=== PATIENT | female | born 1985 | race Caucasian/White ===

== ENCOUNTER 2017-05-22 21:03 | Emergency (ER) | payer OTHER ==
[~2017-05-22] VITALS: Ht 165.1 cm; Wt 80.0 kg
[~2017-05-22 21:03] MED LIST: BACT800T5 PO; BENZ0.5T PO; BUSP5TAB3 PO; HALO5 PO; HYDR50CA PO; IBUP800 PO; PRIS50TA PO; ZITH250T PO; ZITHTAB PO
[2017-05-22 22:00] VITALS: BP 131/70; PULSE 78; RESP 18; TEMP 98; O2SAT 98
--- NOTE | 2017-05-22 22:54 | PD ---
HPI Chief Complaint: Psychiatric Symptoms Time Seen by Provider: 22:36 Travel History International Travel<30 days: No Contact w/Intl Traveler<30days: No Traveled to known affect area: No History of Present Illness HPI This is a 32 year old female who presents to the emergency department with a history of schizoaffective disorder who was placed under a Sampson Act because her mother reports that she said she was going to light herself on fire. The patient adamantly denies that. She denies any thoughts of hurting herself or others. She doesn't want to be here. She does acknowledge that she has been out of her medications for 2 days. PFSH Past Medical History Asthma: Yes Bipolar Disorder: Yes Anxiety: Yes Depression: Yes Cancer: No Cardiovascular Problems: No Chest Pain: Yes ("WITH ANXIETY") Cerebrovascular Accident: Yes ("MINI", PER MOTHER.) Diabetes: No Diminished Hearing: No Endocrine: Yes Gastrointestinal Disorders: No Genitourinary: No Headaches: No Immune Disorder: No Implanted Vascular Access Dvce: No Musculoskeletal: No Neurologic: Yes (TBI when 16) Psychiatric: Yes Reproductive: No Respiratory: Yes Immunizations Current: Yes Schizophrenia: Yes Seizures: No Sickle Cell Disease: No Sleep Apnea: No Thyroid Disease: Yes (HYPOTHYROID) Tetanus Vaccination: > 5 Years Influenza Vaccination: No ?: Not LMP: 05/12/17 Menopausal: No : 1 Para: 0 Miscarriage: 1 Past Surgical History AICD: No Body Medical Devices: NONE Insulin Pump: No Joint Replacement: No Neurologic Surgery: No Oral Surgery: Yes Pacemaker: No Tonsillectomy: Yes Other Surgery: Yes (brain surgery- traumatic brain injury when 16) Social History Alcohol Use: No Tobacco Use: Yes (1-2 PPW) Substance Use: No Allergies-Medications (Allergen,Severity, Reaction): Coded Allergies: codeine (Verified Allergy, Severe, RASH/SHOB, 05/22/17) escitalopram (Verified Allergy, Severe, UNKNOWN REACTION, 05/22/17) penicillin G (Verified Allergy, Severe, UNKNOWN REACTION, 05/22/17) temazepam (Verified Allergy, Severe, Shortness of Breath and Hives, 05/22/17 ) sulfamethoxazole (Verified Allergy, Intermediate, 05/22/17) trimethoprim (Verified Allergy, Intermediate, 05/22/17) clindamycin (Verified Adverse Reaction, Intermediate, 05/22/17) PER MOM aripiprazole (Verified Adverse Reaction, Unknown, 05/22/17) Per patient's mother - Fatou [facility] [phone]. quetiapine (Verified Adverse Reaction, Unknown, 05/22/17) Per patient's mother - Fatou [facility] [phone]. Reported Meds & Prescriptions Reported Meds & Active Scripts Active Active Prescriptions or Reported Medications Unobtainable Review of Systems Except as stated in HPI: all other systems reviewed are Neg Physical Exam Narrative GENERAL:Well appearing, no acute distress SKIN: Focused skin assessment warm and dry. HEAD: Atraumatic. Normocephalic. EYES: Pupils equal and round. No injection or drainage. ENT: Moist mucous membranes NECK: Trachea midline. CARDIOVASCULAR: Regular rate and rhythm. No murmur appreciated. RESPIRATORY: Clear to auscultation. Breath sounds equal bilaterally. GASTROINTESTINAL: Abdomen soft, non-tender, nondistended. MUSCULOSKELETAL: No obvious deformities. NEUROLOGICAL: Awake and alert. No obvious cranial nerve deficits. Moving all extremities. PSYCHIATRIC: Appropriate mood and affect; insight and judgment normal. Data Data Last Documented VS Vital Signs Date Time Temp Pulse Resp B/P (MAP) Pulse Ox O2 Delivery O2 Flow Rate FiO2 05/23/17 00:33 70 18 128/70 (89) 99 Room Air 05/22/17 22:00 98.0 Orders Orders Complete Blood Count With Diff (05/22/17 22:57) Comprehensive Metabolic Panel (05/22/17 22:57) Drug Screen, Random Urine (05/22/17 22:57) Alcohol (Ethanol) (05/22/17 22:57) Psych Screen (05/23/17 00:28) Labs Laboratory Tests Test 05/22/17 23:26 White Blood Count 8.6 TH/MM3 Red Blood Count 4.71 MIL/MM3 Hemoglobin 12.9 GM/DL Hematocrit 39.2 % Mean Corpuscular Volume 83.3 FL Mean Corpuscular Hemoglobin 27.5 PG Mean Corpuscular Hemoglobin Concent 33.0 % Red Cell Distribution Width 13.9 % Platelet Count 299 TH/MM3 Mean Platelet Volume 7.1 FL Neutrophils (%) (Auto) 52.4 % Lymphocytes (%) (Auto) 36.5 % Monocytes (%) (Auto) 8.4 % Eosinophils (%) (Auto) 1.7 % Basophils (%) (Auto) 1.0 % Neutrophils # (Auto) 4.5 TH/MM3 Lymphocytes # (Auto) 3.1 TH/MM3 Monocytes # (Auto) 0.7 TH/MM3 Eosinophils # (Auto) 0.1 TH/MM3 Basophils # (Auto) 0.1 TH/MM3 CBC Comment DIFF FINAL Differential Comment Blood Urea Nitrogen 11 MG/DL Creatinine 0.84 MG/DL Random Glucose 94 MG/DL Total Protein 7.1 GM/DL Albumin 3.7 GM/DL Calcium Level 9.0 MG/DL Alkaline Phosphatase 117 U/L Aspartate Amino Transf (AST/SGOT) 16 U/L Alanine Aminotransferase (ALT/SGPT) 30 U/L Total Bilirubin 0.3 MG/DL Sodium Level 141 MEQ/L Potassium Level 3.7 MEQ/L Chloride Level 106 MEQ/L Carbon Dioxide Level 28.2 MEQ/L Anion Gap 7 MEQ/L Estimat Glomerular Filtration Rate 79 ML/MIN Urine Opiates Screen NEG Urine Barbiturates Screen NEG Urine Amphetamines Screen NEG Urine Benzodiazepines Screen NEG Urine Cocaine Screen NEG Urine Cannabinoids Screen NEG Ethyl Alcohol Level LESS THAN 3 MG/DL MDM Medical Decision Making Medical Screen Exam Complete: Yes Emergency Medical Condition: Yes Interpretation(s) Afebrile, no tachycardia, normotensive No leukocytosis Electrolytes are reassuring Drug screen is negative Alcohols negative Differential Diagnosis Depression, adjustment reaction, traumatic brain injury Narrative Course This is a 32-year-old female who presents to the emergency department having reportedly told her mom that she was going to burn herself. She's been off of her psychiatric medicines for 2 weeks. I tried to call the patient's mother but she didn't answer. The patient denies any suicidal ideation and appears quite well. I think she can probably go home in the morning after psychiatric evaluation, but we should corroborate what exactly happened with her mother. Scripts Unable to Obtain Active Prescriptions or Reported Meds Brenda Azul MD May 22, 2017 22:54
[2017-05-22 23:43] LABS: AUTOMATED NEUTROPHIL # 4.5 TH/MM3 (1.8-7.7); BASOPHIL # 0.1 TH/MM3 (0-0.2); EOSINOPHIL # 0.1 TH/MM3 (0-0.4); EOSINOPHIL % 1.7 % (0.0-4.0); HEMATOCRIT 39.2 % (35.0-46.0); HEMO FLAGS DIFF FINAL; LYMPH % 36.5 % (9.0-44.0); LYMPHOCYTE # 3.1 TH/MM3 (1.0-4.8); MEAN CELL VOLUME 83.3 FL (80.0-100.0); MEAN CORPUSCULAR HEMOGLOBIN 27.5 PG (27.0-34.0); MONO % 8.4 % (0.0-8.0); NEUT % 52.4 % (16.0-70.0); PLATELET COUNT 299 TH/MM3 (150-450); RED BLOOD COUNT 4.71 MIL/MM3 (4.00-5.30); RED CELL DISTRIBUTION WIDTH 13.9 % (11.6-17.2); WHITE BLOOD COUNT 8.6 TH/MM3 (4.0-11.0)
[2017-05-23 00:24] LABS: ALKALINE PHOSPHATASE 117 U/L (45-117); ALT (GPT) 30 U/L (10-53); AST (GOT) 16 U/L (15-37); BLOOD UREA NITROGEN 11 MG/DL (7-18); GLOMERULAR FILTRATION RATE 79 ML/MIN (>89); SODIUM (NA) 141 MEQ/L (136-145); TOTAL BILIRUBIN ADULT 0.3 MG/DL (0.2-1.0)
[2017-05-23 00:25] LABS: ALCOHOL LESS THAN 3 MG/DL (0-5); ANION GAP 7 MEQ/L (5-15); BICARBONATE 28.2 MEQ/L (21.0-32.0); CHLORIDE 106 MEQ/L (98-107); POTASSIUM 3.7 MEQ/L (3.5-5.1)
[2017-05-23 00:33] VITALS: BP 128/70; PULSE 70; RESP 18; O2SAT 99
[2017-05-23 07:19] VITALS: BP 105/63; PULSE 80; RESP 19; TEMP 98; O2SAT 100
[2017-05-23 10:51] VITALS: BP 105/63
[2017-05-23 12:47] VITALS: BP 115/67; PULSE 79; RESP 18; O2SAT 96
--- NOTE | 2017-05-23 13:55 | PD ---
History of Present Illness Chief Complaint: Psychiatric Symptoms Time Seen by Provider: 13:45 Travel History International Travel<30 Days: No Contact w/Intl Traveler<30days: No Known affected area: No Legal Status Legal Status: Sampson Act Sampson Act Signed By: Sherita Aviles Sampson Act Comment: 2016 @ 2058 History of Present Illness: 32-year-old female brought in under a Sampson act that was initiated by her mother. Reportedly the patient threatened to set herself on fire. Patient denies this. Patient denies any suicidal or homicidal ideation, plan or intent. Patient is verbally marshall for safety and she is competent to do so. She demonstrates no psychotic symptoms and her cognition appears to be baseline. Patient reportedly has a history of traumatic brain injury. She also reportedly has a history of schizoaffective disorder. This physician does not see significant objective clinical evidence of the latter at this time. Patient is calm pleasant and cooperative. Patient's mother was contacted and she is willing to accept patient at home. PFSH Past Medical History Asthma: Yes Bipolar Disorder: Yes Anxiety: Yes Depression: Yes Cancer: No Cardiovascular Problems: No Chest Pain: Yes ("WITH ANXIETY") Cerebrovascular Accident: Yes ("MINI", PER MOTHER.) Diabetes: No Diminished Hearing: No Endocrine: Yes Gastrointestinal Disorders: No Genitourinary: No Headaches: No Immune Disorder: No Implanted Vascular Access Dvce: No Musculoskeletal: No Neurologic: Yes (TBI when 16) Psychiatric: Yes Reproductive: No Respiratory: Yes Immunizations Current: Yes Schizophrenia: Yes Seizures: No Sickle Cell Disease: No Sleep Apnea: No Thyroid Disease: Yes (HYPOTHYROID) Tetanus Vaccination: > 5 Years Influenza Vaccination: No ?: Not LMP: 05/12/17 Menopausal: No : 1 Para: 0 Miscarriage: 1 Past Surgical History AICD: No Body Medical Devices: NONE Insulin Pump: No Joint Replacement: No Neurologic Surgery: No Oral Surgery: Yes Pacemaker: No Tonsillectomy: Yes Other Surgery: Yes (brain surgery- traumatic brain injury when 16) Psychiatric History Psychiatric History Hx Psychiatric Treatment: per hx..Multiple in-patient hospitalizations at [facility] and [facility] in [place]. History of Inpatient Treatment: Yes Guns or firearms in home: No Social History Hx Alcohol Use: No Hx Tobacco Use: Yes (1-2 PPW) Hx Substance Use: No Substance Use Type: Nicotine/Cigarettes Other Substances Used: 5-8 cigarettes a day Hx of Substance Use Treatment: No Allergies-Medications (Allergen,Severity, Reaction): Coded Allergies: codeine (Verified Allergy, Severe, RASH/SHOB, 05/22/17) escitalopram (Verified Allergy, Severe, UNKNOWN REACTION, 05/22/17) penicillin G (Verified Allergy, Severe, UNKNOWN REACTION, 05/22/17) temazepam (Verified Allergy, Severe, Shortness of Breath and Hives, 05/22/17 ) sulfamethoxazole (Verified Allergy, Intermediate, 05/22/17) trimethoprim (Verified Allergy, Intermediate, 05/22/17) clindamycin (Verified Adverse Reaction, Intermediate, 05/22/17) PER MOM aripiprazole (Verified Adverse Reaction, Unknown, 05/22/17) Per patient's mother - Fatou [facility] [phone]. quetiapine (Verified Adverse Reaction, Unknown, 05/22/17) Per patient's mother - Fatou [facility] [phone]. Reported Meds & Prescriptions Reported Meds & Active Scripts Active Active Prescriptions or Reported Medications Unobtainable Review of Systems Except as stated in HPI: all other systems reviewed are Neg Exam Alert: Yes [place]: Person, Place, Date, Situation Mood: Calm Affect: Appropriate Speech: Clear Eye Contact: Normal Memory Intact: Immediate, Recent, Remote Insight/Judgement Adequate MDM Medical Decision Making Medical Record Reviewed: Yes Assessment/Plan Patient interviewed at bedside with Jose Angel spencer, and chart was reviewed. Patient is verbally marshall for safety and she is competent to do so. No history of alcohol or drug abuse. Mother willing to accept patient at home. Patient wants to go home and take her medicine. Least restrictive alternative applies. Orders Orders Complete Blood Count With Diff (05/22/17 22:57) Comprehensive Metabolic Panel (05/22/17 22:57) Drug Screen, Random Urine (05/22/17 22:57) Alcohol (Ethanol) (05/22/17 22:57) Psych Screen (05/23/17 00:28) Diet Regular Basic (05/23/17 Breakfast) Diet Regular Basic (05/23/17 Dinner) Results Vital Signs Date Time Temp Pulse Resp B/P (MAP) Pulse Ox O2 Delivery O2 Flow Rate FiO2 05/23/17 12:47 79 18 115/67 (83) 96 05/23/17 10:51 105/63 (77) 05/23/17 07:19 98.0 80 19 105/63 (77) 100 Room Air 05/23/17 07:19 80 19 05/23/17 00:33 70 18 128/70 (89) 99 Room Air 05/22/17 22:00 98.0 78 18 131/70 (90) 98 Room Air Laboratory Tests Test 05/22/17 23:26 White Blood Count 8.6 Red Blood Count 4.71 Hemoglobin 12.9 Hematocrit 39.2 Mean Corpuscular Volume 83.3 Mean Corpuscular Hemoglobin 27.5 Mean Corpuscular Hemoglobin Concent 33.0 Red Cell Distribution Width 13.9 Platelet Count 299 Mean Platelet Volume 7.1 Neutrophils (%) (Auto) 52.4 Lymphocytes (%) (Auto) 36.5 Monocytes (%) (Auto) 8.4 Eosinophils (%) (Auto) 1.7 Basophils (%) (Auto) 1.0 Neutrophils # (Auto) 4.5 Lymphocytes # (Auto) 3.1 Monocytes # (Auto) 0.7 Eosinophils # (Auto) 0.1 Basophils # (Auto) 0.1 CBC Comment DIFF FINAL Differential Comment Blood Urea Nitrogen 11 Creatinine 0.84 Random Glucose 94 Total Protein 7.1 Albumin 3.7 Calcium Level 9.0 Alkaline Phosphatase 117 Aspartate Amino Transf (AST/SGOT) 16 Alanine Aminotransferase (ALT/SGPT) 30 Total Bilirubin 0.3 Sodium Level 141 Potassium Level 3.7 Chloride Level 106 Carbon Dioxide Level 28.2 Anion Gap 7 Estimat Glomerular Filtration Rate 79 Urine Opiates Screen NEG Urine Barbiturates Screen NEG Urine Amphetamines Screen NEG Urine Benzodiazepines Screen NEG Urine Cocaine Screen NEG Urine Cannabinoids Screen NEG Ethyl Alcohol Level LESS THAN 3 Diagnosis Primary Impression: Adjustment disorder with mixed disturbance of emotions and conduct Prescriptions Unable to Obtain Active Prescriptions or Reported Meds Jose Farr MD May 23, 2017 13:55
--- NOTE | 2017-05-23 14:07 | PD ---
Physical Exam Time Seen by Provider: 14:[address] Farr has evaluated the patient and lifted the Sampson act and the patient will be discharged home. Data Data Last Documented VS Vital Signs Date Time Temp Pulse Resp B/P (MAP) Pulse Ox O2 Delivery O2 Flow Rate FiO2 05/23/17 12:47 79 18 115/67 (83) 96 05/23/17 07:19 98.0 Room Air Orders Orders Complete Blood Count With Diff (05/22/17 22:57) Comprehensive Metabolic Panel (05/22/17 22:57) Drug Screen, Random Urine (05/22/17 22:57) Alcohol (Ethanol) (05/22/17 22:57) Psych Screen (05/23/17 00:28) Diet Regular Basic (05/23/17 Breakfast) Diet Regular Basic (05/23/17 Dinner) Labs Laboratory Tests Test 05/22/17 23:26 White Blood Count 8.6 TH/MM3 Red Blood Count 4.71 MIL/MM3 Hemoglobin 12.9 GM/DL Hematocrit 39.2 % Mean Corpuscular Volume 83.3 FL Mean Corpuscular Hemoglobin 27.5 PG Mean Corpuscular Hemoglobin Concent 33.0 % Red Cell Distribution Width 13.9 % Platelet Count 299 TH/MM3 Mean Platelet Volume 7.1 FL Neutrophils (%) (Auto) 52.4 % Lymphocytes (%) (Auto) 36.5 % Monocytes (%) (Auto) 8.4 % Eosinophils (%) (Auto) 1.7 % Basophils (%) (Auto) 1.0 % Neutrophils # (Auto) 4.5 TH/MM3 Lymphocytes # (Auto) 3.1 TH/MM3 Monocytes # (Auto) 0.7 TH/MM3 Eosinophils # (Auto) 0.1 TH/MM3 Basophils # (Auto) 0.1 TH/MM3 CBC Comment DIFF FINAL Differential Comment Blood Urea Nitrogen 11 MG/DL Creatinine 0.84 MG/DL Random Glucose 94 MG/DL Total Protein 7.1 GM/DL Albumin 3.7 GM/DL Calcium Level 9.0 MG/DL Alkaline Phosphatase 117 U/L Aspartate Amino Transf (AST/SGOT) 16 U/L Alanine Aminotransferase (ALT/SGPT) 30 U/L Total Bilirubin 0.3 MG/DL Sodium Level 141 MEQ/L Potassium Level 3.7 MEQ/L Chloride Level 106 MEQ/L Carbon Dioxide Level 28.2 MEQ/L Anion Gap 7 MEQ/L Estimat Glomerular Filtration Rate 79 ML/MIN Urine Opiates Screen NEG Urine Barbiturates Screen NEG Urine Amphetamines Screen NEG Urine Benzodiazepines Screen NEG Urine Cocaine Screen NEG Urine Cannabinoids Screen NEG Ethyl Alcohol Level LESS THAN 3 MG/DL MDM Supervised Visit with JACQUI: No Narrative Course Dr. Farr has evaluated the patient and lifted the Sampson act and the patient will be discharged home. She denies history of traumatic brain injury and Dr. cSales feels this is more related to poor impulse control. She has no psychiatric history. She is going home with her mom and her mom is comfortable taking her home and wants to take her home. She is provided with a list of psychiatrists to follow-up with outpatient. She contracts for safety and denies suicidal or homicidal ideations at this time. Patient is medically stable for discharge. Diagnosis Primary Impression: Adjustment disorder with mixed disturbance of emotions and conduct Referrals: Primary Care Physician Psychiatrist [facility] Patient Instructions: General Instructions, Mood Disorders (ED) Additional Instruction: Contract safety to your self and others Follow-up with psychiatry Follow-up with primary care provider Follow-up with Abhay Leblanc Return to the emergency department immediately with worsening of symptoms Med/Other Pt SpecificInfo: No Change to Meds, No Meds Exist/No RX given Scripts Unable to Obtain Active Prescriptions or Reported Meds Disposition: 01 DISCHARGE HOME Condition: Stable Tory Ramsey May 23, 2017 14:07
[2017-05-23 14:11] VITALS: BP 115/67; PULSE 79; RESP 18; O2SAT 96
[2017-06-20] MEDS ORDERED: ZYPR10TA PO (12:49)
== END 2017-05-23 18:31 | disposition home or self-care (01) ==
LOC: NEPD 21:03 → NEPJ 05-23 18:31
DX: F43.25 Adjustment disorder with mixed disturbance of emotions and conduct (principal); F17.210 Nicotine dependence, cigarettes, uncomplicated
CPT/HCPCS: 80053; 80307; 85025; 99284

== ENCOUNTER 2017-06-05 13:39 | Emergency (ER) | payer OTHER ==
[~2017-06-05] VITALS: Ht 167.6 cm; Wt 90.0 kg
[2017-06-05 13:50] VITALS: BP 112/72; PULSE 85; RESP 16; TEMP 97.3; O2SAT 98
[2017-06-05 14:17] LABS: BACTERIA, URINE MANY /hpf; BLOOD, URINE NEG (NEG); GLUCOSE,URINE NEG (NEG); GRANULAR CAST, URINE 1 /lpf; HYALINE CAST, URINE 4 /lpf (RARE); KETONE, URINE NEG (NEG); MUCUS URINE FEW /lpf (OCC); NITRITE,URINE NEG (NEG); SQUAMOUS EPITHELIAL CELL URINE 6 /hpf (0-5); URINE COLOR YELLOW (YELLW/STRAW)
[2017-06-05 14:23] LABS: COMMENT (UR) CULTURE INDICATED; CULTURE IF INDICATED CULTURE INDICATED
[2017-06-05 14:33] LABS: BASOPHIL % 0.3 % (0.0-2.0); EOSINOPHIL # 0.1 TH/MM3 (0-0.4); EOSINOPHIL % 0.6 % (0.0-4.0); HEMATOCRIT 39.7 % (35.0-46.0); HEMO FLAGS DIFF FINAL; LYMPH % 18.9 % (9.0-44.0); LYMPHOCYTE # 2.1 TH/MM3 (1.0-4.8); MEAN CORPUSCULAR HEMOGLOBIN 27.8 PG (27.0-34.0); MEAN CORPUSCULAR HGB CONC 33.5 % (32.0-36.0); MONO % 7.5 % (0.0-8.0); NEUT % 72.7 % (16.0-70.0); PLATELET COUNT 270 TH/MM3 (150-450); RED BLOOD COUNT 4.79 MIL/MM3 (4.00-5.30); RED CELL DISTRIBUTION WIDTH 14.2 % (11.6-17.2)
--- NOTE | 2017-06-05 14:34 | PD ---
HPI Chief Complaint: psychiatric symptoms Time Seen by Provider: 14:10 Travel History International Travel<30 days: No Contact w/Intl Traveler<30days: No Traveled to known affect area: No History of Present Illness HPI 32-year-old female brought to the emergency department as a Adrián aparicio. Patient has a well-documented psychiatric history. The information officer that adrián acted her was familiar with her and stated in the last 5 years she has never become physically aggressive with him but today she was. The patient's mother called the police this morning when the patient started making statements that she was going to jump in front of a moving vehicle and started hitting herself in the face. Patient has a history of schizophrenia and TBI. Patient was physically aggressive and crying loudly during the physical exam. Security was called to bedside to assist with exam. Patient was noncooperative but did state she vomited earlier today and denied chest pain, shortness breath or headaches. PFSH Past Medical History Asthma: Yes Bipolar Disorder: Yes Anxiety: Yes Depression: Yes Cancer: No Cardiovascular Problems: No Chest Pain: Yes ("WITH ANXIETY") Cerebrovascular Accident: Yes ("MINI", PER MOTHER.) Diabetes: No Diminished Hearing: No Endocrine: Yes Gastrointestinal Disorders: No Genitourinary: No Headaches: No Immune Disorder: No Implanted Vascular Access Dvce: No Musculoskeletal: No Neurologic: Yes (TBI when 16) Psychiatric: Yes Reproductive: No Respiratory: Yes Immunizations Current: Yes Schizophrenia: Yes Seizures: No Sickle Cell Disease: No Sleep Apnea: No Thyroid Disease: Yes (HYPOTHYROID) Menopausal: No : 1 Para: 0 Miscarriage: 1 Past Surgical History AICD: No Body Medical Devices: NONE Insulin Pump: No Joint Replacement: No Neurologic Surgery: No Oral Surgery: Yes Pacemaker: No Tonsillectomy: Yes Other Surgery: Yes (brain surgery- traumatic brain injury when 16) Social History Alcohol Use: No Tobacco Use: Yes (1-2 PPW) Substance Use: No Allergies-Medications (Allergen,Severity, Reaction): Coded Allergies: codeine (Verified Allergy, Severe, RASH/SHOB, 05/22/17) escitalopram (Verified Allergy, Severe, UNKNOWN REACTION, 05/22/17) penicillin G (Verified Allergy, Severe, UNKNOWN REACTION, 05/22/17) temazepam (Verified Allergy, Severe, Shortness of Breath and Hives, 05/22/17 ) sulfamethoxazole (Verified Allergy, Intermediate, 05/22/17) trimethoprim (Verified Allergy, Intermediate, 05/22/17) clindamycin (Verified Adverse Reaction, Intermediate, 05/22/17) PER MOM aripiprazole (Verified Adverse Reaction, Unknown, 05/22/17) Per patient's mother - Fatou [facility] [phone]. quetiapine (Verified Adverse Reaction, Unknown, 05/22/17) Per patient's mother - Fatou [facility] [phone]. Reported Meds & Prescriptions Reported Meds & Active Scripts Active Active Prescriptions or Reported Medications Unobtainable Review of Systems ROS Limitations: Uncooperative, Combative Except as stated in HPI: all other systems reviewed are Neg Physical Exam Exam Limitations: Uncooperative, Combative Narrative GENERAL: Well-nourished well-developed 32-year-old female crying loudly with impetuous behavior. SKIN: Focused skin assessment warm/dry. HEAD: Atraumatic. Normocephalic. EYES: Pupils equal and round. No scleral icterus. No injection or drainage. ENT: No nasal bleeding or discharge. Mucous membranes pink and moist. NECK: Trachea midline. No JVD. CARDIOVASCULAR: Regular rate and rhythm. No murmur appreciated. RESPIRATORY: No accessory muscle use. Clear to auscultation. Breath sounds equal bilaterally. GASTROINTESTINAL: Abdomen obese, soft, non-tender, nondistended. Hepatic and splenic margins not palpable. MUSCULOSKELETAL: No obvious deformities. No clubbing. No cyanosis. No edema. NEUROLOGICAL: Awake and alert. No obvious cranial nerve deficits. Motor grossly within normal limits. Speech reflects possible mental delay. PSYCHIATRIC: Patient crying loudly. Impetuous behavior. Behavior reflects possible mental delay. Data Data Last Documented VS Vital Signs Date Time Temp Pulse Resp B/P (MAP) Pulse Ox O2 Delivery O2 Flow Rate FiO2 06/05/17 13:50 97.3 85 16 112/72 (85) 98 Orders Orders Complete Blood Count With Diff (06/05/17 13:50) Comprehensive Metabolic Panel (06/05/17 13:50) Urinalysis - C+S If Indicated (06/05/17 13:50) Psych Screen (06/05/17 13:50) Drug Screen, Random Urine (06/05/17 13:50) Alcohol (Ethanol) (06/05/17 13:50) Ed Urine Pregnancytest Poc (06/05/17 14:05) Urine Culture (06/05/17 14:00) Olanzapine Odt (Zyprexa Zydis Odt) (06/05/17 14:45) Labs Laboratory Tests Test 06/05/17 14:00 06/05/17 14:10 Urine Color YELLOW Urine Turbidity HAZY Urine pH 6.0 Urine Specific [place] 1.013 Urine Protein TRACE mg/dL Urine Glucose (UA) NEG mg/dL Urine Ketones NEG mg/dL Urine Occult Blood NEG Urine Nitrite NEG Urine Bilirubin NEG Urine Urobilinogen LESS THAN 2.0 MG/DL Urine Leukocyte Esterase NEG Urine RBC 1 /hpf Urine WBC 4 /hpf Urine Squamous Epithelial Cells 6 /hpf Urine Bacteria MANY /hpf Urine Hyaline Casts 4 /lpf Urine Granular Casts 1 /lpf Urine Mucus FEW /lpf Microscopic Urinalysis Comment CULTURE INDICATED Urine Opiates Screen NEG Urine Barbiturates Screen NEG Urine Amphetamines Screen NEG Urine Benzodiazepines Screen NEG Urine Cocaine Screen NEG Urine Cannabinoids Screen NEG White Blood Count 11.0 TH/MM3 Red Blood Count 4.79 MIL/MM3 Hemoglobin 13.3 GM/DL Hematocrit 39.7 % Mean Corpuscular Volume 83.0 FL Mean Corpuscular Hemoglobin 27.8 PG Mean Corpuscular Hemoglobin Concent 33.5 % Red Cell Distribution Width 14.2 % Platelet Count 270 TH/MM3 Mean Platelet Volume 7.9 FL Neutrophils (%) (Auto) 72.7 % Lymphocytes (%) (Auto) 18.9 % Monocytes (%) (Auto) 7.5 % Eosinophils (%) (Auto) 0.6 % Basophils (%) (Auto) 0.3 % Neutrophils # (Auto) 8.0 TH/MM3 Lymphocytes # (Auto) 2.1 TH/MM3 Monocytes # (Auto) 0.8 TH/MM3 Eosinophils # (Auto) 0.1 TH/MM3 Basophils # (Auto) 0.0 TH/MM3 CBC Comment DIFF FINAL Differential Comment Blood Urea Nitrogen 7 MG/DL Creatinine 0.76 MG/DL Random Glucose 82 MG/DL Total Protein 7.6 GM/DL Albumin 4.1 GM/DL Calcium Level 9.1 MG/DL Alkaline Phosphatase 123 U/L Aspartate Amino Transf (AST/SGOT) 14 U/L Alanine Aminotransferase (ALT/SGPT) 24 U/L Total Bilirubin 1.2 MG/DL Sodium Level 138 MEQ/L Potassium Level 4.1 MEQ/L Chloride Level 105 MEQ/L Carbon Dioxide Level 26.8 MEQ/L Anion Gap 6 MEQ/L Estimat Glomerular Filtration Rate 88 ML/MIN Ethyl Alcohol Level LESS THAN 3 MG/DL MDM Medical Decision Making Medical Screen Exam Complete: Yes Emergency Medical Condition: Yes Medical Record Reviewed: Yes Differential Diagnosis Schizophrenia versus depression versus delirium versus personality disorder Narrative Course 32-year-old female presents to the emergency department as a Sampson act from a local Police Department. The police were called patient's home this morning by the patient's mother when the patient started making statements regarding her jumping in front of a moving vehicle and hitting herself in the head. The information officer who the patient and has been called to the home multiple times in the last 5 years. The information officer stated the patient has never been physically aggressive with them but today she was. Patient has an extensive psychiatric history including schizophrenia and TBI. The patient's mother states that he should has not been taking her medication as prescribed. CBC, CMP, UA, drug screen, alcohol level and POC test ordered and pending. Psych eval ordered and pending. CBC shows no acute abnormality, CMP shows no acute abnormality, UA shows many bacteria and mucus with culture indicated and pending, DRUG SCREEN negative, ALCOHOL LEVEL LESS than 3, POC PREG TEST negative Awaiting psych screening. Medically clear at this time. Diagnosis Primary Impression: Medical clearance for psychiatric admission Scripts Unable to Obtain Active Prescriptions or Reported Meds Condition: Stable DayronAshlieyemi BAILEY Jun 05, 2017 14:34
[2017-06-05] MEDS ORDERED: OLANZapine ODT 10 MG TAB PO ONE (14:45)
[2017-06-05 14:54] LABS: ANION GAP 6 MEQ/L (5-15); AST (GOT) 14 U/L (15-37); BICARBONATE 26.8 MEQ/L (21.0-32.0); BLOOD UREA NITROGEN 7 MG/DL (7-18); CHLORIDE 105 MEQ/L (98-107); GLOMERULAR FILTRATION RATE 88 ML/MIN (>89); POTASSIUM 4.1 MEQ/L (3.5-5.1); SODIUM (NA) 138 MEQ/L (136-145)
[2017-06-05 14:56] LABS: ALKALINE PHOSPHATASE 123 U/L (45-117); ALT (GPT) 24 U/L (10-53); TOTAL BILIRUBIN ADULT 1.2 MG/DL (0.2-1.0)
[2017-06-05 15:08] LABS: ALCOHOL LESS THAN 3 MG/DL (0-5)
[2017-06-05 18:50] VITALS: BP 105/56; PULSE 89; RESP 20; TEMP 97.5; O2SAT 99
[2017-06-05 22:11] VITALS: BP_SYST 131; BP_SYST 141; BP_DIAS 52; BP_DIAS 79; PULSE 50; PULSE 77; RESP 18; TEMP 98.8; TEMP 98.9; O2SAT 99
[2017-06-06 02:00] VITALS: BP 114/66; PULSE 82; RESP 18; TEMP 97.7; O2SAT 97
[2017-06-06 06:23] VITALS: BP 110/56; PULSE 82; RESP 18
--- NOTE | 2017-06-06 10:24 | PD ---
History of Present Illness Chief Complaint: Psychiatric Symptoms Time Seen by Provider: 10:10 Travel History International Travel<30 Days: No Contact w/Intl Traveler<30days: No Known affected area: No Legal Status Legal Status: Sampson Act Sampson Act Signed By: Sherita Sampson Act Comment: Ofc. Price #[id number] History of Present Illness: History of Present Illness 32-year-old female with record history of schizoaffective disorder, TBI as per her mother , who is brought to the emergency department as a Sampson act initiated by law enforcement. The patient's mother called the police this morning when the patient started making statements that she was going to jump in front of a moving vehicle and started hitting herself in the face. The patient reports that she was arguing with her mother over going to the beach. However she denies that she ever said anything about hurting herself Patient was physically aggressive and crying loudly during the physical exam in the ED and required ETO of Zyprexa with good results . Patient seen. Record. Reviewed. Her last psychiatric admission was in January of 2016 under the care of Dr. Sellers. She has been calm and appropriate while in J pod. Patient is alert, oriented , obese female , wearing hospital gown with poor hygiene. She denies any hallucinations and does not appear internally preoccupied. There is no yue. She denies any suicidal or homicidal ideation intent.She is requesting discharge and wants to go home. PFSH Past Medical History Asthma: Yes Bipolar Disorder: Yes Anxiety: Yes Depression: Yes Cancer: No Cardiovascular Problems: No Chest Pain: Yes ("WITH ANXIETY") Cerebrovascular Accident: Yes ("MINI", PER MOTHER.) Diabetes: No Diminished Hearing: No Endocrine: Yes Gastrointestinal Disorders: No Genitourinary: No Headaches: No Immune Disorder: No Implanted Vascular Access Dvce: No Musculoskeletal: No Neurologic: Yes (TBI when 16) Psychiatric: Yes Reproductive: No Respiratory: Yes Immunizations Current: Yes Schizophrenia: Yes Seizures: No Sickle Cell Disease: No Sleep Apnea: No Thyroid Disease: Yes (HYPOTHYROID) ?: Not Menopausal: No : 1 Para: 0 Miscarriage: 1 Past Surgical History AICD: No Body Medical Devices: NONE Insulin Pump: No Joint Replacement: No Neurologic Surgery: No Oral Surgery: Yes Pacemaker: No Tonsillectomy: Yes Other Surgery: Yes (brain surgery- traumatic brain injury when 16) Psychiatric History Psychiatric History Hx Psychiatric Treatment: Schizophrenia, TBI, intermittent explosive disorder, psychosis History of Inpatient Treatment: Yes Guns or firearms in home: No Social History Single female, lives with her mother. Completed 10th grade. Hx Alcohol Use: No Hx Tobacco Use: Yes (1-2 PPW) Hx Substance Use: Yes (1 ppd smoker) Substance Use Type: Nicotine/Cigarettes Other Substances Used: 5-8 cigarettes a day Hx of Substance Use Treatment: No Family Psychiatric History None reported Allergies-Medications (Allergen,Severity, Reaction): Coded Allergies: codeine (Verified Allergy, Severe, RASH/SHOB, 05/22/17) escitalopram (Verified Allergy, Severe, UNKNOWN REACTION, 05/22/17) penicillin G (Verified Allergy, Severe, UNKNOWN REACTION, 05/22/17) temazepam (Verified Allergy, Severe, Shortness of Breath and Hives, 05/22/17 ) sulfamethoxazole (Verified Allergy, Intermediate, 05/22/17) trimethoprim (Verified Allergy, Intermediate, 05/22/17) clindamycin (Verified Adverse Reaction, Intermediate, 05/22/17) PER MOM aripiprazole (Verified Adverse Reaction, Unknown, 05/22/17) Per patient's mother - Fatou [facility] [phone]. quetiapine (Verified Adverse Reaction, Unknown, 05/22/17) Per patient's mother - Fatou [facility] [phone]. Reported Meds & Prescriptions Reported Meds & Active Scripts Active Active Prescriptions or Reported Medications Unobtainable Review of Systems Except as stated in HPI: all other systems reviewed are Neg Exam Alert: Yes [place]: Person (ox4) Mood: Calm (Although she gets agitated if she doesn't get what she wants) Affect: Appropriate Speech: Clear, Logical Eye Contact: Normal Memory Intact: Comment (Not formally tetsted) Hallucinations: Other (Negative) Delusions: No Suicidal: Ideation (Negative) Homicidal: Ideation (Negative) Insight/Judgement Poor. Not impaired. MDM Medical Decision Making Medical Record Reviewed: Yes Assessment/Plan 32-year-old female with record history of schizoaffective disorder, TBI who is brought to the emergency department as a Sampson act initiated by law enforcement. The patient's mother called the police this morning when the patient started making statements that she was going to jump in front of a moving vehicle and started hitting herself in the face. Patient was physically aggressive and crying loudly during the physical exam in the ED and required ETO of Zyprexa with good results . She was monitored in J pod over twenty hours with no behavioral concerns. At this time she is requesting discharge and she does not meet Sampson act criteria. She wants to go home so that " I can have a cigarette." .Patient with TBI and demonstrates some behaviors associated with such. It was reported by staff that mother is requesting for patient to get a prescription of Adderall, Xanax as well as Valium but this may be better accomplished on an outpatient basis. Patient is psychiatrically clear for discharge. Sampson act is lifted. Will provide numbers of area psychiatrist for outpatient treatment. Orders Orders Complete Blood Count With Diff (06/05/17 13:50) Comprehensive Metabolic Panel (06/05/17 13:50) Urinalysis - C+S If Indicated (06/05/17 13:50) Psych Screen (06/05/17 13:50) Drug Screen, Random Urine (06/05/17 13:50) Alcohol (Ethanol) (06/05/17 13:50) Ed Urine Pregnancytest Poc (06/05/17 14:05) Urine Culture (06/05/17 14:00) Olanzapine Odt (Zyprexa Zydis Odt) (06/05/17 14:45) Diet Regular Basic (06/05/17 Dinner) Diet Regular Basic (06/06/17 Breakfast) Results Vital Signs Date Time Temp Pulse Resp B/P (MAP) Pulse Ox O2 Delivery O2 Flow Rate FiO2 06/06/17 06:23 82 18 110/56 (74) 06/06/17 02:00 97.7 82 18 114/66 (82) 97 Room Air 06/05/17 22:11 98.8 77 18 131/52 (78) 99 Room Air 06/05/17 18:50 97.5 89 20 105/56 (72) 99 Room Air 06/05/17 13:50 97.3 85 16 112/72 (85) 98 Laboratory Tests Test 06/05/17 14:00 06/05/17 14:10 Urine Color YELLOW Urine Turbidity HAZY Urine pH 6.0 Urine Specific [place] 1.013 Urine Protein TRACE Urine Glucose (UA) NEG Urine Ketones NEG Urine Occult Blood NEG Urine Nitrite NEG Urine Bilirubin NEG Urine Urobilinogen LESS THAN 2.0 Urine Leukocyte Esterase NEG Urine RBC 1 Urine WBC 4 Urine Squamous Epithelial Cells 6 Urine Bacteria MANY Urine Hyaline Casts 4 Urine Granular Casts 1 Urine Mucus FEW Microscopic Urinalysis Comment CULTURE INDICATED Urine Opiates Screen NEG Urine Barbiturates Screen NEG Urine Amphetamines Screen NEG Urine Benzodiazepines Screen NEG Urine Cocaine Screen NEG Urine Cannabinoids Screen NEG White Blood Count 11.0 Red Blood Count 4.79 Hemoglobin 13.3 Hematocrit 39.7 Mean Corpuscular Volume 83.0 Mean Corpuscular Hemoglobin 27.8 Mean Corpuscular Hemoglobin Concent 33.5 Red Cell Distribution Width 14.2 Platelet Count 270 Mean Platelet Volume 7.9 Neutrophils (%) (Auto) 72.7 Lymphocytes (%) (Auto) 18.9 Monocytes (%) (Auto) 7.5 Eosinophils (%) (Auto) 0.6 Basophils (%) (Auto) 0.3 Neutrophils # (Auto) 8.0 Lymphocytes # (Auto) 2.1 Monocytes # (Auto) 0.8 Eosinophils # (Auto) 0.1 Basophils # (Auto) 0.0 CBC Comment DIFF FINAL Differential Comment Blood Urea Nitrogen 7 Creatinine 0.76 Random Glucose 82 Total Protein 7.6 Albumin 4.1 Calcium Level 9.1 Alkaline Phosphatase 123 Aspartate Amino Transf (AST/SGOT) 14 Alanine Aminotransferase (ALT/SGPT) 24 Total Bilirubin 1.2 Sodium Level 138 Potassium Level 4.1 Chloride Level 105 Carbon Dioxide Level 26.8 Anion Gap 6 Estimat Glomerular Filtration Rate 88 Ethyl Alcohol Level LESS THAN 3 Date/Time Source Procedure Growth Status 06/05/17 14:00 Urine Clean Catch Urine Culture Pending Worksheet Diagnosis Primary Impression: Schizoaffective disorder Additional Impression: adjustment disorder Psychiatrically Cleared: Yes Prescriptions Unable to Obtain Active Prescriptions or Reported Meds Disposition: 01 DISCHARGE HOME Condition: Stable Problem Qualifiers Primary Impression: Schizoaffective disorder Qualified Codes: F25.0 - Schizoaffective disorder, bipolar type Mirian Bailey Jun 06, 2017 10:24
--- NOTE | 2017-06-06 10:39 | PD ---
Physical Exam Time Seen by Provider: 10:36 LYNN Bello, has evaluated patient, lifted the Sampson act and the patient will be discharged home. Data Data Last Documented VS Vital Signs Date Time Temp Pulse Resp B/P (MAP) Pulse Ox O2 Delivery O2 Flow Rate FiO2 06/06/17 06:23 82 18 110/56 (74) 06/06/17 02:00 97.7 97 Room Air Orders Orders Complete Blood Count With Diff (06/05/17 13:50) Comprehensive Metabolic Panel (06/05/17 13:50) Urinalysis - C+S If Indicated (06/05/17 13:50) Psych Screen (06/05/17 13:50) Drug Screen, Random Urine (06/05/17 13:50) Alcohol (Ethanol) (06/05/17 13:50) Ed Urine Pregnancytest Poc (06/05/17 14:05) Urine Culture (06/05/17 14:00) Olanzapine Odt (Zyprexa Zydis Odt) (06/05/17 14:45) Diet Regular Basic (06/05/17 Dinner) Diet Regular Basic (06/06/17 Breakfast) Labs Laboratory Tests Test 06/05/17 14:00 06/05/17 14:10 Urine Color YELLOW Urine Turbidity HAZY Urine pH 6.0 Urine Specific [place] 1.013 Urine Protein TRACE mg/dL Urine Glucose (UA) NEG mg/dL Urine Ketones NEG mg/dL Urine Occult Blood NEG Urine Nitrite NEG Urine Bilirubin NEG Urine Urobilinogen LESS THAN 2.0 MG/DL Urine Leukocyte Esterase NEG Urine RBC 1 /hpf Urine WBC 4 /hpf Urine Squamous Epithelial Cells 6 /hpf Urine Bacteria MANY /hpf Urine Hyaline Casts 4 /lpf Urine Granular Casts 1 /lpf Urine Mucus FEW /lpf Microscopic Urinalysis Comment CULTURE INDICATED Urine Opiates Screen NEG Urine Barbiturates Screen NEG Urine Amphetamines Screen NEG Urine Benzodiazepines Screen NEG Urine Cocaine Screen NEG Urine Cannabinoids Screen NEG White Blood Count 11.0 TH/MM3 Red Blood Count 4.79 MIL/MM3 Hemoglobin 13.3 GM/DL Hematocrit 39.7 % Mean Corpuscular Volume 83.0 FL Mean Corpuscular Hemoglobin 27.8 PG Mean Corpuscular Hemoglobin Concent 33.5 % Red Cell Distribution Width 14.2 % Platelet Count 270 TH/MM3 Mean Platelet Volume 7.9 FL Neutrophils (%) (Auto) 72.7 % Lymphocytes (%) (Auto) 18.9 % Monocytes (%) (Auto) 7.5 % Eosinophils (%) (Auto) 0.6 % Basophils (%) (Auto) 0.3 % Neutrophils # (Auto) 8.0 TH/MM3 Lymphocytes # (Auto) 2.1 TH/MM3 Monocytes # (Auto) 0.8 TH/MM3 Eosinophils # (Auto) 0.1 TH/MM3 Basophils # (Auto) 0.0 TH/MM3 CBC Comment DIFF FINAL Differential Comment Blood Urea Nitrogen 7 MG/DL Creatinine 0.76 MG/DL Random Glucose 82 MG/DL Total Protein 7.6 GM/DL Albumin 4.1 GM/DL Calcium Level 9.1 MG/DL Alkaline Phosphatase 123 U/L Aspartate Amino Transf (AST/SGOT) 14 U/L Alanine Aminotransferase (ALT/SGPT) 24 U/L Total Bilirubin 1.2 MG/DL Sodium Level 138 MEQ/L Potassium Level 4.1 MEQ/L Chloride Level 105 MEQ/L Carbon Dioxide Level 26.8 MEQ/L Anion Gap 6 MEQ/L Estimat Glomerular Filtration Rate 88 ML/MIN Ethyl Alcohol Level LESS THAN 3 MG/DL MDM Supervised Visit with JACQUI: No Narrative Course LYNN Vela has evaluated the patient, lifted the Sampson act and the patient will be discharged home. Patient contracts safety. Denies suicidal or homicidal ideations. Patient will be provided community resource packet to psychiatrists in the community for follow-up. Has friends and family for support. Patient is medically cleared for discharge. Diagnosis Primary Impression: Schizoaffective disorder Additional Impression: adjustment disorder Referrals: [facility] (Out patient) [facility] Primary Care Physician [facility] Patient Instructions: General Instructions, Mood Disorders (ED), Schizoaffective Disorder (ED) Additional Instruction: Contract safety to your self and others Follow-up with psychiatry Follow-up with primary care provider Follow-up with Abhay Leblanc Return to the emergency department immediately with worsening of symptoms Med/Other Pt SpecificInfo: No Meds Exist/No RX given Scripts Unable to Obtain Active Prescriptions or Reported Meds Disposition: 01 DISCHARGE HOME Condition: Stable Tory Ramsey Jun 06, 2017 10:38
[2017-06-20] MEDS ORDERED: ZYPR10TA PO (12:49)
== END 2017-06-06 11:32 | disposition home or self-care (01) ==
LOC: NEDAMB 13:39 → NEPJ 06-06 11:32
DX: F25.0 Schizoaffective disorder, bipolar type (principal); F17.210 Nicotine dependence, cigarettes, uncomplicated; R82.71 Bacteriuria
CPT/HCPCS: 80053; 80307; 81001; 84703; 85025; 87086; 99284

== ENCOUNTER 2017-06-12 22:20 | Emergency (ER) | payer OTHER ==
[~2017-06-12] VITALS: Ht 172.7 cm; Wt 92.0 kg
[2017-06-12 23:05] VITALS: BP 125/68; PULSE 74; RESP 20; TEMP 98.5; O2SAT 97
[2017-06-12] MEDS ORDERED: OLANZapine ODT 10 MG TAB PO ONE (23:30)
[2017-06-12] MEDS ORDERED: NYSTATIN 100,000 UNIT/GM CREAM 15 GM TOPICAL ONE (23:30)
--- NOTE | 2017-06-13 00:28 | PD ---
HPI Chief Complaint: Psychiatric Symptoms Time Seen by Provider: 23:11 Travel History International Travel<30 days: No Contact w/Intl Traveler<30days: No Traveled to known affect area: No History of Present Illness HPI This is a 32-year-old female who presents to the emergency department with history of traumatic brain injury having reportedly tried to wander into traffic multiple times today and said she wanted to kill her self. Patient is often sent him under Sampson and by her mother for similar reasons. She has a history of getting agitated and having behavioral problems. It's unclear if she is compliant with her psychiatric medication. Patient denies having tried to hurt herself today and says she doesn't know what the Sampson act is referring to. PFSH Past Medical History Asthma: Yes Bipolar Disorder: Yes Anxiety: Yes Depression: Yes Cancer: No Cardiovascular Problems: No Chest Pain: Yes ("WITH ANXIETY") Cerebrovascular Accident: Yes ("MINI", PER MOTHER.) Diabetes: No Diminished Hearing: No Endocrine: Yes Gastrointestinal Disorders: No Genitourinary: No Headaches: No Immune Disorder: No Implanted Vascular Access Dvce: No Musculoskeletal: No Neurologic: Yes (TBI when 16) Psychiatric: Yes Reproductive: No Respiratory: Yes Immunizations Current: Yes Schizophrenia: Yes Seizures: No Sickle Cell Disease: No Sleep Apnea: No Thyroid Disease: Yes (HYPOTHYROID) Tetanus Vaccination: Unknown Influenza Vaccination: No ?: Unknown LMP: unknown Menopausal: No : 1 Para: 0 Miscarriage: 1 Past Surgical History Surgical History: Unable to Obtain AICD: No Body Medical Devices: NONE Insulin Pump: No Joint Replacement: No Neurologic Surgery: No Oral Surgery: Yes Pacemaker: No Tonsillectomy: Yes Other Surgery: Yes (brain surgery- traumatic brain injury when 16) Social History Alcohol Use: No Tobacco Use: Yes (1-2 PPW) Substance Use: Yes (1 ppd smoker) Allergies-Medications (Allergen,Severity, Reaction): Coded Allergies: codeine (Verified Allergy, Severe, RASH/SHOB, 06/12/17) escitalopram (Verified Allergy, Severe, UNKNOWN REACTION, 06/12/17) penicillin G (Verified Allergy, Severe, UNKNOWN REACTION, 06/12/17) temazepam (Verified Allergy, Severe, Shortness of Breath and Hives, ) sulfamethoxazole (Verified Allergy, Intermediate, 06/12/17) trimethoprim (Verified Allergy, Intermediate, 06/12/17) clindamycin (Verified Adverse Reaction, Intermediate, 06/12/17) PER MOM aripiprazole (Verified Adverse Reaction, Unknown, 06/12/17) Per patient's mother - Fatou [facility] [phone]. quetiapine (Verified Adverse Reaction, Unknown, 06/12/17) Per patient's mother - Fatou [facility] [phone]. Reported Meds & Prescriptions Reported Meds & Active Scripts Active Active Prescriptions or Reported Medications Unobtainable Review of Systems Except as stated in HPI: all other systems reviewed are Neg Physical Exam Narrative GENERAL:Well appearing, no acute distress SKIN: Erythematous moist rash below the right breast HEAD: Atraumatic. Normocephalic. EYES: Pupils equal and round. No injection or drainage. ENT: Moist mucous membranes NECK: Trachea midline. CARDIOVASCULAR: Regular rate and rhythm. No murmur appreciated. RESPIRATORY: Clear to auscultation. Breath sounds equal bilaterally. GASTROINTESTINAL: Abdomen soft, non-tender, nondistended. MUSCULOSKELETAL: No obvious deformities. NEUROLOGICAL: Awake and alert. No obvious cranial nerve deficits. Moving all extremities. PSYCHIATRIC: Appropriate mood and affect; insight and judgment normal. Data Data Last Documented VS Vital Signs Date Time Temp Pulse Resp B/P (MAP) Pulse Ox O2 Delivery O2 Flow Rate FiO2 06/12/17 23:37 74 06/12/17 23:05 98.5 20 125/68 (87) 97 Orders Orders Nystatin Cream (Mycostatin Cream) (06/12/17 23:30) Olanzapine Odt (Zyprexa Zydis Odt) (06/12/17 23:30) MDM Medical Decision Making Medical Screen Exam Complete: Yes Emergency Medical Condition: Yes Interpretation(s) Afebrile, no tachycardia, normotensive Differential Diagnosis Behavioral disturbance, psychosis, schizophrenia, schizoaffective disorder Narrative Course This is a 32-year-old female who presents to the emergency department having evidently become difficult to control for her mother earlier today having been threatening to walk into traffic. Patient was seen in our emergency department one week ago with similar symptoms. She became agitated when we tried to examine her. She was given a dose of Zyprexa which helped her the last time that she was here. She does have a rash underneath her right breast which I suspect is fungal and I ordered nystatin cream. Patient is medically cleared for psychiatric evaluation. I don't think she requires additional blood work as she just had a normal evaluation 1 week ago. Scripts Unable to Obtain Active Prescriptions or Reported Meds Brenda Azul MD Jun 13, 2017 00:28
[2017-06-13 00:37] VITALS: BP 142/65; PULSE 89; RESP 18
[2017-06-13 02:04] VITALS: RESP 17
[2017-06-13] MEDS ORDERED: LORazepam 2 MG/ML VIAL ONE (13:09)
[2017-06-13] MEDS ORDERED: ZIPRASIDONE MESYLATE 20 MG VIAL IM ONE ×2 (13:10→13:15)
[2017-06-13] MEDS ORDERED: diphenhydrAMINE HCL 50 MG/ML VIAL ONE (13:11)
[2017-06-13] MEDS ORDERED: diphenhydrAMINE HCL 50 MG/ML VIAL IM ONE (13:15)
[2017-06-13] MEDS ORDERED: LORazepam 2 MG/ML VIAL IM ONE (13:15)
--- NOTE | 2017-06-13 13:32 | PD ---
History of Present Illness Chief Complaint: Psychiatric Symptoms Time Seen by Provider: 13:30 Travel History International Travel<30 Days: No Contact w/Intl Traveler<30days: No Known affected area: No Legal Status Legal Status: Sampson Act Sampson Act Signed By: Sherita Aviles History of Present Illness: 32-year-old female brought in under a Sampson act for agitated and threatening behavior at home. Patient was seen in this emergency department last week for similar issues. She has obvious developmental disabilities and is impulsive, easily agitated and at times threatening. At the time of this evaluation the patient was so agitated and threatening she required injectable Geodon, injectable Benadryl and injectable Ativan. She is not however suicidal or homicidal or psychotic. She does demonstrate limited intellectual function. PFSH Past Medical History Asthma: Yes Bipolar Disorder: Yes Anxiety: Yes Depression: Yes Cancer: No Cardiovascular Problems: No Chest Pain: Yes ("WITH ANXIETY") Cerebrovascular Accident: Yes ("MINI", PER MOTHER.) Diabetes: No Diminished Hearing: No Endocrine: Yes Gastrointestinal Disorders: No Genitourinary: No Headaches: No Immune Disorder: No Implanted Vascular Access Dvce: No Musculoskeletal: No Neurologic: Yes (TBI when 16) Psychiatric: Yes Reproductive: No Respiratory: Yes Immunizations Current: Yes Schizophrenia: Yes Seizures: No Sickle Cell Disease: No Sleep Apnea: No Thyroid Disease: Yes (HYPOTHYROID) Tetanus Vaccination: Unknown Influenza Vaccination: No ?: Unknown LMP: unknown Menopausal: No : 1 Para: 0 Miscarriage: 1 Past Surgical History Surgical History: Unable to Obtain AICD: No Body Medical Devices: NONE Insulin Pump: No Joint Replacement: No Neurologic Surgery: No Oral Surgery: Yes Pacemaker: No Tonsillectomy: Yes Other Surgery: Yes (brain surgery- traumatic brain injury when 16) Psychiatric History Psychiatric History Hx Psychiatric Treatment: Schizophrenia, SCHIZOAFFECTIVE D/O, TBI, intermittent explosive disorder, psychosis. This physician does not see significant objective clinical evidence of schizophrenia or psychosis. Patient may have a history of traumatic brain injury with intermittent explosive behavior. History of Inpatient Treatment: Yes Guns or firearms in home: No Social History Hx Alcohol Use: No Hx Tobacco Use: Yes (1-2 PPW) Hx Substance Use: No Substance Use Type: Nicotine/Cigarettes Other Substances Used: 5-8 cigarettes a day Hx of Substance Use Treatment: No Allergies-Medications (Allergen,Severity, Reaction): Coded Allergies: codeine (Verified Allergy, Severe, RASH/SHOB, 06/12/17) escitalopram (Verified Allergy, Severe, UNKNOWN REACTION, 06/12/17) penicillin G (Verified Allergy, Severe, UNKNOWN REACTION, 06/12/17) temazepam (Verified Allergy, Severe, Shortness of Breath and Hives, ) sulfamethoxazole (Verified Allergy, Intermediate, 06/12/17) trimethoprim (Verified Allergy, Intermediate, 06/12/17) clindamycin (Verified Adverse Reaction, Intermediate, 06/12/17) PER MOM aripiprazole (Verified Adverse Reaction, Unknown, 06/12/17) Per patient's mother - Fatou [facility] [phone]. quetiapine (Verified Adverse Reaction, Unknown, 06/12/17) Per patient's mother - Fatou [facility] [phone]. Reported Meds & Prescriptions Reported Meds & Active Scripts Active Active Prescriptions or Reported Medications Unobtainable Review of Systems Except as stated in HPI: all other systems reviewed are Neg Exam Alert: Yes [place]: Person, Place, Date Mood: Agitated, Angry Affect: Labile Speech: Clear Eye Contact: Indirect Memory Intact: Immediate, Recent, Remote Insight/Judgement Impaired MDM Medical Decision Making Medical Record Reviewed: Yes Assessment/Plan Patient seen, medical record reviewed and case discussed with nurse Walter. Patient given injectable medicines to calm down her agitated and aggressive behaviors. (Patient felt to be at risk to self and others due to her extreme agitation.) However, this physician does not feel her Sampson act as valid as she has obvious developmental disability. Furthermore, she will not obtain benefit from psychiatric hospitalization. Patient needs medication management and this can be accomplished on an outpatient basis. Plan is therefore to treat her symptoms at the present time and then discharge her for outpatient care. Orders Orders Nystatin Cream (Mycostatin Cream) (06/12/17 23:30) Olanzapine Odt (Zyprexa Zydis Odt) (06/12/17 23:30) Psych Screen (06/13/17 00:49) Diet Regular Basic (06/13/17 Breakfast) Diet Regular Basic (06/13/17 Lunch) Lorazepam Inj (Ativan Inj) (06/13/17 13:09) Ziprasidone Inj (Geodon Inj) (06/13/17 13:10) Diphenhydramine Inj (Benadryl Inj) (06/13/17 13:11) Ziprasidone Inj (Geodon Inj) (06/13/17 13:15) Diphenhydramine Inj (Benadryl Inj) (06/13/17 13:15) Lorazepam Inj (Ativan Inj) (06/13/17 13:15) Results Vital Signs Date Time Temp Pulse Resp B/P (MAP) Pulse Ox O2 Delivery O2 Flow Rate FiO2 06/13/17 13:04 06/13/17 02:04 17 06/13/17 00:37 89 18 142/65 (90) Room Air 06/12/17 23:37 74 06/12/17 23:05 98.5 74 20 125/68 (87) 97 Diagnosis Primary Impression: Intermittent explosive disorder in adult Prescriptions Unable to Obtain Active Prescriptions or Reported Meds Jose Farr MD Jun 13, 2017 13:32
[2017-06-13 14:37] VITALS: BP 109/62; PULSE 72; RESP 16; TEMP 97.7; O2SAT 98
--- NOTE | 2017-06-13 18:29 | PD ---
Physical Exam Date Seen by Provider: Jun 13, 2017 Time Seen by Provider: 18:28 Narrative 32-year-old female originally brought in under the [employer] act with suicidal ideation was recently seen by Dr. Farr, the psychiatrist and her Sampson act was lifted. She has no significant medical issues. Patient is medically cleared for discharge. Data Data Last Documented VS Vital Signs Date Time Temp Pulse Resp B/P (MAP) Pulse Ox O2 Delivery O2 Flow Rate FiO2 06/13/17 14:37 97.7 72 16 109/62 (78) 98 Room Air Orders Orders Nystatin Cream (Mycostatin Cream) (06/12/17 23:30) Olanzapine Odt (Zyprexa Zydis Odt) (06/12/17 23:30) Psych Screen (06/13/17 00:49) Diet Regular Basic (06/13/17 Breakfast) Diet Regular Basic (06/13/17 Lunch) Lorazepam Inj (Ativan Inj) (06/13/17 13:09) Ziprasidone Inj (Geodon Inj) (06/13/17 13:10) Diphenhydramine Inj (Benadryl Inj) (06/13/17 13:11) Ziprasidone Inj (Geodon Inj) (06/13/17 13:15) Diphenhydramine Inj (Benadryl Inj) (06/13/17 13:15) Lorazepam Inj (Ativan Inj) (06/13/17 13:15) Diet Regular Basic (06/13/17 Dinner) MDM Medical Record Reviewed: Yes Supervised Visit with JACQUI: Yes Narrative Course 32-year-old female originally brought in under the X[employer] act with suicidal ideation was recently seen by Dr. Farr, the psychiatrist and her Sampson act was lifted. She has no significant medical issues. Patient is medically cleared for discharge. Diagnosis Primary Impression: Intermittent explosive disorder in adult Patient Instructions: General Instructions Scripts Unable to Obtain Active Prescriptions or Reported Meds Disposition: 01 DISCHARGE HOME Condition: Stable Elgin Sanderson Jun 13, 2017 18:29
[2017-06-20] MEDS ORDERED: ZYPR10TA PO (12:49)
== END 2017-06-13 19:24 | disposition home or self-care (01) ==
LOC: NEPD 22:20 → NEPJ 06-13 19:24
DX: F63.81 Intermittent explosive disorder (principal); F17.210 Nicotine dependence, cigarettes, uncomplicated; Z87.820 Personal history of traumatic brain injury
CPT/HCPCS: 96372; 99284; J1200; J2060; J3486

== ENCOUNTER 2017-06-27 20:44 | Emergency (ER) | payer OTHER ==
[~2017-06-27 20:44] MED LIST changes: -BACT800T5 PO; -BENZ0.5T PO; -BUSP5TAB3 PO; -HALO5 PO; -HYDR50CA PO; -IBUP800 PO; -PRIS50TA PO; -ZITH250T PO; -ZITHTAB PO; +ZYPR10TA PO
[2017-06-27 20:57] VITALS: BP 148/79; PULSE 93; RESP 18; O2SAT 98
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
[2017-06-27] MEDS ORDERED: OLANZapine IM 10 MG VIAL IM ONE ×2 (21:28→21:30)
[2017-06-27 21:42] LABS: AUTOMATED NEUTROPHIL # 5.3 TH/MM3 (1.8-7.7); BASOPHIL # 0.1 TH/MM3 (0-0.2); BASOPHIL % 0.6 % (0.0-2.0); EOSINOPHIL # 0.1 TH/MM3 (0-0.4); EOSINOPHIL % 1.3 % (0.0-4.0); HEMATOCRIT 39.1 % (35.0-46.0); HEMO FLAGS DIFF FINAL; LYMPH % 25.8 % (9.0-44.0); LYMPHOCYTE # 2.1 TH/MM3 (1.0-4.8); MEAN CELL VOLUME 82.8 FL (80.0-100.0); MEAN CORPUSCULAR HGB CONC 32.6 % (32.0-36.0); NEUT % 64.3 % (16.0-70.0); PLATELET COUNT 339 TH/MM3 (150-450); RED BLOOD COUNT 4.72 MIL/MM3 (4.00-5.30); RED CELL DISTRIBUTION WIDTH 14.1 % (11.6-17.2); WHITE BLOOD COUNT 8.3 TH/MM3 (4.0-11.0)
[2017-06-27 22:01] LABS: ALT (GPT) 52 U/L (10-53)
[2017-06-27 22:03] LABS: ALKALINE PHOSPHATASE 100 U/L (45-117); TOTAL BILIRUBIN ADULT 0.5 MG/DL (0.2-1.0)
[2017-06-27 22:26] LABS: ANION GAP 10 MEQ/L (5-15); AST (GOT) 47 U/L (15-37); BICARBONATE 21.3 MEQ/L (21.0-32.0); BLOOD UREA NITROGEN 3 MG/DL (7-18); CHLORIDE 105 MEQ/L (98-107); GLOMERULAR FILTRATION RATE 120 ML/MIN (>89); POTASSIUM 3.7 MEQ/L (3.5-5.1); SODIUM (NA) 136 MEQ/L (136-145)
[2017-06-27 22:37] LABS: BACTERIA, URINE OCC /hpf; BLOOD, URINE TRACE (NEG); COMMENT (UR) CULT NOT INDICATED; CULTURE IF INDICATED CULT NOT INDICATED; GLUCOSE,URINE NEG (NEG); KETONE, URINE NEG (NEG); NITRITE,URINE NEG (NEG); SQUAMOUS EPITHELIAL CELL URINE 3 /hpf (0-5); URINE COLOR LIGHT-YELLOW (YELLW/STRAW)
[2017-06-28 06:20] VITALS: RESP 18
[2017-06-28] MEDS ORDERED: OLANZapine IM 10 MG VIAL IM ONE ×2 (11:00→11:15)
[2017-06-28] MEDS ORDERED: LORazepam 2 MG/ML VIAL IV PUSH ONE (11:30)
[2017-06-28] MEDS ORDERED: diphenhydrAMINE HCL 50 MG/ML VIAL IV PUSH ONE (11:30)
[2017-06-28] MEDS ORDERED: HALOPERIDOL LACTATE 5 MG/ML AMP IM ONE ×2 (11:30→13:15)
[2017-06-28] MEDS ORDERED: diphenhydrAMINE HCL 50 MG/ML VIAL IM ONE (12:45)
[2017-06-28] MEDS ORDERED: LORazepam 2 MG/ML VIAL IM ONE ×2 (12:45→13:15)
--- NOTE | 2017-06-28 13:07 | PD ---
History of Present Illness Chief Complaint: Psychiatric Symptoms Time Seen by Provider: 13:00 Travel History International Travel<30 Days: No Contact w/Intl Traveler<30days: No Known affected area: No Legal Status Legal Status: Sampson Act Sampson Act Signed By: Sherita Aviles History of Present Illness: Patient seen at 1300 with obviously agitated behavior, including yelling, cursing and threatening staff. This physician ordered Haldol 5 mg IM and Ativan 1 mg IM to be given on top of previous injectable medicines which appear to have minimal effect. Patient is well known to this physician due to history of traumatic brain injury and multiple behavioral outbursts. June 29, 2017 patient is felt to be baseline at this point. She has received several doses of mood stabilizing medication. Although she raises her voice and uses curse words at times, this is felt to be her baseline behavior. Patient's mother was contacted by nurse Shelton, and does not wish to take the patient home at this time. Mother's point is patient is under a Sampson act and therefore must stay for 3 days. Mother does not seem to understand this physician can lift Sampson act after evaluation complete, if patient is no longer a danger to self, others, etc. Patient has no suicidal or homicidal ideation, plan or intent. No psychotic symptoms. Cognition is baseline. This physician is attempting to discuss case with revenue cycle administrator, Guillermo Muñoz. Disposition recommended by this physician is outpatient follow up. PFSH Past Medical History Asthma: Yes Bipolar Disorder: Yes Anxiety: Yes Depression: Yes Cancer: No Cardiovascular Problems: No Chest Pain: Yes ("WITH ANXIETY") Cerebrovascular Accident: Yes ("MINI", PER MOTHER.) Diabetes: No Diminished Hearing: No Endocrine: Yes Gastrointestinal Disorders: No Genitourinary: No Headaches: No Immune Disorder: No Implanted Vascular Access Dvce: No Musculoskeletal: No Neurologic: Yes (TBI when 16) Psychiatric: Yes Reproductive: No Respiratory: Yes Immunizations Current: Yes Schizophrenia: Yes Seizures: No Sickle Cell Disease: No Sleep Apnea: No Thyroid Disease: Yes (HYPOTHYROID) ?: Unknown Menopausal: No : 1 Para: 0 Miscarriage: 1 Past Surgical History AICD: No Body Medical Devices: NONE Insulin Pump: No Joint Replacement: No Neurologic Surgery: Yes (BRAIN R/T TBI ) Oral Surgery: Yes Pacemaker: No Tonsillectomy: Yes Other Surgery: Yes (brain surgery- traumatic brain injury when 16) Psychiatric History Psychiatric History Hx Psychiatric Treatment: Schizophrenia, SCHIZOAFFECTIVE D/O, TBI, intermittent explosive disorder, psychosis. This physician does not see significant objective clinical evidence of schizophrenia or psychosis. Patient may have a history of traumatic brain injury with intermittent explosive behavior. June 29, 2017. This physician has evaluated patient on multiple occasions. There is no significant objective clinical evidence the patient suffers from schizophrenia or schizoaffective disorder. 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 She sometimes complains of hearing voices or seeing things but this is a childlike response and coping mechanism as opposed to true psychotic symptoms. Patient does not respond to internal stimuli and does not behave in a manner consistent with psychosis. History of Inpatient Treatment: Yes Guns or firearms in home: No Social History Hx Alcohol Use: No Hx Tobacco Use: Yes (1-2 PPW) Hx Substance Use: No Substance Use Type: Nicotine/Cigarettes Other Substances Used: 5-8 cigarettes a day Hx of Substance Use Treatment: No Allergies-Medications (Allergen,Severity, Reaction): Coded Allergies: codeine (Verified Allergy, Severe, RASH/SHOB, 06/27/17) escitalopram (Verified Allergy, Severe, UNKNOWN REACTION, 06/27/17) penicillin G (Verified Allergy, Severe, UNKNOWN REACTION, 06/27/17) temazepam (Verified Allergy, Severe, Shortness of Breath and Hives, ) sulfamethoxazole (Verified Allergy, Intermediate, 06/27/17) trimethoprim (Verified Allergy, Intermediate, 06/27/17) clindamycin (Verified Adverse Reaction, Intermediate, 06/27/17) PER MOM aripiprazole (Verified Adverse Reaction, Unknown, 06/27/17) Per patient's mother - [facility] [phone]. quetiapine (Verified Adverse Reaction, Unknown, 06/27/17) Per patient's mother - [facility] [phone]. Reported Meds & Prescriptions Reported Meds & Active Scripts Active Zyprexa (Olanzapine) 10 Mg Tab 10 Mg PO DAILY Review of Systems Except as stated in HPI: all other systems reviewed are Neg Mental Status Examination Appearance: Disheveled Consciousness: Alert Orientation: x4 Motor Activity: Normal gait Speech: Unremarkable Language: Adequate Fund of Knowledge: Adequate Attention and Concentration: Adequate Memory: Unremarkable Mood: Appropriate Affect: Appropriate Thought Process & Associations: Intact Thought Content: Appropriate Hallucination Type: None Delusion Type: None Suicidal Ideation: No Suicidal Plan: No Suicidal Intention: No Homicidal Ideation: No Homicidal Plan: No Homicidal Intention: No Insight: Fair Judgment: Impulsive MDM Medical Decision Making Medical Record Reviewed: Yes Assessment/Plan Patient interviewed several times [id number]. Medical record reviewed. Case discussed with multiple nurses. This physician is aware of patient's treatment as an outpatient and the lack of appropriate medications and consistency. This physician feels the patient needs a more appropriate medication regimen. Hospitalization is not helpful due to the patient's dementia-like presentation. Orders Orders Complete Blood Count With Diff (06/27/17 21:11) Comprehensive Metabolic Panel (06/27/17 21:11) Urinalysis - C+S If Indicated (06/27/17 21:11) Psych Screen (06/27/17 21:11) Drug Screen, Random Urine (06/27/17 21:11) Olanzapine Inj (Zyprexa Inj) (06/27/17 21:30) Olanzapine Inj (Zyprexa Inj) (06/27/17 21:28) Diet Regular Basic (06/28/17 Breakfast) Olanzapine Inj (Zyprexa Inj) (06/28/17 11:00) Olanzapine Inj (Zyprexa Inj) (06/28/17 11:15) Restraints Violent (06/28/17 11:17) Diphenhydramine Inj (Benadryl Inj) (06/28/17 11:30) Lorazepam Inj (Ativan Inj) (06/28/17 11:30) Haloperidol Inj (Haldol Inj) (06/28/17 11:30) Diphenhydramine Inj (Benadryl Inj) (06/28/17 12:45) Lorazepam Inj (Ativan Inj) (06/28/17 12:45) Haloperidol Inj (Haldol Inj) (06/28/17 13:15) Lorazepam Inj (Ativan Inj) (06/28/17 13:15) Results Vital Signs Date Time Temp Pulse Resp B/P (MAP) Pulse Ox O2 Delivery O2 Flow Rate FiO2 06/28/17 06:20 18 Room Air 06/27/17 20:57 93 18 148/79 (102) 98 Laboratory Tests Test 06/27/17 21:15 06/27/17 22:29 White Blood Count 8.3 Red Blood Count 4.72 Hemoglobin 12.8 Hematocrit 39.1 Mean Corpuscular Volume 82.8 Mean Corpuscular Hemoglobin 27.0 Mean Corpuscular Hemoglobin Concent 32.6 Red Cell Distribution Width 14.1 Platelet Count 339 Mean Platelet Volume 7.8 Neutrophils (%) (Auto) 64.3 Lymphocytes (%) (Auto) 25.8 Monocytes (%) (Auto) 8.0 Eosinophils (%) (Auto) 1.3 Basophils (%) (Auto) 0.6 Neutrophils # (Auto) 5.3 Lymphocytes # (Auto) 2.1 Monocytes # (Auto) 0.7 Eosinophils # (Auto) 0.1 Basophils # (Auto) 0.1 CBC Comment DIFF FINAL Differential Comment Blood Urea Nitrogen 3 Creatinine 0.58 Random Glucose 83 Total Protein 7.1 Albumin 3.7 Calcium Level 9.0 Alkaline Phosphatase 100 Aspartate Amino Transf (AST/SGOT) 47 Alanine Aminotransferase (ALT/SGPT) 52 Total Bilirubin 0.5 Sodium Level 136 Potassium Level 3.7 Chloride Level 105 Carbon Dioxide Level 21.3 Anion Gap 10 Estimat Glomerular Filtration Rate 120 Urine Color LIGHT-YELLOW Urine Turbidity HAZY Urine pH 6.0 Urine Specific [place] 1.002 Urine Protein NEG Urine Glucose (UA) NEG Urine Ketones NEG Urine Occult Blood TRACE Urine Nitrite NEG Urine Bilirubin NEG Urine Urobilinogen LESS THAN 2.0 Urine Leukocyte Esterase NEG Urine RBC 1 Urine WBC 3 Urine Squamous Epithelial Cells 3 Urine Amorphous Sediment RARE Urine Bacteria OCC Microscopic Urinalysis Comment CULT NOT INDICATED Urine Opiates Screen NEG Urine Barbiturates Screen NEG Urine Amphetamines Screen NEG Urine Benzodiazepines Screen NEG Urine Cocaine Screen NEG Urine Cannabinoids Screen NEG Diagnosis Primary Impression: Intermittent explosive disorder in adult Condition: Stable Jose Farr MD Jun 28, 2017 13:07
[2017-06-28 18:34] VITALS: BP 163/99; PULSE 99
[2017-06-28 22:02] VITALS: BP 93/52; PULSE 68; RESP 18; O2SAT 97
[2017-06-29 02:00] VITALS: BP 112/62; PULSE 81; RESP 18; O2SAT 96
[2017-06-29 06:18] VITALS: BP 109/68; PULSE 68; RESP 18; TEMP 98.1; O2SAT 97
[2017-06-29] MEDS ORDERED: HALOPERIDOL LACTATE 5 MG/ML AMP IM ONE ×2 (09:15→14:30)
[2017-06-29] MEDS ORDERED: LORazepam 2 MG/ML VIAL IM ONE ×3 (09:15→14:00)
--- NOTE | 2017-06-29 12:28 | PD ---
Physical Exam Time Seen by Provider: 12:25 Narrative Please refer to this provider's documentation for details surrounding the patient's current visit Data Data Last Documented VS Vital Signs Date Time Temp Pulse Resp B/P (MAP) Pulse Ox O2 Delivery O2 Flow Rate FiO2 06/29/17 06:18 98.1 68 18 109/68 (82) 97 Room Air Orders Orders Complete Blood Count With Diff (06/27/17 21:11) Comprehensive Metabolic Panel (06/27/17 21:11) Urinalysis - C+S If Indicated (06/27/17 21:11) Psych Screen (06/27/17 21:11) Drug Screen, Random Urine (06/27/17 21:11) Olanzapine Inj (Zyprexa Inj) (06/27/17 21:30) Olanzapine Inj (Zyprexa Inj) (06/27/17 21:28) Diet Regular Basic (06/28/17 Breakfast) Olanzapine Inj (Zyprexa Inj) (06/28/17 11:00) Olanzapine Inj (Zyprexa Inj) (06/28/17 11:15) Restraints Violent (06/28/17 11:17) Diphenhydramine Inj (Benadryl Inj) (06/28/17 11:30) Lorazepam Inj (Ativan Inj) (06/28/17 11:30) Haloperidol Inj (Haldol Inj) (06/28/17 11:30) Diphenhydramine Inj (Benadryl Inj) (06/28/17 12:45) Lorazepam Inj (Ativan Inj) (06/28/17 12:45) Haloperidol Inj (Haldol Inj) (06/28/17 13:15) Lorazepam Inj (Ativan Inj) (06/28/17 13:15) Diet Regular Basic (06/28/17 Dinner) Diet Regular Basic (06/29/17 Breakfast) Lorazepam Inj (Ativan Inj) (06/29/17 09:15) Haloperidol Inj (Haldol Inj) (06/29/17 09:15) Diet Regular Basic (06/29/17 Lunch) Labs Laboratory Tests Test 06/27/17 21:15 06/27/17 22:29 White Blood Count 8.3 TH/MM3 Red Blood Count 4.72 MIL/MM3 Hemoglobin 12.8 GM/DL Hematocrit 39.1 % Mean Corpuscular Volume 82.8 FL Mean Corpuscular Hemoglobin 27.0 PG Mean Corpuscular Hemoglobin Concent 32.6 % Red Cell Distribution Width 14.1 % Platelet Count 339 TH/MM3 Mean Platelet Volume 7.8 FL Neutrophils (%) (Auto) 64.3 % Lymphocytes (%) (Auto) 25.8 % Monocytes (%) (Auto) 8.0 % Eosinophils (%) (Auto) 1.3 % Basophils (%) (Auto) 0.6 % Neutrophils # (Auto) 5.3 TH/MM3 Lymphocytes # (Auto) 2.1 TH/MM3 Monocytes # (Auto) 0.7 TH/MM3 Eosinophils # (Auto) 0.1 TH/MM3 Basophils # (Auto) 0.1 TH/MM3 CBC Comment DIFF FINAL Differential Comment Blood Urea Nitrogen 3 MG/DL Creatinine 0.58 MG/DL Random Glucose 83 MG/DL Total Protein 7.1 GM/DL Albumin 3.7 GM/DL Calcium Level 9.0 MG/DL Alkaline Phosphatase 100 U/L Aspartate Amino Transf (AST/SGOT) 47 U/L Alanine Aminotransferase (ALT/SGPT) 52 U/L Total Bilirubin 0.5 MG/DL Sodium Level 136 MEQ/L Potassium Level 3.7 MEQ/L Chloride Level 105 MEQ/L Carbon Dioxide Level 21.3 MEQ/L Anion Gap 10 MEQ/L Estimat Glomerular Filtration Rate 120 ML/MIN Urine Color LIGHT-YELLOW Urine Turbidity HAZY Urine pH 6.0 Urine Specific [place] 1.002 Urine Protein NEG mg/dL Urine Glucose (UA) NEG mg/dL Urine Ketones NEG mg/dL Urine Occult Blood TRACE Urine Nitrite NEG Urine Bilirubin NEG Urine Urobilinogen LESS THAN 2.0 MG/DL Urine Leukocyte Esterase NEG Urine RBC 1 /hpf Urine WBC 3 /hpf Urine Squamous Epithelial Cells 3 /hpf Urine Amorphous Sediment RARE Urine Bacteria OCC /hpf Microscopic Urinalysis Comment CULT NOT INDICATED Urine Opiates Screen NEG Urine Barbiturates Screen NEG Urine Amphetamines Screen NEG Urine Benzodiazepines Screen NEG Urine Cocaine Screen NEG Urine Cannabinoids Screen NEG MDM Medical Record Reviewed: Yes Supervised Visit with JACQUI: No Narrative Course 32-year-old female presents to the emergency department for psychiatric evaluation. Patient was seen and evaluated by medical staff, medically cleared , and now evaluated by psychiatry. Sampson act has been lifted. Patient's mother will come and pick her up. With no further medical needs at this time, patient will be discharged. Diagnosis Primary Impression: Intermittent explosive disorder in adult Referrals: Primary Care Physician Med/Other Pt SpecificInfo: No Change to Meds Disposition: 01 DISCHARGE HOME Condition: Stable Vandana Chen Jun 29, 2017 12:28
[2017-06-29] MEDS ORDERED: diphenhydrAMINE HCL 50 MG/ML VIAL ONE (13:15)
[2017-06-29] MEDS ORDERED: LORazepam 2 MG/ML VIAL IV PUSH ONE (14:00)
[2017-06-29] MEDS ORDERED: diphenhydrAMINE HCL 50 MG/ML VIAL IM ONE (14:30)
[2017-06-29] MEDS ORDERED: KLON2TAB PO (15:21)
== END 2017-06-29 16:22 | disposition home or self-care (01) ==
LOC: NEPJ 20:44
DX: F63.81 Intermittent explosive disorder (principal); F17.210 Nicotine dependence, cigarettes, uncomplicated; Z87.820 Personal history of traumatic brain injury; Z79.899 Other long term (current) drug therapy
CPT/HCPCS: 80053; 80307; 81001; 85025; 96372; 99285; J1200; J1630; J2060

== ENCOUNTER 2017-07-08 04:18 | Emergency (ER) | payer OTHER ==
[~2017-07-08] VITALS: Ht 165.1 cm; Wt 110.0 kg
[~2017-07-08 04:18] MED LIST changes: +KLON2TAB PO
[2017-07-08 04:26] VITALS: PULSE 92; RESP 18; O2SAT 95
[2017-07-08 04:34] VITALS: BP 120/67; PULSE 87; RESP 18; TEMP 97.9; O2SAT 95
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
[2017-07-08 09:12] VITALS: BP 106/72; PULSE 69; RESP 18; TEMP 98.2; O2SAT 98
[2017-07-08] MEDS ORDERED: OLANZapine ODT 10 MG TAB PO ONE (16:00)
[2017-07-08 18:00] VITALS: BP 127/71; PULSE 75; RESP 18
[2017-07-08 22:13] VITALS: BP 112/78; PULSE 66; RESP 15; O2SAT 100
[2017-07-09 02:04] VITALS: BP 114/59; PULSE 57; RESP 15; O2SAT 98
[2017-07-09 06:16] VITALS: BP 123/65; PULSE 52; RESP 16; O2SAT 95
[2017-07-09] MEDS ORDERED: OLANZapine ODT 10 MG TAB PO ONE (10:45)
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
[2017-07-09 14:20] VITALS: BP 109/71; PULSE 80; RESP 18; O2SAT 99
[2017-07-09 14:52] VITALS: BP 109/71; PULSE 80; RESP 18; O2SAT 99
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
== END 2017-07-09 16:22 | disposition home or self-care (01) ==
LOC: NEPD 04:18 → NEPJ 07-09 16:22
DX: F63.81 Intermittent explosive disorder (principal); Z91.14 Patient's other noncompliance with medication regimen
CPT/HCPCS: 99284

== ENCOUNTER 2017-07-11 17:02 | Emergency (ER) | payer OTHER ==
[~2017-07-11] VITALS: Ht 172.7 cm; Wt 82.0 kg
[2017-07-11 17:31] VITALS: BP 136/92; PULSE 95; RESP 20; TEMP 98.4; O2SAT 95
--- NOTE | 2017-07-11 18:10 | PD ---
History of Present Illness Chief Complaint: Psychiatric Symptoms Time Seen by Provider: 17:30 Travel History International Travel<30 Days: No Contact w/Intl Traveler<30days: No Known affected area: No Legal Status Legal Status: Sampson Act History of Present Illness: Patient very well known to this physician. She has been in the emergency department multiple times. Currently she is calm, pleasant and cooperative. She denies any suicidal or homicidal ideation, plan or intent. She has no psychotic symptoms and her cognition is baseline. She has a history of traumatic brain injury. Her mother can be a very difficult person to live with based on mother's conversations with our staff. Patient is verbally marshall for safety. PFSH Past Medical History Asthma: Yes Bipolar Disorder: Yes Anxiety: Yes Depression: Yes Cancer: No Cardiovascular Problems: No Chest Pain: Yes ("WITH ANXIETY") Cerebrovascular Accident: Yes ("MINI", PER MOTHER.) Diabetes: No Diminished Hearing: No Endocrine: Yes Gastrointestinal Disorders: No Genitourinary: No Headaches: No Immune Disorder: No Implanted Vascular Access Dvce: No Musculoskeletal: No Neurologic: Yes (TBI when 16) Psychiatric: Yes Reproductive: No Respiratory: Yes Immunizations Current: Yes Schizophrenia: Yes Seizures: No Sickle Cell Disease: No Sleep Apnea: No Thyroid Disease: Yes (HYPOTHYROID) ?: Unknown Menopausal: No : 1 Para: 0 Miscarriage: 1 Past Surgical History AICD: No Body Medical Devices: NONE Insulin Pump: No Joint Replacement: No Neurologic Surgery: Yes (BRAIN R/T TBI ) Oral Surgery: Yes Pacemaker: No Thoracic Surgery: No Tonsillectomy: Yes Other Surgery: Yes (brain surgery- traumatic brain injury when 16) Psychiatric History Psychiatric History Hx Psychiatric Treatment: Patient may have a history of traumatic brain injury with intermittent explosive behavior. June 29, 2017. 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 She sometimes complains of hearing voices or seeing things but this is a childlike response and coping mechanism as opposed to true psychotic symptoms. Patient does not respond to internal stimuli and does not behave in a manner consistent with psychosis. Patient does not show any significant objective clinical signs of psychosis. History of Inpatient Treatment: Yes Guns or firearms in home: No Social History Hx Alcohol Use: No Hx Tobacco Use: Yes (1-2 PPW) Hx Substance Use: No Substance Use Type: Nicotine/Cigarettes Other Substances Used: 5-8 cigarettes a day Hx of Substance Use Treatment: No Allergies-Medications (Allergen,Severity, Reaction): Coded Allergies: codeine (Verified Allergy, Severe, RASH/SHOB, 06/27/17) escitalopram (Verified Allergy, Severe, UNKNOWN REACTION, 06/27/17) penicillin G (Verified Allergy, Severe, UNKNOWN REACTION, 06/27/17) temazepam (Verified Allergy, Severe, Shortness of Breath and Hives, ) sulfamethoxazole (Verified Allergy, Intermediate, 06/27/17) trimethoprim (Verified Allergy, Intermediate, 06/27/17) clindamycin (Verified Adverse Reaction, Intermediate, 06/27/17) PER MOM aripiprazole (Verified Adverse Reaction, Unknown, 06/27/17) Per patient's mother - Fatou [facility] [phone]. quetiapine (Verified Adverse Reaction, Unknown, 06/27/17) Per patient's mother - Fatou [facility] [phone]. Reported Meds & Prescriptions Reported Meds & Active Scripts Active Klonopin (Clonazepam) 2 Mg Tab 2 Mg PO BID Zyprexa (Olanzapine) 10 Mg Tab 10 Mg PO DAILY Review of Systems Except as stated in HPI: all other systems reviewed are Neg Mental Status Examination Appearance: Appropriate Consciousness: Alert Orientation: x4 Motor Activity: Normal gait Speech: Unremarkable Language: Adequate Fund of Knowledge: Adequate Attention and Concentration: Adequate Memory: Unremarkable Mood: Appropriate Affect: Appropriate Thought Process & Associations: Intact Thought Content: Appropriate Hallucination Type: None Delusion Type: None Suicidal Ideation: No Suicidal Plan: No Suicidal Intention: No Homicidal Ideation: No Homicidal Plan: No Homicidal Intention: No Insight: Adequate Judgment: Adequate [facility] Medical Decision Making Medical Record Reviewed: Yes Assessment/Plan Patient interviewed, case discussed with nurse and medical record reviewed. Patient does not meet Sampson act criteria at this time. She does not meet criteria for involuntary psychiatric hospitalization. This physician expresses once again the patient needs to be treated adequately on an outpatient basis. Mother has a tendency to make that more problematic based on her cursing and demanding nature with staff. Orders Orders Psych Screen (07/11/17 17:23) Drug Screen, Random Urine (07/11/17 17:23) Results Vital Signs Date Time Temp Pulse Resp B/P (MAP) Pulse Ox O2 Delivery O2 Flow Rate FiO2 07/11/17 17:31 98.4 95 20 136/92 (107) 95 Diagnosis Primary Impression: Intermittent explosive disorder Jose Farr MD Jul 11, 2017 18:10
[2017-07-11 18:51] VITALS: BP 93/55; PULSE 77; RESP 18; TEMP 98.2; O2SAT 98
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
[2017-07-11 22:18] VITALS: BP 117/63; PULSE 101; RESP 19; O2SAT 97
[2017-07-11] MEDS ORDERED: OLANZapine 10 MG TAB PO ONE (22:30)
[2017-07-12 06:24] VITALS: BP 96/72; PULSE 71; RESP 19; O2SAT 97
--- NOTE | 2017-07-12 11:09 | PD ---
Physical Exam Date Seen by Provider: Jul 12, 2017 Time Seen by Provider: 11:07 Narrative 32-year-old female patient previously medically cleared for psychiatric evaluation, has been seen and cleared by the psychiatric staff. Patient has been psychiatrically cleared for discharge. Patient continues to be medically cleared for discharge. Follow-up will be based on psychiatric plan. Data Data Last Documented VS Vital Signs Date Time Temp Pulse Resp B/P (MAP) Pulse Ox O2 Delivery O2 Flow Rate FiO2 07/12/17 10:49 07/12/17 06:24 71 19 97 Room Air 07/11/17 18:51 98.2 Orders Orders Drug Screen, Random Urine (07/11/17 17:23) Olanzapine (Zyprexa) (07/11/17 22:30) Diet Regular Basic (07/12/17 Breakfast) MDM Medical Record Reviewed: Yes Supervised Visit with JACQUI: Yes Narrative Course 32-year-old female patient previously medically cleared for psychiatric evaluation, has been seen and cleared by the psychiatric staff. Patient has been psychiatrically cleared for discharge. Patient continues to be medically cleared for discharge. Follow-up will be based on psychiatric plan. Diagnosis Primary Impression: Intermittent explosive disorder Patient Instructions: General Instructions Disposition: DISCHARGE HOME Condition: Stable Elgin Sanderson Jul 12, 2017 11:09
[2017-07-12 11:35] VITALS: BP 107/55; PULSE 63; RESP 18; O2SAT 98
[2017-07-12 13:58] VITALS: BP 107/55; PULSE 63; RESP 18; O2SAT 98
== END 2017-07-12 14:40 | disposition home or self-care (01) ==
LOC: NEPJ 17:02
DX: F63.81 Intermittent explosive disorder (principal); F31.9 Bipolar disorder, unspecified; J45.909 Unspecified asthma, uncomplicated; Z87.820 Personal history of traumatic brain injury; Z86.73 Personal history of transient ischemic attack (TIA), and cerebral infarction without residual deficits; F20.9 Schizophrenia, unspecified; E03.9 Hypothyroidism, unspecified; Z87.891 Personal history of nicotine dependence
CPT/HCPCS: 99284

== ENCOUNTER 2017-07-12 20:03 | Emergency (ER) | payer OTHER ==
--- NOTE | 2017-07-12 20:29 | PD ---
HPI Chief Complaint: Psychiatric Symptoms Time Seen by Provider: 20:15 Travel History International Travel<30 days: No Contact w/Intl Traveler<30days: No Traveled to known affect area: No History of Present Illness HPI 32-year-old female presents under Adrián act. She is male well-known to the emergency department. The patient was just seen here yesterday and discharged. She's been here multiple times this month. She has history of traumatic brain injury. According to law enforcement reports patient was Sampson act because the mother called and said the patient was continuously hitting herself and didn't think she was going to stop. Patient says her mom lied and she was not hitting herself. She denies suicidal or homicidal ideations. Denies auditory or visual hallucinations. Denies EtOH or illicit drug use. Says she doesn't want to go back to her mom if she is going to keep lying like this. No known aggravating or relieving factors. The patient has no current medical complaints. She denies chest pain, shortness of breath, abdominal pain, nausea , vomiting, change in urine or stool. Multiple allergies as listed on the chart. No other modifying factors or associated signs and symptoms. PFSH Past Medical History Arthritis: No Asthma: Yes Autoimmune Disease: No Blood Disorders: No Bipolar Disorder: Yes Anxiety: Yes Depression: Yes Heart Rhythm Problems: No Cancer: No Cardiovascular Problems: No High Cholesterol: No Chemotherapy: No Chest Pain: Yes ("WITH ANXIETY") Congestive Heart Failure: No COPD: No Cerebrovascular Accident: Yes ("MINI", PER MOTHER.) Diabetes: No Diminished Hearing: No Endocrine: Yes Gastrointestinal Disorders: No GERD: No Glaucoma: No Genitourinary: No Headaches: No Hepatitis: No Hiatal Hernia: No Immune Disorder: No Implanted Vascular Access Dvce: No Kidney Stones: No Musculoskeletal: No Neurologic: Yes (TBI when 16) Psychiatric: Yes Reproductive: No Respiratory: Yes Immunizations Current: Yes Myocardial Infarction: No Radiation Therapy: No Renal Failure: No Schizophrenia: Yes Seizures: No Sickle Cell Disease: No Sleep Apnea: No Thyroid Disease: Yes (HYPOTHYROID) Ulcer: No Menopausal: No : 1 Para: 0 Miscarriage: 1 Past Surgical History Abdominal Surgery: No AICD: No Body Medical Devices: NONE Cardiac Surgery: No Ear Surgery: No Endocrine Surgery: No Eye Surgery: No Genitourinary Surgery: No Gynecologic Surgery: No Insulin Pump: No Joint Replacement: No Neurologic Surgery: Yes (BRAIN R/T TBI ) Oral Surgery: Yes Pacemaker: No Thoracic Surgery: No Tonsillectomy: Yes Other Surgery: Yes (brain surgery- traumatic brain injury when 16) Social History Alcohol Use: No Tobacco Use: Yes (1-2 PPW) Substance Use: No Allergies-Medications (Allergen,Severity, Reaction): Coded Allergies: codeine (Verified Allergy, Severe, RASH/SHOB, 06/27/17) escitalopram (Verified Allergy, Severe, UNKNOWN REACTION, 06/27/17) penicillin G (Verified Allergy, Severe, UNKNOWN REACTION, 06/27/17) temazepam (Verified Allergy, Severe, Shortness of Breath and Hives, ) sulfamethoxazole (Verified Allergy, Intermediate, 06/27/17) trimethoprim (Verified Allergy, Intermediate, 06/27/17) clindamycin (Verified Adverse Reaction, Intermediate, 06/27/17) PER MOM aripiprazole (Verified Adverse Reaction, Unknown, 06/27/17) Per patient's mother - Fatou [facility] [phone]. quetiapine (Verified Adverse Reaction, Unknown, 06/27/17) Per patient's mother - Fatou [facility] [phone]. Reported Meds & Prescriptions Reported Meds & Active Scripts Active Klonopin (Clonazepam) 2 Mg Tab 2 Mg PO BID Zyprexa (Olanzapine) 10 Mg Tab 10 Mg PO DAILY Review of Systems Except as stated in HPI: all other systems reviewed are Neg Physical Exam Narrative GENERAL: Well-nourished, well-developed female patient, in no acute distress SKIN: Warm and dry. HEAD: Atraumatic. Normocephalic. EYES: Pupils equal and round. ENT: Mucosa pink and moist. NECK: Supple. Trachea midline. CARDIOVASCULAR: Regular rate and rhythm. No murmur appreciated. RESPIRATORY: No accessory muscle use. Clear to auscultation. Breath sounds equal bilaterally. GASTROINTESTINAL: Abdomen soft, non-tender, nondistended. Hepatic and splenic margins not palpable. Bowel sounds are active 4 quadrants. MUSCULOSKELETAL: No obvious deformities. No clubbing. No cyanosis. No edema. NEUROLOGICAL: Awake and alert. Oriented 3. No obvious cranial nerve deficits. Motor grossly within normal limits. Normal speech. Moves all extremities. 5/5 strength to all extremities. PSYCHIATRIC: No delusional thought processes. No hallucinations. Data Data Orders Orders Psych Screen (07/12/17 20:27) MDM Medical Decision Making Medical Screen Exam Complete: Yes Emergency Medical Condition: Yes Medical Record Reviewed: Yes Differential Diagnosis Medical clearance for psychiatric admission, intermittent explosive disorder, schizoaffective disorder, traumatic brain injury Narrative Course Patient has been seen here multiple times this month. She had labs last drawn on June 27 and they were unremarkable. I do not feel it is necessary for the patient to have labs drawn at this time. She has no current medical complaints. Patient presents under a Sampson act. Physical examination and vital signs are essentially unremarkable. Patient has no medical complaints to report. Psych screen has been ordered. The patient will be medically cleared for psychiatric evaluation and disposition at this time. Diagnosis Primary Impression: Medical clearance for psychiatric admission Condition: Stable Tory Ramsey KELP OR SEAGR[facility] GATHERER Jul 12, 2017 20:29
[2017-07-12 20:39] VITALS: BP 123/60; PULSE 82; RESP 16; O2SAT 98
[2017-07-12] MEDS ORDERED: diphenhydrAMINE HCL 50 MG CAP PO ONE (21:30)
[2017-07-13 02:12] VITALS: BP 94/50; PULSE 66; RESP 18; O2SAT 97
[2017-07-13 15:00] VITALS: BP 98/50; PULSE 60; RESP 18
--- NOTE | 2017-07-13 18:03 | PD ---
History of Present Illness Chief Complaint: Psychiatric Symptoms Time Seen by Provider: 16:45 Travel History International Travel<30 Days: No Contact w/Intl Traveler<30days: No Known affected area: No Legal Status Legal Status: Sampson Act Sampson Act Signed By: Sherita Aviles History of Present Illness: 32-year-old female known to [facility] psychiatry , with multiple ed visits, hx of TBI , IED, bipolar disorder who presents under Sampson act. According to law enforcement reports patient was Sampson act because the mother called and said the patient was continuously hitting herself and didn't think she was going to stop. Patient says her mom lied and she was not hitting herself. She denies suicidal or homicidal ideations. Denies auditory or visual hallucinations. Says she doesn't want to go back to her mom if she is going to keep lying like this. Patient seen. EMR reviewed. Patient does not meet Sampson act criteria. She has been in behavioral control. Not psychotic and not manic. Has slept well. PFSH Past Medical History Arthritis: No Asthma: Yes Autoimmune Disease: No Blood Disorders: No Bipolar Disorder: Yes Anxiety: Yes Depression: Yes Heart Rhythm Problems: No Cancer: No Cardiovascular Problems: No High Cholesterol: No Chemotherapy: No Chest Pain: Yes ("WITH ANXIETY") Congestive Heart Failure: No COPD: No Cerebrovascular Accident: Yes ("MINI", PER MOTHER.) Diabetes: No Diminished Hearing: No Endocrine: Yes Gastrointestinal Disorders: No GERD: No Glaucoma: No Genitourinary: No Headaches: No Hepatitis: No Hiatal Hernia: No Immune Disorder: No Implanted Vascular Access Dvce: No Kidney Stones: No Musculoskeletal: No Neurologic: Yes (TBI when 16) Psychiatric: Yes Reproductive: No Respiratory: Yes Immunizations Current: Yes Myocardial Infarction: No Radiation Therapy: No Renal Failure: No Schizophrenia: Yes Seizures: No Sickle Cell Disease: No Sleep Apnea: No Thyroid Disease: Yes (HYPOTHYROID) Ulcer: No ?: Unknown Menopausal: No : 1 Para: 0 Miscarriage: 1 Past Surgical History Abdominal Surgery: No AICD: No Body Medical Devices: NONE Cardiac Surgery: No Ear Surgery: No Endocrine Surgery: No Eye Surgery: No Genitourinary Surgery: No Gynecologic Surgery: No Insulin Pump: No Joint Replacement: No Neurologic Surgery: Yes (BRAIN R/T TBI ) Oral Surgery: Yes Pacemaker: No Thoracic Surgery: No Tonsillectomy: Yes Other Surgery: Yes (brain surgery- traumatic brain injury when 16) Psychiatric History Psychiatric History Hx Psychiatric Treatment: HX: INTERMITTENT EXPLOSIVE DISORDER PATIENT WAS LAST ADMITTED TO [facility] FROM 05/06/15 TO 05/12/15 FOR PSYCHOSIS, NOS. History of Inpatient Treatment: Yes Guns or firearms in home: No Social History Single, lives with mother Hx Alcohol Use: No Hx Tobacco Use: Yes (1-2 PPW) Hx Substance Use: No Substance Use Type: Nicotine/Cigarettes Other Substances Used: 5-8 cigarettes a day Hx of Substance Use Treatment: No Allergies-Medications (Allergen,Severity, Reaction): Coded Allergies: codeine (Verified Allergy, Severe, RASH/SHOB, 07/13/17) escitalopram (Verified Allergy, Severe, UNKNOWN REACTION, 07/13/17) penicillin G (Verified Allergy, Severe, UNKNOWN REACTION, 07/13/17) temazepam (Verified Allergy, Severe, Shortness of Breath and Hives, ) sulfamethoxazole (Verified Allergy, Intermediate, 07/13/17) trimethoprim (Verified Allergy, Intermediate, 07/13/17) clindamycin (Verified Adverse Reaction, Intermediate, 07/13/17) PER MOM aripiprazole (Verified Adverse Reaction, Unknown, 07/13/17) Per patient's mother - Fatou [facility] [phone]. quetiapine (Verified Adverse Reaction, Unknown, 07/13/17) Per patient's mother - Fatou [facility] [phone]. Reported Meds & Prescriptions Reported Meds & Active Scripts Active Klonopin (Clonazepam) 2 Mg Tab 2 Mg PO BID Zyprexa (Olanzapine) 10 Mg Tab 10 Mg PO DAILY Review of Systems Except as stated in HPI: all other systems reviewed are Neg Mental Status Examination Appearance: Disheveled Consciousness: Alert Orientation: Person, Place, Date/Time, Situation Motor Activity: Normal gait Speech: Other (repats self) Language: Adequate Fund of Knowledge: Poor Attention and Concentration: Easily Distracted Memory: Unremarkable (Not t etsed) Mood: Appropriate Affect: Appropriate Thought Process & Associations: Intact Thought Content: Appropriate Hallucination Type: None Delusion Type: None Suicidal Ideation: No Suicidal Plan: No Suicidal Intention: No Homicidal Ideation: No Homicidal Plan: No Homicidal Intention: No Insight: Poor Judgment: Impulsive MDM Medical Decision Making Medical Record Reviewed: Yes Assessment/Plan 32-year-old female known to [facility] psychiatry , with multiple ed visits, hx of TBI , IED, bipolar disorder who presents under Sampson act. According to law enforcement reports patient was Sampson act because the mother called and said the patient was continuously hitting herself and didn't think she was going to stop. Patient says her mom lied and she was not hitting herself. She denies suicidal or homicidal ideations. Denies auditory or visual hallucinations. Says she doesn't want to go back to her mom if she is going to keep lying like this. Patient seen. EMR reviewed. Patient does not meet Sampson act criteria. She has been in behavioral control. Not psychotic and not manic. Has slept well. Sampson act is lifted. Discharge to mother. As per staff mother has refused to pick her up and we have contacted [facility]. Orders Orders Psych Screen (07/12/17 20:27) Diphenhydramine (Benadryl) (07/12/17 21:30) Diet Regular Basic (07/13/17 Breakfast) Diet Regular Basic (07/13/17 Lunch) Diet Regular Basic (07/13/17 Dinner) Results Vital Signs Date Time Temp Pulse Resp B/P (MAP) Pulse Ox O2 Delivery O2 Flow Rate FiO2 07/13/17 15:00 60 18 98/50 (66) Room Air 07/13/17 02:12 66 18 94/50 (65) 97 Room Air 07/12/17 20:39 82 16 123/60 (81) 98 Diagnosis Primary Impression: Medical clearance for psychiatric admission Psychiatrically Cleared: Yes Med/ Other Pt Specific Info: No Meds Exist/No RX given Disposition: DISCHARGE HOME Condition: Stable Connor Baileyradha BAILEY Jul 13, 2017 18:03
--- NOTE | 2017-07-13 18:03 | PD ---
History of Present Illness Chief Complaint: Psychiatric Symptoms Time Seen by Provider: 16:45 Travel History International Travel<30 Days: No Contact w/Intl Traveler<30days: No Known affected area: No Legal Status Legal Status: Sampson Act Sampson Act Signed By: Sherita Aviles History of Present Illness: 32-year-old female known to [facility] , with multiple ed visits, hx of TBI , IED, bipolar disorder who presents under Sampson act. According to law enforcement reports patient was Sampson act because the mother called and said the patient was continuously hitting herself and didn't think she was going to stop. Patient says her mom lied and she was not hitting herself. She denies suicidal or homicidal ideations. Denies auditory or visual hallucinations. Says she doesn't want to go back to her mom if she is going to keep lying like this. Patient seen. EMR reviewed. Patient does not meet Sampson act criteria. She has been in behavioral control. Not psychotic and not manic. Has slept well. PFSH Past Medical History Arthritis: No Asthma: Yes Autoimmune Disease: No Blood Disorders: No Bipolar Disorder: Yes Anxiety: Yes Depression: Yes Heart Rhythm Problems: No Cancer: No Cardiovascular Problems: No High Cholesterol: No Chemotherapy: No Chest Pain: Yes ("WITH ANXIETY") Congestive Heart Failure: No COPD: No Cerebrovascular Accident: Yes ("MINI", PER MOTHER.) Diabetes: No Diminished Hearing: No Endocrine: Yes Gastrointestinal Disorders: No GERD: No Glaucoma: No Genitourinary: No Headaches: No Hepatitis: No Hiatal Hernia: No Immune Disorder: No Implanted Vascular Access Dvce: No Kidney Stones: No Musculoskeletal: No Neurologic: Yes (TBI when 16) Psychiatric: Yes Reproductive: No Respiratory: Yes Immunizations Current: Yes Myocardial Infarction: No Radiation Therapy: No Renal Failure: No Schizophrenia: Yes Seizures: No Sickle Cell Disease: No Sleep Apnea: No Thyroid Disease: Yes (HYPOTHYROID) Ulcer: No ?: Unknown Menopausal: No : 1 Para: 0 Miscarriage: 1 Past Surgical History Abdominal Surgery: No AICD: No Body Medical Devices: NONE Cardiac Surgery: No Ear Surgery: No Endocrine Surgery: No Eye Surgery: No Genitourinary Surgery: No Gynecologic Surgery: No Insulin Pump: No Joint Replacement: No Neurologic Surgery: Yes (BRAIN R/T TBI ) Oral Surgery: Yes Pacemaker: No Thoracic Surgery: No Tonsillectomy: Yes Other Surgery: Yes (brain surgery- traumatic brain injury when 16) Psychiatric History Psychiatric History Hx Psychiatric Treatment: HX: INTERMITTENT EXPLOSIVE DISORDER PATIENT WAS LAST ADMITTED TO [facility] FROM 05/06/15 TO 05/12/15 FOR PSYCHOSIS, NOS. History of Inpatient Treatment: Yes Guns or firearms in home: No Social History Single, lives with mother Hx Alcohol Use: No Hx Tobacco Use: Yes (1-2 PPW) Hx Substance Use: No Substance Use Type: Nicotine/Cigarettes Other Substances Used: 5-8 cigarettes a day Hx of Substance Use Treatment: No Allergies-Medications (Allergen,Severity, Reaction): Coded Allergies: codeine (Verified Allergy, Severe, RASH/SHOB, 07/13/17) escitalopram (Verified Allergy, Severe, UNKNOWN REACTION, 07/13/17) penicillin G (Verified Allergy, Severe, UNKNOWN REACTION, 07/13/17) temazepam (Verified Allergy, Severe, Shortness of Breath and Hives, ) sulfamethoxazole (Verified Allergy, Intermediate, 07/13/17) trimethoprim (Verified Allergy, Intermediate, 07/13/17) clindamycin (Verified Adverse Reaction, Intermediate, 07/13/17) PER MOM aripiprazole (Verified Adverse Reaction, Unknown, 07/13/17) Per patient's mother - Fatou [facility] [phone]. quetiapine (Verified Adverse Reaction, Unknown, 07/13/17) Per patient's mother - Fatou [facility] [phone]. Reported Meds & Prescriptions Reported Meds & Active Scripts Active Klonopin (Clonazepam) 2 Mg Tab 2 Mg PO BID Zyprexa (Olanzapine) 10 Mg Tab 10 Mg PO DAILY Review of Systems Except as stated in HPI: all other systems reviewed are Neg Mental Status Examination Appearance: Disheveled Consciousness: Alert Orientation: Person, Place, Date/Time, Situation Motor Activity: Normal gait Speech: Other (repats self) Language: Adequate Fund of Knowledge: Poor Attention and Concentration: Easily Distracted Memory: Unremarkable (Not t etsed) Mood: Appropriate Affect: Appropriate Thought Process & Associations: Intact Thought Content: Appropriate Hallucination Type: None Delusion Type: None Suicidal Ideation: No Suicidal Plan: No Suicidal Intention: No Homicidal Ideation: No Homicidal Plan: No Homicidal Intention: No Insight: Poor Judgment: Impulsive MDM Medical Decision Making Medical Record Reviewed: Yes Assessment/Plan 32-year-old female known to [facility] , with multiple ed visits, hx of TBI , IED, bipolar disorder who presents under Sampson act. According to law enforcement reports patient was Sampson act because the mother called and said the patient was continuously hitting herself and didn't think she was going to stop. Patient says her mom lied and she was not hitting herself. She denies suicidal or homicidal ideations. Denies auditory or visual hallucinations. Says she doesn't want to go back to her mom if she is going to keep lying like this. Patient seen. EMR reviewed. Patient does not meet Sampson act criteria. She has been in behavioral control. Not psychotic and not manic. Has slept well. Sampson act is lifted. Discharge to mother. As per staff mother has refused to pick her up and we have contacted [facility]. Orders Orders Psych Screen (07/12/17 20:27) Diphenhydramine (Benadryl) (07/12/17 21:30) Diet Regular Basic (07/13/17 Breakfast) Diet Regular Basic (07/13/17 Lunch) Diet Regular Basic (07/13/17 Dinner) Results Vital Signs Date Time Temp Pulse Resp B/P (MAP) Pulse Ox O2 Delivery O2 Flow Rate FiO2 07/13/17 15:00 60 18 98/50 (66) Room Air 07/13/17 02:12 66 18 94/50 (65) 97 Room Air 07/12/17 20:39 82 16 123/60 (81) 98 Diagnosis Primary Impression: Medical clearance for psychiatric admission Psychiatrically Cleared: Yes Med/ Other Pt Specific Info: No Meds Exist/No RX given Disposition: DISCHARGE HOME Condition: Stable Connor Baileyradha BAILEY Jul 13, 2017 18:03
--- NOTE | 2017-07-13 18:03 | PD ---
History of Present Illness Chief Complaint: Psychiatric Symptoms Time Seen by Provider: 16:45 Travel History International Travel<30 Days: No Contact w/Intl Traveler<30days: No Known affected area: No Legal Status Legal Status: Sampson Act Sampson Act Signed By: Sherita Aviles History of Present Illness: 32-year-old female known to [facility] psychiatry , with multiple ed visits, hx of TBI , IED, bipolar disorder who presents under Sampson act. According to law enforcement reports patient was Sampson act because the mother called and said the patient was continuously hitting herself and didn't think she was going to stop. Patient says her mom lied and she was not hitting herself. She denies suicidal or homicidal ideations. Denies auditory or visual hallucinations. Says she doesn't want to go back to her mom if she is going to keep lying like this. Patient seen. EMR reviewed. Patient does not meet Sampson act criteria. She has been in behavioral control. Not psychotic and not manic. Has slept well. PFSH Past Medical History Arthritis: No Asthma: Yes Autoimmune Disease: No Blood Disorders: No Bipolar Disorder: Yes Anxiety: Yes Depression: Yes Heart Rhythm Problems: No Cancer: No Cardiovascular Problems: No High Cholesterol: No Chemotherapy: No Chest Pain: Yes ("WITH ANXIETY") Congestive Heart Failure: No COPD: No Cerebrovascular Accident: Yes ("MINI", PER MOTHER.) Diabetes: No Diminished Hearing: No Endocrine: Yes Gastrointestinal Disorders: No GERD: No Glaucoma: No Genitourinary: No Headaches: No Hepatitis: No Hiatal Hernia: No Immune Disorder: No Implanted Vascular Access Dvce: No Kidney Stones: No Musculoskeletal: No Neurologic: Yes (TBI when 16) Psychiatric: Yes Reproductive: No Respiratory: Yes Immunizations Current: Yes Myocardial Infarction: No Radiation Therapy: No Renal Failure: No Schizophrenia: Yes Seizures: No Sickle Cell Disease: No Sleep Apnea: No Thyroid Disease: Yes (HYPOTHYROID) Ulcer: No ?: Unknown Menopausal: No : 1 Para: 0 Miscarriage: 1 Past Surgical History Abdominal Surgery: No AICD: No Body Medical Devices: NONE Cardiac Surgery: No Ear Surgery: No Endocrine Surgery: No Eye Surgery: No Genitourinary Surgery: No Gynecologic Surgery: No Insulin Pump: No Joint Replacement: No Neurologic Surgery: Yes (BRAIN R/T TBI ) Oral Surgery: Yes Pacemaker: No Thoracic Surgery: No Tonsillectomy: Yes Other Surgery: Yes (brain surgery- traumatic brain injury when 16) Psychiatric History Psychiatric History Hx Psychiatric Treatment: HX: INTERMITTENT EXPLOSIVE DISORDER PATIENT WAS LAST ADMITTED TO [facility] FROM 05/06/15 TO 05/12/15 FOR PSYCHOSIS, NOS. History of Inpatient Treatment: Yes Guns or firearms in home: No Social History Single, lives with mother Hx Alcohol Use: No Hx Tobacco Use: Yes (1-2 PPW) Hx Substance Use: No Substance Use Type: Nicotine/Cigarettes Other Substances Used: 5-8 cigarettes a day Hx of Substance Use Treatment: No Allergies-Medications (Allergen,Severity, Reaction): Coded Allergies: codeine (Verified Allergy, Severe, RASH/SHOB, 07/13/17) escitalopram (Verified Allergy, Severe, UNKNOWN REACTION, 07/13/17) penicillin G (Verified Allergy, Severe, UNKNOWN REACTION, 07/13/17) temazepam (Verified Allergy, Severe, Shortness of Breath and Hives, ) sulfamethoxazole (Verified Allergy, Intermediate, 07/13/17) trimethoprim (Verified Allergy, Intermediate, 07/13/17) clindamycin (Verified Adverse Reaction, Intermediate, 07/13/17) PER MOM aripiprazole (Verified Adverse Reaction, Unknown, 07/13/17) Per patient's mother - Fatou [facility] [phone]. quetiapine (Verified Adverse Reaction, Unknown, 07/13/17) Per patient's mother - Fatou [facility] [phone]. Reported Meds & Prescriptions Reported Meds & Active Scripts Active Klonopin (Clonazepam) 2 Mg Tab 2 Mg PO BID Zyprexa (Olanzapine) 10 Mg Tab 10 Mg PO DAILY Review of Systems Except as stated in HPI: all other systems reviewed are Neg Mental Status Examination Appearance: Disheveled Consciousness: Alert Orientation: Person, Place, Date/Time, Situation Motor Activity: Normal gait Speech: Other (repats self) Language: Adequate Fund of Knowledge: Poor Attention and Concentration: Easily Distracted Memory: Unremarkable (Not t etsed) Mood: Appropriate Affect: Appropriate Thought Process & Associations: Intact Thought Content: Appropriate Hallucination Type: None Delusion Type: None Suicidal Ideation: No Suicidal Plan: No Suicidal Intention: No Homicidal Ideation: No Homicidal Plan: No Homicidal Intention: No Insight: Poor Judgment: Impulsive MDM Medical Decision Making Medical Record Reviewed: Yes Assessment/Plan 32-year-old female known to [facility] psychiatry , with multiple ed visits, hx of TBI , IED, bipolar disorder who presents under Sampson act. According to law enforcement reports patient was Sampson act because the mother called and said the patient was continuously hitting herself and didn't think she was going to stop. Patient says her mom lied and she was not hitting herself. She denies suicidal or homicidal ideations. Denies auditory or visual hallucinations. Says she doesn't want to go back to her mom if she is going to keep lying like this. Patient seen. EMR reviewed. Patient does not meet Sampson act criteria. She has been in behavioral control. Not psychotic and not manic. Has slept well. Sampson act is lifted. Discharge to mother. As per staff mother has refused to pick her up and we have contacted [facility]. Orders Orders Psych Screen (07/12/17 20:27) Diphenhydramine (Benadryl) (07/12/17 21:30) Diet Regular Basic (07/13/17 Breakfast) Diet Regular Basic (07/13/17 Lunch) Diet Regular Basic (07/13/17 Dinner) Results Vital Signs Date Time Temp Pulse Resp B/P (MAP) Pulse Ox O2 Delivery O2 Flow Rate FiO2 07/13/17 15:00 60 18 98/50 (66) Room Air 07/13/17 02:12 66 18 94/50 (65) 97 Room Air 07/12/17 20:39 82 16 123/60 (81) 98 Diagnosis Primary Impression: Medical clearance for psychiatric admission Psychiatrically Cleared: Yes Med/ Other Pt Specific Info: No Meds Exist/No RX given Disposition: DISCHARGE HOME Condition: Stable Connor Baileyradha BAILEY Jul 13, 2017 18:03
[2017-07-13 23:20] VITALS: BP 113/67; PULSE 66; RESP 15; O2SAT 100
[2017-07-14 05:57] VITALS: BP 99/74; PULSE 75; RESP 18
[2017-07-14] MEDS ORDERED: diphenhydrAMINE HCL 50 MG CAP PO ONE (06:00)
[2017-07-14] MEDS ORDERED: ACETAMINOPHEN 500 MG CPLT PO ONE (06:00)
[2017-07-14 10:00] VITALS: BP 95/50; PULSE 66; RESP 18
[2017-07-14] MEDS ORDERED: ZYPR10TA PO (13:01)
[2017-07-14] MEDS ORDERED: KLON2TAB PO (13:01)
--- NOTE | 2017-07-14 14:56 | PD ---
Physical Exam Time Seen by Provider: 14:[address] Farr has evaluated the patient, lifted the Sampson act and cleared the patient for discharge. Data Data Last Documented VS Vital Signs Date Time Temp Pulse Resp B/P (MAP) Pulse Ox O2 Delivery O2 Flow Rate FiO2 07/14/17 10:00 66 18 95/50 (65) Room Air 07/13/17 23:20 100 Orders Orders Psych Screen (07/12/17 20:27) Diphenhydramine (Benadryl) (07/12/17 21:30) Diet Regular Basic (07/13/17 Breakfast) Diet Regular Basic (07/13/17 Lunch) Diet Regular Basic (07/13/17 Dinner) Diet Regular Basic (07/14/17 Breakfast) Acetaminophen (Tylenol) (07/14/17 06:00) Diphenhydramine (Benadryl) (07/14/17 06:00) Diet Regular Basic (07/14/17 Lunch) MDM Supervised Visit with JACQUI: No Narrative Course Dr. Farr has evaluated the patient, lifted the Sampson act and cleared the patient for discharge. Patient contracts safety. Denies suicidal or homicidal ideations. Patient will be provided community resource packet to /[facility] for follow-up. Has friends and family for support. Patient is medically cleared for discharge. Diagnosis Primary Impression: Intermittent explosive disorder Additional Impression: Schizoaffective disorder Referrals: [facility] (Out patient) [facility] Primary Care Physician Psychiatrist [facility] Patient Instructions: General Instructions, Mood Disorders (ED), Schizoaffective Disorder (ED) Additional Instruction: Contract safety to your self and others Follow-up with psychiatry Follow-up with primary care provider Follow-up with Abhay Soto Return to the emergency department immediately with worsening of symptoms Med/Other Pt SpecificInfo: Prescription(s) given Scripts Clonazepam (Klonopin) 2 Mg Tab 2 MG PO BID, #60 TAB 0 Refills Prov: Jose Farr MD 07/14/17 Olanzapine (Zyprexa) 10 Mg Tab 10 MG PO DAILY for Agitation, #30 TAB 0 Refills Prov: Jose Farr MD 07/14/17 Disposition: 01 DISCHARGE HOME Condition: Stable Tory Ramsey Jul 14, 2017 14:56
== END 2017-07-14 15:14 | disposition home or self-care (01) ==
LOC: NEPJ 20:03
DX: F63.81 Intermittent explosive disorder (principal); F25.9 Schizoaffective disorder, unspecified; F31.9 Bipolar disorder, unspecified; J45.909 Unspecified asthma, uncomplicated; F41.9 Anxiety disorder, unspecified; E03.9 Hypothyroidism, unspecified; Z87.820 Personal history of traumatic brain injury; Z86.73 Personal history of transient ischemic attack (TIA), and cerebral infarction without residual deficits; Z79.899 Other long term (current) drug therapy
CPT/HCPCS: 99284; Q0163

== ENCOUNTER 2017-07-23 02:08 | Emergency (ER) | payer OTHER ==
[2017-07-23] MEDS ORDERED: MELA1TAB18 PO (02:22)
--- NOTE | 2017-07-23 02:34 | PD ---
HPI Chief Complaint: Psychiatric Symptoms Time Seen by Provider: 02:21 Travel History International Travel<30 days: No Contact w/Intl Traveler<30days: No Traveled to known affect area: No History of Present Illness HPI 32-year-old white female presents to emergency department under Sampson act by PD. This is a patient well-known to the ER staff for multiple ER visits and psychiatric evaluations. According to the Sampson act the patient had made suicidal statements. The patient here denies any statements. She is more interested in getting something to eat. PFSH Past Medical History Arthritis: No Asthma: Yes Autoimmune Disease: No Blood Disorders: No Bipolar Disorder: Yes Anxiety: Yes Depression: Yes Heart Rhythm Problems: No Cancer: No Cardiovascular Problems: No High Cholesterol: No Chemotherapy: No Chest Pain: Yes ("WITH ANXIETY") Congestive Heart Failure: No COPD: No Cerebrovascular Accident: Yes ("MINI", PER MOTHER.) Diabetes: No Diminished Hearing: No Endocrine: Yes Gastrointestinal Disorders: No GERD: No Glaucoma: No Genitourinary: No Headaches: No Hepatitis: No Hiatal Hernia: No Immune Disorder: No Implanted Vascular Access Dvce: No Kidney Stones: No Musculoskeletal: No Neurologic: Yes (TBI when 16) Psychiatric: Yes Reproductive: No Respiratory: Yes Immunizations Current: Yes Myocardial Infarction: No Radiation Therapy: No Renal Failure: No Schizophrenia: Yes Seizures: No Sickle Cell Disease: No Sleep Apnea: No Thyroid Disease: Yes (HYPOTHYROID) Ulcer: No ?: Not LMP: CURRENTLY Menopausal: No : 1 Para: 0 Miscarriage: 1 Past Surgical History Abdominal Surgery: No AICD: No Body Medical Devices: NONE Cardiac Surgery: No Ear Surgery: No Endocrine Surgery: No Eye Surgery: No Genitourinary Surgery: No Gynecologic Surgery: No Insulin Pump: No Joint Replacement: No Neurologic Surgery: Yes (BRAIN R/T TBI ) Oral Surgery: Yes Pacemaker: No Thoracic Surgery: No Tonsillectomy: Yes Other Surgery: Yes (brain surgery- traumatic brain injury when 16) Social History Alcohol Use: No Tobacco Use: Yes (1-2 PPW) Substance Use: No Allergies-Medications (Allergen,Severity, Reaction): Coded Allergies: codeine (Verified Allergy, Severe, RASH/SHOB, 07/13/17) escitalopram (Verified Allergy, Severe, UNKNOWN REACTION, 07/13/17) penicillin G (Verified Allergy, Severe, UNKNOWN REACTION, 07/13/17) temazepam (Verified Allergy, Severe, Shortness of Breath and Hives, ) sulfamethoxazole (Verified Allergy, Intermediate, 07/13/17) trimethoprim (Verified Allergy, Intermediate, 07/13/17) clindamycin (Verified Adverse Reaction, Intermediate, 07/13/17) PER MOM aripiprazole (Verified Adverse Reaction, Unknown, 07/13/17) Per patient's mother - Fatou [facility] [phone]. quetiapine (Verified Adverse Reaction, Unknown, 07/13/17) Per patient's mother - Fatou [facility] [phone]. Reported Meds & Prescriptions Reported Meds & Active Scripts Active Klonopin (Clonazepam) 2 Mg Tab 2 Mg PO BID Zyprexa (Olanzapine) 10 Mg Tab 10 Mg PO DAILY Reported Melatonin 10 Mg-1 Mg Tab 10 Mg PO HS PRN Review of Systems General / Constitutional: No: Fever Eyes: No: Visual changes HENT: No: Headaches Cardiovascular: No: Chest Pain or Discomfort Respiratory: No: Shortness of Breath Gastrointestinal: No: Nausea, Vomiting, Diarrhea, Abdominal Pain, Indigestion, Loss of Appetite Genitourinary: No: Dysuria Musculoskeletal: No: Pain Skin: No Rash Neurologic: No: Weakness Psychiatric: Positive: Disorder of Thought, No: Depression, Suicidal Ideations (is seen here), Mood Disorder, Substance Abuse, Homicidal Ideation Endocrine: No: Polydipsia Hematologic/Lymphatic: No: Easy Bruising Physical Exam Narrative GENERAL: Well-nourished, well-developed patient. SKIN: Warm and dry. HEAD: Normocephalic and atraumatic. EYES: No scleral icterus. No injection or drainage. ENT: No nasal drainage noted. Mucous membranes pink. Airway patent. NECK: Supple, trachea midline. Moves head freely without obvious discomfort. CARDIOVASCULAR: Regular rate and rhythm without murmurs, gallops, or rubs. RESPIRATORY: Breath sounds equal bilaterally. No accessory muscle use. GASTROINTESTINAL: Abdomen soft, non-tender, nondistended. EXTREMITIES: No cyanosis or edema. BACK: Nontender without obvious deformity. No CVA tenderness. NEURO: Patient is alert and oriented. no sensorimotor deficits. Nonfocal. Normal speech. Data Data Orders Orders Psych Screen (07/23/17 02:22) MDM Medical Decision Making Medical Screen Exam Complete: Yes Emergency Medical Condition: Yes Medical Record Reviewed: Yes Differential Diagnosis MDM: High Differential diagnoses: Schizophrenia, schizoaffective disorder, bipolar, anxiety, depression, adjustment reaction, mood disorder NOS, ODD, depressive disorder NOS, dementia, dementia with agitation, psychosis NOS, substance induced mood disorder, DMDD, Asperger syndrome, infection,electrolyte abnormality, malingering. Narrative Course Mental health screening discussed with the patient. Psychiatric screen ordered. The patient medically clear. This is medical clearance for psychiatric admission Diagnosis Primary Impression: Medical clearance for psychiatric admission Condition: Antoine Haider Jul 23, 2017 02:34
[2017-07-23 04:06] VITALS: BP 106/81; PULSE 75; RESP 16; O2SAT 97
--- NOTE | 2017-07-23 15:38 | PD ---
History of Present Illness Chief Complaint: Psychiatric Symptoms Time Seen by Provider: 15:30 Travel History International Travel<30 Days: No Contact w/Intl Traveler<30days: No Known affected area: No Legal Status Legal Status: Sampson Act History of Present Illness: 32-year-old female well known to this physician and the staff in the emergency department. According to the Sampson act, she made suicidal statements. Patient denies any suicidal or homicidal ideation, plan or intent. She denies any psychotic symptoms and her cognition is baseline. She is looking for something to eat which is not unusual for her. PFSH Past Medical History Arthritis: No Asthma: Yes Autoimmune Disease: No Blood Disorders: No Bipolar Disorder: Yes Anxiety: Yes Depression: Yes Heart Rhythm Problems: No Cancer: No Cardiovascular Problems: No High Cholesterol: No Chemotherapy: No Chest Pain: Yes ("WITH ANXIETY") Congestive Heart Failure: No COPD: No Cerebrovascular Accident: Yes ("MINI", PER MOTHER.) Diabetes: No Diminished Hearing: No Endocrine: Yes Gastrointestinal Disorders: No GERD: No Glaucoma: No Genitourinary: No Headaches: No Hepatitis: No Hiatal Hernia: No Immune Disorder: No Implanted Vascular Access Dvce: No Kidney Stones: No Musculoskeletal: No Neurologic: Yes (TBI when 16) Psychiatric: Yes Reproductive: No Respiratory: Yes Immunizations Current: Yes Myocardial Infarction: No Radiation Therapy: No Renal Failure: No Schizophrenia: Yes Seizures: No Sickle Cell Disease: No Sleep Apnea: No Thyroid Disease: Yes (HYPOTHYROID) Ulcer: No ?: Not LMP: CURRENTLY Menopausal: No : 1 Para: 0 Miscarriage: 1 Past Surgical History Abdominal Surgery: No AICD: No Body Medical Devices: NONE Cardiac Surgery: No Ear Surgery: No Endocrine Surgery: No Eye Surgery: No Genitourinary Surgery: No Gynecologic Surgery: No Insulin Pump: No Joint Replacement: No Neurologic Surgery: Yes (BRAIN R/T TBI ) Oral Surgery: Yes Pacemaker: No Thoracic Surgery: No Tonsillectomy: Yes Other Surgery: Yes (brain surgery- traumatic brain injury when 16) Psychiatric History Psychiatric History Hx Psychiatric Treatment: HX: INTERMITTENT EXPLOSIVE DISORDER PATIENT WAS LAST ADMITTED TO [facility] FROM 05/06/15 TO 05/12/15 FOR PSYCHOSIS, NOS. Patient does not truly have a psychotic disorder. However she can be manipulative. Her mother can be very demanding, unreasonable and inappropriate. History of Inpatient Treatment: Yes Guns or firearms in home: No Social History Hx Alcohol Use: No Hx Tobacco Use: Yes (1-2 PPW) Hx Substance Use: No Substance Use Type: Nicotine/Cigarettes Other Substances Used: 5-8 cigarettes a day Hx of Substance Use Treatment: No Allergies-Medications (Allergen,Severity, Reaction): Coded Allergies: codeine (Verified Allergy, Severe, RASH/SHOB, 07/13/17) escitalopram (Verified Allergy, Severe, UNKNOWN REACTION, 07/13/17) penicillin G (Verified Allergy, Severe, UNKNOWN REACTION, 07/13/17) temazepam (Verified Allergy, Severe, Shortness of Breath and Hives, ) sulfamethoxazole (Verified Allergy, Intermediate, 07/13/17) trimethoprim (Verified Allergy, Intermediate, 07/13/17) clindamycin (Verified Adverse Reaction, Intermediate, 07/13/17) PER MOM aripiprazole (Verified Adverse Reaction, Unknown, 07/13/17) Per patient's mother - Fatou [facility] [phone]. quetiapine (Verified Adverse Reaction, Unknown, 07/13/17) Per patient's mother - Fatou [facility] [phone]. Reported Meds & Prescriptions Reported Meds & Active Scripts Active Klonopin (Clonazepam) 2 Mg Tab 2 Mg PO BID Zyprexa (Olanzapine) 10 Mg Tab 10 Mg PO DAILY Reported Melatonin 10 Mg-1 Mg Tab 10 Mg PO HS PRN Review of Systems Except as stated in HPI: all other systems reviewed are Neg Mental Status Examination Appearance: Appropriate Consciousness: Alert Orientation: x4 Motor Activity: Normal gait Speech: Unremarkable Language: Adequate Fund of Knowledge: Adequate Attention and Concentration: Adequate Memory: Unremarkable Mood: Appropriate Affect: Appropriate Thought Process & Associations: Intact Thought Content: Appropriate Hallucination Type: None Delusion Type: None Suicidal Ideation: No Suicidal Plan: No Suicidal Intention: No Homicidal Ideation: No Homicidal Plan: No Homicidal Intention: No Insight: Adequate Judgment: Adequate MDM Medical Decision Making Medical Record Reviewed: Yes Assessment/Plan Patient interviewed at bedside. Medical record reviewed. Case discussed with nurses. Patient remains at baseline. She and her mother do not get along well on the patient ask out. Patient's mother acts out as well. Patient is not suicidal or homicidal or psychotic. She can be treated on an outpatient basis. She does not meet criteria for Sampson act or involuntary psychiatric hospitalization. Orders Orders Psych Screen (07/23/17 02:22) Diet Regular Basic (07/23/17 Breakfast) Diet Regular Basic (07/23/17 Lunch) Results Vital Signs Date Time Temp Pulse Resp B/P (MAP) Pulse Ox O2 Delivery O2 Flow Rate FiO2 07/23/17 04:06 75 16 106/81 (89) 97 Room Air Diagnosis Primary Impression: Adjustment disorder with mixed disturbance of emotions and conduct Condition: Stable Jose Farr MD Jul 23, 2017 15:38
== END 2017-07-23 15:59 | disposition home or self-care (01) ==
LOC: NEPD 02:08
DX: F43.25 Adjustment disorder with mixed disturbance of emotions and conduct (principal); F31.9 Bipolar disorder, unspecified; F20.9 Schizophrenia, unspecified; E03.9 Hypothyroidism, unspecified
CPT/HCPCS: 99283

== ENCOUNTER 2017-08-13 15:43 | Emergency (ER) | payer OTHER ==
[~2017-08-13] VITALS: Ht 172.7 cm; Wt 82.0 kg
[~2017-08-13 15:43] MED LIST changes: +MELA1TAB18 PO
[2017-08-13] MEDS ORDERED: diphenhydrAMINE HCL 50 MG/ML VIAL ONE (15:53)
[2017-08-13] MEDS ORDERED: HALOPERIDOL LACTATE 5 MG/ML AMP ONE (15:53)
[2017-08-13] MEDS ORDERED: LORazepam 2 MG/ML VIAL ONE (15:53)
[2017-08-13] MEDS ORDERED: LORazepam 2 MG/ML VIAL IV PUSH ONE (16:00)
[2017-08-13] MEDS ORDERED: diphenhydrAMINE HCL 50 MG/ML VIAL IM ONE (16:00)
[2017-08-13] MEDS ORDERED: HALOPERIDOL LACTATE 5 MG/ML AMP IM ONE (16:00)
--- NOTE | 2017-08-13 16:05 | PD ---
HPI Chief Complaint: Psychiatric Symptoms Time Seen by Provider: 15:57 Travel History International Travel<30 days: No Contact w/Intl Traveler<30days: No History of Present Illness HPI Patient is a 32-year-old female who presents to emergency room for psychiatric evaluation. As per police officers, patient's mother called the telephonic case manager today as patient has been refusing to take her medications. Patient reports that the devil is talking to her. Reports that she is growing horns and the devil is overcoming her. She is hearing voices at this time. Denies active si/hi. Patient was placed in a Sampson act prior to arrival to ER by PD [place] Past Medical History Arthritis: No Asthma: Yes Autoimmune Disease: No Blood Disorders: No Bipolar Disorder: Yes Anxiety: Yes Depression: Yes Heart Rhythm Problems: No Cancer: No Cardiovascular Problems: No High Cholesterol: No Chemotherapy: No Chest Pain: Yes ("WITH ANXIETY") Congestive Heart Failure: No COPD: No Cerebrovascular Accident: Yes ("MINI", PER MOTHER.) Diabetes: No Diminished Hearing: No Endocrine: Yes Gastrointestinal Disorders: No GERD: No Glaucoma: No Genitourinary: No Headaches: No Hepatitis: No Hiatal Hernia: No Immune Disorder: No Implanted Vascular Access Dvce: No Kidney Stones: No Musculoskeletal: No Neurologic: Yes (TBI when 16) Psychiatric: Yes Reproductive: No Respiratory: Yes Immunizations Current: Yes Myocardial Infarction: No Radiation Therapy: No Renal Failure: No Schizophrenia: Yes Seizures: No Sickle Cell Disease: No Sleep Apnea: No Thyroid Disease: Yes (HYPOTHYROID) Ulcer: No Menopausal: No : 1 Para: 0 Miscarriage: 1 Past Surgical History Abdominal Surgery: No AICD: No Body Medical Devices: NONE Cardiac Surgery: No Ear Surgery: No Endocrine Surgery: No Eye Surgery: No Genitourinary Surgery: No Gynecologic Surgery: No Insulin Pump: No Joint Replacement: No Neurologic Surgery: Yes (BRAIN R/T TBI ) Oral Surgery: Yes Pacemaker: No Thoracic Surgery: No Tonsillectomy: Yes Other Surgery: Yes (brain surgery- traumatic brain injury when 16) Social History Alcohol Use: No Tobacco Use: Yes (1-2 PPW) Substance Use: No Allergies-Medications (Allergen,Severity, Reaction): Coded Allergies: codeine (Verified Allergy, Severe, RASH/SHOB, 07/13/17) escitalopram (Verified Allergy, Severe, UNKNOWN REACTION, 07/13/17) penicillin G (Verified Allergy, Severe, UNKNOWN REACTION, 07/13/17) temazepam (Verified Allergy, Severe, Shortness of Breath and Hives, ) sulfamethoxazole (Verified Allergy, Intermediate, 07/13/17) trimethoprim (Verified Allergy, Intermediate, 07/13/17) clindamycin (Verified Adverse Reaction, Intermediate, 07/13/17) PER MOM aripiprazole (Verified Adverse Reaction, Unknown, 07/13/17) Per patient's mother - Fatou [facility] [phone]. quetiapine (Verified Adverse Reaction, Unknown, 07/13/17) Per patient's mother - Fatou [facility] [phone]. Reported Meds & Prescriptions Reported Meds & Active Scripts Active Klonopin (Clonazepam) 2 Mg Tab 2 Mg PO BID Zyprexa (Olanzapine) 10 Mg Tab 10 Mg PO DAILY Reported Melatonin 10 Mg-1 Mg Tab 10 Mg PO HS PRN Review of Systems General / Constitutional: No: Fever Eyes: No: Visual changes HENT: No: Headaches Cardiovascular: No: Chest Pain or Discomfort Respiratory: No: Shortness of Breath Gastrointestinal: No: Abdominal Pain Genitourinary: No: Dysuria Musculoskeletal: No: Pain Skin: No Rash Neurologic: No: Weakness Psychiatric: Positive: Mood Disorder, No: Depression Endocrine: No: Polydipsia Hematologic/Lymphatic: No: Easy Bruising Physical Exam Narrative GENERAL: Moderate distress SKIN: Focused skin assessment warm/dry. HEAD: Atraumatic. Normocephalic. EYES: Pupils equal and round. No scleral icterus. No injection or drainage. ENT: No nasal bleeding or discharge. Mucous membranes pink and moist. NECK: Trachea midline. No JVD. CARDIOVASCULAR: Regular rate and rhythm. No murmur appreciated. RESPIRATORY: No accessory muscle use. Clear to auscultation. Breath sounds equal bilaterally. GASTROINTESTINAL: Abdomen soft, non-tender, nondistended. MUSCULOSKELETAL: No obvious deformities. No clubbing. No cyanosis. No edema. NEUROLOGICAL: Awake and alert. Motor grossly within normal limits. Normal speech. PSYCHIATRIC: extremely agitated mood and affect; insight and judgment is not normal. Data Data Orders Orders Haloperidol Inj (Haldol Inj) (08/13/17 15:53) Lorazepam Inj (Ativan Inj) (08/13/17 15:53) Diphenhydramine Inj (Benadryl Inj) (08/13/17 15:53) Haloperidol Inj (Haldol Inj) (08/13/17 16:00) Lorazepam Inj (Ativan Inj) (08/13/17 16:00) Diphenhydramine Inj (Benadryl Inj) (08/13/17 16:00) Complete Blood Count With Diff (08/13/17 15:58) Comprehensive Metabolic Panel (08/13/17 15:58) Ed Urine Pregnancytest Poc (08/13/17 15:58) Oximetry (08/13/17 15:58) Ecg Monitoring (08/13/17 15:58) Psych Screen (08/13/17 15:58) Drug Screen, Random Urine (08/13/17 15:58) MDM Medical Decision Making Medical Screen Exam Complete: Yes Emergency Medical Condition: Yes Medical Record Reviewed: Yes Differential Diagnosis Schizoaffective disorder, intermittent explosive disorder Narrative Course During the course of the patients emergency department visit, the patients history, examination, and differential diagnosis were reviewed with the patient. The patient was placed on a cardiac catheterization technologist with oximetry and frequent blood pressure monitoring. The patient was initially provided IM Haldol, IM Ativan as well as IM Benadryl as she is combative to staff. Patient required medical sedation for protection of herself as well as for protection of the staff. Psychiatric screening labs were ordered. Once resulted, will clear patient for psychiatric screening. Critical Care Narrative Aggregate critical care time was 30 minutes. Time to perform other separately billable procedures was not included in the critical care time. My time did not include minutes spent treating any other patients simultaneously or on activities that did not directly contribute to the patient's treatment. The services I provided to this patient were to treat and/or prevent clinically significant deterioration that could result in: , decompensation, deterioration I provided critical care services requiring my management, as noted below: Chart data review, documentation time, medication orders and management, vital sign assessments/reviewing monitor data, ordering and reviewing lab tests, ordering and interpreting/reviewing x-rays and diagnostic studies, care of the patient and discussion of the patient with the admitting physicians. Diagnosis Primary Impression: Intermittent explosive disorder Additional Impressions: Schizoaffective disorder Noncompliance with medication regimen Pushpa Spear DO Aug 13, 2017 16:05
[2017-08-13 16:13] VITALS: BP 128/58; PULSE 97; RESP 20; TEMP 99.4; O2SAT 98
[2017-08-13] MEDS ORDERED: LORazepam 2 MG/ML VIAL IM ONE (16:30)
[2017-08-13] MEDS ORDERED: OLANZapine 5 MG TAB PO ONE (18:15)
[2017-08-13] MEDS ORDERED: OLANZapine IM 10 MG VIAL IM ONE (18:15)
[2017-08-13 19:40] LABS: AUTOMATED NEUTROPHIL # 7.5 TH/MM3 (1.8-7.7); BASOPHIL % 0.4 % (0.0-2.0); EOSINOPHIL % 0.3 % (0.0-4.0); HEMATOCRIT 42.4 % (35.0-46.0); HEMO FLAGS DIFF FINAL; LYMPH % 16.8 % (9.0-44.0); LYMPHOCYTE # 1.7 TH/MM3 (1.0-4.8); MEAN CELL VOLUME 83.2 FL (80.0-100.0); MEAN CORPUSCULAR HGB CONC 32.5 % (32.0-36.0); MONO % 6.8 % (0.0-8.0); NEUT % 75.7 % (16.0-70.0); PLATELET COUNT 312 TH/MM3 (150-450); RED BLOOD COUNT 5.09 MIL/MM3 (4.00-5.30); RED CELL DISTRIBUTION WIDTH 14.9 % (11.6-17.2); WHITE BLOOD COUNT 9.9 TH/MM3 (4.0-11.0)
[2017-08-13 19:55] LABS: ANION GAP 8 MEQ/L (5-15); AST (GOT) 66 U/L (15-37); BICARBONATE 27.1 MEQ/L (21.0-32.0); BLOOD UREA NITROGEN 5 MG/DL (7-18); CHLORIDE 102 MEQ/L (98-107); GLOMERULAR FILTRATION RATE 67 ML/MIN (>89); POTASSIUM 3.7 MEQ/L (3.5-5.1); SODIUM (NA) 137 MEQ/L (136-145)
[2017-08-13 19:56] LABS: ALT (GPT) 49 U/L (10-53)
[2017-08-13 19:58] LABS: ALKALINE PHOSPHATASE 106 U/L (45-117); TOTAL BILIRUBIN ADULT 0.8 MG/DL (0.2-1.0)
[2017-08-13 22:14] VITALS: BP 110/52; PULSE 80; RESP 18; O2SAT 96
[2017-08-14 06:19] VITALS: BP 110/68; PULSE 65; RESP 18
[2017-08-14] MEDS ORDERED: ONDANSETRON ODT 4 MG TAB PO ONE (12:15)
--- NOTE | 2017-08-14 12:17 | PD ---
History of Present Illness Chief Complaint: Psychiatric Symptoms Time Seen by Provider: 12:00 Travel History International Travel<30 Days: No Contact w/Intl Traveler<30days: No Known affected area: No Legal Status Legal Status: Sampson Act Sampson Act Signed By: Sherita Aviles History of Present Illness: 32-year-old female brought in under a Sampson act. Patient is very well known to this physician. Patient's mother is also known to this physician and the psychiatric hospital staff. Patient does not actually experiences auditory hallucinations. 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 At this time the patient is upset and tearful and wants to go home. She is however eating lunch and she demonstrates no evidence of psychotic thinking. She has no suicidal or homicidal ideation, plan or intent. We will attempt to place her back on Zyprexa and Klonopin, as this has worked for her in the past. Patient is not likely to be admitted as hospital admissions do not tend to be of benefit to the patient and she needs to be managed by medication, on an outpatient basis. Finally, due to our experience with patient's mother, this physician's concern is always that mother in some fashion contributes to the patient's acting out behavior. PFSH Past Medical History Arthritis: No Asthma: Yes Autoimmune Disease: No Blood Disorders: No Bipolar Disorder: Yes Anxiety: Yes Depression: Yes Heart Rhythm Problems: No Cancer: No Cardiovascular Problems: No High Cholesterol: No Chemotherapy: No Chest Pain: Yes ("WITH ANXIETY") Congestive Heart Failure: No COPD: No Cerebrovascular Accident: Yes ("MINI", PER MOTHER.) Diabetes: No Diminished Hearing: No Endocrine: Yes Gastrointestinal Disorders: No GERD: No Glaucoma: No Genitourinary: No Headaches: No Hepatitis: No Hiatal Hernia: No Immune Disorder: No Implanted Vascular Access Dvce: No Kidney Stones: No Musculoskeletal: No Neurologic: Yes (TBI when 16) Psychiatric: Yes Reproductive: No Respiratory: Yes Immunizations Current: Yes Myocardial Infarction: No Radiation Therapy: No Renal Failure: No Schizophrenia: Yes Seizures: No Sickle Cell Disease: No Sleep Apnea: No Thyroid Disease: Yes (HYPOTHYROID) Ulcer: No ?: Not Menopausal: No : 1 Para: 0 Miscarriage: 1 Past Surgical History Abdominal Surgery: No AICD: No Body Medical Devices: NONE Cardiac Surgery: No Ear Surgery: No Endocrine Surgery: No Eye Surgery: No Genitourinary Surgery: No Gynecologic Surgery: No Insulin Pump: No Joint Replacement: No Neurologic Surgery: Yes (BRAIN R/T TBI ) Oral Surgery: Yes Pacemaker: No Thoracic Surgery: No Tonsillectomy: Yes Other Surgery: Yes (brain surgery- traumatic brain injury when 16) Psychiatric History Psychiatric History Hx Psychiatric Treatment: PATIENT WAS LAST ADMITTED TO [facility] FROM 05/06/15 TO 05/12/15 FOR PSYCHOSIS, NOS. PATIENT IS WELL KNOWN TO THIS FACILITY WITH A HISTORY OF INTERMITTENT EXPLOSIVE DISORDER AND ADJUSTMENT DISORDER. This physician has diagnosed intermittent explosive disorder, although patient's mother disagrees. Once again, there is no current significant objective clinical evidence of psychotic thinking at this time. History of Inpatient Treatment: Yes Guns or firearms in home: No Social History Hx Alcohol Use: No (UNABLE TO OBTAIN) Hx Tobacco Use: Yes (UNABLE TO OBTAIN) Hx Substance Use: No Substance Use Type: Nicotine/Cigarettes Other Substances Used: 5-8 cigarettes a day Hx of Substance Use Treatment: No Allergies-Medications (Allergen,Severity, Reaction): Coded Allergies: codeine (Verified Allergy, Severe, RASH/SHOB, 07/13/17) escitalopram (Verified Allergy, Severe, UNKNOWN REACTION, 07/13/17) penicillin G (Verified Allergy, Severe, UNKNOWN REACTION, 07/13/17) temazepam (Verified Allergy, Severe, Shortness of Breath and Hives, ) sulfamethoxazole (Verified Allergy, Intermediate, 07/13/17) trimethoprim (Verified Allergy, Intermediate, 07/13/17) clindamycin (Verified Adverse Reaction, Intermediate, 07/13/17) PER MOM aripiprazole (Verified Adverse Reaction, Unknown, 07/13/17) Per patient's mother - Fatou [facility] [phone]. quetiapine (Verified Adverse Reaction, Unknown, 07/13/17) Per patient's mother - Fatou [facility] [phone]. Reported Meds & Prescriptions Reported Meds & Active Scripts Active Klonopin (Clonazepam) 2 Mg Tab 2 Mg PO BID Zyprexa (Olanzapine) 10 Mg Tab 10 Mg PO DAILY Reported Melatonin 10 Mg-1 Mg Tab 10 Mg PO HS PRN Review of Systems Psychiatric: COMPLAINS OF: Anxiety, Agitation Except as stated in HPI: all other systems reviewed are Neg Mental Status Examination Appearance: Disheveled Consciousness: Alert Orientation: x4 Motor Activity: Normal gait Speech: Incoherent Language: Adequate Fund of Knowledge: Adequate Attention and Concentration: Adequate Memory: Unremarkable Mood: Irritable Affect: Labile Thought Process & Associations: Intact Thought Content: Bizarre thinking Hallucination Type: None Delusion Type: None Suicidal Ideation: No Suicidal Plan: No Suicidal Intention: No Homicidal Ideation: No Homicidal Plan: No Homicidal Intention: No Insight: Fair Judgment: Impulsive MDM Medical Decision Making Medical Record Reviewed: Yes Assessment/Plan Patient interviewed at bedside. Medical record reviewed. Case discussed with nurse, Nader. We will treat patient with Zyprexa and Klonopin. Sampson act to be discontinued. Patient can and should be managed on an outpatient basis. Orders Orders Haloperidol Inj (Haldol Inj) (08/13/17 15:53) Lorazepam Inj (Ativan Inj) (08/13/17 15:53) Diphenhydramine Inj (Benadryl Inj) (08/13/17 15:53) Haloperidol Inj (Haldol Inj) (08/13/17 16:00) Lorazepam Inj (Ativan Inj) (08/13/17 16:00) Diphenhydramine Inj (Benadryl Inj) (08/13/17 16:00) Complete Blood Count With Diff (08/13/17 15:58) Comprehensive Metabolic Panel (08/13/17 15:58) Ed Urine Pregnancytest Poc (08/13/17 15:58) Oximetry (08/13/17 15:58) Ecg Monitoring (08/13/17 15:58) Psych Screen (08/13/17 15:58) Drug Screen, Random Urine (08/13/17 15:58) Lorazepam Inj (Ativan Inj) (08/13/17 16:30) ^ Sitter (08/13/17 16:24) Olanzapine Inj (Zyprexa Inj) (08/13/17 18:15) Olanzapine (Zyprexa) (08/13/17 18:15) Diet Regular Basic (08/14/17 Breakfast) Diet Regular Basic (08/14/17 Lunch) Ondansetron Odt (Zofran Odt) (08/14/17 12:15) Results Vital Signs Date Time Temp Pulse Resp B/P (MAP) Pulse Ox O2 Delivery O2 Flow Rate FiO2 08/14/17 06:19 65 18 110/68 (82) 08/13/17 22:14 80 18 110/52 (71) 96 Room Air 08/13/17 16:13 99.4 97 20 128/58 (81) 98 Laboratory Tests Test 08/13/17 16:15 08/13/17 19:15 Urine Opiates Screen NEG Urine Barbiturates Screen NEG Urine Amphetamines Screen NEG Urine Benzodiazepines Screen NEG Urine Cocaine Screen NEG Urine Cannabinoids Screen NEG White Blood Count 9.9 Red Blood Count 5.09 Hemoglobin 13.8 Hematocrit 42.4 Mean Corpuscular Volume 83.2 Mean Corpuscular Hemoglobin 27.0 Mean Corpuscular Hemoglobin Concent 32.5 Red Cell Distribution Width 14.9 Platelet Count 312 Mean Platelet Volume 8.3 Neutrophils (%) (Auto) 75.7 Lymphocytes (%) (Auto) 16.8 Monocytes (%) (Auto) 6.8 Eosinophils (%) (Auto) 0.3 Basophils (%) (Auto) 0.4 Neutrophils # (Auto) 7.5 Lymphocytes # (Auto) 1.7 Monocytes # (Auto) 0.7 Eosinophils # (Auto) 0.0 Basophils # (Auto) 0.0 CBC Comment DIFF FINAL Differential Comment Blood Urea Nitrogen 5 Creatinine 0.96 Random Glucose 83 Total Protein 7.8 Albumin 4.4 Calcium Level 9.1 Alkaline Phosphatase 106 Aspartate Amino Transf (AST/SGOT) 66 Alanine Aminotransferase (ALT/SGPT) 49 Total Bilirubin 0.8 Sodium Level 137 Potassium Level 3.7 Chloride Level 102 Carbon Dioxide Level 27.1 Anion Gap 8 Estimat Glomerular Filtration Rate 67 Diagnosis Primary Impression: Intermittent explosive disorder Jose Farr MD Aug 14, 2017 12:17
[2017-08-14] MEDS ORDERED: clonazePAM 1 MG TAB PO ONE (12:30)
[2017-08-14] MEDS ORDERED: OLANZapine ODT 10 MG TAB PO ONE (12:30)
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
[2017-08-14] MEDS ORDERED: KLON2TAB PO (14:25)
[2017-08-14] MEDS ORDERED: ZYPR10TA PO (14:25)
[2017-08-26] MEDS ORDERED: diphenhydrAMINE HCL 50 MG/ML VIAL IM ONE (19:15)
[2017-08-26] MEDS ORDERED: ZIPRASIDONE MESYLATE 20 MG VIAL IM ONE (19:15)
== END 2017-08-14 14:45 | disposition home or self-care (01) ==
LOC: NEPD 15:43 → NEPJ 08-14 14:45
DX: F63.81 Intermittent explosive disorder (principal); F25.9 Schizoaffective disorder, unspecified; Z91.14 Patient's other noncompliance with medication regimen; Z87.820 Personal history of traumatic brain injury
CPT/HCPCS: 80053; 80307; 84703; 85025; 96372; 99291; J1200; J1630; J2060

== ENCOUNTER 2017-08-26 19:00 | Inpatient (IN) | payer OTHER ==
[~2017-08-26] VITALS: Ht 167.6 cm; Wt 83.1 kg
[2017-08-26] MEDS ORDERED: diphenhydrAMINE HCL 50 MG/ML VIAL ONE (19:14)
[2017-08-26] MEDS ORDERED: LORazepam 2 MG/ML VIAL ONE (19:14)
[2017-08-26] MEDS ORDERED: ZIPRASIDONE MESYLATE 20 MG VIAL IM ONE (19:14)
[2017-08-26] MEDS ORDERED: diphenhydrAMINE HCL 50 MG/ML VIAL IM SCH (19:20)
[2017-08-26] MEDS ORDERED: ZIPRASIDONE MESYLATE 20 MG VIAL IM SCH (19:20)
[2017-08-26 19:27] VITALS: RESP 19
[2017-08-26] MEDS ORDERED: LORazepam 2 MG/ML VIAL IM ONE (19:30)
[2017-08-26 19:42] LABS: AUTOMATED NEUTROPHIL # 4.9 TH/MM3 (1.8-7.7); BASOPHIL % 0.4 % (0.0-2.0); EOSINOPHIL # 0.1 TH/MM3 (0-0.4); EOSINOPHIL % 0.8 % (0.0-4.0); HEMO FLAGS DIFF FINAL; LYMPH % 26.6 % (9.0-44.0); LYMPHOCYTE # 2.1 TH/MM3 (1.0-4.8); MEAN CELL VOLUME 84.1 FL (80.0-100.0); MEAN CORPUSCULAR HGB CONC 33.3 % (32.0-36.0); MONO % 9.8 % (0.0-8.0); NEUT % 62.4 % (16.0-70.0); PLATELET COUNT 262 TH/MM3 (150-450); RED BLOOD COUNT 4.88 MIL/MM3 (4.00-5.30); RED CELL DISTRIBUTION WIDTH 15.4 % (11.6-17.2); WHITE BLOOD COUNT 7.9 TH/MM3 (4.0-11.0)
[2017-08-26 19:51] LABS: BACTERIA, URINE RARE /hpf; BLOOD, URINE NEG (NEG); COMMENT (UR) CULT NOT INDICATED; CULTURE IF INDICATED CULT NOT INDICATED; GLUCOSE,URINE NEG (NEG); KETONE, URINE NEG (NEG); NITRITE,URINE NEG (NEG); SQUAMOUS EPITHELIAL CELL URINE 1 /hpf (0-5); URINE COLOR LIGHT-YELLOW (YELLW/STRAW)
[2017-08-26 19:56] VITALS: BP 111/59; PULSE 92; RESP 20; TEMP 98.9; O2SAT 98
[2017-08-26 20:00] LABS: ALKALINE PHOSPHATASE 98 U/L (45-117); ALT (GPT) 45 U/L (10-53); ANION GAP 9 MEQ/L (5-15); AST (GOT) 38 U/L (15-37); BICARBONATE 28.2 MEQ/L (21.0-32.0); BLOOD UREA NITROGEN 3 MG/DL (7-18); CHLORIDE 98 MEQ/L (98-107); GLOMERULAR FILTRATION RATE 90 ML/MIN (>89); SODIUM (NA) 135 MEQ/L (136-145); TOTAL BILIRUBIN ADULT 0.8 MG/DL (0.2-1.0)
[2017-08-26 20:06] LABS: ACETAMINOPHEN LESS THAN 2.0 MCG/ML (10.0-30.0); ALCOHOL LESS THAN 3 MG/DL (0-5)
[2017-08-26 20:16] LABS: POTASSIUM 2.9 MEQ/L (3.5-5.1)
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
[2017-08-26] MEDS ORDERED: SODIUM CHLOR 0.9% 1000 ML INJ 1,000 ML IV ONE (21:00)
[2017-08-26] MEDS ORDERED: LORazepam 2 MG/ML VIAL IV PUSH ONE (21:00)
[2017-08-26] MEDS: POTASSIUM CHLOR 20 MEQ PREMIX 100 ML IV SCH (21:10)
[2017-08-26] MEDS ORDERED: OLANZapine IM 10 MG VIAL IM ONE (22:00)
[2017-08-26 22:53] VITALS: BP_SYST 112; BP_DIAS 1; BP_DIAS 61; PULSE 90; RESP 18; O2SAT 99
[2017-08-27] MEDS: POTASSIUM CHLOR 20 MEQ PREMIX 100 ML IV SCH (00:33)
[2017-08-27 00:52] VITALS: BP 112/68; PULSE 87; RESP 18; O2SAT 99
[2017-08-27 02:45] VITALS: BP 103/65; PULSE 77; RESP 20; O2SAT 98
[2017-08-27 03:18] LABS: BICARBONATE 30.6 MEQ/L (21.0-32.0); POTASSIUM 3.2 MEQ/L (3.5-5.1)
[2017-08-27 05:09] VITALS: BP 126/69; PULSE 78; RESP 17; TEMP 97.9; O2SAT 98
[2017-08-27] MEDS ORDERED: diphenhydrAMINE HCL 50 MG/ML VIAL - HS PRN IM (05:15)
[2017-08-27] MEDS ORDERED: MAGNESIUM HYDROXIDE SUSP 30 ML CUP PO PRN (05:15)
[2017-08-27] MEDS ORDERED: BENZTROPINE MESYLATE 2 MG/2 ML VIAL IM PRN (05:15)
[2017-08-27] MEDS ORDERED: BENZTROPINE MESYLATE 1 MG TAB PO PRN (05:15)
[2017-08-27] MEDS ORDERED: ALUMINUM/MAGNESIUM/SIMETH 30 ML CUP PO PRN (05:15)
[2017-08-27] MEDS: NICOTINE 21 MG/24 HR PATCH T-DERMAL SCH (09:00)
[2017-08-27] MEDS: hydrOXYzine HCL 50 MG TAB PO PRN ×2 (09:20→17:03)
[2017-08-27] MEDS: OLANZapine 5 MG TAB PO SCH ×2 (09:20→19:57)
--- NOTE | 2017-08-27 10:18 | PD.CONS ---
HPI [facility] Consult Requested By Reason for Consult hypokalemia Primary Care Physician Unknown Diagnoses: History of Present Illness patient is a 32 y/o female with history of schizoaffective disorder who was admitted to the psych unit because of psychosis. as part of the initial work-up she was found to have hypokalemia. the patient is a poor historian and not cooperative with the exam. she was seen with the RN at the bedside. she was resting comfortably at the time of my evaluation with no reported pain or any other acute medical issues over night. Review of Systems ROS Limitations: Psychotic, Poor Historian Past Family Social History Allergies: Coded Allergies: codeine (Verified Allergy, Severe, RASH/SHOB, 07/13/17) escitalopram (Verified Allergy, Severe, UNKNOWN REACTION, 07/13/17) penicillin G (Verified Allergy, Severe, UNKNOWN REACTION, 07/13/17) temazepam (Verified Allergy, Severe, Shortness of Breath and Hives, ) sulfamethoxazole (Verified Allergy, Intermediate, 07/13/17) trimethoprim (Verified Allergy, Intermediate, 07/13/17) clindamycin (Verified Adverse Reaction, Intermediate, 07/13/17) PER MOM aripiprazole (Verified Adverse Reaction, Unknown, 07/13/17) Per patient's mother - [facility] [phone]. quetiapine (Verified Adverse Reaction, Unknown, 07/13/17) Per patient's mother - [facility] [phone]. Past Medical History schizoaffective disorder. Past Surgical History could not be obtained. Reported Medications Klonopin (Clonazepam) 2 Mg Tab 2 Mg PO BID Zyprexa (Olanzapine) 10 Mg Tab 10 Mg PO DAILY Reported Melatonin 10 Mg-1 Mg Tab 10 Mg PO HS PRN Active Ordered Medications Current Medications Lorazepam (Ativan Inj) 2 mg STK-MED ONCE .ROUTE Last administered on 08/26/17 19:22; Start 08/26/17 at 19:14; Stop 08/26/17 at 19:15; Status DC Diphenhydramine HCl (Benadryl Inj) 50 mg STK-MED ONCE .ROUTE Last administered on 08/26/17 19:22; Start 08/26/17 at 19:14; Stop 08/26/17 at 19:15; Status DC Ziprasidone (Geodon Inj) 20 mg STK-MED ONCE IM Last administered on 08/26/17 19:22; Start 08/26/17 at 19:14; Stop 08/26/17 at 19:15; Status DC Lorazepam (Ativan Inj) 2 mg NOW ONCE IM ; Start 08/26/17 at 19:30; Stop at 19:31; Status DC Potassium Chloride 100 ml @ 50 mls/hr Q2H IV Last administered on 08/27/17 00:33; Start 08/26/17 at 20:30; Stop 08/27/17 at 00:29; Status DC Sodium Chloride 1,000 ml @ 999 mls/hr BOLUS ONCE IV Last administered on 08/26 21:25; Start 08/26/17 at 21:00; Stop 08/26/17 at 22:00; Status DC Lorazepam (Ativan Inj) 2 mg ONCE ONCE IV PUSH Last administered on 08/26/17 21:06; Start 08/26/17 at 21:00; Stop 08/26/17 at 21:01; Status DC Olanzapine (ZyPREXA INJ) 10 mg ONCE ONCE IM Last administered on 08/26/17 22: 20; Start 08/26/17 at 22:00; Stop 08/26/17 at 22:01; Status DC Ziprasidone (Geodon Inj) 20 mg NOW IM ; Start 08/26/17 at 19:20; Stop 08/26/17 at 22:26; Status DC Diphenhydramine HCl (Benadryl Inj) 50 mg NOW IM ; Start 08/26/17 at 19:20; Stop 08/26/17 at 22:26; Status DC Hydroxyzine HCl (Atarax) 50 mg Q6H PRN PO ANXIETY Last administered on 09:20; Start 08/27/17 at 05:15 Diphenhydramine HCl (Benadryl) 50 mg Q6H PRN PO MILD ANXIETY, EPS; Start 08/27 at 05:00 Diphenhydramine HCl (Benadryl Inj) 50 mg Q6H PRN IM MILD ANXIETY, EPS; Start 08/27/17 at 05:15 Benztropine Mesylate (Cogentin) 1 mg Q12H PRN PO EXTRA PYRAMIDAL SYMPTOMS; Start 08/27/17 at 05:15 Benztropine Mesylate (Cogentin Inj) 1 mg Q12H PRN IM EXTRA PYRAMIDAL SYMPTOMS; Start 08/27/17 at 05:15 Diphenhydramine HCl (Benadryl) 50 mg HS PRN PO INSOMNIA; Start 08/27/17 at 05: 15 Diphenhydramine HCl (Benadryl Inj) 50 mg HS PRN IM INSOMNIA; Start 08/27/17 at 05:15 Trazodone HCl (Desyrel) 50 mg HS PRN PO INSOMNIA; Start 08/27/17 at 05:15 Acetaminophen (Tylenol) 650 mg Q4H PRN PO Pain 1-5 or Temp >101F; Start at 05:15 Magnesium Hydroxide (Milk Of Magnesia Liq) 30 ml DAILY PRN PO CONSTIPATION; Start 08/27/17 at 05:15 Al Hydrox/Mg Hydrox/Simethicone (Mag-Al Plus Susp Liq) 30 ml Q6H PRN PO DYSPEPSIA; Start 08/27/17 at 05:15 Nicotine (Habitrol 21 Mg Patch.24 Hr) 1 patch DAILY T-DERMAL ; Start 08/27/17 at 09:00 Miscellaneous Information 1 HS T-DERMAL ; Start 08/27/17 at 21:00 Olanzapine (ZyPREXA) 5 mg BID PO Last administered on 08/27/17t 09:20; Start 08/27/17 at 09:00 Family History could not be obtained. Social History could not be obtained. Physical Exam Vital Signs Vital Signs Date Time Temp Pulse Resp B/P (MAP) Pulse Ox O2 Delivery O2 Flow Rate FiO2 08/27/17 05:09 97.9 78 17 126/69 (88) 98 08/27/17 05:03 08/27/17 02:45 77 20 103/65 (78) 98 08/27/17 00:52 87 18 112/68 (83) 99 08/26/17 22:53 90 18 112/61 (78) 99 08/26/17 19:56 98.9 92 20 111/59 (76) 98 08/26/17 19:27 19 Physical Exam GENERAL: This is a well-nourished, well-developed patient, in no apparent distress. SKIN: No rashes, ecchymoses or lesions. Cool and dry. HEAD: Atraumatic. Normocephalic. No temporal or scalp tenderness. EYES: Pupils equal round and reactive. Extraocular motions intact. No scleral icterus. No injection or drainage. ENT: Nose without bleeding, purulent drainage or septal hematoma. Throat without erythema, tonsillar hypertrophy or exudate. Uvula midline. Airway patent. NECK: Trachea midline. No JVD or lymphadenopathy. Supple, nontender, no meningeal signs. CARDIOVASCULAR: Regular rate and rhythm without murmurs, gallops, or rubs. RESPIRATORY: Clear to auscultation. Breath sounds equal bilaterally. No wheezes , rales, or rhonchi. GASTROINTESTINAL: Abdomen soft, non-tender, nondistended. No hepato-splenomegaly , or palpable masses. No guarding. MUSCULOSKELETAL: Extremities without clubbing, cyanosis, or edema. No joint tenderness, effusion, or edema noted. No calf tenderness. Negative Homans sign bilaterally. NEUROLOGICAL: awake- Laboratory Laboratory Tests Test 08/26/17 19:19 08/26/17 19:20 08/27/17 02:11 Urine Color LIGHT-YELLOW Urine Turbidity CLEAR Urine pH 6.0 Urine Specific [place] 1.001 Urine Protein NEG Urine Glucose (UA) NEG Urine Ketones NEG Urine Occult Blood NEG Urine Nitrite NEG Urine Bilirubin NEG Urine Urobilinogen LESS THAN 2.0 Urine Leukocyte Esterase NEG Urine WBC LESS THAN 1 Urine Squamous Epithelial Cells 1 Urine Bacteria RARE Microscopic Urinalysis Comment CULT NOT INDICATED Urine Opiates Screen NEG Urine Barbiturates Screen NEG Urine Amphetamines Screen NEG Urine Benzodiazepines Screen NEG Urine Cocaine Screen NEG Urine Cannabinoids Screen NEG White Blood Count 7.9 Red Blood Count 4.88 Hemoglobin 13.7 Hematocrit 41.0 Mean Corpuscular Volume 84.1 Mean Corpuscular Hemoglobin 28.0 Mean Corpuscular Hemoglobin Concent 33.3 Red Cell Distribution Width 15.4 Platelet Count 262 Mean Platelet Volume 8.6 Neutrophils (%) (Auto) 62.4 Lymphocytes (%) (Auto) 26.6 Monocytes (%) (Auto) 9.8 Eosinophils (%) (Auto) 0.8 Basophils (%) (Auto) 0.4 Neutrophils # (Auto) 4.9 Lymphocytes # (Auto) 2.1 Monocytes # (Auto) 0.8 Eosinophils # (Auto) 0.1 Basophils # (Auto) 0.0 CBC Comment DIFF FINAL Differential Comment Blood Urea Nitrogen 3 4 Creatinine 0.75 0.54 Random Glucose 79 88 Total Protein 7.5 Albumin 4.3 Calcium Level 9.0 8.4 Alkaline Phosphatase 98 Aspartate Amino Transf (AST/SGOT) 38 Alanine Aminotransferase (ALT/SGPT) 45 Total Bilirubin 0.8 Sodium Level 135 142 Potassium Level 2.9 3.2 Chloride Level 98 107 Carbon Dioxide Level 28.2 30.6 Anion Gap 9 4 Estimat Glomerular Filtration Rate 90 131 Magnesium Level 1.9 Salicylates Level 4.0 Acetaminophen Level LESS THAN 2.0 Ethyl Alcohol Level LESS THAN 3 Result Diagram: 08/26/17 1920 08/27/17 0211 Assessment and Plan Assessment and Plan A/P - psychosis- management per psych. -hypokalemia; improved- will repeat the level today. thank you for the consult. Discussed Condition With the patient and RN. Vu Johnson MD Aug 27, 2017 10:18
--- NOTE | 2017-08-27 13:19 | EKG ---
Date Performed: 08/27/2017 Time Performed: 00:59:14 PTAGE: 32 years EKG: Sinus rhythm NORMAL ECG Compared to PREVIOUS TRACING , axis less leftward, otherwise no significant change. PREVIOUS TRACIN05/06/2015 01.45 DOCTOR: Jose Jacques Interpretating Date/Time 08/27/2017 13:17:18
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
[2017-08-27] MEDS ORDERED: OLANZapine IM 10 MG VIAL IM ONE ×2 (17:52→18:00)
[2017-08-27] MEDS: REMOVE OLD NICOTINE PATCH T-DERMAL SCH (18:07)
[2017-08-27] MEDS: ACETAMINOPHEN 325 MG TAB PO PRN (18:34)
[2017-08-27] MEDS: traZODone HCL 50 MG TAB PO PRN (19:57)
[2017-08-27] MEDS: diphenhydrAMINE HCL 50 MG CAP PO PRN (19:57)
[2017-08-27 20:49] VITALS: BP 120/64; PULSE 88; RESP 16; TEMP 98; O2SAT 98
[2017-08-28] MEDS: hydrOXYzine HCL 50 MG TAB PO PRN ×4 (01:56→20:24)
[2017-08-28 05:36] VITALS: BP 118/71; PULSE 81; RESP 18; TEMP 97.5; O2SAT 97
[2017-08-28] MEDS: OLANZapine 5 MG TAB PO SCH (08:39)
[2017-08-28] MEDS: NICOTINE 21 MG/24 HR PATCH T-DERMAL SCH (08:42)
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
--- NOTE | 2017-08-28 13:04 | PD.TTN ---
Patient Problems 1. Discharge planning 2. Medication compliance 3. Knowledge deficit 4. Lack of coping skills Progress Toward Goals Provider Present: Dr. Neville Cordero Provider Input: Patient is new to the unit and will be started on medication regiment. Patient is psychotic and has been noncompliant with medications in the past. Patient will remain on the unit under observation and will be monitored for further care. Nurse(s) Input: Patient is disheveled, rambling, hyperverbal, endorsing strong hallucinations and dellusions. Patient is noncompliant with medications. Psychiatric Counselors Present: EARLE Thomas Psych Therapist Input: Patient is involved with DCF and mother is not considered patient's GA in hosptial. Patient remains psychotic and delusional, believing she is the devil. Patient hyperverbal and observed to be disheveled and unkempt. Group Spec/RT/OT/MCNEILL Present: Elgin Pace, OT Group Spec/RT/OT/MCNEILL Input: Patient cannot tolerate groups. Charo KaurMaira Aug 28, 2017 13:04
[2017-08-28 18:42] VITALS: BP 114/70; PULSE 85; RESP 18; TEMP 98.1; O2SAT 99
[2017-08-28] MEDS ORDERED: LORazepam 2 MG/ML VIAL ONE (18:42)
[2017-08-28] MEDS ORDERED: OLANZapine IM 10 MG VIAL IM ONE ×2 (18:42→19:30)
[2017-08-28] MEDS: diphenhydrAMINE HCL 50 MG/ML VIAL IM PRN (18:49)
--- NOTE | 2017-08-28 19:08 | EKG ---
Date Performed: 08/28/2017 Time Performed: 07:18:23 PTAGE: 32 years EKG: Sinus rhythm WITH SINUS ARRHYTHMIA NORMAL ECG PREVIOUS TRACING : 08/27/2017 00.59 Compared to prior tracing no significant change DOCTOR: Blaine Arteaga Interpretating Date/Time 08/28/2017 19:07:39
--- NOTE | 2017-08-28 19:24 | HHI.PYPN ---
Subjective Remarks Patient seen for follow up; chart reviewed. Discussion with nursing staff reported that patient has been noted to be intrusive, inappropriate and yelling at times. Patient seen knocking at nurses station, poor frustration tolerance. Patient states that she has the devil in her belly and baby and asks if she is . Patient noted to be childlike, requiring frequent redirection. Patient keeps asking if she will be discharged prior to [place] and was advised to continue recommendations for stabilization and maintain hygiene which she agreed to. Review of Systems Except as stated in HPI: all other systems reviewed are Neg Mental Status Examination Appearance: Disheveled Consciousness: Highly Distractible Orientation: Person Speech: Pressured Language: Perseveration Fund of Knowledge: Inadequate Attention and Concentration: Inadequate Memory: Impaired Mood: Anxious, Irritable Affect: Irritable, Labile Thought Process & Associations: Disorganized Thought Content: Bizarre thinking, Hallucinations, Delusional Hallucination Type: Auditory Delusion Type: Bizarre, Paranoid Suicidal Ideation: No Suicidal Plan: No Suicidal Intention: No Homicidal Ideation: No Homicidal Plan: No Homicidal Intention: No Insight: Poor Judgment: Poor Results Labs labs reviewed Test 08/27/17 20:49 Potassium Level 4.3 MEQ/L Vitals/IOs Vital Signs Date Time Temp Pulse Resp B/P (MAP) Pulse Ox O2 Delivery O2 Flow Rate FiO2 08/28/17 18:42 98.1 85 18 114/70 (85) 99 Assessment & Plan Problem List: (1) Schizoaffective disorder ICD Codes: F25.9 - Schizoaffective disorder Status: Acute Assessment & Plan Patient at this time noted to be delusional, disorganized, intrusive requiring constant redirection with poor frustration tolerance and impulse control. Will increase olanzapine to 5mg AM/10mgHS for mood stabilization. Continue to encourage maintenance of hygiene. Discharge planning in progress. Justification for Cont. Inpt. At risk for further decompensation if at lower level of care. Problem Qualifiers (1) Schizoaffective disorder: Qualified Codes: F25.9 - Schizoaffective disorder, unspecified Ector Cordero MD Aug 28, 2017 19:24
[2017-08-28] MEDS ORDERED: diphenhydrAMINE HCL 50 MG/ML VIAL IM ONE (19:30)
[2017-08-28] MEDS ORDERED: LORazepam 2 MG/ML VIAL IM ONE (19:30)
[2017-08-28] MEDS: traZODone HCL 50 MG TAB PO PRN (19:49)
[2017-08-28] MEDS ORDERED: OLANZapine 10 MG TAB PO SCH (21:00)
[2017-08-28] MEDS: REMOVE OLD NICOTINE PATCH T-DERMAL SCH (21:00)
[2017-08-29] MEDS ORDERED: OLANZapine 5 MG TAB PO SCH (09:00)
[2017-08-29] MEDS: NICOTINE 21 MG/24 HR PATCH T-DERMAL SCH (09:00)
[2017-08-29] MEDS: hydrOXYzine HCL 50 MG TAB PO PRN ×2 (10:31→19:58)
[2017-08-29 12:40] LABS: ANION GAP 5 MEQ/L (5-15); BICARBONATE 27.4 MEQ/L (21.0-32.0); BLOOD UREA NITROGEN 10 MG/DL (7-18); CHLORIDE 107 MEQ/L (98-107); GLOMERULAR FILTRATION RATE 99 ML/MIN (>89); POTASSIUM 4.7 MEQ/L (3.5-5.1); SODIUM (NA) 139 MEQ/L (136-145)
[2017-08-29 12:42] LABS: HDL CHOLESTEROL 26.6 MG/DL (40.0-60.0); LDL CHOLESTEROL 60 MG/DL (0-99)
[2017-08-29 13:29] LABS: HEMOGLOBIN A1b 0.9 %; HEMOGLOBIN Ao 85.6 %; HEMOGLOBIN F 1.1 %; HEMOGLOBIN LA1C 2.1 %; HEMOGLOBIN P3 3.3 %
[2017-08-29] MEDS ORDERED: OLANZapine 5 MG TAB PO ONE (14:00)
--- NOTE | 2017-08-29 14:56 | HHI.PYPN ---
Subjective Remarks Patient seen for follow-up, chart reviewed. Discussion with nursing staff reported that patient continues to be intrusive and needing constant redirection. Patient was found banging on window and door on nurses station demanding to be seen by comic book writer. Patient states that she would like to go home as well as noted to have some disorganization during interview, unable to regulate mood effectively. Patient noted to be very childlike with very concrete thought process. Patient advised and encouraged to maintain personal hygiene which she agreed to as well as to continue treatment and attempt to follow redirection from staff. Review of Systems Except as stated in HPI: all other systems reviewed are Neg Mental Status Examination Appearance: Disheveled Consciousness: Highly Distractible Orientation: Person Speech: Pressured Language: Perseveration Fund of Knowledge: Inadequate Attention and Concentration: Inadequate Memory: Impaired Mood: Anxious, Irritable Affect: Irritable, Labile Thought Process & Associations: Disorganized Thought Content: Bizarre thinking, Hallucinations, Delusional Hallucination Type: Auditory Delusion Type: Bizarre, Paranoid Suicidal Ideation: No Suicidal Plan: No Suicidal Intention: No Homicidal Ideation: No Homicidal Plan: No Homicidal Intention: No Insight: Poor Judgment: Poor Results Labs Labs reviewed Test 08/29/17 10:40 Blood Urea Nitrogen 10 MG/DL Creatinine 0.69 MG/DL Random Glucose 124 MG/DL Calcium Level 9.2 MG/DL Sodium Level 139 MEQ/L Potassium Level 4.7 MEQ/L Chloride Level 107 MEQ/L Carbon Dioxide Level 27.4 MEQ/L Anion Gap 5 MEQ/L Estimat Glomerular Filtration Rate 99 ML/MIN Hemoglobin A1c 5.4 % Triglycerides Level 112 MG/DL Cholesterol Level 109 MG/DL LDL Cholesterol 60 MG/DL HDL Cholesterol 26.6 MG/DL Cholesterol/HDL Ratio 4.09 RATIO Vitals/IOs Vital Signs Date Time Temp Pulse Resp B/P (MAP) Pulse Ox O2 Delivery O2 Flow Rate FiO2 08/28/17 18:42 98.1 85 18 114/70 (85) 99 Intake and Output 08/29/17 08/29/17 08/30/17 08:00 16:00 00:00 Intake Total 600 ml Balance 600 ml Assessment & Plan Problem List: (1) Schizoaffective disorder ICD Codes: F25.9 - Schizoaffective disorder Status: Acute Assessment & Plan Patient at this time continues to be noted to be very labile, last evening patient had incident where she was very upset over the phone with mother which patient had to be restricted from continued to speak with mother over the phone. Patient for now is temporarily on phone restrictions as conversations with patient and her mother trigger behavioral episodes here in the unit. Patient noted with poor control and requires constant redirection from staff from patient intruding on others on the unit. We'll provide Zyprexa 5 mg by mouth 1, start olanzapine 10 mg by mouth twice a day for mood stabilization. Discharge planning in progress Justification for Cont. Inpt. At risk for further decompensation if at lower level of care Discharge Planning Patient to return back home once psychiatrically stable. Problem Qualifiers (1) Schizoaffective disorder: Qualified Codes: F25.9 - Schizoaffective disorder, unspecified Ector Cordero MD Aug 29, 2017 14:56
[2017-08-29] MEDS: ACETAMINOPHEN 325 MG TAB PO PRN (17:44)
[2017-08-29] MEDS: diphenhydrAMINE HCL 50 MG CAP PO PRN (17:44)
[2017-08-29] MEDS: OLANZapine 10 MG TAB PO SCH (19:58)
[2017-08-29] MEDS: traZODone HCL 50 MG TAB PO PRN (19:58)
[2017-08-29] MEDS: REMOVE OLD NICOTINE PATCH T-DERMAL SCH (20:10)
[2017-08-29] MEDS ORDERED: LORazepam 2 MG/ML VIAL IM ONE (23:30)
[2017-08-29] MEDS ORDERED: diphenhydrAMINE HCL 50 MG/ML VIAL IM ONE (23:30)
[2017-08-29] MEDS ORDERED: OLANZapine IM 10 MG VIAL IM ONE (23:30)
[2017-08-30 06:00] VITALS: BP 100/59; PULSE 66; RESP 16; TEMP 97.5; O2SAT 96
[2017-08-30] MEDS: NICOTINE 21 MG/24 HR PATCH T-DERMAL SCH ×2 (09:00→10:19)
[2017-08-30] MEDS: OLANZapine 10 MG TAB PO SCH (10:20)
[2017-08-30] MEDS: ACETAMINOPHEN 325 MG TAB PO PRN ×2 (11:45→16:31)
[2017-08-30] MEDS: hydrOXYzine HCL 50 MG TAB PO PRN ×2 (13:18→20:07)
--- NOTE | 2017-08-30 14:32 | PD.TTN ---
Patient Problems 1. Discharge planning 2. Medication compliance 3. Knowledge deficit 4. Lack of coping skills Progress Toward Goals Provider Present: Dr. Neville Cordero Provider Input: Patient is new to the unit and will be started on medication regiment. Patient is psychotic and has been noncompliant with medications in the past. Patient will remain on the unit under observation and will be monitored for further care. 08/30- Pt appears childlike, impulsive, intrusive and with low frustration tolerance. Medication regiment will be adjusted to assist with stabilization. Nurse(s) Input: Patient is disheveled, rambling, hyperverbal, endorsing strong hallucinations and dellusions. Patient is noncompliant with medications. Brenda Thompson, SRINATH Pt appears psychotic, bizarre, intrusive, delusional, paranoid and disruptive on unit. Psychiatric Counselors Present: EVELYN Jama, Charo Kaur [facility] Psych Therapist Input: Patient is involved with DCF and mother is not considered patient's GA in hosptial. Patient remains psychotic and delusional, believing she is the devil. Patient hyperverbal and observed to be disheveled and unkempt. 08/30- Pt appears childlike, demanding, psychotic, uncooperative, paranoid, delusional and with incoherent speech at times. Pt is intrusive and with poor boundaries on unit. She has limited coping and emotional regulation skills at this time. She has been compliant with medication regiment. Insight remains poor into condition and need for care. Group Spec/RT/OT/MCNEILL Present: OSITO Perez, Elgin Pace, OT Group Spec/RT/OT/MCNEILL Input: Patient cannot tolerate groups. 08/30- OSITO Perez Pt attended only social skills groups but is inappropriate, childlike and discharge focused with poor participation. Discharge Plan SMA Pt discharge planning will be formulated as treatment continues as it is currently unknown if she can return to live with the mother. Documentation Scribe: EVELYN Jama Jonathan LMHC Aug 30, 2017 14:32
--- NOTE | 2017-08-30 16:43 | HHI.PYPN ---
Subjective Remarks Patient seen for follow-up, chart reviewed. Discussion she staff reported the patient has stated that she was with baby Dany continues on a very intrusive or frustration tolerance and needing constant redirection. Patient was noted to be inpatient knocking on windows or station wanting to be seen by science writer. Patient noted to continue with nonsensical statements such as "eyeballs are taking me away" and "I'm bleeding from hereditary, and ancient dinosaur". Patient continues to be disorganized at times and requires very concrete questions. Patient perseverative on wanting to go home with her mother and noted to be crying with childlike behavior. Patient has not required another ETO since yesterday but continues to have a fresh his tolerance requiring constant redirection Review of Systems Except as stated in HPI: all other systems reviewed are Neg Mental Status Examination Appearance: Disheveled Consciousness: Highly Distractible Orientation: Person Speech: Pressured Language: Perseveration Fund of Knowledge: Inadequate Attention and Concentration: Inadequate Memory: Impaired Mood: Anxious, Irritable Affect: Irritable, Labile Thought Process & Associations: Disorganized (at times), Other (concrete) Thought Content: Bizarre thinking, Delusional Hallucination Type: None Delusion Type: Bizarre, Paranoid Suicidal Ideation: No Suicidal Plan: No Suicidal Intention: No Homicidal Ideation: No Homicidal Plan: No Homicidal Intention: No Insight: Poor Judgment: Poor Results Vitals/IOs Vital Signs Date Time Temp Pulse Resp B/P (MAP) Pulse Ox O2 Delivery O2 Flow Rate FiO2 08/30/17 06:00 97.5 66 16 100/59 (73) 96 Assessment & Plan Problem List: (1) Schizoaffective disorder ICD Codes: F25.9 - Schizoaffective disorder Status: Acute Assessment & Plan Patient continues to be noted to be very intrusive with poor versus tolerance supportive control, disorganized at times making nonsensical statements requiring a lot of redirection. We'll increase olanzapine to 10 mg by mouth a.m. and 15 mg by mouth at bedtime for psychosis. Continue rest of medications. Will order neuropsychological testing to assess cognitive ability due to suspicion of intellectual deficit as well as history of TBI. Patient will present to be a court tomorrow for retention for involuntary hospitalization. Discharge planning in progress Justification for Cont. Inpt. At risk for further decompensation if at lower level of care Discharge Planning Patient to be discharged back to mother's residence once psychiatrically stable. Problem Qualifiers (1) Schizoaffective disorder: Qualified Codes: F25.9 - Schizoaffective disorder, unspecified Ector Cordero MD Aug 30, 2017 16:43
[2017-08-30 17:02] VITALS: BP 119/76; PULSE 78; RESP 18; TEMP 98; O2SAT 98
[2017-08-30] MEDS ORDERED: LORazepam 2 MG/ML VIAL ONE (17:46)
[2017-08-30] MEDS ORDERED: ZIPRASIDONE MESYLATE 20 MG VIAL IM ONE ×2 (17:46→18:00)
[2017-08-30] MEDS ORDERED: NON-FORMULARY DRUG IM ONE (18:00)
[2017-08-30] MEDS ORDERED: diphenhydrAMINE HCL 50 MG/ML VIAL IM ONE (18:00)
[2017-08-30] MEDS: REMOVE OLD NICOTINE PATCH T-DERMAL SCH (20:06)
[2017-08-30] MEDS: traZODone HCL 50 MG TAB PO PRN (20:07)
[2017-08-31 05:57] VITALS: TEMP 97.7
[2017-08-31] MEDS ORDERED: OLANZapine 10 MG TAB PO SCH (09:00)
[2017-08-31] MEDS: OLANZapine 10 MG TAB PO SCH (09:00)
[2017-08-31] MEDS: NICOTINE 21 MG/24 HR PATCH T-DERMAL SCH (09:00)
[2017-08-31] MEDS ORDERED: clonazePAM 1 MG TAB PO SCH (11:30)
[2017-08-31] MEDS: hydrOXYzine HCL 50 MG TAB PO PRN ×2 (12:00→20:19)
[2017-08-31] MEDS ORDERED: CHLORPROMAZINE 25 MG/ML IM ONE ×2 (12:30→14:15)
[2017-08-31] MEDS: diphenhydrAMINE HCL 50 MG CAP PO PRN ×2 (13:48→20:19)
[2017-08-31] MEDS: DIVALPROEX DR 500 MG TABEC PO SCH ×2 (13:48→20:19)
--- NOTE | 2017-08-31 14:38 | HHI.PYPN ---
Subjective Remarks Patient seen for follow-up, chart reviewed. Discussion she staff reported the patient less eating was attempting to hit attack during being redirected by staff. Patient received ETO of Geodon, Ativan and Benadryl and this morning have been noted to be banging on the one station. Patient was presented to mental health Court which patient was retained for further hospitalization and stabilization. It was stated in court when mother testified that she would want patient to be transferred to a different facility. Patient later was found to units continuing to be intrusive with others as well as with staff, banging on the station, yelling profanities and yelling bizarre delusions which she required ETO Thorazine 25 mg IM. Review of Systems Except as stated in HPI: all other systems reviewed are Neg Mental Status Examination Appearance: Disheveled Consciousness: Highly Distractible Orientation: Person Speech: Pressured Language: Perseveration Fund of Knowledge: Inadequate Attention and Concentration: Inadequate Memory: Impaired Mood: Anxious, Irritable Affect: Irritable, Labile, Other (agitated at times) Thought Process & Associations: Disorganized (at times), Other (concrete) Thought Content: Bizarre thinking, Delusional Hallucination Type: None Delusion Type: Bizarre, Paranoid Suicidal Ideation: No Suicidal Plan: No Suicidal Intention: No Homicidal Ideation: No Homicidal Plan: No Homicidal Intention: No Insight: Poor Judgment: Poor Results Vitals/IOs Vital Signs Date Time Temp Pulse Resp B/P (MAP) Pulse Ox O2 Delivery O2 Flow Rate FiO2 08/31/17 05:57 97.7 08/30/17 17:02 78 18 119/76 (90) 98 Assessment & Plan Problem List: (1) Schizoaffective disorder ICD Codes: F25.9 - Schizoaffective disorder Status: Acute Assessment & Plan Patient continues to have labile mood, poor impulse control, continue to be intrusive episodes of agitation due to low frustration tolerance on the unit. Neuropsychological testing pending. We'll start Depakote 500 mg by mouth twice a day for mood stabilization and continue olanzapine 10 mg a.m., 15 mg at bedtime for psychosis. Continue moderately behavior. Discharge planning in progress Justification for Cont. Inpt. At risk for further decompensation if at lower level of care Discharge Planning Patient to be discharged back to her residence once psychiatrically stable. Problem Qualifiers (1) Schizoaffective disorder: Qualified Codes: F25.9 - Schizoaffective disorder, unspecified Ector Coredro MD Aug 31, 2017 14:38
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
[2017-08-31 18:19] VITALS: BP 131/82; PULSE 116; RESP 18; O2SAT 97
[2017-08-31] MEDS: REMOVE OLD NICOTINE PATCH T-DERMAL SCH (20:19)
[2017-08-31] MEDS: traZODone HCL 50 MG TAB PO PRN (20:19)
[2017-09-01 05:52] VITALS: BP 93/57; PULSE 64; RESP 16; TEMP 97.5; O2SAT 97
[2017-09-01] MEDS: NICOTINE 21 MG/24 HR PATCH T-DERMAL SCH (09:00)
[2017-09-01] MEDS: diphenhydrAMINE HCL 50 MG CAP PO PRN ×2 (09:07→20:40)
[2017-09-01] MEDS: OLANZapine 10 MG TAB PO SCH (09:08)
[2017-09-01] MEDS: DIVALPROEX DR 500 MG TABEC PO SCH ×2 (09:08→20:40)
--- NOTE | 2017-09-01 10:32 | HHI.PYPN ---
Subjective Remarks The patient was seen today for psychiatric reevaluation. Case was widely discussed with nursing charge. Dr. Cordero notes were reviewed. On evaluation the patient is found deeply asleep, very poorly cooperative due to the level of sedation. She was medicated with Thorazine minutes ago due to agitation and aggressive behavior. Apparently, the patient has been very disruptive, just today she was knocking nurses door persistently, running around the unit, getting into other's patient's rooms and not verbally redirectable. Patient had to be given ETOs. I have noted that Dr. Cordero started her in Depakote 500 mg twice a day. The patient has been compliant with her medications. Mental Status Examination Appearance: Disheveled Consciousness: Highly Distractible Orientation: Person Speech: Pressured Language: Perseveration Fund of Knowledge: Inadequate Attention and Concentration: Inadequate Memory: Impaired Mood: Anxious, Irritable Affect: Irritable, Labile, Other (agitated at times) Thought Process & Associations: Disorganized (at times), Other (concrete) Thought Content: Bizarre thinking, Delusional Hallucination Type: None Delusion Type: Bizarre, Paranoid Suicidal Ideation: No Suicidal Plan: No Suicidal Intention: No Homicidal Ideation: No Homicidal Plan: No Homicidal Intention: No Insight: Poor Judgment: Poor Results Vitals/IOs Vital Signs Date Time Temp Pulse Resp B/P (MAP) Pulse Ox O2 Delivery O2 Flow Rate FiO2 09/01/17 05:52 97.5 64 16 93/57 (69) 97 Assessment & Plan Problem List: (1) Schizoaffective disorder ICD Codes: F25.9 - Schizoaffective disorder Status: Acute Assessment & Plan: Psychotropic regimen was recently changed yesterday. Continue current psychotropic regimen today. Continue monitoring behavior and thought processes and encouraged the patient to participate in individual and group therapies. Assessment & Plan Estimated LOS: days Justification for Cont. Inpt. Patient is acutely psychotic, she needs to continue psychiatric hospitalization for stabilization. Problem Qualifiers (1) Schizoaffective disorder: Qualified Codes: F25.9 - Schizoaffective disorder, unspecified Alec Martinez MD Sep 01, 2017 10:32
[2017-09-01 14:40] VITALS: BP 131/95; PULSE 137
[2017-09-01 18:01] VITALS: BP 131/95; PULSE 137
[2017-09-01] MEDS: hydrOXYzine HCL 50 MG TAB PO PRN ×2 (18:22→23:54)
[2017-09-01] MEDS: REMOVE OLD NICOTINE PATCH T-DERMAL SCH (20:40)
[2017-09-01] MEDS: traZODone HCL 50 MG TAB PO PRN (21:28)
[2017-09-02 06:58] VITALS: BP 130/81; PULSE 113; RESP 17; TEMP 98.1; O2SAT 98
[2017-09-02] MEDS: NICOTINE 21 MG/24 HR PATCH T-DERMAL SCH (08:21)
[2017-09-02] MEDS: OLANZapine 10 MG TAB PO SCH (08:21)
[2017-09-02] MEDS: DIVALPROEX DR 500 MG TABEC PO SCH ×2 (08:21→19:50)
[2017-09-02] MEDS: diphenhydrAMINE HCL 50 MG/ML VIAL IM PRN ×2 (11:18→17:10)
[2017-09-02 17:12] VITALS: BP 125/78; PULSE 77; RESP 18; TEMP 98.5; O2SAT 97
--- NOTE | 2017-09-02 17:22 | HHI.PYPN ---
Subjective Remarks Patient was seen and case discussed with nursing. Patient remains internally preoccupied during mostly psychotic. Appears perseverative on the devil. She continues to drink water excessively. Behaving well on the unit, no ETO's were needed. Tolerating medications well Mental Status Examination Appearance: Disheveled Consciousness: Highly Distractible Orientation: Person Speech: Pressured Language: Perseveration Fund of Knowledge: Inadequate Attention and Concentration: Inadequate Memory: Impaired Mood: Anxious, Irritable Affect: Irritable, Labile, Other (agitated at times) Thought Process & Associations: Loose associations, Other (concrete) Thought Content: Bizarre thinking, Delusional Hallucination Type: None Delusion Type: Bizarre, Paranoid Suicidal Ideation: No Suicidal Plan: No Suicidal Intention: No Homicidal Ideation: No Homicidal Plan: No Homicidal Intention: No Insight: Poor Judgment: Poor Results Vitals/IOs Vital Signs Date Time Temp Pulse Resp B/P (MAP) Pulse Ox O2 Delivery O2 Flow Rate FiO2 09/02/17 17:12 98.5 77 18 125/78 (94) 97 Assessment & Plan Problem List: (1) Schizoaffective disorder ICD Codes: F25.9 - Schizoaffective disorder Status: Acute Assessment & Plan Continue current treatment plan Justification for Cont. Inpt. Patient would decompensate in a less restrictive setting Problem Qualifiers (1) Schizoaffective disorder: Qualified Codes: F25.9 - Schizoaffective disorder, unspecified Bubba Clarke DO Sep 02, 2017 17:22
[2017-09-02] MEDS: hydrOXYzine HCL 50 MG TAB PO PRN (19:14)
[2017-09-02] MEDS: traZODone HCL 50 MG TAB PO PRN (19:50)
[2017-09-02] MEDS: REMOVE OLD NICOTINE PATCH T-DERMAL SCH (19:51)
[2017-09-02] MEDS: diphenhydrAMINE HCL 50 MG CAP - HS PRN PO (21:40)
[2017-09-03 05:40] VITALS: BP 104/62; PULSE 60; RESP 17; TEMP 97.9; O2SAT 99
[2017-09-03] MEDS: DIVALPROEX DR 500 MG TABEC PO SCH ×2 (08:58→21:41)
[2017-09-03] MEDS: OLANZapine 10 MG TAB PO SCH (08:58)
[2017-09-03] MEDS: NICOTINE 21 MG/24 HR PATCH T-DERMAL SCH (09:00)
[2017-09-03] MEDS: hydrOXYzine HCL 50 MG TAB PO PRN (10:31)
--- NOTE | 2017-09-03 12:26 | HHI.PYPN ---
Subjective Remarks Patient was seen and case discussed with nursing. Patient continues to be disruptive and perseverative. Cognitive deficits her self-evident. She continues to being in the window has attention seeking and intrusive behavior. Has not needed any ETO's today. Mental Status Examination Appearance: Disheveled Consciousness: Highly Distractible Orientation: Person Speech: Pressured Language: Perseveration Fund of Knowledge: Inadequate Attention and Concentration: Inadequate Memory: Impaired Mood: Anxious, Irritable Affect: Irritable, Labile Thought Process & Associations: Loose associations, Other (concrete) Thought Content: Bizarre thinking, Delusional Hallucination Type: None Delusion Type: Bizarre, Paranoid Suicidal Ideation: No Suicidal Plan: No Suicidal Intention: No Homicidal Ideation: No Homicidal Plan: No Homicidal Intention: No Insight: Poor Judgment: Poor Results Vitals/IOs Vital Signs Date Time Temp Pulse Resp B/P (MAP) Pulse Ox O2 Delivery O2 Flow Rate FiO2 09/03/17 05:40 97.9 60 17 104/62 (76) 99 Assessment & Plan Problem List: (1) Schizoaffective disorder ICD Codes: F25.9 - Schizoaffective disorder Status: Acute Assessment & Plan Continue current treatment plan Justification for Cont. Inpt. Patient will decompensate in a less restrictive setting Problem Qualifiers (1) Schizoaffective disorder: Qualified Codes: F25.9 - Schizoaffective disorder, unspecified Bubba Clarke DO Sep 03, 2017 12:26
[2017-09-03] MEDS: diphenhydrAMINE HCL 50 MG CAP PO PRN (15:07)
[2017-09-03] MEDS ORDERED: OLANZapine IM 10 MG VIAL IM ONE ×2 (17:49→18:00)
[2017-09-03] MEDS: REMOVE OLD NICOTINE PATCH T-DERMAL SCH (21:00)
[2017-09-03] MEDS: traZODone HCL 50 MG TAB PO PRN (21:42)
[2017-09-04] MEDS: diphenhydrAMINE HCL 50 MG CAP - HS PRN PO (01:04)
[2017-09-04] MEDS: OLANZapine 10 MG TAB PO SCH (08:59)
[2017-09-04] MEDS: hydrOXYzine HCL 50 MG TAB PO PRN ×2 (08:59→10:00)
[2017-09-04] MEDS: DIVALPROEX DR 500 MG TABEC PO SCH ×2 (08:59→20:11)
[2017-09-04] MEDS: NICOTINE 21 MG/24 HR PATCH T-DERMAL SCH (09:00)
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
--- NOTE | 2017-09-04 15:17 | PD.TTN ---
Patient Problems 1. Discharge planning 2. Medication compliance 3. Knowledge deficit 4. Lack of coping skills Progress Toward Goals Provider Present: Dr. Neville Cordero Provider Input: Patient is new to the unit and will be started on medication regiment. Patient is psychotic and has been noncompliant with medications in the past. Patient will remain on the unit under observation and will be monitored for further care. 08/30- Pt appears childlike, impulsive, intrusive and with low frustration tolerance. Medication regiment will be adjusted to assist with stabilization. 09/04- Pt medication regiment will be adjusted to include a mood stabilizer. Pt presents with ongoing behavioral problems. Nurse(s) Input: Patient is disheveled, rambling, hyperverbal, endorsing strong hallucinations and dellusions. Patient is noncompliant with medications. Brenda Thompson RN Pt appears psychotic, bizarre, intrusive, delusional, paranoid and disruptive on unit. 09/04- Praneeth Sy RN Pt has been seriously disruptive behaviorally including frequent ETOs to manage behavior, outbursts, threatening, demanding and childlike. She is resistant to medication at times. Psychiatric Counselors Present: Jaime Stokes [facility], Charo Kaur [facility] Psych Therapist Input: Patient is involved with DCF and mother is not considered patient's GA in hosptial. Patient remains psychotic and delusional, believing she is the devil. Patient hyperverbal and observed to be disheveled and unkempt. 08/30- Pt appears childlike, demanding, psychotic, uncooperative, paranoid, delusional and with incoherent speech at times. Pt is intrusive and with poor boundaries on unit. She has limited coping and emotional regulation skills at this time. She has been compliant with medication regiment. Insight remains poor into condition and need for care. 09/04- Pt appears disruptive, demanding, disorganized, childlike, inappropriate and threatening. She appears to have poor insight into condition and need for care. She has limited coping and emotional regulation skills. Pt is mixed in her compliance with her treatment. Group Spec/RT/OT/MCNEILL Present: Judy Duncan, EUNICE, OSITO Perez, Elgin Pace, OT Group Spec/RT/OT/MCNEILL Input: Patient cannot tolerate groups. 08/30- OSITO Perez Pt attended only social skills groups but is inappropriate, childlike and discharge focused with poor participation. 09/04- EUNICE King Pt behavior has not been appropriate during the group activities and requires constant redirection. Discharge Plan SMA Pt discharge planning will be formulated as treatment continues as it is currently unknown if she can return to live with the mother. Documentation Scribe: Jaime Stokes [facility] Jaime Stokes LM Sep 04, 2017 15:17
[2017-09-04 15:55] LABS: BICARBONATE 27.8 MEQ/L (21.0-32.0); POTASSIUM 4.1 MEQ/L (3.5-5.1)
[2017-09-04 18:00] VITALS: BP 145/91; PULSE 98; RESP 18; TEMP 98.1; O2SAT 97
[2017-09-04] MEDS: traZODone HCL 50 MG TAB PO PRN (20:11)
[2017-09-04] MEDS: REMOVE OLD NICOTINE PATCH T-DERMAL SCH (21:00)
[2017-09-05] MEDS: hydrOXYzine HCL 50 MG TAB PO PRN (00:47)
[2017-09-05 05:53] VITALS: RESP 18; O2SAT 95
[2017-09-05] MEDS: NICOTINE 21 MG/24 HR PATCH T-DERMAL SCH (09:00)
[2017-09-05] MEDS: DIVALPROEX DR 500 MG TABEC PO SCH ×2 (09:35→20:26)
[2017-09-05] MEDS: OLANZapine 10 MG TAB PO SCH (09:35)
--- NOTE | 2017-09-05 11:29 | HHI.PYPN ---
Subjective Remarks Patient is seen for follow-up, chart reviewed. Discussion with nursing staff reported the patient has been mostly in bed today did not have breakfast report he slept well after given trazodone last evening but did not receive any ETO's since yesterday. Patient was found lying in hospital bed asleep but was able to wake up superficially to interact with interview. Patient noted to be irritable and only partially cooperative with interview. Patient states that she had a feeling "not good" when asked to elaborate patient states that she would just like to be left alone and did not want to continue interview. Patient presented about discharge stating that she wants to go home. Patient was advised that her recent History is and Depakote level were were within normal range and therapeutic range respectively. Patient asked when this lunchtime and was advised that she'll be advised once it is serious and she can. Review of chart, stated that patient did endorse that the devil was inside her, somewhat intrusive but redirectable yesterday and received trazodone for sleep last evening. Review of Systems Except as stated in HPI: all other systems reviewed are Neg Mental Status Examination Appearance: Disheveled Consciousness: Somnolent Orientation: Person Speech: Unremarkable Language: Perseveration (discharge) Fund of Knowledge: Inadequate Attention and Concentration: Inadequate Memory: Impaired Mood: Irritable Affect: Irritable Thought Process & Associations: Linear, Other (concrete) Thought Content: Preoccupations (perseverative on discharge), Delusional Hallucination Type: None Delusion Type: Paranoid Suicidal Ideation: No Suicidal Plan: No Suicidal Intention: No Homicidal Ideation: No Homicidal Plan: No Homicidal Intention: No Insight: Poor Judgment: Poor Results Labs Labs reviewed. Test 09/04/17 15:10 Blood Urea Nitrogen 8 MG/DL Creatinine 0.65 MG/DL Random Glucose 78 MG/DL Calcium Level 8.9 MG/DL Sodium Level 140 MEQ/L Potassium Level 4.1 MEQ/L Chloride Level 107 MEQ/L Carbon Dioxide Level 27.8 MEQ/L Anion Gap 5 MEQ/L Estimat Glomerular Filtration Rate 106 ML/MIN Valproic Acid (Depakene) Level 88 MCG/ML Vitals/IOs Vital Signs Date Time Temp Pulse Resp B/P (MAP) Pulse Ox O2 Delivery O2 Flow Rate FiO2 09/05/17 05:53 18 95 09/04/17 18:00 98.1 98 145/91 (109) Assessment & Plan Problem List: (1) Schizoaffective disorder ICD Codes: F25.9 - Schizoaffective disorder Status: Acute Assessment & Plan Patient at this time continues to have poor impulse control, poor frustration tolerance, and intrusive behavior likely secondary to her intellectual deficits and traumatic brain injury previously. Patient's recent intrusive and agitated behavior and required further stabilization has now decreased which patient now has less inappropriate and intrusive continues to be noticed to these irritable at times but redirectable now. Patient has not required ETO since yesterday and appeared more manageable today. Recent labs have reported basic metabolic panel within normal range as well as VPA level within therapeutic range. We'll continue current medications for now as patient appears to be responding to current treatment regimen. EKG pending. Discharge planning in progress Justification for Cont. Inpt. At risk for further decompensation event lower level of care Discharge Planning Patient return back to her mother's residence once psychiatrically stable. Problem Qualifiers (1) Schizoaffective disorder: Qualified Codes: F25.9 - Schizoaffective disorder, unspecified Ector Cordero MD Sep 05, 2017 11:29
[2017-09-05 18:36] VITALS: BP 130/67; PULSE 74; RESP 18; O2SAT 97
[2017-09-05] MEDS: REMOVE OLD NICOTINE PATCH T-DERMAL SCH (20:23)
[2017-09-05] MEDS: diphenhydrAMINE HCL 50 MG CAP PO PRN (20:27)
[2017-09-06] MEDS: DIVALPROEX DR 500 MG TABEC PO SCH (09:00)
[2017-09-06] MEDS: NICOTINE 21 MG/24 HR PATCH T-DERMAL SCH (09:00)
[2017-09-06] MEDS: OLANZapine 10 MG TAB PO SCH (09:00)
[2017-09-06] MEDS ORDERED: ZYPR10TA PO (13:13)
[2017-09-06] MEDS ORDERED: DIVA500T PO (13:13)
[2017-09-06] MEDS ORDERED: OLAN15TA PO (13:13)
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
[2017-09-06] MEDS: hydrOXYzine HCL 50 MG TAB PO PRN (14:52)
== END 2017-09-06 16:10 | disposition home or self-care (01) | DRG 885 ==
LOC: NEPJ 19:00 → NEDA 08-27 04:06 → H270 08-27 04:45
PROVIDERS: ADMIT Student in an Organized Health Care Education/Training Program; ATTEND Student in an Organized Health Care Education/Training Program
DX: F25.9 Schizoaffective disorder, unspecified (principal); E03.9 Hypothyroidism, unspecified; F31.9 Bipolar disorder, unspecified; J45.909 Unspecified asthma, uncomplicated; F41.9 Anxiety disorder, unspecified; E87.6 Hypokalemia; F17.210 Nicotine dependence, cigarettes, uncomplicated; R41.89 Other symptoms and signs involving cognitive functions and awareness; Z87.820 Personal history of traumatic brain injury; Z86.73 Personal history of transient ischemic attack (TIA), and cerebral infarction without residual deficits; Z91.5 Personal history of self-harm; Z91.14 Patient's other noncompliance with medication regimen; Z78.1 Physical restraint status
CPT/HCPCS: 80048; 80053; 80061; 80164; 80307; 81001; 83036; 83735; 84132; 84703; 85025; 93005; 96372; 96374; 96375; J1200; J2060; J3230; J3480; J3486; J7030; Q0163

== ENCOUNTER 2017-11-30 15:50 | Inpatient (IN) | payer OTHER ==
[~2017-11-30 15:50] MED LIST changes: +DIVA500T PO; -KLON2TAB PO; -MELA1TAB18 PO; +OLAN15TA PO
[2017-11-30] MEDS ORDERED: OLANZapine IM 10 MG VIAL IM ONE ×2 (16:05→16:15)
[2017-11-30] MEDS ORDERED: LORazepam 2 MG/ML VIAL ONE (16:05)
[2017-11-30] MEDS ORDERED: LORazepam 2 MG/ML VIAL IM ONE (16:15)
[2017-11-30 18:33] VITALS: BP 91/60; PULSE 65; RESP 16; O2SAT 97
[2017-11-30 19:03] LABS: AUTOMATED NEUTROPHIL # 7.5 TH/MM3 (1.8-7.7); BASOPHIL % 0.5 % (0.0-2.0); EOSINOPHIL # 0.1 TH/MM3 (0-0.4); EOSINOPHIL % 0.6 % (0.0-4.0); HEMATOCRIT 37.5 % (35.0-46.0); HEMOGLOBIN 12.7 GM/DL (11.6-15.3); LYMPHOCYTE # 1.5 TH/MM3 (1.0-4.8); MEAN CELL VOLUME 86.2 FL (80.0-100.0); MEAN CORPUSCULAR HEMOGLOBIN 29.3 PG (27.0-34.0); MEAN PLATELET VOLUME 8.3 FL (7.0-11.0); MONO % 9.3 % (0.0-8.0); MONOCYTE # 0.9 TH/MM3 (0-0.9); NEUT % 74.6 % (16.0-70.0); PLATELET COUNT 256 TH/MM3 (150-450); RED BLOOD COUNT 4.35 MIL/MM3 (4.00-5.30); RED CELL DISTRIBUTION WIDTH 15.7 % (11.6-17.2)
[2017-11-30 19:29] LABS: ALBUMIN 3.9 GM/DL (3.4-5.0); AST (GOT) 21 U/L (15-37); BICARBONATE 32.1 MEQ/L (21.0-32.0); BLOOD UREA NITROGEN 6 MG/DL (7-18); CALCIUM 9.6 MG/DL (8.5-10.1); CHLORIDE 102 MEQ/L (98-107); GLOMERULAR FILTRATION RATE 97 ML/MIN (>89); GLUCOSE,RANDOM 66 MG/DL (74-106); SODIUM (NA) 140 MEQ/L (136-145)
[2017-11-30 19:30] LABS: ALT (GPT) 24 U/L (10-53)
[2017-11-30 19:32] LABS: ALKALINE PHOSPHATASE 74 U/L (45-117); TOTAL BILIRUBIN ADULT 0.8 MG/DL (0.2-1.0); TOTAL PROTEIN 6.5 GM/DL (6.4-8.2)
--- NOTE | 2017-11-30 19:47 | PD ---
HPI Chief Complaint: Psychiatric Symptoms Time Seen by Provider: 19:38 Travel History International Travel<30 days: No Contact w/Intl Traveler<30days: No Traveled to known affect area: No History of Present Illness HPI This is a 32-year-old female with history of schizophrenia who presents under a Sampson act initiated by the Police Department. According to her paperwork, "Jaylyn has not been eating and has attempted to run into traffic. Jaylyn became combative while on scene and attempted to run into traffic again. Jaylyn asked if she could be put to sleep Jaylyn also asked me if I would shoot her." History is somewhat limited secondary to the patient's clinical condition. She is primarily requesting something to eat. A meal tray is currently being delivered to her room during examination. PFSH Past Medical History Arthritis: No Asthma: Yes Autoimmune Disease: No Blood Disorders: No Bipolar Disorder: Yes Anxiety: Yes Depression: Yes Heart Rhythm Problems: No High Cholesterol: No Chemotherapy: No Chest Pain: Yes ("WITH ANXIETY") Congestive Heart Failure: No COPD: No Cerebrovascular Accident: Yes ("MINI", PER MOTHER.) Diminished Hearing: No Endocrine: Yes Gastrointestinal Disorders: No GERD: No Glaucoma: No Genitourinary: No Headaches: No Hepatitis: No Hiatal Hernia: No Immune Disorder: No Implanted Vascular Access Dvce: No Kidney Stones: No Musculoskeletal: No Neurologic: Yes (TBI when 16) Reproductive: No Respiratory: Yes Immunizations Current: Yes Migraines: No Myocardial Infarction: No Radiation Therapy: No Renal Failure: No Schizophrenia: Yes Sickle Cell Disease: No Sleep Apnea: No Thyroid Disease: Yes (HYPOTHYROID) Ulcer: No Menopausal: No : 1 Para: 0 Miscarriage: 1 Past Surgical History Abdominal Surgery: No AICD: No Body Medical Devices: NONE Cardiac Surgery: No Ear Surgery: No Endocrine Surgery: No Eye Surgery: No Genitourinary Surgery: No Gynecologic Surgery: No Insulin Pump: No Joint Replacement: No Neurologic Surgery: Yes (BRAIN R/T TBI ) Oral Surgery: Yes Pacemaker: No Thoracic Surgery: No Tonsillectomy: Yes Other Surgery: Yes (brain surgery- traumatic brain injury when 16) Social History Alcohol Use: No (UNABLE TO OBTAIN) Tobacco Use: Yes (UNABLE TO OBTAIN) Substance Use: No Allergies-Medications (Allergen,Severity, Reaction): Coded Allergies: codeine (Verified Allergy, Severe, RASH/SHOB, 07/13/17) escitalopram (Verified Allergy, Severe, UNKNOWN REACTION, 07/13/17) penicillin G (Verified Allergy, Severe, UNKNOWN REACTION, 07/13/17) temazepam (Verified Allergy, Severe, Shortness of Breath and Hives, ) sulfamethoxazole (Verified Allergy, Intermediate, 07/13/17) trimethoprim (Verified Allergy, Intermediate, 07/13/17) clindamycin (Verified Adverse Reaction, Intermediate, 07/13/17) PER MOM aripiprazole (Verified Adverse Reaction, Unknown, 07/13/17) Per patient's mother - [facility] [phone]. quetiapine (Verified Adverse Reaction, Unknown, 07/13/17) Per patient's mother - [facility] [phone]. Reported Meds & Prescriptions Reported Meds & Active Scripts Active Olanzapine 15 Mg Tab 15 Mg PO HS [address] (Divalproex Sodium) 500 Mg Tabdr 500 Mg PO BID 30 Days Zyprexa (Olanzapine) 10 Mg Tab 10 Mg PO DAILY 30 Days Review of Systems Except as stated in HPI: all other systems reviewed are Neg Physical Exam Narrative GENERAL: Well-developed well-nourished female no acute distress SKIN: Warm and dry. HEAD: Atraumatic. Normocephalic. EYES: Pupils equal and round. No scleral icterus. No injection or drainage. ENT: No nasal bleeding or discharge. Mucous membranes pink and moist. NECK: Trachea midline. No JVD. CARDIOVASCULAR: Regular rate and rhythm. No murmur appreciated. RESPIRATORY: No accessory muscle use. Clear to auscultation. Breath sounds equal bilaterally. GASTROINTESTINAL: Abdomen soft, non-tender, nondistended. Hepatic and splenic margins not palpable. MUSCULOSKELETAL: No obvious deformities. No clubbing. No cyanosis. No edema. NEUROLOGICAL: Awake and alert. No obvious cranial nerve deficits. Motor grossly within normal limits. Normal speech. PSYCHIATRIC: Flat affect, responding to internal stimuli, insight and judgment appear limited. Data Data Last Documented VS Vital Signs Date Time Temp Pulse Resp B/P (MAP) Pulse Ox O2 Delivery O2 Flow Rate FiO2 11/30/17 19:49 98.2 11/30/17 18:33 65 16 97 Room Air Orders Orders Lorazepam Inj (Ativan Inj) (11/30/17 16:05) Olanzapine Inj (Zyprexa Inj) (11/30/17 16:05) Lorazepam Inj (Ativan Inj) (11/30/17 16:15) Olanzapine Inj (Zyprexa Inj) (11/30/17 16:15) Diet Regular Basic (11/30/17 Dinner) Complete Blood Count With Diff (11/30/17 18:42) Comprehensive Metabolic Panel (11/30/17 18:42) Valproic Acid (Depakene) (11/30/17 18:42) Psych Screen (11/30/17 18:42) Drug Screen, Random Urine (11/30/17 19:43) Labs Laboratory Tests Test 11/30/17 18:56 White Blood Count 10.0 TH/MM3 Red Blood Count 4.35 MIL/MM3 Hemoglobin 12.7 GM/DL Hematocrit 37.5 % Mean Corpuscular Volume 86.2 FL Mean Corpuscular Hemoglobin 29.3 PG Mean Corpuscular Hemoglobin Concent 34.0 % Red Cell Distribution Width 15.7 % Platelet Count 256 TH/MM3 Mean Platelet Volume 8.3 FL Neutrophils (%) (Auto) 74.6 % Lymphocytes (%) (Auto) 15.0 % Monocytes (%) (Auto) 9.3 % Eosinophils (%) (Auto) 0.6 % Basophils (%) (Auto) 0.5 % Neutrophils # (Auto) 7.5 TH/MM3 Lymphocytes # (Auto) 1.5 TH/MM3 Monocytes # (Auto) 0.9 TH/MM3 Eosinophils # (Auto) 0.1 TH/MM3 Basophils # (Auto) 0.0 TH/MM3 CBC Comment DIFF FINAL Differential Comment Blood Urea Nitrogen 6 MG/DL Creatinine 0.70 MG/DL Random Glucose 66 MG/DL Total Protein 6.5 GM/DL Albumin 3.9 GM/DL Calcium Level 9.6 MG/DL Alkaline Phosphatase 74 U/L Aspartate Amino Transf (AST/SGOT) 21 U/L Alanine Aminotransferase (ALT/SGPT) 24 U/L Total Bilirubin 0.8 MG/DL Sodium Level 140 MEQ/L Potassium Level 4.1 MEQ/L Chloride Level 102 MEQ/L Carbon Dioxide Level 32.1 MEQ/L Anion Gap 6 MEQ/L Estimat Glomerular Filtration Rate 97 ML/MIN Valproic Acid (Depakene) Level 6 MCG/ML [facility] Medical Decision Making Medical Screen Exam Complete: Yes Emergency Medical Condition: Yes Medical Record Reviewed: Yes Differential Diagnosis Schizophrenia, acute psychosis, substance-induced mood disorder, major depressive disorder Narrative Course 32-year-old female presents under a Sampson act for psychiatric evaluation. Mental health screening discussed with the patient. Psychiatric screen ordered. The patient is medically cleared for psychiatric disposition. Diagnosis Primary Impression: Medical clearance for psychiatric admission Christian Badillo Nov 30, 2017 19:47
[2017-11-30 19:49] VITALS: TEMP 98.2
[2017-11-30 20:19] VITALS: TEMP 98.9
[2017-11-30] MEDS ORDERED: ACETAMINOPHEN 325 MG TAB PO PRN (21:45)
[2017-11-30] MEDS ORDERED: MAGNESIUM HYDROXIDE SUSP 30 ML CUP PO PRN (21:45)
[2017-11-30] MEDS ORDERED: ALUMINUM/MAGNESIUM/SIMETH 30 ML CUP PO PRN (21:45)
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
[2017-12-01] MEDS ORDERED: diphenhydrAMINE HCL 50 MG/ML VIAL IM STA (10:01)
[2017-12-01] MEDS ORDERED: LORazepam 2 MG/ML VIAL IM STA (10:01)
[2017-12-01] MEDS ORDERED: HALOPERIDOL LACTATE 5 MG/ML AMP IM STA (10:01)
[2017-12-01] MEDS ORDERED: diphenhydrAMINE HCL 50 MG/ML VIAL ONE (10:05)
[2017-12-01] MEDS ORDERED: LORazepam 1 MG TAB PO PRN (10:30)
[2017-12-01] MEDS ORDERED: BENZTROPINE MESYLATE 2 MG/2 ML VIAL IM PRN (10:45)
[2017-12-01] MEDS ORDERED: BENZTROPINE MESYLATE 1 MG TAB PO PRN (10:45)
[2017-12-01 18:28] VITALS: BP 117/70; PULSE 114; RESP 19; TEMP 98.9; O2SAT 98
[2017-12-01] MEDS: diphenhydrAMINE HCL 50 MG CAP PO PRN (20:54)
[2017-12-01] MEDS: clonazePAM 1 MG TAB PO SCH (20:54)
[2017-12-01] MEDS ORDERED: OLANZapine ODT 10 MG TAB PO SCH (21:00)
[2017-12-02] MEDS: clonazePAM 1 MG TAB PO SCH ×2 (09:08→20:04)
--- NOTE | 2017-12-02 16:40 | HHI.PYPN ---
Subjective Chief Complaint: Self-care deficit Remarks Patient was seen and case discussed with nursing. This is a request for second opinion. Patient is childlike, labile, loud, agitated. Thought processes disorganized with evident cognitive deficits. Has not required any ETO's. Mental Status Examination Appearance: Dirty, Disheveled, Malodorous Consciousness: Alert, Vigilant Orientation: Person, Place (at least) Motor Activity: Normal gait Speech: Pressured Language: Other (rambling) Fund of Knowledge: Inadequate Attention and Concentration: Inadequate Memory: Impaired Mood: Angry, Oppositional Affect: Other (Restricted) Thought Process & Associations: Tangential Thought Content: Bizarre thinking, Hallucinations, Delusional Hallucination Type: Auditory Delusion Type: Bizarre, Paranoid Suicidal Ideation: No (unreliable to contract for safety) Homicidal Ideation: No (unreliable to contract for safety.) Insight: Poor Judgment: Poor Results Vitals/IOs Vital Signs Date Time Temp Pulse Resp B/P (MAP) Pulse Ox O2 Delivery O2 Flow Rate FiO2 12/01/17 18:28 98.9 114 19 117/70 (86) 98 11/30/17 18:33 Room Air Assessment & Plan Problem List: (1) Intermittent explosive disorder ICD Codes: F63.81 - Intermittent explosive disorder Status: Acute (2) Unspecified psychosis ICD Codes: F29 - Unspecified psychosis not due to a substance or known physiological condition (3) Acquired intellectual disability ICD Codes: F79 - Unspecified intellectual disabilities Assessment & Plan I agree with the first opinion to continue petition. Criteria include lack of care for self and acute psychosis Justification for Cont. Inpt. Patient will decompensate in a less restrictive setting Request HC Surrog/Guard Advoc?: Yes Bubba Clarke DO Dec 02, 2017 16:40
[2017-12-02 17:37] VITALS: BP 125/81; PULSE 107; RESP 18; TEMP 98.3; O2SAT 97
[2017-12-02] MEDS: OLANZapine ODT 10 MG TAB PO SCH (20:04)
[2017-12-02] MEDS: diphenhydrAMINE HCL 50 MG CAP PO PRN (20:04)
[2017-12-02] MEDS: LORazepam 2 MG/ML VIAL IM PRN (20:35)
[2017-12-03 06:06] VITALS: TEMP 97.5
[2017-12-03] MEDS: clonazePAM 1 MG TAB PO SCH ×2 (09:49→21:00)
[2017-12-03] MEDS: OLANZapine ODT 10 MG TAB PO SCH ×2 (09:49→21:00)
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
[2017-12-03] MEDS: LORazepam 2 MG/ML VIAL IM PRN ×2 (20:00→21:12)
[2017-12-03] MEDS: OLANZapine IM 10 MG VIAL IM PRN (20:00)
[2017-12-04 06:15] VITALS: BP 95/58; PULSE 86; RESP 18
[2017-12-04] MEDS: OLANZapine ODT 10 MG TAB PO SCH ×2 (09:01→19:59)
[2017-12-04] MEDS: clonazePAM 1 MG TAB PO SCH ×3 (09:01→19:59)
--- NOTE | 2017-12-04 13:17 | HHI.PYPN ---
Subjective Chief Complaint: Self-care deficit Remarks Patient seen and examined. Chart reviewed. Case discussed with nursing staff. Patient agitated this morning and required Ativan p.r.n. per nurse. On my exam, patient is malodorous and disheveled. She is less frantic and anxious versus before the weekend, but she remains quite intrusive. She does not verbalize any delusional material at this time. She denies any SI or HI. She denies side effects from medications. No acute physical complaints. Spoke with patient's mother over the phone. We review patient's progress on the unit. She feels the patient is improving but requests that we observe patient overnight to ensure that patient will be manageable in the home environment. I spent ~12 minutes in telephone consultation with patient's mother. Review of Systems ROS Limitations: Poor Historian Except as stated in HPI: all other systems reviewed are Neg Mental Status Examination Appearance: Disheveled, Malodorous Consciousness: Alert Orientation: Person Motor Activity: Normal gait, Other (No abnormal motor movements noted.) Speech: Unremarkable Language: Other (rambling) Fund of Knowledge: Inadequate Attention and Concentration: Inadequate Memory: Impaired Mood: Anxious Affect: Labile, Anxious Thought Process & Associations: Tangential Thought Content: Bizarre thinking Hallucination Type: None Delusion Type: Bizarre Suicidal Ideation: No Homicidal Ideation: No Insight: Poor Judgment: Poor Results Labs Labs reviewed. Vitals/IOs Vital Signs Date Time Temp Pulse Resp B/P (MAP) Pulse Ox O2 Delivery O2 Flow Rate FiO2 12/04/17 06:15 86 18 95/58 (70) 12/03/17 06:06 97.5 12/02/17 17:37 97 11/30/17 18:33 Room Air Assessment & Plan Problem List: (1) Intermittent explosive disorder ICD Codes: F63.81 - Intermittent explosive disorder Status: Acute (2) Unspecified psychosis ICD Codes: F29 - Unspecified psychosis not due to a substance or known physiological condition (3) Acquired intellectual disability ICD Codes: F79 - Unspecified intellectual disabilities Assessment & Plan Titrate Klonopin to 1mg TID to target anxiety. Continue Zyprexa 10mg BID as ordered. Continue to monitor on the high acuity unit. Continue other medications and care as ordered. Justification for Cont. Inpt. medication changes. Risk for decompensation in less restrictive environment. Discharge Planning Possible discharge tomorrow Request HC Surrog/Guard Advoc?: Yes Paulino Sellers MD Dec 04, 2017 13:17
[2017-12-04] MEDS: OLANZapine IM 10 MG VIAL IM PRN ×2 (13:33→21:33)
[2017-12-04 15:10] VITALS: BP 108/80; PULSE 78; RESP 18; TEMP 97.6; O2SAT 94
[2017-12-05 06:00] VITALS: BP 90/59; PULSE 58; RESP 16; TEMP 97.1; O2SAT 95
[2017-12-05] MEDS: clonazePAM 1 MG TAB PO SCH ×2 (08:39→15:00)
[2017-12-05] MEDS: OLANZapine ODT 10 MG TAB PO SCH (08:39)
[2017-12-05] MEDS ORDERED: CLON1 PO (10:06)
[2017-12-05] MEDS ORDERED: ZYPR10TA PO (10:06)
--- NOTE | 2017-12-05 10:06 | HHI.DS ---
Psychiatry Discharge Summary Inpatient Psychiatric care?: Yes Advance Directive: No Mental Health AdvanceDirective: No Health Care Proxy: No Admission Admission Date Nov 30, 2017 at 21:47 Admission Diagnosis: (1) Intermittent explosive disorder ICD Code: F63.81 - Intermittent explosive disorder (2) Unspecified psychosis ICD Code: F29 - Unspecified psychosis not due to a substance or known physiological condition (3) Acquired intellectual disability ICD Code: F79 - Unspecified intellectual disabilities Brief History Ms. Charles is a 32-year-old female with a chart history of schizoaffective disorder versus intermittent explosive disorder who presents under a Sampson act by law enforcement alleging that the patient has been running into traffic and has refused to eat. Reviewing the electronic medical record, I note that the patient was admitted psychiatrically most recently under Dr. Cordero in August 2017. The patient has also been seen several times in the emergency room by Dr. Farr. Patient seen and examined with nurse. Chart reviewed. Case discussed with nursing staff. Prior to my evaluation, I note that the patient is growing increasingly agitated. She is yelling about devils. She appears extremely unkempt and disheveled. She is malodorous and does not appear to be maintaining basic hygiene at present. She passes flatulence openly and loudly in the hallway. When I try to engage with her, she screams out, "I know what you're doing!" She is paranoid and internally stimulated. Her speech is coprolalic. Affect is broadly dysphoric. Following my interaction with the patient, she continues to yell and bellow about devils to no one in particular. She is fairly intrusive and attention seeking. Following my departure from the unit, I was called from the unit to notify me that the patient was becoming increasingly threatening to nursing, and I have ordered her medicated with Haldol, Ativan and Benadryl ETO. Psychiatric interview is limited because of the degree of psychiatric impairment at present, and I am unable to obtain any meaningful past psychiatric, family, chemical dependency or social history from the patient as a consequence of her degree of psychiatric impairment. She verbalizes no acute physical complaints to me. I did obtain collateral information from the patient's mother, Fatou Olmstead at number listed in EMR. She is willing to act as HCS. She notes that the patient has a history of TBI, and mother questions the psychotic disorder diagnosis. Patient previously followed with [facility], but mother was dissatisfied by the services there and plans to have the patient evaluated by a new outpatient provider at [facility] next Monday. She believes that the patient has done well on a combination of Zyprexa and Klonopin. She requests that we medicate the patient over the weekend, and she is hopeful to be able to have patient discharged into her care after the weekend as long as patient's condition will allow this. She requests that I order Ensure to supplement patient's meals, which I have done. She is in agreement with the plan as outlined below. I spent ~14min in telephone consultation with patient's mother. Tobacco Use In Past 30 Days: No Tobacco Past 30 Days Alcohol Use: Never Hospital Course Patient was admitted to a locked, inpatient psychiatric unit. Appropriate precautions were in place throughout patient's hospital stay. Patient was seen and examined on the unit by psychiatry and also visited by counselor. Psychotropic medications were adjusted. Patient tolerated medication changes well without side effects. Patient had improvement in presenting psychiatric symptomatology. Behavior improved with the benefit of psychopharmacologic treatment. There was no evidence of any suicidality or homicidality on the inpatient unit. Collateral information was obtained from the patient's mother. On the day of discharge: Patient seen and examined with nurse. Chart reviewed. Case discussed with nursing staff. Behaviors improved. Patient is medication compliant. Case discussed in treatment team. On my examination today, the patient is calmer and more redirectable. She is significantly less intrusive. She denies any suicidal or homicidal ideation, intent or plan. No mood symptoms. She denies any audiovisual hallucinations. I can elicit no delusional material. She denies any side effects from medications. No acute physical complaints. I have obtained collateral information from patient's mother who is comfortable having the patient return home today. Suicide and violence risk assessment on day of discharge both suggest lower imminent risk, and the patient's level of function is adequate for outpatient care. Patient has maximized benefit from this inpatient psychiatric hospital stay and will be discharged today into mother's care with psychiatric follow-up as arranged by counselor. Patient is also to follow-up with primary care. Patient to return to psychiatric emergency room for any concerning psychiatric symptoms. Results Blood Pressure 90 / 59 Vital Signs Date Time Temp Pulse Resp B/P (MAP) Pulse Ox O2 Delivery O2 Flow Rate FiO2 12/05/17 06:00 97.1 58 16 90/59 (69 95 Laboratory Results Test 11/30/17 18:56 Valproic Acid (Depakene) Level 6 MCG/ML (50-100) Summary of Procedures None done Imaging None done Pending results at discharge: No Medications # of Antipsychotic meds at D/C: 1 Approp Antipsych med options 1 - Minimum of three failed multiple trials of monotherapy. 2 - Documented plan to taper to monotherapy due to previous use of multiple meds OR cross-taper in progress at D/C. 3 - Documentation of augmentation of Clozapine. 4 - Justification other than those listed in allowable values 1-3, document here : Discharge Discharge Date: Dec 05, 2017 Discharge Diagnosis: (1) Intermittent explosive disorder Diagnosis: Principal (stable) ICD Code: F63.81 - Intermittent explosive disorder Status: Acute (2) Unspecified psychosis Diagnosis: Secondary (stable) ICD Code: F29 - Unspecified psychosis not due to a substance or known physiological condition (3) Acquired intellectual disability Diagnosis: Secondary (chronic) ICD Code: F79 - Unspecified intellectual disabilities Pt Condition on Discharge: Stable Discharge Disposition: Discharge Home Discharge Instructions Diet Instructions: As Tolerated, No Restrictions Activities you can perform: Weight Bearing as Maribell Scheduled Appointment: as per counselor's notes New Medications: Clonazepam (Klonopin) 1 Mg Tab 1 MG PO TID for Mental Health for 30 Days, TAB 0 Refills Olanzapine (Zyprexa) 10 Mg Tab 10 MG PO BID for Mental Health for 30 Days, TAB 0 Refills Discontinued Medications: Divalproex DR (Divalproex DR) 500 Mg Tabdr 500 MG PO BID for health for 30 Days, #60 TAB Olanzapine (Zyprexa) 10 Mg Tab 10 MG PO DAILY for health for 30 Days, #30 TAB 0 Refills Olanzapine (Olanzapine) 15 Mg Tab 15 MG PO HS for health for 30 Days, #30 TAB Discharge Time <= 30 minutes Mental Status Examination Appearance: Other (grooming and hygiene are improved versus admission) Consciousness: Alert Orientation: Person Motor Activity: Normal gait, Other (no motor abnormalities noted) Speech: Unremarkable Language: Other (rambling) Fund of Knowledge: Inadequate Attention and Concentration: Inadequate Memory: Impaired Mood: Other (calmer versus admission) Affect: Blunt Thought Process & Associations: Circumstantial Thought Content: Other (some poverty of thought) Hallucination Type: None Delusion Type: None Suicidal Ideation: No Suicidal Plan: No Suicidal Intention: No Homicidal Ideation: No Homicidal Plan: No Homicidal Intention: No Insight: Poor (chronic condition) Judgment: Poor (chronic condition) Discharge/Advance Care Plan Health Problems: (1) Intermittent explosive disorder (2) Unspecified psychosis (3) Acquired intellectual disability Goals to promote your health * To prevent worsening of your condition and complications * To maintain your health at the optimal level Directions to meet your goals Take your medications as prescribed Follow your dietary instruction Follow activity as directed Keep your appointments as scheduled Take your immunizations and boosters as scheduled If your symptoms worsen call your PCP, if no PCP go to Urgent Care Center or Emergency Room For / questions related to your inpatient stay or results of tests pending at discharge, please contact Dr. Paulino Sellers at Smoking is Dangerous to Your Health. Avoid second hand smoking Paulino Sellers MD Dec 05, 2017 10:06
== END 2017-12-05 15:20 | disposition home or self-care (01) | DRG 883 ==
LOC: NEPJ 15:50 → NEDA 21:47 → H270 22:50
PROVIDERS: ADMIT Psychiatry & Neurology Psychiatry; ATTEND Psychiatry & Neurology Psychiatry
DX: F63.81 Intermittent explosive disorder (principal); F29 Unspecified psychosis not due to a substance or known physiological condition; E03.9 Hypothyroidism, unspecified; F79 Unspecified intellectual disabilities; F31.9 Bipolar disorder, unspecified; F63.9 Impulse disorder, unspecified; J45.909 Unspecified asthma, uncomplicated; F41.9 Anxiety disorder, unspecified; F17.210 Nicotine dependence, cigarettes, uncomplicated; Z87.820 Personal history of traumatic brain injury
CPT/HCPCS: 80053; 80164; 80307; 84703; 85025; 99285; J1200; J1630; J2060; Q0163

== ENCOUNTER 2017-12-16 10:37 | Inpatient (IN) | payer OTHER ==
[~2017-12-16] VITALS: Ht 162.6 cm; Wt 66.0 kg
[~2017-12-16 10:37] MED LIST changes: +CLON1 PO; -DIVA500T PO; -OLAN15TA PO
[2017-12-16] MEDS ORDERED: HALOPERIDOL LACTATE 5 MG/ML AMP IM ONE ×3 (10:45→20:30)
[2017-12-16 10:53] VITALS: BP 144/92; PULSE 144; RESP 20; TEMP 98.7; O2SAT 98
--- NOTE | 2017-12-16 10:57 | PD ---
HPI Chief Complaint: Psychiatric Symptoms Time Seen by Provider: 10:44 Travel History International Travel<30 days: No Contact w/Intl Traveler<30days: No Traveled to known affect area: No History of Present Illness HPI 32-year-old female presents to the emergency department under Sampson act. According to law enforcement report "Jaylyn's mother advised Jaylyn is refusing to bathe, eat, or take her medications. Jaylyn last took her medication 4 days ago. Jaylyn is very combative when asked to take her medication." The patient is very combative upon arrival and restraints were used secondary to the patient being a threat to herself and others. When trying to question the patient she is having spontaneous outbursts of thrashing in the bed, yelling out , and cussing. At times she stops and stares at me for a few seconds as I continue to try to ask questions, but she does not answer them. Therefore, HPI is limited. PFSH Past Medical History Arthritis: No Asthma: Yes Autoimmune Disease: No Blood Disorders: No Bipolar Disorder: Yes Anxiety: Yes Depression: Yes Heart Rhythm Problems: No High Cholesterol: No Chemotherapy: No Chest Pain: Yes ("WITH ANXIETY") Congestive Heart Failure: No COPD: No Cerebrovascular Accident: Yes ("MINI", PER MOTHER.) Developmental Delay: Yes Diminished Hearing: No Endocrine: Yes Gastrointestinal Disorders: No GERD: No Glaucoma: No Genitourinary: No Headaches: No Hepatitis: No Hiatal Hernia: No Immune Disorder: No Implanted Vascular Access Dvce: No Kidney Stones: No Musculoskeletal: No Neurologic: Yes (TBI when 16) Psychiatric: Yes Reproductive: No Respiratory: Yes Immunizations Current: Yes Migraines: No Myocardial Infarction: No Radiation Therapy: No Renal Failure: No Schizophrenia: Yes Sickle Cell Disease: No Sleep Apnea: No Thyroid Disease: Yes (HYPOTHYROID) Ulcer: No Menopausal: No : 1 Para: 0 Miscarriage: 1 Past Surgical History Abdominal Surgery: No AICD: No Body Medical Devices: NONE Cardiac Surgery: No Ear Surgery: No Endocrine Surgery: No Eye Surgery: No Genitourinary Surgery: No Gynecologic Surgery: No Insulin Pump: No Joint Replacement: No Neurologic Surgery: Yes (BRAIN R/T TBI ) Oral Surgery: Yes Pacemaker: No Thoracic Surgery: No Tonsillectomy: Yes Other Surgery: Yes (brain surgery- traumatic brain injury when 16) Social History Alcohol Use: No (UNABLE TO OBTAIN) Tobacco Use: Yes (UNABLE TO OBTAIN) Substance Use: No Allergies-Medications (Allergen,Severity, Reaction): Coded Allergies: codeine (Verified Allergy, Severe, RASH/SHOB, 07/13/17) escitalopram (Verified Allergy, Severe, UNKNOWN REACTION, 07/13/17) penicillin G (Verified Allergy, Severe, UNKNOWN REACTION, 07/13/17) temazepam (Verified Allergy, Severe, Shortness of Breath and Hives, ) sulfamethoxazole (Verified Allergy, Intermediate, 07/13/17) trimethoprim (Verified Allergy, Intermediate, 07/13/17) clindamycin (Verified Adverse Reaction, Intermediate, 07/13/17) PER MOM aripiprazole (Verified Adverse Reaction, Unknown, 07/13/17) Per patient's mother - Fatou [facility] [phone]. quetiapine (Verified Adverse Reaction, Unknown, 07/13/17) Per patient's mother - Fatou [facility] [phone]. Reported Meds & Prescriptions Reported Meds & Active Scripts Active Klonopin (Clonazepam) 1 Mg Tab 1 Mg PO TID 30 Days Zyprexa (Olanzapine) 10 Mg Tab 10 Mg PO BID 30 Days Review of Systems Except as stated in HPI: all other systems reviewed are Neg Physical Exam Narrative GENERAL: Well-nourished, well-developed female patient, in no acute distress; disheveled and foul-smelling SKIN: Warm and dry. HEAD: Atraumatic. Normocephalic. EYES: Pupils equal and round. ENT: Mucosa pink and moist. NECK: Supple. Trachea midline. CARDIOVASCULAR: Regular rate and rhythm. No murmur appreciated. RESPIRATORY: No accessory muscle use. Clear to auscultation. Breath sounds equal bilaterally. GASTROINTESTINAL: Abdomen soft, non-tender, nondistended. Hepatic and splenic margins not palpable. Bowel sounds are active 4 quadrants. MUSCULOSKELETAL: No obvious deformities. No clubbing. No cyanosis. No edema. NEUROLOGICAL: Awake and alert. Oriented 3. No obvious cranial nerve deficits. Motor grossly within normal limits. Normal speech. Moves all extremities. 5/5 strength to all extremities. PSYCHIATRIC: Spontaneous outbursts and thrashing in the bed. Delusional thought processes. No hallucinations. Data Data Last Documented VS Vital Signs Date Time Temp Pulse Resp B/P (MAP) Pulse Ox O2 Delivery O2 Flow Rate FiO2 12/16/17 10:53 98.7 144 20 144/92 (109) 98 Orders Orders Restraints Violent (12/16/17 10:44) Haloperidol Inj (Haldol Inj) (12/16/17 10:45) Complete Blood Count With Diff (12/16/17 10:55) Comprehensive Metabolic Panel (12/16/17 10:55) Thyroid Stimulating Hormone (12/16/17 10:55) Psych Screen (12/16/17 10:55) Drug Screen, Random Urine (12/16/17 10:55) Alcohol (Ethanol) (12/16/17 10:55) Salicylates (Aspirin) (12/16/17 10:55) Tylenol (Acetaminophen) (12/16/17 10:55) Haloperidol Inj (Haldol Inj) (12/16/17 12:00) Diphenhydramine Inj (Benadryl Inj) (12/16/17 13:00) MDM Medical Decision Making Medical Screen Exam Complete: Yes Emergency Medical Condition: Yes Medical Record Reviewed: Yes Differential Diagnosis Psychosis, substance abuse, explosive disorder, schizoaffective disorder, medical clearance for psychiatric admission Narrative Course Restraints and Haldol were ordered on patient arrival as she is extremely agitated and combative and is a risk to herself and others. Patient presents under a Sampson act. Physical examination and vital signs are essentially unremarkable. Patient has no medical complaints to report. Psych screen has been ordered. If the laboratory results are unremarkable, the patient will be medically cleared for psychiatric evaluation and disposition. Diagnosis Primary Impression: Medical clearance for psychiatric admission Condition: Stable Tory Ramsey Dec 16, 2017 10:57
[2017-12-16] MEDS ORDERED: diphenhydrAMINE HCL 50 MG/ML VIAL IM ONE ×2 (13:00→20:30)
[2017-12-16 13:51] VITALS: BP 133/72; PULSE 135; RESP 20; O2SAT 96
[2017-12-16 14:06] LABS: AUTOMATED NEUTROPHIL # 15.6 TH/MM3 (1.8-7.7); BASOPHIL % 0.2 % (0.0-2.0); EOSINOPHIL % 0.1 % (0.0-4.0); HEMATOCRIT 38.3 % (35.0-46.0); HEMOGLOBIN 12.6 GM/DL (11.6-15.3); LYMPH % 7.8 % (9.0-44.0); LYMPHOCYTE # 1.5 TH/MM3 (1.0-4.8); MEAN CELL VOLUME 86.7 FL (80.0-100.0); MEAN CORPUSCULAR HEMOGLOBIN 28.6 PG (27.0-34.0); MEAN PLATELET VOLUME 7.9 FL (7.0-11.0); MONO % 8.1 % (0.0-8.0); MONOCYTE # 1.5 TH/MM3 (0-0.9); NEUT % 83.8 % (16.0-70.0); PLATELET COUNT 309 TH/MM3 (150-450); RED BLOOD COUNT 4.42 MIL/MM3 (4.00-5.30); RED CELL DISTRIBUTION WIDTH 15.3 % (11.6-17.2); WHITE BLOOD COUNT 18.7 TH/MM3 (4.0-11.0)
[2017-12-16 14:34] LABS: ACETAMINOPHEN LESS THAN 2.0 MCG/ML (10.0-30.0); ALKALINE PHOSPHATASE 83 U/L (45-117); TOTAL BILIRUBIN ADULT 0.9 MG/DL (0.2-1.0); TOTAL PROTEIN 6.8 GM/DL (6.4-8.2)
[2017-12-16 14:37] LABS: ALBUMIN 3.9 GM/DL (3.4-5.0); ALT (GPT) 17 U/L (10-53); AST (GOT) 25 U/L (15-37); BICARBONATE 23.3 MEQ/L (21.0-32.0); BLOOD UREA NITROGEN 4 MG/DL (7-18); CHLORIDE 105 MEQ/L (98-107); CREATININE 0.73 MG/DL (0.50-1.00); GLOMERULAR FILTRATION RATE 92 ML/MIN (>89); GLUCOSE,RANDOM 92 MG/DL (74-106); SODIUM (NA) 139 MEQ/L (136-145)
[2017-12-16 16:09] LABS: BACTERIA, URINE MANY /hpf; BILIRUBIN, URINE NEG (NEG); BLOOD, URINE TRACE (NEG); GLUCOSE,URINE NEG (NEG); KETONE, URINE NEG (NEG); NITRITE,URINE NEG (NEG); PH, URINE 7.5 (5.0-8.5); SQUAMOUS EPITHELIAL CELL URINE 2 /hpf (0-5); URINE COLOR YELLOW (YELLW/STRAW); URINE LEUKOCYTE ESTERASE MOD (NEG)
[2017-12-16] MEDS: NITROFURANTOIN MONOHYD MACROCR 100 MG CAP PO SCH (19:21)
[2017-12-17] MEDS ORDERED: diphenhydrAMINE HCL 50 MG CAP PO PRN (03:30)
[2017-12-17] MEDS ORDERED: diphenhydrAMINE HCL 50 MG/ML VIAL - HS PRN IM (03:45)
[2017-12-17] MEDS ORDERED: hydrOXYzine HCL 50 MG TAB PO PRN (03:45)
[2017-12-17] MEDS ORDERED: ACETAMINOPHEN 325 MG TAB PO PRN (03:45)
[2017-12-17] MEDS ORDERED: MAGNESIUM HYDROXIDE SUSP 30 ML CUP PO PRN (03:45)
[2017-12-17] MEDS ORDERED: diphenhydrAMINE HCL 50 MG/ML VIAL IM PRN (03:45)
[2017-12-17] MEDS ORDERED: ALUMINUM/MAGNESIUM/SIMETH 30 ML CUP PO PRN (03:45)
[2017-12-17] MEDS ORDERED: OLANZapine 10 MG TAB PO SCH (09:00)
[2017-12-17] MEDS ORDERED: clonazePAM 1 MG TAB PO SCH (09:00)
--- NOTE | 2017-12-17 09:58 | HHI.HP ---
Provisional Diagnosis Admission Date Dec 17, 2017 at 02:59 [place] I. Schizoaffective disorder bipolar type, intermittent explosive disorder Certification of Person's Competence To Provide Express and Informed Consent I have personally examined Jaylyn Charles , a person being served at [facility] on, Dec 17, 2017 09:40. Express and informed consent means consent voluntarily given in writing, by a competent person, after sufficient explanation and disclosure of the subject matter involved to enable the person to make a knowing and willful decision without any element of force, fraud, deceit, duress, or other form of constraint or coercion. This person is 18 years of age or older, is not now known to be incompetent to consent to treatment with a guardian advocate, and does not have a health care surrogate or proxy currently making medical treatment decisions. I have found this person to be one of the following: [] Competent to provide express and informed consent, as defined above, for voluntary admission to this facility and is competent to provide express and informed consent for treatment. He/she has the consistent capacity to make well reasoned, willful, and knowing decisions concerning his or her medical or mental health treatment. The person fully and consistently understands the purpose of the admission for examination/placement and is fully capable of personally exercising all rights assured [place]xxx] Incompetent to provide express and informed consent to voluntary admission , and this is incompetent to provide express and informed consent to treatment. The person must be transferred to involuntary status and a petition for a guardian advocate filed with the Circuit Court. [] Refusing to provide express and informed consent to voluntary admission but is competent to provide express and informed consent for treatment. The person must be discharged or transferred to involuntary status. Form shall be completed within 24 hours of a person's arrival at the receiving facility and filed in the clinical record of each person: 1. Admitted on a voluntary basis 2. Permitted to provide express and informed consent to his/her own treatment 3. Allowed to transfer from involuntary to voluntary status 4. Prior to permitting a person to consent to his or her own treatment after having been previously found incompetent to consent to treatment. History of Present Illness Capacity: Lacks Capacity HPI Patient is a 32-year-old white female well-known to us from multiple prior hospitalizations most recently 11/30/17 through 12/05/17 visit [id number] she was discharged home to family. It appears she has been noncompliant with medication poor hygiene not bathing or eating too more angry paranoid and upset since that time. Patient was Adrián acted by the [place] [employer] dated 12/16/17 at 10:16 AM that Tomas reviewed essentially states the cold mother advised Jaylyn refusing to bathe E or take her medication Jaylyn last took her medications 4 days ago Jaylyn is very combated with when asked to take her medication. Patient seen screened in ED and toxicology negative bladder: Negative. At the present time patient seen on unit with nurse Serina. Patient is markedly malodorous her hair is very guarded and matted her feet are quite dirty she is sucking on her lower lip mumbling angry irritable asking for cigarettes and asking to leave. She also appears to be responding to internal stimuli. Patient angry labile when asked questions she storms away from me without responding. This is quite similar to her presentations on various prior hospitalizations. At the present time patient does meet criteria for inpatient psychiatric hospitalization the Sampson act after she does not have capacity thus I'll ask for healthcare surrogate and guardian advocate. I just did talk with patient's mother she is willing to become health care surrogate she is given us permission for olanzapine and Klonopin. Along with Atarax and Benadryl. In reviewing the patient's significant recidivism to question whether long-term placement might be appropriate for this woman Review of Systems Except as stated in HPI: all other systems reviewed are Neg Past Psych History Psychological trauma history At this time due to patient psychosis Violence risk - others (6 mos) Low Violence risk - self (6 mos) Patient significant self-neglect Substance Abuse History Drugs/Alcohol past 12 months Patient denies Past Family Social History Coded Allergies: codeine (Verified Allergy, Severe, RASH/SHOB, 07/13/17) escitalopram (Verified Allergy, Severe, UNKNOWN REACTION, 07/13/17) penicillin G (Verified Allergy, Severe, UNKNOWN REACTION, 07/13/17) temazepam (Verified Allergy, Severe, Shortness of Breath and Hives, ) sulfamethoxazole (Verified Allergy, Intermediate, 07/13/17) trimethoprim (Verified Allergy, Intermediate, 07/13/17) clindamycin (Verified Adverse Reaction, Intermediate, 07/13/17) PER MOM aripiprazole (Verified Adverse Reaction, Unknown, 07/13/17) Per patient's mother - [facility] [phone]. quetiapine (Verified Adverse Reaction, Unknown, 07/13/17) Per patient's mother - [facility] [phone]. Active Scripts Clonazepam (Klonopin) 1 Mg Tab, 1 MG PO TID for Mental Health for 30 Days, TAB 0 Refills Prov:Paulino Sellers MD 12/05/17 Olanzapine (Zyprexa) 10 Mg Tab, 10 MG PO BID for Mental Health for 30 Days, TAB 0 Refills Prov:Paulino Selelrs MD 12/05/17 Current Medications Medications (Trade) Dose Ordered Sig/Mary Route Start Time Stop Time Status Last Admin (Macrobid) 100 mg BIDPC PO 12/16/17 18:00 12/21/17 17:59 (Atarax) 50 mg Q6H PRN PO 12/17/17 03:45 Future Hold (Benadryl) 50 mg HS PRN PO 12/17/17 03:45 Future Hold (Tylenol) 650 mg Q4H PRN PO 12/17/17 03:45 (Milk Of Magnesia Liq) 30 ml DAILY PRN PO 12/17/17 03:45 (Mag-Al Plus Susp Liq) 30 ml Q6H PRN PO 12/17/17 03:45 (ZyPREXA) 10 mg BID PO 12/17/17 09:00 Future Hold (KlonoPIN) 1 mg DAILY@0900,1400,2100 PO 12/17/17 09:00 Future Hold (Atarax) 50 mg Q6H PRN PO 12/17/17 09:30 UNV (KlonoPIN) 1 mg TID PO 12/17/17 13:00 UNV (ZyPREXA) 10 mg BID PO 12/17/17 21:00 UNV Family Psych History Unknown at this time the patient psychosis Social History Patient lives with mother Patient's Strengths (min. 2) Patient verbal able axis health care Physical Exam Patient medically cleared ED at the present time patient pacing the neumann and 2700 and no acute distress, she is in no respiratory distress, abdominal pain. Patient moves all 4 extremities without difficulty Vital Signs Vital Signs Date Time Temp Pulse Resp B/P (MAP) Pulse Ox O2 Delivery O2 Flow Rate FiO2 12/17/17 02:29 12/16/17 13:51 135 20 96 Room Air 12/16/17 10:53 98.7 Lab Results Test 12/16/17 13:43 12/16/17 14:57 White Blood Count 18.7 TH/MM3 Red Blood Count 4.42 MIL/MM3 Hemoglobin 12.6 GM/DL Hematocrit 38.3 % Mean Corpuscular Volume 86.7 FL Mean Corpuscular Hemoglobin 28.6 PG Mean Corpuscular Hemoglobin Concent 33.0 % Red Cell Distribution Width 15.3 % Platelet Count 309 TH/MM3 Mean Platelet Volume 7.9 FL Neutrophils (%) (Auto) 83.8 % Lymphocytes (%) (Auto) 7.8 % Monocytes (%) (Auto) 8.1 % Eosinophils (%) (Auto) 0.1 % Basophils (%) (Auto) 0.2 % Neutrophils # (Auto) 15.6 TH/MM3 Lymphocytes # (Auto) 1.5 TH/MM3 Monocytes # (Auto) 1.5 TH/MM3 Eosinophils # (Auto) 0.0 TH/MM3 Basophils # (Auto) 0.0 TH/MM3 CBC Comment DIFF FINAL Differential Comment Blood Urea Nitrogen 4 MG/DL Creatinine 0.73 MG/DL Random Glucose 92 MG/DL Total Protein 6.8 GM/DL Albumin 3.9 GM/DL Calcium Level 9.0 MG/DL Alkaline Phosphatase 83 U/L Aspartate Amino Transf (AST/SGOT) 25 U/L Alanine Aminotransferase (ALT/SGPT) 17 U/L Total Bilirubin 0.9 MG/DL Sodium Level 139 MEQ/L Potassium Level 3.4 MEQ/L Chloride Level 105 MEQ/L Carbon Dioxide Level 23.3 MEQ/L Anion Gap 11 MEQ/L Estimat Glomerular Filtration Rate 92 ML/MIN Thyroid Stimulating Hormone 3rd Gen 0.820 uIU/ML Salicylates Level 2.4 MG/DL Urine Opiates Screen NEG Acetaminophen Level LESS THAN 2.0 MCG/ML Urine Barbiturates Screen NEG Urine Amphetamines Screen NEG Urine Benzodiazepines Screen NEG Urine Cocaine Screen NEG Urine Cannabinoids Screen NEG Ethyl Alcohol Level LESS THAN 3 MG/DL Urine Color YELLOW Urine Turbidity HAZY Urine pH 7.5 Urine Specific [place] 1.007 Urine Protein TRACE mg/dL Urine Glucose (UA) NEG mg/dL Urine Ketones NEG mg/dL Urine Occult Blood TRACE Urine Nitrite NEG Urine Bilirubin NEG Urine Urobilinogen LESS THAN 2.0 MG/DL Urine Leukocyte Esterase MOD Urine RBC 2 /hpf Urine WBC 5 /hpf Urine Squamous Epithelial Cells 2 /hpf Urine Bacteria MANY /hpf Microscopic Urinalysis Comment CULTURE INDICATED Date/Time Source Procedure Growth Status 12/16/17 14:57 Urine Random Urine Urine Culture Pending Received Mental Status Examination Appearance: Disheveled, Malodorous Consciousness: Alert, Highly Distractible Orientation: Person, Place Motor Activity: Normal gait Speech: Pressured, Rapid, Stuttering Language: Adequate Fund of Knowledge: Adequate Attention and Concentration: Other (poor) Memory: Impaired Mood: Angry, Oppositional, Anxious, Irritable Affect: Other (increase range of motion intensity) Thought Process & Associations: Loose associations, Circumstantial, Tangential Thought Content: Bizarre thinking, Ideas of reference, Hallucinations, Delusional Hallucination Type: Auditory (patient appears to be responding to internal stimuli) Delusion Type: Bizarre Suicidal Ideation: No Suicidal Plan: No Suicidal Intention: No Homicidal Ideation: No Homicidal Plan: No Homicidal Intention: No Insight: Poor Judgment: Poor Assessment & Plan Problem List: (1) Intermittent explosive disorder ICD Codes: F63.81 - Intermittent explosive disorder Status: Acute (2) Schizoaffective disorder ICD Codes: F25.9 - Schizoaffective disorder Status: Acute Assessment & Plan Estimated LOS: 7 days patient meets criteria for involuntary psychiatric hospitalization [place]pson act I'll do first opinion request second opinion. She does not have capacity I'll ask for healthcare surrogate and guardian advocate will continue medications per prior discharge of olanzapine Klonopin. Discharge Planning This needs to be determined, will need to consider the patient's recidivism multiple prior hospitalizations will return home or perhaps more long-term placement might be appropriate Request HC Surrog/Guard Advoc?: Yes Problem Qualifiers (1) Schizoaffective disorder: Qualified Codes: F25.0 - Schizoaffective disorder, bipolar type Grant Ibanez MD Dec 17, 2017 09:58
[2017-12-17] MEDS: NICOTINE 21 MG/24 HR PATCH T-DERMAL SCH ×2 (11:00→11:55)
[2017-12-17] MEDS: NITROFURANTOIN MONOHYD MACROCR 100 MG CAP PO SCH ×2 (11:55→18:00)
[2017-12-17] MEDS: hydrOXYzine HCL 50 MG TAB PO PRN ×2 (11:55→20:15)
[2017-12-17] MEDS: clonazePAM 1 MG TAB PO SCH ×2 (13:16→18:00)
--- NOTE | 2017-12-17 14:30 | PD.CONS ---
HPI Service [facility] Consult Requested By Psychiatry Team Reason for Consult [employer] medical management Primary Care Physician Unknown Diagnoses: History of Present Illness Patient is 32-year-old female with known history of schizoaffective disorder, TBI, depression who came into the hospital brought in by her mother for refusing to bathe, eat, take her medications and very combative. She is now admitted to inpatient psychiatry unit for further evaluation. Consulted for assistance in medical management. Patient seen and examined today. Reports she has been talking to the devil and seeing the devil and that she needs to stay far away from her family to save them. Patient is unable to contribute with her medical and surgical history. Most of the history is taken from previous admissions. Patient occasionally answers questions but for most of the time is focused on talking about the devil. States she smokes 3-5 cigarettes a day and she wants to smoke right now. Patient is asking if she could smoke and should be allowed to smoke. Otherwise, denies pain and discomfort. Denies SOB/ dyspnea. Denies chest pain. Denies fevers, chills, n/v/d. Denies dysuria Review of Systems ROS Limitations: Poor Historian Except as stated in HPI: all other systems reviewed are Neg Past Family Social History Allergies: Coded Allergies: codeine (Verified Allergy, Severe, RASH/SHOB, 07/13/17) escitalopram (Verified Allergy, Severe, UNKNOWN REACTION, 07/13/17) penicillin G (Verified Allergy, Severe, UNKNOWN REACTION, 07/13/17) temazepam (Verified Allergy, Severe, Shortness of Breath and Hives, ) sulfamethoxazole (Verified Allergy, Intermediate, 07/13/17) trimethoprim (Verified Allergy, Intermediate, 07/13/17) clindamycin (Verified Adverse Reaction, Intermediate, 07/13/17) PER MOM aripiprazole (Verified Adverse Reaction, Unknown, 07/13/17) Per patient's mother - [facility] [phone]. quetiapine (Verified Adverse Reaction, Unknown, 07/13/17) Per patient's mother - [facility] [phone]. Past Medical History Schizo affective disorder Depression TBI ?Hypothyroidism Past Surgical History Brain surgery Reported Medications Reported Meds & Active Scripts Active Klonopin (Clonazepam) 1 Mg Tab 1 Mg PO TID 30 Days Zyprexa (Olanzapine) 10 Mg Tab 10 Mg PO BID 30 Days Active Ordered Medications Current Medications Medications (Trade) Dose Ordered Sig/Mary Route Start Time Stop Time Status Last Admin (Macrobid) 100 mg BIDPC PO 12/16/17 18:00 12/21/17 17:59 12/17/17 11:55 (Benadryl) 50 mg HS PRN PO 12/17/17 03:45 Future hold (Tylenol) 650 mg Q4H PRN PO 12/17/17 03:45 (Milk Of Magnesia Liq) 30 ml DAILY PRN PO 12/17/17 03:45 (Mag-Al Plus Susp Liq) 30 ml Q6H PRN PO 12/17/17 03:45 (Atarax) 50 mg Q6H PRN PO 12/17/17 09:30 12/17/17 11:55 (KlonoPIN) 1 mg TID PO 12/17/17 13:00 12/17/17 13:16 (ZyPREXA) 10 mg BID PO 12/17/17 21:00 (Habitrol 21 Mg Patch.24 Hr) 1 patch DAILY T-DERMAL 12/17/17 11:00 Family History Unable to provide information Social History Denies alcohol use Smokes 3-5 cigarettes per day Denies illicit drug use Physical Exam Vital Signs Vital Signs Date Time Temp Pulse Resp B/P (MAP) Pulse Ox O2 Delivery O2 Flow Rate FiO2 12/17/17 02:29 12/16/17 16:12 Physical Exam GENERAL: This is a disheveled, unkempt, in no apparent distress. SKIN: Warm and dry. Bilateral foot very callused, appears that patient does not wear shoes HEAD: Normocephalic. . EYES: Pupils equal round and reactive. Extraocular motions intact. No scleral icterus. No injection or drainage. ENT: Nose without bleeding. Throat without erythema. Uvula midline. Airway patent. NECK: Trachea midline. CARDIOVASCULAR: Regular rate and rhythm without murmurs, gallops, or rubs. RESPIRATORY: Clear to auscultation. Breath sounds equal bilaterally. No wheezes , rales, or rhonchi. GASTROINTESTINAL: Abdomen soft, non-tender, nondistended. MUSCULOSKELETAL: Extremities without clubbing, cyanosis, or edema. NEUROLOGICAL: Awake and alert. Motor and sensory grossly within normal limits. Normal speech. Laboratory Laboratory Tests Test 12/16/17 14:57 Urine Color YELLOW Urine Turbidity HAZY Urine pH 7.5 Urine Specific [place] 1.007 Urine Protein TRACE Urine Glucose (UA) NEG Urine Ketones NEG Urine Occult Blood TRACE Urine Nitrite NEG Urine Bilirubin NEG Urine Urobilinogen LESS THAN 2.0 Urine Leukocyte Esterase MOD Urine RBC 2 Urine WBC 5 Urine Squamous Epithelial Cells 2 Urine Bacteria MANY Microscopic Urinalysis Comment CULTURE INDICATED Date/Time Source Procedure Growth Status 12/16/17 14:57 Urine Random Urine Urine Culture - Preliminary NO GROWTH IN 24 HOURS. Resulted Result Diagram: 12/16/17 1343 12/16/17 1343 Assessment and Plan Problem List: (1) Schizoaffective disorder ICD Code: F25.9 - Schizoaffective disorder Status: Acute (2) Intermittent explosive disorder ICD Code: F63.81 - Intermittent explosive disorder Status: Acute Assessment and Plan Patient is 32-year-old female with known history of schizoaffective disorder TBI , depression who came into the hospital brought in by her mother for refusing to bathe, eat, take her medications and very combative. She is now admitted to inpatient psychiatry unit for further evaluation. Consulted for assistance in medical management. Schizoaffective disorder Hallucinations -Managed by psychiatry Urinary tract infection -UA positive, started on Macrobid, will DC -Culture no growth in 24 hours -Encourage p.o. fluid hydrate ?History of hypothyroidism -Check TSH, T4 not on any medications -Last check of TSH in 2007 within normal Hypokalemia -Replace potassium -Monitor BMP DVT prop ambulatory Code Status Full code Discussed Condition With Patient, nursing Problem Qualifiers (1) Schizoaffective disorder: Qualified Codes: F25.0 - Schizoaffective disorder, bipolar type Selena Santizo Dec 17, 2017 14:30
[2017-12-17] MEDS ORDERED: POTASSIUM CHLORIDE 10 MEQ CONTROLLED RELEASE TAB PO ONE (15:45)
[2017-12-17] MEDS: OLANZapine 10 MG TAB PO SCH (20:14)
[2017-12-17] MEDS: diphenhydrAMINE HCL 50 MG CAP - HS PRN PO (20:15)
[2017-12-18] MEDS: clonazePAM 1 MG TAB PO SCH ×3 (08:31→17:42)
[2017-12-18] MEDS: hydrOXYzine HCL 50 MG TAB PO PRN ×2 (08:32→17:43)
[2017-12-18] MEDS: NITROFURANTOIN MONOHYD MACROCR 100 MG CAP PO SCH ×2 (08:32→17:42)
[2017-12-18] MEDS: OLANZapine 10 MG TAB PO SCH ×2 (08:32→21:02)
[2017-12-18] MEDS: NICOTINE 21 MG/24 HR PATCH T-DERMAL SCH (08:32)
--- NOTE | 2017-12-18 11:04 | PD.PSY.CON ---
Provisional Diagnosis Admission Date Dec 17, 2017 at 02:59 [place] I. 1. Intermittent explosive disorder 2. Unspecified psychosis [place] II. 1. Acquired intellectual disability History of Present Illness Service Psychiatry Consult Requested By Dr. Ibanez Reason for Consult Second opinion for involuntary psychiatric hospitalization Primary Care Physician Unknown HPI From Dr. Ibanez's H&P: Patient is a 32-year-old white female well-known to us from multiple prior hospitalizations most recently 11/30/17 through 12/05/17 visit [id number] she was discharged home to family. It appears she has been noncompliant with medication poor hygiene not bathing or eating too more angry paranoid and upset since that time. Patient was [place] acted by the [employer] dated 12/16/17 at 10:16 AM that Tomas reviewed essentially states the cold mother advised Jaylyn refusing to bathe E or take her medication Jaylyn last took her medications 4 days ago Jaylyn is very combated with when asked to take her medication. Patient seen screened in ED and toxicology negative bladder: Negative. At the present time patient seen on unit with nurse Smalls. Patient is markedly malodorous her hair is very guarded and matted her feet are quite dirty she is sucking on her lower lip mumbling angry irritable asking for cigarettes and asking to leave. She also appears to be responding to internal stimuli. Patient angry labile when asked questions she storms away from me without responding. This is quite similar to her presentations on various prior hospitalizations. At the present time patient does meet criteria for inpatient psychiatric hospitalization the [place]pson act after she does not have capacity thus I'll ask for healthcare surrogate and guardian advocate. I just did talk with patient's mother she is willing to become health care surrogate she is given us permission for olanzapine and Klonopin. Along with Atarax and Benadryl. In reviewing the patient's significant recidivism to question whether long-term placement might be appropriate for this woman On my examination today, 12/18: Patient seen and examined with nurse. Chart reviewed. Case discussed with nursing staff. Patient noted to be intrusive and childlike but medication compliant by nursing staff. On my examination today, the patient presents as disheveled and disorganized. She is discharged focused. Psychiatric interview is somewhat limited by thought disorganization. For example when I asked if she is experiencing audiovisual hallucinations she says "a tooth is taking me." When I ask about SI/HI, she does seem to articulate some violent thoughts against the maintenance parts technician who tried to draw her blood. Mood is "good" and affect is quite childlike. Makes seemingly nonsensical statements like "Toni got out of shelter and put me in the paint ball." No acute physical complaints. I am unable to obtain any past psychiatric, family, chemical dependency or social history presently because of the patient's degree of thought disorganization. I did not endeavor to reach out to patient's mother at the number listed in the electronic medical record and left a voicemail requesting a call back. Review of Systems ROS Limitations: Poor Historian Except as stated in HPI: all other systems reviewed are Neg Past Family Social History Coded Allergies: codeine (Verified Allergy, Severe, RASH/SHOB, 07/13/17) escitalopram (Verified Allergy, Severe, UNKNOWN REACTION, 07/13/17) penicillin G (Verified Allergy, Severe, UNKNOWN REACTION, 07/13/17) temazepam (Verified Allergy, Severe, Shortness of Breath and Hives, ) sulfamethoxazole (Verified Allergy, Intermediate, 07/13/17) trimethoprim (Verified Allergy, Intermediate, 07/13/17) clindamycin (Verified Adverse Reaction, Intermediate, 07/13/17) PER MOM aripiprazole (Verified Adverse Reaction, Unknown, 07/13/17) Per patient's mother - [facility] [phone]. quetiapine (Verified Adverse Reaction, Unknown, 07/13/17) Per patient's mother - [facility] [phone]. Past Medical History See electronic medical record Active Scripts Clonazepam (Klonopin) 1 Mg Tab, 1 MG PO TID for Mental Health for 30 Days, TAB 0 Refills Prov:Paulino Sellers MD 12/05/17 Olanzapine (Zyprexa) 10 Mg Tab, 10 MG PO BID for Mental Health for 30 Days, TAB 0 Refills Prov:Paulino Sellers MD 12/05/17 Current Medications Medications (Trade) Dose Ordered Sig/Mary Route Start Time Stop Time Status Last Admin (Macrobid) 100 mg BIDPC PO 12/16/17 18:00 12/21/17 17:59 12/18/17 08:32 (Benadryl) 50 mg HS PRN PO 12/17/17 03:45 Future hold 12/17/17 20:15 (Tylenol) 650 mg Q4H PRN PO 12/17/17 03:45 (Milk Of Magnesia Liq) 30 ml DAILY PRN PO 12/17/17 03:45 (Mag-Al Plus Susp Liq) 30 ml Q6H PRN PO 12/17/17 03:45 (Atarax) 50 mg Q6H PRN PO 12/17/17 09:30 12/18/17 08:32 (KlonoPIN) 1 mg TID PO 12/17/17 13:00 12/18/17 08:31 (ZyPREXA) 10 mg BID PO 12/17/17 21:00 12/18/17 08:32 (Habitrol 21 Mg Patch.24 Hr) 1 patch DAILY T-DERMAL 12/17/17 11:00 Patient's Strengths (min. 2) In a monitored setting. Verbally fluent. Physical Exam Physical exam completed by hospitalist guidance consultant. On my examination today, the patient appears to be in no acute physical distress. No motor abnormalities noted. Labs and vitals reviewed: Vital Signs Vital Signs Date Time Temp Pulse Resp B/P (MAP) Pulse Ox O2 Delivery O2 Flow Rate FiO2 12/17/17 02:29 12/16/17 13:51 135 20 96 Room Air 12/16/17 10:53 98.7 Lab Results Date/Time Source Procedure Growth Status 12/16/17 14:57 Urine Random Urine Urine Culture - Final 50-100,000 CFU/ML MIXED GRAM POSITIVE... Complete Item Value Date Time White Blood Count 18.7 TH/MM3 H 12/16/17 1343 Hemoglobin 12.6 GM/DL 12/16/17 1343 Platelet Count 309 TH/MM3 12/16/17 1343 Sodium Level 139 MEQ/L 12/16/17 1343 Potassium Level 3.4 MEQ/L L 12/16/17 1343 Chloride Level 105 MEQ/L 12/16/17 1343 Carbon Dioxide Level 23.3 MEQ/L 12/16/17 1343 Blood Urea Nitrogen 4 MG/DL L 12/16/17 1343 Creatinine 0.73 MG/DL 12/16/17 1343 Estimat Glomerular Filtration Rate 92 ML/MIN 12/16/17 1343 Aspartate Amino Transf (AST/SGOT) 25 U/L 12/16/17 1343 Alanine Aminotransferase (ALT/SGPT) 17 U/L 12/16/17 1343 Thyroid Stimulating Hormone 3rd Gen 0.820 uIU/ML 12/16/17 1343 Urine Opiates Screen NEG 12/16/17 1343 Urine Barbiturates Screen NEG 12/16/17 1343 Urine Amphetamines Screen NEG 12/16/17 1343 Urine Benzodiazepines Screen NEG 12/16/17 1343 Urine Cocaine Screen NEG 12/16/17 1343 Urine Cannabinoids Screen NEG 12/16/17 1343 Ethyl Alcohol Level LESS THAN 3 MG/DL 12/16/17 1343 Urinalysis results reviewed. Patient refused potassium supplement. Mental Status Examination Appearance: Disheveled Consciousness: Alert Orientation: Person, Place (At least) Motor Activity: Other (No motor abnormalities noted) Speech: Unremarkable Language: Other (Rambling) Fund of Knowledge: Inadequate Attention and Concentration: Inadequate Memory: Impaired Mood: Good Affect: Other (Childlike) Thought Process & Associations: Disorganized Thought Content: Bizarre thinking Hallucination Type: None Delusion Type: None Suicidal Ideation: No Suicidal Plan: No Suicidal Intention: No Homicidal Ideation: No (No homicidal ideation but violent ideation against maintenance parts technician as noted above) Homicidal Plan: No Homicidal Intention: No Insight: Poor Judgment: Poor Assessment & Plan Problem List: (1) Intermittent explosive disorder ICD Codes: F63.81 - Intermittent explosive disorder Status: Acute (2) Unspecified psychosis ICD Codes: F29 - Unspecified psychosis not due to a substance or known physiological condition (3) Acquired intellectual disability ICD Codes: F79 - Unspecified intellectual disabilities Assessment & Plan Given the circumstances of the patient's presentation here and her presentation on my examination today, I concur with Dr. Ibanez that the patient meets criteria for involuntary psychiatric hospitalization under the Sampson act. I have completed the second opinion paperwork. I will be assuming care of the patient's case. I will continue patient's Zyprexa and Klonopin as ordered. I did endeavor to reach out to patient's mother today and am awaiting a call back. I concur with Dr. Ibanez that some sort of long-term placement might be appropriate given the patient's recurrent hospitalizations due to medication nonadherence at home, and I have discussed the matter with the counselor. Long- acting injectable antipsychotic might be another option. Hospitalist input noted and appreciated. I discontinued Macrobid as urine culture revealed only mixed reina. Continue to monitor on high acuity unit. Continue other medications and care as ordered. Discharge Planning Patient requires ongoing hospitalization due to impairment in self-care and high risk for decompensation in less restrictive environment. Request HC Surrog/Guard Advoc?: Yes Paulino Sellers MD Dec 18, 2017 11:04
[2017-12-18] MEDS ORDERED: POTASSIUM CHLORIDE 10 MEQ CONTROLLED RELEASE TAB PO ONE (13:30)
--- NOTE | 2017-12-18 14:23 | HHI.PR ---
Subjective Remarks Follow-up visit TBI, schizoaffective disorder, questionable hypothyroidism. Patient seen and examined today. Patient is just rambling unable to understand. Disorganized thought process. Keeps on repeating herself saying she wants to go home so that her mother can give her the big gulp/ slurpee. Denies chest pain, palpitations, headache, dizziness. Denies dysuria. Reports she takes care of herself and took a shower. Objective Result Diagram: 12/16/17 1343 12/16/17 1343 Objective Remarks GENERAL: This is a disheveled, unkempt, in no apparent distress. SKIN: Warm and dry. Bilateral foot very callused, appears that patient does not wear shoes HEAD: Normocephalic. . EYES: Pupils equal round and reactive. Extraocular motions intact. No scleral icterus. No injection or drainage. ENT: Nose without bleeding. Throat without erythema. Uvula midline. Airway patent. NECK: Trachea midline. CARDIOVASCULAR: Regular rate and rhythm without murmurs, gallops, or rubs. RESPIRATORY: Clear to auscultation. Breath sounds equal bilaterally. No wheezes , rales, or rhonchi. GASTROINTESTINAL: Abdomen soft, non-tender, nondistended. Bowel sounds active 4 MUSCULOSKELETAL: Extremities without clubbing, cyanosis, or edema. NEUROLOGICAL: Awake and alert. Motor and sensory grossly within normal limits. Normal speech. A/P Problem List: (1) Schizoaffective disorder ICD Code: F25.9 - Schizoaffective disorder Status: Acute (2) Intermittent explosive disorder ICD Code: F63.81 - Intermittent explosive disorder Status: Acute Assessment and Plan Patient is 32-year-old female with known history of schizoaffective disorder TBI , depression who came into the hospital brought in by her mother for refusing to bathe, eat, take her medications and very combative. She is now admitted to inpatient psychiatry unit for further evaluation. Consulted for assistance in medical management. Schizoaffective disorder Hallucinations -Managed by psychiatry Urinary tract infection -UA positive, started on Macrobid, now dc as per report yesterday culture with no growth in 24 hours per -Culture need to today to have 50-100,000 mixed gram positives reina. Patient previously has leukocytosis. Will restart Macrobid 5 days -Encourage p.o. fluid hydrate ?History of hypothyroidism -Last check of TSH in 2007 within normal -TSH wnl -Patient is without hypothyroidism Hypokalemia -Replace potassium -Monitor BMP DVT prop ambulatory Problem Qualifiers (1) Schizoaffective disorder: Qualified Codes: F25.0 - Schizoaffective disorder, bipolar type Selena Santizo Dec 18, 2017 14:23
[2017-12-18 17:15] VITALS: BP 112/56; PULSE 76; RESP 18; TEMP 98.8; O2SAT 99
[2017-12-19] MEDS ORDERED: NICOTINE 21 MG/24 HR PATCH T-DERMAL PRN (07:45)
[2017-12-19 08:37] LABS: HEMATOCRIT 39.1 % (35.0-46.0); HEMOGLOBIN 12.8 GM/DL (11.6-15.3); MEAN CELL VOLUME 88.2 FL (80.0-100.0); MEAN CORPUSCULAR HEMOGLOBIN 28.9 PG (27.0-34.0); MEAN CORPUSCULAR HGB CONC 32.8 % (32.0-36.0); PLATELET COUNT 286 TH/MM3 (150-450); RED BLOOD COUNT 4.43 MIL/MM3 (4.00-5.30); RED CELL DISTRIBUTION WIDTH 15.1 % (11.6-17.2); WHITE BLOOD COUNT 4.5 TH/MM3 (4.0-11.0)
[2017-12-19] MEDS: OLANZapine 10 MG TAB PO SCH ×2 (08:59→20:19)
[2017-12-19] MEDS: NITROFURANTOIN MONOHYD MACROCR 100 MG CAP PO SCH ×2 (08:59→17:33)
[2017-12-19] MEDS: clonazePAM 1 MG TAB PO SCH ×3 (08:59→17:33)
--- NOTE | 2017-12-19 09:27 | HHI.PYPN ---
Subjective Remarks Patient seen and examined with nurse. Chart reviewed. Case discussed with nursing staff who reports patient is quite intrusive. She did shower today. Case discussed in treatment team. Several times prior to my evaluation and following, patient stops me to ask if she can leave the hospital today. I repeatedly explain the conditions of discharge including need to reach patient' s mother, but patient seems to forget that I have told her this and asks the same question again when she approaches me. Grooming does seem somewhat improved today. Patient does not verbalize any SI/HI, nor does she describe any delusional material. No side effects from medications besides some mild dizziness; I will check orthostatics and institute fall precautions. No current physical complaints. I was able to reach patient's mother today. She reports medication non- adherence prior to admission but believes that the main reason patient required re-hospitalization was because patient's sister was acting out (reportedly "freak[ing] out and break[ing] shit.") and patient copied this behavior. Sister has reportedly since been removed from the home environment. I suggest long-acting injectable as an option to prevent medication nonadherence. Zyprexa Relprevv not being utilized in our area, we discuss other YUEN options, but mother either declines these (as in the case e.g. of Haldol) or reports patient has history of allergy/intolerance (as in the case of Risperdal). I also suggest placement e.g. in [facility] as an option but mother refuses this. She would be willing to accept something mayra to a day-care, but I am not sure that these services are provided in our area, and I have asked the counselor to explore options in this regard. We discuss possible discharge in the next 1-2 days. Mother requests that I provide a letter saying that patient may be left alone while mother is running errands, noting that DCF is pursuing some oversight of the family. I decline to provide such a letter as I do not feel that patient should, even when stable, be left unsupervised. I suggest to mother that this is one reason why placement might be a good option, but she continues to decline to allow patient to be placed. I spent ~12 minutes in telephone consultation with patient's mother. Review of Systems ROS Limitations: Poor Historian Except as stated in HPI: all other systems reviewed are Neg Mental Status Examination Appearance: Disheveled (Grooming somewhat improved today) Consciousness: Alert Orientation: Person, Place (At least) Motor Activity: Other (No abnormal motor movements noted) Speech: Unremarkable Language: Other (Remain somewhat rambling) Fund of Knowledge: Inadequate Attention and Concentration: Inadequate Memory: Impaired Mood: Good Affect: Other (Remains childlike) Thought Process & Associations: Other (Perseverative on discharge) Thought Content: Preoccupations Hallucination Type: None Delusion Type: None Suicidal Ideation: No Suicidal Plan: No Suicidal Intention: No Homicidal Ideation: No Homicidal Plan: No Homicidal Intention: No Insight: Poor Judgment: Poor Results Labs Test 12/19/17 07:13 White Blood Count 4.5 TH/MM3 Red Blood Count 4.43 MIL/MM3 Hemoglobin 12.8 GM/DL Hematocrit 39.1 % Mean Corpuscular Volume 88.2 FL Mean Corpuscular Hemoglobin 28.9 PG Mean Corpuscular Hemoglobin Concent 32.8 % Red Cell Distribution Width 15.1 % Platelet Count 286 TH/MM3 Mean Platelet Volume 8.0 FL Beta HCG, Qualitative LESS THAN 1 MIU/ML Date/Time Source Procedure Growth Status 12/16/17 14:57 Urine Random Urine Urine Culture - Final 50-100,000 CFU/ML MIXED GRAM POSITIVE... Complete Labs reviewed Vitals/IOs Vital Signs Date Time Temp Pulse Resp B/P (MAP) Pulse Ox O2 Delivery O2 Flow Rate FiO2 12/18/17 17:15 98.8 76 18 112/56 (74) 99 12/16/17 13:51 Room Air Assessment & Plan Problem List: (1) Intermittent explosive disorder ICD Codes: F63.81 - Intermittent explosive disorder Status: Acute (2) Unspecified psychosis ICD Codes: F29 - Unspecified psychosis not due to a substance or known physiological condition (3) Acquired intellectual disability ICD Codes: F79 - Unspecified intellectual disabilities Assessment & Plan Titrate Zyprexa to 15mg BID to target residual symptoms. Follow up orthostatics. Continue Klonopin as ordered. Continue to monitor on the high acuity unit. Hospitalist input noted and appreciated. Continue other medications and care as ordered. Justification for Cont. Inpt. Medication changes. Risk for decompensation in less restrictive environment. Discharge Planning Pending psychiatric stabilization. Request HC Surrog/Guard Advoc?: Yes Paulino Sellers MD Dec 19, 2017 09:27
[2017-12-19 09:38] LABS: ALBUMIN 3.5 GM/DL (3.4-5.0); ALKALINE PHOSPHATASE 69 U/L (45-117); ALT (GPT) 22 U/L (10-53); AST (GOT) 26 U/L (15-37); BICARBONATE 29.6 MEQ/L (21.0-32.0); BLOOD UREA NITROGEN 12 MG/DL (7-18); CALCIUM 8.9 MG/DL (8.5-10.1); CHLORIDE 107 MEQ/L (98-107); CHOLESTEROL 111 MG/DL (120-200); CHOLESTEROL/ HDL RATIO 3.51 RATIO; CREATININE 0.65 MG/DL (0.50-1.00); DIRECT BILIRUBIN ADULT 0.1 MG/DL (0.0-0.2); FREE T4 1.17 NG/DL (0.76-1.46); GLOMERULAR FILTRATION RATE 106 ML/MIN (>89); GLUCOSE,RANDOM 79 MG/DL (74-106); HDL CHOLESTEROL 31.6 MG/DL (40.0-60.0); INDIRECT BILIRUBIN 0.4 MG/DL (0.0-0.8); LDL CHOLESTEROL 60 MG/DL (0-99); SODIUM (NA) 142 MEQ/L (136-145); TOTAL BILIRUBIN ADULT 0.5 MG/DL (0.2-1.0); TOTAL PROTEIN 6.5 GM/DL (6.4-8.2); TRIGLYCERIDES 95 MG/DL (42-150)
[2017-12-19] MEDS: hydrOXYzine HCL 50 MG TAB PO PRN ×2 (12:34→20:20)
--- NOTE | 2017-12-19 13:34 | HHI.PR ---
Subjective Remarks Follow-up visit TBI, schizoaffective disorder, questionable hypothyroidism. Patient seen and examined in her room, she is asking when she will be able to go home. She goes on to tell me that she needs to go home as she has already spoke to her mother about this and that she does not fully understand why the police was called and she was brought here. Patients thought process is scattered and she goes from topic to topic with no organized thoughts. She denies any fevers, chills, nausea, vomiting, diarrhea, dysuria, shortness of breath, cough, headache or dizziness. She repots some lower abdominal cramping, but states this is because she just started her menses. Eating and drinking without issues. Objective Vitals Vital Signs Date Time Temp Pulse Resp B/P (MAP) Pulse Ox O2 Delivery O2 Flow Rate FiO2 12/18/17 17:15 98.8 76 18 112/56 (74) 99 Result Diagram: 12/19/17 0713 12/19/17 0713 Objective Remarks GENERAL: This is a disheveled, unkempt, female who appears older than stated age in no apparent distress. SKIN: Warm and dry. Bilateral foot very callused. HEAD: Normocephalic. . EYES: Pupils equal round and reactive. Extraocular motions intact. No scleral icterus. No injection or drainage. ENT: Nose without bleeding. Throat without erythema. Uvula midline. Airway patent. Very poor dentition with missing teeth and multiple visible dental caries. NECK: Trachea midline. CARDIOVASCULAR: Regular rate and rhythm without murmurs, gallops, or rubs. RESPIRATORY: Clear to auscultation. Breath sounds equal bilaterally. No wheezes , rales, or rhonchi. GASTROINTESTINAL: Abdomen soft, non-tender, nondistended. Bowel sounds active 4 MUSCULOSKELETAL: Extremities without clubbing, cyanosis, or edema. NEUROLOGICAL: Awake and alert. Motor and sensory grossly within normal limits. Normal speech. A/P Problem List: (1) Schizoaffective disorder ICD Code: F25.9 - Schizoaffective disorder Status: Acute (2) Intermittent explosive disorder ICD Code: F63.81 - Intermittent explosive disorder Status: Acute Assessment and Plan Patient is 32-year-old female with known history of schizoaffective disorder TBI , depression who came into the hospital brought in by her mother for refusing to bathe, eat, take her medications and very combative. She is now admitted to inpatient psychiatry unit for further evaluation. Consulted for assistance in medical management. Schizoaffective disorder Hallucinations -Managed by psychiatry - Discussed with patient that her discharge date and time will be up to the psychiatrist to decide. Urinary tract infection -UA positive, started on Macrobid, now dc as per report yesterday culture with no growth in 24 hours per -Culture need to today to have 50-100,000 mixed gram positives reina. Patient previously has leukocytosis, CBC today reviewed with no leukocytosis, afebrile - Denies urinary complaints -Encourage p.o. fluid hydration ?History of hypothyroidism -Last check of TSH in 2007 within normal -TSH wnl -Patient is without hypothyroidism Hypokalemia -Replace potassium - BMP today stable DVT prop ambulatory Discussed with nursing and patient. [facility] will sign off, please reconsult if needed. Problem Qualifiers (1) Schizoaffective disorder: Qualified Codes: F25.0 - Schizoaffective disorder, bipolar type Enio Aguilar Dec 19, 2017 13:34
[2017-12-19 17:28] LABS: HEMOGLOBIN A1C 5.3 % (4.3-6.0)
[2017-12-19 18:25] VITALS: BP 128/81; PULSE 88; RESP 18; TEMP 97.4; O2SAT 98
[2017-12-19] MEDS: diphenhydrAMINE HCL 50 MG CAP - HS PRN PO (20:18)
[2017-12-20] MEDS: NITROFURANTOIN MONOHYD MACROCR 100 MG CAP PO SCH ×2 (08:56→17:41)
[2017-12-20] MEDS: clonazePAM 1 MG TAB PO SCH ×3 (08:57→17:41)
[2017-12-20] MEDS: OLANZapine 10 MG TAB PO SCH ×2 (08:57→20:10)
--- NOTE | 2017-12-20 11:28 | HHI.PYPN ---
Subjective Remarks Patient seen and examined. Chart reviewed. Orthostatics not obtained; I have instructed nurse to do these today. Case discussed with nursing staff. Per nursing, patient remains childlike, loud and repetitive. field secretary informs me that patient's mother has called the unit reporting that patient has called the home 30 times this morning. On my examination today, patient remains intrusive, almost frantic, about discharge home. She remains extremely childlike. She is difficult to redirect and follows me around the unit. No reported side effects from medications. No complaints of dizziness today, nor does patient have any other physical complaints. I placed a call to patient's mother to discuss further pharmacotherapeutic options. I left a voicemail requesting a call back. Review of Systems ROS Limitations: Poor Historian Except as stated in HPI: all other systems reviewed are Neg Mental Status Examination Appearance: Disheveled Consciousness: Alert Orientation: Person, Place (At least) Motor Activity: Other (Hyperkinetic but no other motor abnormalities noted.) Speech: Unremarkable Language: Other (rambling) Fund of Knowledge: Inadequate Attention and Concentration: Inadequate Memory: Impaired Mood: Anxious Affect: Anxious, Other (Remains childlike) Thought Process & Associations: Other (Perseverative on discharge) Thought Content: Preoccupations Hallucination Type: None Delusion Type: None Suicidal Ideation: No Suicidal Plan: No Suicidal Intention: No Homicidal Ideation: No Homicidal Plan: No Homicidal Intention: No Insight: Poor Judgment: Poor Results Labs Date/Time Source Procedure Growth Status 12/16/17 14:57 Urine Random Urine Urine Culture - Final 50-100,000 CFU/ML MIXED GRAM POSITIVE... Complete Labs reviewed. Vitals/IOs Vital Signs Date Time Temp Pulse Resp B/P (MAP) Pulse Ox O2 Delivery O2 Flow Rate FiO2 12/19/17 18:25 97.4 88 18 128/81 (97) 98 12/16/17 13:51 Room Air Assessment & Plan Problem List: (1) Intermittent explosive disorder ICD Codes: F63.81 - Intermittent explosive disorder Status: Acute (2) Unspecified psychosis ICD Codes: F29 - Unspecified psychosis not due to a substance or known physiological condition (3) Acquired intellectual disability ICD Codes: F79 - Unspecified intellectual disabilities Assessment & Plan Inadequate response to current therapy; patient's behavior remains too erratic and disruptive to discharge to lower level of care. There does seem to be an inattentive/hyperactive component to patient's presentation and mother has consistently reported that patient did very well with psychostimulant in the past before [facility] stopped prescribing these. Recognizing the mechanistic complexities of prescription of antipsychotic+stimulant, I think the addition of an agent like Ritalin or Adderall might be of some benefit, and might allow for dose reductions of other psychotropics if efficacious. I will check an EKG and await call back from mother to discuss this possibility. Follow-up orthostatics. Continue to monitor on the high acuity unit. Continue other medications and care as ordered. Justification for Cont. Inpt. Medication changes anticipated. Impairment in social functioning. Impairment in self-care. High risk for decompensation in less restrictive environment. Discharge Planning Pending psychiatric stabilization Request HC Surrog/Guard Advoc?: Yes Paulino Sellers MD Dec 20, 2017 11:28
[2017-12-20 11:53] VITALS: BP 107/67
[2017-12-20 11:56] VITALS: BP 120/60
[2017-12-20 11:57] VITALS: BP 123/63
[2017-12-20] MEDS: DEXTROAMPHETAMINE/AMPHETAMINE 5 MG TAB PO SCH (13:00)
[2017-12-20 16:44] VITALS: BP 118/69; PULSE 92; RESP 18; TEMP 98.1; O2SAT 100
[2017-12-20] MEDS: hydrOXYzine HCL 50 MG TAB PO PRN (20:10)
[2017-12-21 05:42] VITALS: BP 114/59; PULSE 69; RESP 17; TEMP 96.6
[2017-12-21 05:43] VITALS: BP 118/82; PULSE 68; RESP 17
[2017-12-21 05:44] VITALS: BP 121/85; PULSE 80; RESP 17; O2SAT 98
[2017-12-21] MEDS: NITROFURANTOIN MONOHYD MACROCR 100 MG CAP PO SCH ×2 (08:00→17:34)
[2017-12-21] MEDS: clonazePAM 1 MG TAB PO SCH ×3 (08:00→17:34)
[2017-12-21] MEDS: OLANZapine 10 MG TAB PO SCH ×2 (08:01→20:06)
[2017-12-21] MEDS: DEXTROAMPHETAMINE/AMPHETAMINE 5 MG TAB PO SCH ×2 (08:01→12:58)
--- NOTE | 2017-12-21 11:30 | HHI.PYPN ---
Subjective Remarks Patient seen and examined with nurse. Chart reviewed. Case discussed with nursing staff. Patient received first dose of Adderall this morning. On my examination today, patient is more or less unchanged from yesterday. She is perhaps marginally less frantic but remains quite intrusive, attention seeking and childlike. She continues to follow me around the unit trying to bargain regarding discharge and seems to have forgotten what I have said to her on the matter despite rehearsing for her the discharge plan several times. No evident side effects from medications. No physical complaints. Patient's case was presented to the [place] [facility] and placed in continuance for 4 weeks with mother to serve as health care surrogate. Review of Systems ROS Limitations: Poor Historian Except as stated in HPI: all other systems reviewed are Neg Mental Status Examination Appearance: Disheveled Consciousness: Alert Orientation: Person, Place (Again at least) Motor Activity: Other (Remains fidgety but no motoric abnormalities noted otherwise) Speech: Unremarkable Language: Other (rambling) Fund of Knowledge: Inadequate Attention and Concentration: Inadequate Memory: Impaired Mood: Anxious Affect: Anxious (And childlike) Thought Process & Associations: Other (Perseverative on discharge) Thought Content: Preoccupations Hallucination Type: None Delusion Type: None Suicidal Ideation: No Suicidal Plan: No Suicidal Intention: No Homicidal Ideation: No Homicidal Plan: No Homicidal Intention: No Insight: Poor Judgment: Poor Results Labs Date/Time Source Procedure Growth Status 12/16/17 14:57 Urine Random Urine Urine Culture - Final 50-100,000 CFU/ML MIXED GRAM POSITIVE... Complete Labs reviewed Vitals/IOs Vital Signs Date Time Temp Pulse Resp B/P (MAP) Pulse Ox O2 Delivery O2 Flow Rate FiO2 12/21/17 05:44 80 17 121/85 (97) 98 12/21/17 05:42 96.6 Assessment & Plan Problem List: (1) Intermittent explosive disorder ICD Codes: F63.81 - Intermittent explosive disorder Status: Acute (2) Unspecified psychosis ICD Codes: F29 - Unspecified psychosis not due to a substance or known physiological condition (3) Acquired intellectual disability ICD Codes: F79 - Unspecified intellectual disabilities Assessment & Plan Continue Adderall as ordered for now. We might consider titrating this agent, depending on response to the agent. Continue to monitor on the inpatient unit. Continue other medications and care as ordered. Justification for Cont. Inpt. High risk for decompensation in less restrictive environment. Discharge Planning Pending psychiatric stabilization. Request HC Surrog/Guard Advoc?: Yes Paulino Sellers MD Dec 21, 2017 11:30
--- NOTE | 2017-12-21 13:45 | EKG ---
Date Performed: 12/20/2017 Time Performed: 13:22:47 PTAGE: 32 years EKG: Sinus rhythm NORMAL ECG Since the PREVIOUS TRACING , no significant change noted PREVIOUS TRACIN08/28/2017 07.18 DOCTOR: Navya Rosado Interpretating Date/Time 12/21/2017 13:42:06
[2017-12-21] MEDS: hydrOXYzine HCL 50 MG TAB PO PRN (17:34)
[2017-12-21 17:53] VITALS: BP 94/55; PULSE 86; RESP 18; TEMP 98.2; O2SAT 98
[2017-12-21] MEDS: diphenhydrAMINE HCL 50 MG CAP - HS PRN PO (20:06)
[2017-12-22] MEDS: clonazePAM 1 MG TAB PO SCH ×3 (07:47→17:26)
[2017-12-22] MEDS: DEXTROAMPHETAMINE/AMPHETAMINE 5 MG TAB PO SCH ×2 (07:47→13:25)
[2017-12-22] MEDS: NITROFURANTOIN MONOHYD MACROCR 100 MG CAP PO SCH ×2 (07:47→17:26)
[2017-12-22] MEDS: OLANZapine 10 MG TAB PO SCH ×2 (07:48→21:55)
--- NOTE | 2017-12-22 12:45 | HHI.PYPN ---
Subjective Remarks Patient seen and examined. Chart reviewed. Case discussed with nursing staff. On my examination today, the patient remains quite intrusive and childlike. Minimal change from presentation yesterday, except that speech is perhaps somewhat more organized and relevant to the conversation at hand. Denies SI or HI. Denies AVH. No clear evidence of psychotic decompensation on stimulant, although we will need to monitor for this. No side effects from medications. No physical complaints. Review of Systems ROS Limitations: Poor Historian Except as stated in HPI: all other systems reviewed are Neg Mental Status Examination Appearance: Disheveled Consciousness: Alert Orientation: Person, Place (Again at least) Motor Activity: Other (No abnormal motor movements noted) Speech: Unremarkable Language: Other (Perhaps a little more focused and coherent today) Fund of Knowledge: Inadequate Attention and Concentration: Inadequate Memory: Impaired Mood: Anxious Affect: Anxious (Remains childlike) Thought Process & Associations: Other (Remains perseverative on discharge) Thought Content: Preoccupations Hallucination Type: None Delusion Type: None Suicidal Ideation: No Suicidal Plan: No Suicidal Intention: No Homicidal Ideation: No Homicidal Plan: No Homicidal Intention: No Insight: Poor Judgment: Poor Results Labs Date/Time Source Procedure Growth Status 12/16/17 14:57 Urine Random Urine Urine Culture - Final 50-100,000 CFU/ML MIXED GRAM POSITIVE... Complete Labs reviewed Vitals/IOs Vital Signs Date Time Temp Pulse Resp B/P (MAP) Pulse Ox O2 Delivery O2 Flow Rate FiO2 12/21/17 17:53 98.2 86 18 94/55 (68) 98 Assessment & Plan Problem List: (1) Intermittent explosive disorder ICD Codes: F63.81 - Intermittent explosive disorder Status: Acute (2) Unspecified psychosis ICD Codes: F29 - Unspecified psychosis not due to a substance or known physiological condition (3) Acquired intellectual disability ICD Codes: F79 - Unspecified intellectual disabilities Assessment & Plan Titrate Adderall to 7.5 mg twice daily. Could consider titrating this again over the weekend to 10 mg twice daily. Monitor for any signs of psychotic decompensation. Continue other psychotropics as ordered. Continue to monitor on high acuity unit. Continue other medications and care as ordered. Justification for Cont. Inpt. Medication changes. Risk for decompensation in less restrictive environment. Discharge Planning Pending psychiatric stabilization Request HC Surrog/Guard Advoc?: Yes Paulino Sellers MD Dec 22, 2017 12:44
[2017-12-22] MEDS ORDERED: LORazepam 1 MG TAB PO ONE (16:00)
[2017-12-22 17:40] VITALS: TEMP 96.7
[2017-12-23 06:38] VITALS: BP 119/56; PULSE 62; RESP 17; TEMP 97.6; O2SAT 98
[2017-12-23] MEDS: DEXTROAMPHETAMINE/AMPHETAMINE 5 MG TAB PO SCH ×2 (08:00→13:23)
[2017-12-23] MEDS: clonazePAM 1 MG TAB PO SCH ×4 (09:00→18:38)
[2017-12-23] MEDS: OLANZapine 10 MG TAB PO SCH ×2 (09:00→20:20)
[2017-12-23] MEDS: NITROFURANTOIN MONOHYD MACROCR 100 MG CAP PO SCH (09:00)
[2017-12-23] MEDS: hydrOXYzine HCL 50 MG TAB PO PRN ×2 (13:09→20:20)
[2017-12-23] MEDS ORDERED: HALOPERIDOL LACTATE 5 MG/ML AMP IM ONE (15:45)
--- NOTE | 2017-12-23 15:56 | HHI.PYPN ---
Subjective Remarks Reviewed electronic medical record and discussed case with staff. Her nurse reports that she refused her Zyprexa with her morning medications. Follow-up was conducted in patient's room with nurse present. Patient continues to be internally stimulated. Discussed the importance of medication compliance with patient, who continued to make excuses as to why she did not take the medication. However, she agreed to take it and it was administered shortly after her evaluation. She is fixated on discharge. Patient continues to ask over and over when she will be discharged. Patient observed walking in [place] cursing loudly, screaming, beating on the window to the nurses station. Redirection is no longer working with patient. She has become progressively agitated throughout the day. Attempts were made to give her Atarax earlier with no discernible effect on her demeanor. Emergency treatment order for Haldol placed due to patient's behavioral issues. Mental Status Examination Appearance: Disheveled Consciousness: Alert Orientation: Person, Place (Again at least) Motor Activity: Other (No abnormal motor movements noted) Speech: Unremarkable Language: Other (Perhaps a little more focused and coherent today) Fund of Knowledge: Inadequate Attention and Concentration: Inadequate Memory: Impaired Mood: Anxious Affect: Anxious (Remains childlike) Thought Process & Associations: Other (Remains perseverative on discharge) Thought Content: Preoccupations Hallucination Type: None Delusion Type: None Suicidal Ideation: No Suicidal Plan: No Suicidal Intention: No Homicidal Ideation: No Homicidal Plan: No Homicidal Intention: No Insight: Poor Judgment: Poor Results Labs Date/Time Source Procedure Growth Status 12/16/17 14:57 Urine Random Urine Urine Culture - Final 50-100,000 CFU/ML MIXED GRAM POSITIVE... Complete Vitals/IOs Vital Signs Date Time Temp Pulse Resp B/P (MAP) Pulse Ox O2 Delivery O2 Flow Rate FiO2 12/23/17 06:38 97.6 62 17 119/56 (79) 98 Assessment & Plan Problem List: (1) Intermittent explosive disorder ICD Codes: F63.81 - Intermittent explosive disorder Status: Acute (2) Unspecified psychosis ICD Codes: F29 - Unspecified psychosis not due to a substance or known physiological condition (3) Acquired intellectual disability ICD Codes: F79 - Unspecified intellectual disabilities Assessment & Plan Estimated LOS: Patient continues to have behavioral issues which have progressively worsened through the day. She is no longer redirectable. We will continue with treatment care plan. Justification for Cont. Inpt. Moving this patient to a lower level of care would result in a decompensation. Request HC Surrog/Guard Advoc?: Yes Anusha Nath Dec 23, 2017 15:55
--- NOTE | 2017-12-24 08:38 | HHI.PYPN ---
Subjective Remarks Reviewed electronic medical record and discussed case with staff. Per nurse, patient was calm last night. She was compliant with her medications last night and this morning as well. Follow-up performed in patient's room with nurse present. Patient was found sleeping in position and bed. She awakens easily to verbal stimuli. She reports that she slept well and has a good appetite. She seems calmer today and requested to be allowed to go back to sleep. Patient only asked this provider about going home one time while on the unit. Mental Status Examination Appearance: Disheveled Consciousness: Alert Orientation: Person, Place (Again at least) Motor Activity: Other (No abnormal motor movements noted) Speech: Unremarkable Language: Other (Perhaps a little more focused and coherent today) Fund of Knowledge: Inadequate Attention and Concentration: Inadequate Memory: Impaired Mood: Irritable Affect: Flat Thought Process & Associations: Linear Thought Content: Appropriate, Other (Unable to assess today) Hallucination Type: None Delusion Type: None Suicidal Ideation: No Suicidal Plan: No Suicidal Intention: No Homicidal Ideation: No Homicidal Plan: No Homicidal Intention: No Insight: Poor Judgment: Poor Results Labs Date/Time Source Procedure Growth Status 12/16/17 14:57 Urine Random Urine Urine Culture - Final 50-100,000 CFU/ML MIXED GRAM POSITIVE... Complete Vitals/IOs Vital Signs Date Time Temp Pulse Resp B/P (MAP) Pulse Ox O2 Delivery O2 Flow Rate FiO2 12/23/17 06:38 97.6 62 17 119/56 (77) 98 Assessment & Plan Problem List: (1) Intermittent explosive disorder ICD Codes: F63.81 - Intermittent explosive disorder Status: Acute (2) Unspecified psychosis ICD Codes: F29 - Unspecified psychosis not due to a substance or known physiological condition (3) Acquired intellectual disability ICD Codes: F79 - Unspecified intellectual disabilities Assessment & Plan Estimated LOS: Patient seems to be showing some improvement today. We will continue with treatment plan and effort to psychiatrically stabilize her. Justification for Cont. Inpt. Moving this patient to a lower level of care would result in a decompensation. She lacks the capacity for self-care at this time. Request HC Surrog/Guard Advoc?: Yes Anusha Nath Dec 24, 2017 08:38
[2017-12-24] MEDS: clonazePAM 1 MG TAB PO SCH ×3 (09:02→18:11)
[2017-12-24] MEDS: DEXTROAMPHETAMINE/AMPHETAMINE 5 MG TAB PO SCH (09:02)
[2017-12-24] MEDS: OLANZapine 10 MG TAB PO SCH ×2 (09:03→20:06)
[2017-12-24] MEDS: hydrOXYzine HCL 50 MG TAB PO PRN ×2 (10:23→20:44)
[2017-12-24] MEDS: DEXTROAMPHETAMINE/AMPHETAMINE 10 MG TAB PO SCH (13:00)
[2017-12-24] MEDS ORDERED: HALOPERIDOL LACTATE 5 MG/ML AMP IM ONE (14:00)
[2017-12-24] MEDS: diphenhydrAMINE HCL 50 MG CAP - HS PRN PO (21:28)
[2017-12-25] MEDS: DEXTROAMPHETAMINE/AMPHETAMINE 10 MG TAB PO SCH (08:00)
[2017-12-25] MEDS: clonazePAM 1 MG TAB PO SCH ×3 (08:31→18:06)
[2017-12-25] MEDS: OLANZapine 10 MG TAB PO SCH ×2 (08:32→20:23)
--- NOTE | 2017-12-25 12:19 | HHI.PYPN ---
Subjective Remarks Patient seen and examined with nurse. Chart reviewed. I note patient required Haldol ETO yesterday afternoon. Case discussed with nursing staff. On my examination today, patient is intrusive, childlike, asking repeatedly about discharge. When I return to the unit later in the day, she is even more persistent about discharge and pursues me around the unit until redirected by staff. A little later, I hear a commotion in the women's restroom; the door is ajar and the patient can be seen standing at the sink yelling expletives at her abdomen. I am concerned about psychotic decompensation on stimulants, which were titrated yesterday by the HOME HEALTH CAREGIVER. No other side effects from medications. No physical complaints. Review of Systems ROS Limitations: Poor Historian Except as stated in HPI: all other systems reviewed are Neg Mental Status Examination Appearance: Disheveled Consciousness: Alert Orientation: Person, Place Motor Activity: Other (No motoric abnormalities noted) Speech: Unremarkable Language: Other (Rambling) Fund of Knowledge: Inadequate Attention and Concentration: Inadequate Memory: Impaired Mood: Anxious Affect: Anxious Thought Process & Associations: Other (Perseverative on discharge) Thought Content: Bizarre thinking Hallucination Type: None Delusion Type: Other (Possible somatic, see above) Suicidal Ideation: No Suicidal Plan: No Suicidal Intention: No Homicidal Ideation: No Homicidal Plan: No Homicidal Intention: No Insight: Poor Judgment: Poor Results Labs Date/Time Source Procedure Growth Status 12/16/17 14:57 Urine Random Urine Urine Culture - Final 50-100,000 CFU/ML MIXED GRAM POSITIVE... Complete Labs reviewed Vitals/IOs Vital Signs Date Time Temp Pulse Resp B/P (MAP) Pulse Ox O2 Delivery O2 Flow Rate FiO2 12/23/17 06:38 97.6 62 17 119/56 (77) 98 Assessment & Plan Problem List: (1) Intermittent explosive disorder ICD Codes: F63.81 - Intermittent explosive disorder Status: Acute (2) Unspecified psychosis ICD Codes: F29 - Unspecified psychosis not due to a substance or known physiological condition (3) Acquired intellectual disability ICD Codes: F79 - Unspecified intellectual disabilities Assessment & Plan Discontinue stimulant out of concern for psychotic decompensation and monitor. I could not discern much benefit from stimulant in any event. Continue Zyprexa and Klonopin as ordered. Continue other medications and care as ordered. Justification for Cont. Inpt. Risk for decompensation in less restrictive environment. Discharge Planning Case discussed with counselor. She has spoken with patient's mother who continues to refuse placement. Possible discharge next 1-2 days. Request HC Surrog/Guard Advoc?: Yes Paulino Sellers MD Dec 25, 2017 12:19
[2017-12-25] MEDS: hydrOXYzine HCL 50 MG TAB PO PRN (13:17)
[2017-12-25 17:12] VITALS: BP 118/62; PULSE 76; RESP 18; TEMP 97.8; O2SAT 99
[2017-12-26 06:14] VITALS: BP 103/74; PULSE 70; RESP 18; TEMP 97.3; O2SAT 99
[2017-12-26] MEDS ORDERED: GENTAMICIN SULFATE 80 MG/2 ML VIAL ONE (08:11)
[2017-12-26] MEDS: OLANZapine 10 MG TAB PO SCH ×2 (09:06→20:05)
[2017-12-26] MEDS: clonazePAM 1 MG TAB PO SCH ×3 (09:06→18:26)
--- NOTE | 2017-12-26 12:49 | HHI.PYPN ---
Subjective Remarks Patient seen and examined in hallway. Chart reviewed. Case discussed with nursing staff who reports patient did verbalize some more psychotic material in the afternoon yesterday. Prior to my evaluation of the patient this morning, I heard a commotion in the hallway from patient including a string of expletives and racial slurs. Nurses inform me that patient was standing at the phone yelling into the milk receiver that she was being struck by "some nier." Nurse emphasizes that there was no one in patient's vicinity and patient was certainly not being struck by anyone. Patient was apparently speaking with mother, who subsequently called the unit and spoke with nursing, relating that patient has a habit of making similar accusations at home. On my exam a short while later, patient has reverted to her typical presentation. She is childlike and fixated on discharge. She does seem a little less preoccupied today off of the stimulant. No side effects from medications. No physical complaints. I did endeavor to reach out to patient's mother to discuss discharge planning and possibly adding a dose of antipsychotic in the afternoon, given nursing report. I left a voicemail requesting a call back. Review of Systems ROS Limitations: Poor Historian Except as stated in HPI: all other systems reviewed are Neg Mental Status Examination Appearance: Disheveled Consciousness: Alert Orientation: Person, Place Motor Activity: Other (No abnormal motor movements noted) Speech: Unremarkable Language: Other (Rambling) Fund of Knowledge: Inadequate Attention and Concentration: Inadequate Memory: Impaired Mood: Anxious Affect: Anxious Thought Process & Associations: Other (Remains perseverative on discharge) Thought Content: Bizarre thinking Hallucination Type: None Delusion Type: Paranoid Suicidal Ideation: No Suicidal Plan: No Suicidal Intention: No Homicidal Ideation: No Homicidal Plan: No Homicidal Intention: No Insight: Poor Judgment: Poor Results Labs Date/Time Source Procedure Growth Status 12/16/17 14:57 Urine Random Urine Urine Culture - Final 50-100,000 CFU/ML MIXED GRAM POSITIVE... Complete Labs reviewed Vitals/IOs Vital Signs Date Time Temp Pulse Resp B/P (MAP) Pulse Ox O2 Delivery O2 Flow Rate FiO2 12/26/17 06:14 97.3 70 18 103/74 (84) 99 Assessment & Plan Problem List: (1) Intermittent explosive disorder ICD Codes: F63.81 - Intermittent explosive disorder Status: Acute (2) Unspecified psychosis ICD Codes: F29 - Unspecified psychosis not due to a substance or known physiological condition (3) Acquired intellectual disability ICD Codes: F79 - Unspecified intellectual disabilities Assessment & Plan Would like to add a midday dose of antipsychotic to control behavioral disturbance more prominent in the afternoon per nursing report; awaiting consent from mother/HCS. I would likely add additional Zyprexa as, although patient is already on a robust dose, she is tolerating this agent well without side effects or evident sedation. Continue current psychotropics as ordered for now. Continue to monitor on the high acuity unit. Continue other medications and care as ordered. Justification for Cont. Inpt. Anticipated medication changes. Risk for decompensation in less restrictive environment. Discharge Planning Pending psychiatric stabilization. Request HC Surrog/Guard Advoc?: Yes Paulino Sellers MD Dec 26, 2017 12:49
[2017-12-26 18:00] VITALS: BP 114/53; PULSE 90; RESP 19; TEMP 98.2; O2SAT 99
[2017-12-26] MEDS: diphenhydrAMINE HCL 50 MG CAP - HS PRN PO (20:05)
[2017-12-27] MEDS: clonazePAM 1 MG TAB PO SCH ×2 (09:33→13:27)
[2017-12-27] MEDS: OLANZapine 10 MG TAB PO SCH (09:33)
--- NOTE | 2017-12-27 10:22 | HHI.DS ---
Psychiatry Discharge Summary Inpatient Psychiatric care?: Yes Advance Directive: No Reason Not Provided: Due to Patient Condition Mental Health AdvanceDirective: No Health Care Proxy: Yes Admission Admission Date Dec 17, 2017 at 02:59 Admission Diagnosis: (1) Intermittent explosive disorder ICD Code: F63.81 - Intermittent explosive disorder Brief History From Dr. Ibanez's H&P: Patient is a 32-year-old white female well-known to us from multiple prior hospitalizations most recently 11/30/17 through 12/05/17 visit [id number] she was discharged home to family. It appears she has been noncompliant with medication poor hygiene not bathing or eating too more angry paranoid and upset since that time. Patient was Sampson acted by the [email or web address] dated 12/16/17 at 10:16 AM that Tomas reviewed essentially states the cold mother advised Jaylyn refusing to bathe E or take her medication Jaylyn last took her medications 4 days ago Jaylyn is very combated with when asked to take her medication. Patient seen screened in ED and toxicology negative bladder: Negative. At the present time patient seen on unit with nurse Serina. Patient is markedly malodorous her hair is very guarded and matted her feet are quite dirty she is sucking on her lower lip mumbling angry irritable asking for cigarettes and asking to leave. She also appears to be responding to internal stimuli. Patient angry labile when asked questions she storms away from me without responding. This is quite similar to her presentations on various prior hospitalizations. At the present time patient does meet criteria for inpatient psychiatric hospitalization the Sampson act after she does not have capacity thus I'll ask for healthcare surrogate and guardian advocate. I just did talk with patient's mother she is willing to become health care surrogate she is given us permission for olanzapine and Klonopin. Along with Atarax and Benadryl. In reviewing the patient's significant recidivism to question whether long-term placement might be appropriate for this woman On my examination today, 12/18: Patient seen and examined with nurse. Chart reviewed. Case discussed with nursing staff. Patient noted to be intrusive and childlike but medication compliant by nursing staff. On my examination today, the patient presents as disheveled and disorganized. She is discharged focused. Psychiatric interview is somewhat limited by thought disorganization. For example when I asked if she is experiencing audiovisual hallucinations she says "a tooth is taking me." When I ask about SI/HI, she does seem to articulate some violent thoughts against the behaviorist who tried to draw her blood. Mood is "good" and affect is quite childlike. Makes seemingly nonsensical statements like "Toni got out of retirement and put me in the paint ball." No acute physical complaints. I am unable to obtain any past psychiatric, family, chemical dependency or social history presently because of the patient's degree of thought disorganization. I did not endeavor to reach out to patient's mother at the number listed in the electronic medical record and left a voicemail requesting a call back. Tobacco Use In Past 30 Days: 5 or More Cigarettes/Day Alcohol Use: Never Hospital Course This patient was admitted to a locked down psychiatric unit. All safety precautions were in place during her stay. Patient was assessed daily by a psychiatric provider and followed by counselor as well. Patient is responded reasonably well to medication regimen. Patient is well-known to this facility and she appears to be back to her baseline. Her behaviors have decreased, and she seems to be in somewhat better control of her emotions. On examination today, patient is calm but discharge focused. She is redirectable, polite, and her speech is clear, organized, and logical. She denies any thoughts of self- harm, harming others, auditory or visual hallucinations. There is no indication of internal stimulation. I believe that she has reached maximum benefit of this admission. She does not appear at this time to be an eminent danger to herself or others. She no longer meets Sampson act or inpatient admission criteria. Her mother has expressed that she now feels comfortable with her returning to the home. Patient will be discharged to the mother's care with refills. She has established outpatient care in the community and will be instructed to follow-up with them. Patient will be advised that she can return to this facility as needed if her condition worsens. Results Blood Pressure 114 / 53 Vital Signs Date Time Temp Pulse Resp B/P (MAP) Pulse Ox O2 Delivery O2 Flow Rate FiO2 12/27/17 05:49 12/26/17 18:00 98.2 90 19 99 Laboratory Results Test 12/19/17 07:13 Cholesterol Level 111 MG/DL (120-200) HDL Cholesterol 31.6 MG/DL (40.0-60.0) Hemoglobin A1c 5.3 % (4.3-6.0) LDL Cholesterol 60 MG/DL (0-99) Triglycerides Level 95 MG/DL (42-150) Summary of Procedures None Pending results at discharge: No Medications # of Antipsychotic meds at D/C: 1 Approp Antipsych med options 1 - Minimum of three failed multiple trials of monotherapy. 2 - Documented plan to taper to monotherapy due to previous use of multiple meds OR cross-taper in progress at D/C. 3 - Documentation of augmentation of Clozapine. 4 - Justification other than those listed in allowable values 1-3, document here : Discharge Discharge Date: Dec 27, 2017 Discharge Diagnosis: (1) Intermittent explosive disorder ICD Code: F63.81 - Intermittent explosive disorder Status: Acute Pt Condition on Discharge: Stable Discharge Disposition: Discharge Home Discharge Instructions Diet Instructions: As Tolerated, No Restrictions Activities you can perform: Regular-No Restrictions Discharge Time > 30 minutes Mental Status Examination Appearance: Disheveled Consciousness: Alert Orientation: Person, Place Motor Activity: Other (No abnormal motor movements noted) Speech: Unremarkable Language: Adequate, Other Fund of Knowledge: Inadequate Attention and Concentration: Inadequate Memory: Impaired Mood: Anxious Affect: Anxious Thought Process & Associations: Other (Remains perseverative on discharge) Thought Content: Bizarre thinking Hallucination Type: None Delusion Type: Paranoid Suicidal Ideation: No Suicidal Plan: No Suicidal Intention: No Homicidal Ideation: No Homicidal Plan: No Homicidal Intention: No Insight: Fair Judgment: Impulsive Discharge/Advance Care Plan Health Problems: (1) Intermittent explosive disorder (2) Unspecified psychosis (3) Acquired intellectual disability Goals to promote your health * To prevent worsening of your condition and complications * To maintain your health at the optimal level Directions to meet your goals Take your medications as prescribed Follow your dietary instruction Follow activity as directed Keep your appointments as scheduled Take your immunizations and boosters as scheduled If your symptoms worsen call your PCP, if no PCP go to Urgent Care Center or Emergency Room For 10/04 questions related to your inpatient stay or results of tests pending at discharge, please contact Dr. Anusha Nath at Smoking is Dangerous to Your Health. Avoid second hand smoking Portillo,Anusha [employer] Dec 27, 2017 10:22
[2017-12-27] MEDS ORDERED: OLAN10TA PO (10:30)
[2017-12-27] MEDS ORDERED: DIPH50CA PO (10:30)
[2017-12-27] MEDS ORDERED: CLON1 PO (10:30)
[2017-12-27] MEDS ORDERED: OLAN15TA PO (11:32)
== END 2017-12-27 16:15 | disposition home or self-care (01) | DRG 883 ==
LOC: NEPD 10:37 → NEDA 12-17 02:59 → H270 12-17 03:15
PROVIDERS: ADMIT Psychiatry & Neurology Psychiatry; ATTEND Psychiatry & Neurology Psychiatry
DX: F63.81 Intermittent explosive disorder (principal); F29 Unspecified psychosis not due to a substance or known physiological condition; E87.6 Hypokalemia; F79 Unspecified intellectual disabilities; Z91.14 Patient's other noncompliance with medication regimen; Z87.820 Personal history of traumatic brain injury; F17.210 Nicotine dependence, cigarettes, uncomplicated
CPT/HCPCS: 80048; 80053; 80061; 80076; 80307; 81001; 83036; 84439; 84443; 84703; 85025; 85027; 87086; 93005; 96372; J1200; J1580; J1630; Q0163

== ENCOUNTER 2017-12-30 20:29 | Inpatient (IN) | payer OTHER ==
[~2017-12-30] VITALS: Ht 165.1 cm; Wt 66.5 kg
[~2017-12-30 20:29] MED LIST changes: +DIPH50CA PO; +OLAN15TA PO; -ZYPR10TA PO
[2017-12-30 20:38] VITALS: BP 129/92; PULSE 120; RESP 20; TEMP 98.3; O2SAT 98
--- NOTE | 2017-12-30 21:04 | PD ---
HPI Chief Complaint: Psychiatric Symptoms Time Seen by Provider: 20:49 Travel History International Travel<30 days: No Contact w/Intl Traveler<30days: No Traveled to known affect area: No History of Present Illness HPI 32-year-old female that presents to the ED for evaluation of psychiatric illness. Patient was Sampson acted by police after apparently she was becoming aggressive towards mother. Patient has a long history of schizophrenia has been here multiple times. Patient actually was admitted just recently for about a week and was released less than a few days ago. Patient apparently has been aggressive towards family members and unclear if she has been compliant. Hard to assess patient as she is psychotic. Patient tells me that she had a heart attack recently and she is having abdominal pain. When I asked when was she diagnosed with a heart attack she really tell me anything other than last time she was here. She also complains of abdominal pain and she points to her flanks as area of pain and not really the abdomen. Per patient she tells me that is because she drank some milk. Is hard to get again a good history because patient does appear to be actively psychotic. She denies any suicidal or homicidal ideation. She is able to tell me multiple times that she does not want to stay and she wants to go home. PFSH Past Medical History Arthritis: No Asthma: Yes Autoimmune Disease: No Blood Disorders: No Bipolar Disorder: Yes Anxiety: Yes Depression: Yes Heart Rhythm Problems: No High Cholesterol: No Chemotherapy: No Chest Pain: Yes ( ) Congestive Heart Failure: No COPD: Yes Cerebrovascular Accident: Yes ("MINI", PER MOTHER.) Developmental Delay: Yes Diminished Hearing: No Endocrine: Yes Gastrointestinal Disorders: No GERD: No Glaucoma: No Genitourinary: No Headaches: No Hepatitis: No Hiatal Hernia: No Immune Disorder: No Implanted Vascular Access Dvce: No Kidney Stones: No Musculoskeletal: No Neurologic: Yes (TBI when 16) Psychiatric: Yes Reproductive: No Respiratory: Yes Immunizations Current: Yes Migraines: No Myocardial Infarction: No Radiation Therapy: No Renal Failure: No Schizophrenia: Yes Sickle Cell Disease: No Sleep Apnea: No Thyroid Disease: Yes (HYPOTHYROID) Ulcer: No ?: Unknown Menopausal: No : 1 Para: 0 Miscarriage: 1 Past Surgical History Abdominal Surgery: No AICD: No Body Medical Devices: NONE Cardiac Surgery: No Ear Surgery: No Endocrine Surgery: No Eye Surgery: No Genitourinary Surgery: No Gynecologic Surgery: No Insulin Pump: No Joint Replacement: Yes Neurologic Surgery: Yes (BRAIN R/T TBI ) Oral Surgery: Yes (POOR DENTITION) Pacemaker: No Thoracic Surgery: No Tonsillectomy: Yes Other Surgery: Yes (brain surgery- traumatic brain injury when 16) Social History Alcohol Use: No (UNABLE TO OBTAIN) Tobacco Use: Yes (UNABLE TO OBTAIN) Substance Use: No (UNABLE TO OBTAIN DENIES FLACCA) Allergies-Medications (Allergen,Severity, Reaction): Coded Allergies: codeine (Verified Allergy, Severe, RASH/SHOB, 07/13/17) escitalopram (Verified Allergy, Severe, UNKNOWN REACTION, 07/13/17) penicillin G (Verified Allergy, Severe, UNKNOWN REACTION, 07/13/17) temazepam (Verified Allergy, Severe, Shortness of Breath and Hives, ) sulfamethoxazole (Verified Allergy, Intermediate, 07/13/17) trimethoprim (Verified Allergy, Intermediate, 07/13/17) clindamycin (Verified Adverse Reaction, Intermediate, 07/13/17) PER MOM aripiprazole (Verified Adverse Reaction, Unknown, 07/13/17) Per patient's mother - [facility] [phone]. quetiapine (Verified Adverse Reaction, Unknown, 07/13/17) Per patient's mother - [facility] [phone]. Reported Meds & Prescriptions Reported Meds & Active Scripts Active Olanzapine 15 Mg Tab 30 Mg PO DAILY 30 Days Take 15 mg by mouth bid. Diphenhydramine HCl 50 Mg Cap 50 Mg PO HS PRN 30 Days Klonopin (Clonazepam) 1 Mg Tab 1 Mg PO TID 30 Days Review of Systems ROS Limitations: Psychotic, Poor Historian Except as stated in HPI: all other systems reviewed are Neg Physical Exam Exam Limitations: Poor Historian, Psychotic Narrative GENERAL: SKIN: Warm and dry. HEAD: Atraumatic. Normocephalic. EYES: Pupils equal and round. No scleral icterus. No injection or drainage. ENT: No nasal bleeding or discharge. Mucous membranes pink and moist. Tongue is midline. No uvula deviation. NECK: Trachea midline. No JVD. CARDIOVASCULAR: Regular rate and rhythm. No murmurs, S3, S4. RESPIRATORY: No accessory muscle use. Clear to auscultation. Breath sounds equal bilaterally. GASTROINTESTINAL: Abdomen soft, non-tender, nondistended. Hepatic and splenic margins not palpable. MUSCULOSKELETAL: Extremities without clubbing, cyanosis, or edema. No obvious deformities. Full range of motion of the upper and lower extremities bilaterally. 2+ pulses bilaterally. NEUROLOGICAL: Awake and alert. No obvious cranial nerve deficits. Motor grossly within normal limits. Five out of 5 muscle strength in the arms and legs. Normal speech. PSYCHIATRIC: Psych mood and affect; insight and judgment questionable Data Data Last Documented VS Vital Signs Date Time Temp Pulse Resp B/P (MAP) Pulse Ox O2 Delivery O2 Flow Rate FiO2 12/30/17 20:38 98.3 120 20 129/92 (104) 98 Orders Orders Complete Blood Count With Diff (12/30/17 20:32) Comprehensive Metabolic Panel (12/30/17 20:32) Thyroid Stimulating Hormone (12/30/17 20:32) Psych Screen (12/30/17 20:32) Drug Screen, Random Urine (12/30/17 20:32) Alcohol (Ethanol) (12/30/17 20:32) Salicylates (Aspirin) (12/30/17 20:32) Tylenol (Acetaminophen) (12/30/17 20:32) MDM Medical Decision Making Medical Screen Exam Complete: Yes Emergency Medical Condition: Yes Medical Record Reviewed: Yes Differential Diagnosis depression versus suicidal ideation versus anxiety versus adjustment disorder versus mood disorder versus bipolar disorder versus schizophrenia versus paranoid disorder versus psychosis versus substance abuse versus alcohol abuse versus alcohol induced psychosis versus homicidality addition versus cutting versus personality disorder Narrative Course 32-year-old female that presents to the ED for evaluation of psychiatric illness. No sign of acute medical distress. Labs were drawn. Patient was medically clear. History is difficult to obtain from the patient she is somewhat of a poor historian and she appears to be psychotic at this time. Her physical exam is reassuring and she does not appear to have any abdominal pain. She points to her flanks as the area of pain but does not appear to be in any significant discomfort. Patient will be medically clear pending labs. Mental health screening was discussed with the patient. Diagnosis Primary Impression: Schizoaffective disorder Qualified Codes: F25.9 - Schizoaffective disorder, unspecified Satnam Dupont Dec 30, 2017 21:04
[2017-12-30 21:32] LABS: AUTOMATED NEUTROPHIL # 5.5 TH/MM3 (1.8-7.7); BASOPHIL # 0.1 TH/MM3 (0-0.2); BASOPHIL % 0.7 % (0.0-2.0); EOSINOPHIL # 0.1 TH/MM3 (0-0.4); EOSINOPHIL % 1.6 % (0.0-4.0); HEMATOCRIT 38.2 % (35.0-46.0); HEMOGLOBIN 12.7 GM/DL (11.6-15.3); LYMPH % 29.3 % (9.0-44.0); LYMPHOCYTE # 2.6 TH/MM3 (1.0-4.8); MEAN CELL VOLUME 86.4 FL (80.0-100.0); MEAN CORPUSCULAR HEMOGLOBIN 28.8 PG (27.0-34.0); MEAN CORPUSCULAR HGB CONC 33.3 % (32.0-36.0); MEAN PLATELET VOLUME 7.5 FL (7.0-11.0); MONO % 7.3 % (0.0-8.0); MONOCYTE # 0.7 TH/MM3 (0-0.9); NEUT % 61.1 % (16.0-70.0); PLATELET COUNT 305 TH/MM3 (150-450); RED BLOOD COUNT 4.41 MIL/MM3 (4.00-5.30); RED CELL DISTRIBUTION WIDTH 14.8 % (11.6-17.2)
[2017-12-30 21:50] LABS: ACETAMINOPHEN LESS THAN 2.0 MCG/ML (10.0-30.0); ALBUMIN 3.5 GM/DL (3.4-5.0); ALKALINE PHOSPHATASE 83 U/L (45-117); ALT (GPT) 20 U/L (10-53); AST (GOT) 18 U/L (15-37); BICARBONATE 22.9 MEQ/L (21.0-32.0); BLOOD UREA NITROGEN 5 MG/DL (7-18); CALCIUM 8.5 MG/DL (8.5-10.1); CHLORIDE 103 MEQ/L (98-107); CREATININE 0.69 MG/DL (0.50-1.00); GLOMERULAR FILTRATION RATE 99 ML/MIN (>89); GLUCOSE,RANDOM 101 MG/DL (74-106); SODIUM (NA) 136 MEQ/L (136-145); TOTAL BILIRUBIN ADULT 0.4 MG/DL (0.2-1.0); TOTAL PROTEIN 6.8 GM/DL (6.4-8.2)
[2017-12-30 23:23] VITALS: BP 96/54; PULSE 87; RESP 18; TEMP 98.6; O2SAT 97
[2017-12-31 05:19] VITALS: RESP 18
[2017-12-31] MEDS ORDERED: diphenhydrAMINE HCL 50 MG CAP PO PRN (06:45)
[2017-12-31] MEDS ORDERED: LORazepam 2 MG/ML VIAL IM PRN ×2 (06:45)
[2017-12-31] MEDS ORDERED: ALUMINUM/MAGNESIUM/SIMETH 30 ML CUP PO PRN (06:45)
[2017-12-31] MEDS ORDERED: LORazepam 0.5 MG TAB PO PRN (06:45)
[2017-12-31] MEDS ORDERED: LORazepam 1 MG TAB PO PRN (06:45)
[2017-12-31] MEDS ORDERED: ACETAMINOPHEN 325 MG TAB PO PRN (06:45)
[2017-12-31] MEDS ORDERED: MAGNESIUM HYDROXIDE SUSP 30 ML CUP PO PRN (06:45)
[2017-12-31] MEDS: clonazePAM 1 MG TAB PO SCH ×3 (09:00→18:00)
[2017-12-31 11:05] VITALS: BP 100/66; PULSE 92; RESP 18; TEMP 97.7; O2SAT 95
[2017-12-31] MEDS: NICOTINE 21 MG/24 HR PATCH T-DERMAL SCH (15:07)
[2018-01-01 06:09] VITALS: BP 106/56; PULSE 77; RESP 18; TEMP 97.1; O2SAT 96
[2018-01-01] MEDS: NICOTINE 21 MG/24 HR PATCH T-DERMAL SCH (08:42)
[2018-01-01] MEDS: clonazePAM 1 MG TAB PO SCH ×3 (08:42→17:57)
--- NOTE | 2018-01-01 14:05 | HHI.PYPN ---
Subjective Remarks The patient is 32-year-old woman, single, domiciled with mother, past psychiatric history of schizophrenia, multiple psychiatric hospitalizations, last time at [facility] in 04/2015, multiple psychiatric ED visits, no previous suicide attempts, TBI, whowas brought into the ER under Sampson act by police which reported that patient had been aggressive toward mother and was admitted to the inpatient psychiatry unit for further evaluation and management. Patient was found to ambulate on the unit noted to appear disheveled and malodorous with no behavioral disturbances today. Patient states that she had come to the hospital because she had "a bellyache after drinking chocolate milk " and that her mother had called the ambulance to have her brought here for evaluation for the same. Patient continues with limited comprehension of her readmission to the hospital denying any recent aggressive behavior toward family. Patient preservative on eating snacks, I was encouraged to shower today comply with treatment. Mental Status Examination Appearance: Appropriate Consciousness: Alert Orientation: x4 Motor Activity: Normal gait Speech: Unremarkable Language: Adequate Fund of Knowledge: Adequate Attention and Concentration: Adequate Memory: Unremarkable Mood: Appropriate Affect: Appropriate Thought Process & Associations: Loose associations, Disorganized Thought Content: Bizarre thinking Hallucination Type: None, Visual Delusion Type: Bizarre Suicidal Ideation: No Suicidal Plan: No Suicidal Intention: No Homicidal Ideation: No Homicidal Plan: No Homicidal Intention: No Insight: Poor Judgment: Poor Results Vitals/IOs Vital Signs Date Time Temp Pulse Resp B/P (MAP) Pulse Ox O2 Delivery O2 Flow Rate FiO2 01/01/18 06:09 97.1 77 18 106/56 (73) 96 12/30/17 23:23 Room Air Assessment & Plan Problem List: (1) Schizoaffective disorder ICD Codes: F25.9 - Schizoaffective disorder Status: Acute Assessment & Plan: I have seen and examined this patient, reviewed documentation, I agree and concur with Dr. Cordero assessment and plan. Assessment & Plan Estimated LOS: days Justification for Cont. Inpt. Patient is acutely psychotic Problem Qualifiers (1) Schizoaffective disorder: Qualified Codes: F25.9 - Schizoaffective disorder, unspecified Alec Martinez MD Jan 01, 2018 14:05
[2018-01-01 16:44] VITALS: BP 105/59; PULSE 84; RESP 18; TEMP 98; O2SAT 98
--- NOTE | 2018-01-01 18:50 | HHI.HP ---
Provisional Diagnosis Admission Date Dec 31, 2017 at 06:43 Rattan I. Schizophrenia, history of TBI Certification of Person's Competence To Provide Express and Informed Consent I have personally examined Jaylyn Charles , a person being served at [facility] on, Jan 01, 2018 18:36. Express and informed consent means consent voluntarily given in writing, by a competent person, after sufficient explanation and disclosure of the subject matter involved to enable the person to make a knowing and willful decision without any element of force, fraud, deceit, duress, or other form of constraint or coercion. This person is 18 years of age or older, is not now known to be incompetent to consent to treatment with a guardian advocate, and does not have a health care surrogate or proxy currently making medical treatment decisions. I have found this person to be one of the following: [] Competent to provide express and informed consent, as defined above, for voluntary admission to this facility and is competent to provide express and informed consent for treatment. He/she has the consistent capacity to make well reasoned, willful, and knowing decisions concerning his or her medical or mental health treatment. The person fully and consistently understands the purpose of the admission for examination/placement and is fully capable of personally exercising all rights assured under [place]xxx] Incompetent to provide express and informed consent to voluntary admission , and this is incompetent to provide express and informed consent to treatment. The person must be transferred to involuntary status and a petition for a guardian advocate filed with the Circuit Court. [] Refusing to provide express and informed consent to voluntary admission but is competent to provide express and informed consent for treatment. The person must be discharged or transferred to involuntary status. Form shall be completed within 24 hours of a person's arrival at the receiving facility and filed in the clinical record of each person: 1. Admitted on a voluntary basis 2. Permitted to provide express and informed consent to his/her own treatment 3. Allowed to transfer from involuntary to voluntary status 4. Prior to permitting a person to consent to his or her own treatment after having been previously found incompetent to consent to treatment. History of Present Illness Capacity: Lacks Capacity HPI Patient is a 32-year-old woman, single, domiciled with mother, past psychiatric history of schizophrenia, history of TBI, multiple psychiatric hospitalizations (last time at [place] in 04/2015), multiple psychiatric ED visits (last in 12/17/2017 and discharged on 12/27/17) no previous suicide attempts, was brought into the ER under [place] act by police which reported that patient had been aggressive toward mother and was admitted to the inpatient psychiatry unit for further evaluation and management. Patient was found to ambulate on the unit noted to appear disheveled and malodorous with no behavioral disturbances today. Patient states that she had come to the hospital because she had "a bellyache after drinking chocolate milk" and that her mother had called the ambulance to have her brought here for evaluation for the same. Patient continues with limited comprehension of her readmission to the hospital denying any recent aggressive behavior toward family. Patient preservative on eating snacks, I was encouraged to shower today comply with treatment. Patient is a poor historian but history as per chart: Past psychiatric history: Previous psychiatric diagnoses schizophrenia, multiple psychiatric admissions last in December 2017 and discharged on 12/27/17, multiple ED visits, no previous suicide attempts. Substance use history: Unknown as patient is superficially cooperative and poor historian Past medical history: Denies Allergies: Abilify, clindamycin, codeine, escitalopram, penicillin G, quetiapine , sulfamethoxazole, temazepam, trimethoprim Social history: Single domicile with mother, unemployed, currently DCF case pending, patient was previously being followed up at [facility] but as per report patient's mother has a legal case against this clinic and patient had been referred to [place] [facility]. Multiple times having made to try to reach patient's mother to sign her as health care surrogate and guardian advocate for this admission and to review medication consent with her but attempts have been unsuccessful. Diplomatic Courier had left a voicemail for patient's mother to call back. Review of Systems Except as stated in HPI: all other systems reviewed are Neg Past Psych History Violence risk - others (6 mos) Elevated due to recent report of aggressive behavior toward mother Violence risk - self (6 mos) Low Substance Abuse History Drugs/Alcohol past 12 months Unknown as patient is poor historian but none as per chart Past Family Social History Coded Allergies: codeine (Verified Allergy, Severe, RASH/SHOB, 07/13/17) escitalopram (Verified Allergy, Severe, UNKNOWN REACTION, 07/13/17) penicillin G (Verified Allergy, Severe, UNKNOWN REACTION, 07/13/17) temazepam (Verified Allergy, Severe, Shortness of Breath and Hives, ) sulfamethoxazole (Verified Allergy, Intermediate, 07/13/17) trimethoprim (Verified Allergy, Intermediate, 07/13/17) clindamycin (Verified Adverse Reaction, Intermediate, 07/13/17) PER MOM aripiprazole (Verified Adverse Reaction, Unknown, 07/13/17) Per patient's mother - [facility] [phone]. quetiapine (Verified Adverse Reaction, Unknown, 07/13/17) Per patient's mother - [facility] [phone]. Active Scripts Olanzapine (Olanzapine) 15 Mg Tab, 30 MG PO DAILY for health for 30 Days, #60 TAB 0 Refills Take 15 mg by mouth bid. Prov:Anusha Ntah 12/27/17 Diphenhydramine HCl (Diphenhydramine HCl) 50 Mg Cap, 50 MG PO HS Y for INSOMNIA for 30 Days, #30 CAP Prov:Anusha Nath 12/27/17 Clonazepam (Klonopin) 1 Mg Tab, 1 MG PO TID for health for 30 Days, #90 TAB Prov:Anusha Nath 12/27/17 Discontinued Scripts Clonazepam (Klonopin) 1 Mg Tab, 1 MG PO TID for Mental Health for 30 Days, TAB 0 Refills Prov:Paulino Sellers MD 12/05/17 Olanzapine (Zyprexa) 10 Mg Tab, 10 MG PO BID for Mental Health for 30 Days, TAB 0 Refills Prov:Paulino Sellers MD 12/05/17 Current Medications Medications (Trade) Dose Ordered Sig/Mary Route Start Time Stop Time Status Last Admin (KlonoPIN) 1 mg TID PO 12/31/17 09:00 01/01/18 17:57 (Benadryl) 50 mg HS PRN PO 12/31/17 06:45 (Ativan) 1 mg Q6H PRN PO 12/31/17 06:45 (Ativan Inj) 1 mg Q6H PRN IM 12/31/17 06:45 (Ativan) 0.5 mg Q12H PRN PO 12/31/17 06:45 (Ativan Inj) 0.5 mg Q12H PRN IM 12/31/17 06:45 (Tylenol) 650 mg Q4H PRN PO 12/31/17 06:45 (Milk Of Magnesia Liq) 30 ml DAILY PRN PO 12/31/17 06:45 (Mag-Al Plus Susp Liq) 30 ml Q6H PRN PO 12/31/17 06:45 (Habitrol 21 Mg Patch.24 Hr) 1 patch DAILY T-DERMAL 12/31/17 09:00 01/01/18 08:42 (ZyPREXA) 15 mg BID PO 01/02/18 09:00 Family Psych History Unknown as patient is poor historian Social History Single domicile with mother, unemployed, currently DCF case pending, patient was previously being followed up at [facility] but as per report patient's mother has a legal case against this clinic and patient had been referred to [place] [facility]. Patient's Strengths (min. 2) Verbal and communicative Physical Exam Patient not noted to be in acute distress, no gross motor of maladies, patient noted to be disheveled and malodorous, no signs of tremor or EPS, no psychomotor agitation or retardation. Vital Signs Vital Signs Date Time Temp Pulse Resp B/P (MAP) Pulse Ox O2 Delivery O2 Flow Rate FiO2 01/01/18 16:44 98.0 84 18 105/59 (74) 98 12/30/17 23:23 Room Air Mental Status Examination Appearance: Disheveled, Malodorous Consciousness: Alert Orientation: Person, Place Motor Activity: Normal gait Speech: Unremarkable Language: Adequate Fund of Knowledge: Inadequate Attention and Concentration: Inadequate Memory: Impaired Mood: Anxious Affect: Blunt Thought Process & Associations: Other ([place]) Thought Content: Bizarre thinking Hallucination Type: None Delusion Type: None Suicidal Ideation: No Suicidal Plan: No Suicidal Intention: No Homicidal Ideation: No Homicidal Plan: No Homicidal Intention: No Insight: Poor Judgment: Poor Assessment & Plan Problem List: (1) Schizoaffective disorder ICD Codes: F25.9 - Schizoaffective disorder Status: Acute Assessment & Plan Estimated LOS: 3-5 days. Patient is a 33-year-old man who carries a diagnosis schizophrenia, and traumatic brain injury with multiple psychiatric admissions, recently discharged from the inpatient unit on 12/27/17 and now has returned under [place] act due to aggressive behavior toward mother. Previous attempts in the past have been made to have patient referred to a more structured environment such at an assisted living facility but mother had been refusing to agree to this. We will attempt to readdress this possibility with mother on this occasion this patient has had multiple readmissions recently in the past year. We will have patient restart current treatment regimen olanzapine 50 mg p.o. twice daily, clonazepam 1 mg p.o. 3 times daily and Benadryl 50 mg at bedtime as needed insomnia. Attempts have been made to contact patient's mother multiple times today but unsuccessful. Diplomatic Courier left message on her voicemail to have her return call (Fatou [facility] - mother- ). Social work intervention for psychosocial assessment. Continue to monitor mood and behavior. Petition for involuntary hospitalization started. Second opinion requested. Discharge planning in progress. Problem Qualifiers (1) Schizoaffective disorder: Qualified Codes: F25.9 - Schizoaffective disorder, unspecified Ector Cordero MD Jan 01, 2018 18:50
[2018-01-01] MEDS ORDERED: clonazePAM 1 MG TAB PO ONE ×2 (21:00→21:15)
[2018-01-02] MEDS ORDERED: clonazePAM 1 MG TAB PO ONE (07:00)
[2018-01-02] MEDS: clonazePAM 1 MG TAB PO SCH ×3 (09:40→17:49)
[2018-01-02] MEDS: NICOTINE 21 MG/24 HR PATCH T-DERMAL SCH (09:40)
--- NOTE | 2018-01-02 12:34 | HHI.PYPN ---
Subjective Remarks Patient seen for follow, chart reviewed. Discussion nursing staff reported the patient had no behavioral issues overnight, did not require any ETO's or had any behavioral disturbances. Patient was found lying hospital bed noted, cooperative. She states that she had been feeling "good" reporting having slept well, eating and drinking well no difficulty or bowel movement. Patient denies any perceptual disturbances at this time. Collateral information obtained by patient's mother who consented to continue her current treatment regimen. Patient states that patient had a "tantrum" and has started "breaking sh*t" where she had to call law enforcement that patient Adrián acted brought back to the hospital. She mentions that patient has an outpatient follow-up at [facility] on Monday and the patient discharge will make sure patient makes this appointment. She also mentions wanting to find a neuropsychiatrist to help her daughter on an outpatient basis but states the closest one is in [place] we will continue to look for other possibilities. She mentions that she will want to see what this clinic, [facility], has to offer and has a second option will be looking into [facility] as she had become aware that this is possibly a TBI Center in [place]. She requested a letter from underwriter mortgage loan saying that patient may be left alone while mother is running errand and mentioning that [facility] had disagreed with this request. Patient had previously requested this letter from Dr. Vicente on patient's prior admission which he declined, and at this time I also declined to provide such a letter as patient should not be left unsupervised. Review of Systems Except as stated in HPI: all other systems reviewed are Neg Mental Status Examination Appearance: Disheveled Consciousness: Alert Orientation: x4 Motor Activity: Normal gait Speech: Unremarkable Language: Adequate Fund of Knowledge: Adequate Attention and Concentration: Adequate Memory: Unremarkable Mood: Appropriate Affect: Appropriate Thought Process & Associations: Loose associations, Disorganized Thought Content: Bizarre thinking Hallucination Type: None, Visual Delusion Type: Bizarre Suicidal Ideation: No Suicidal Plan: No Suicidal Intention: No Homicidal Ideation: No Homicidal Plan: No Homicidal Intention: No Insight: Poor Judgment: Poor Results Vitals/IOs Vital Signs Date Time Temp Pulse Resp B/P (MAP) Pulse Ox O2 Delivery O2 Flow Rate FiO2 01/01/18 16:44 98.0 84 18 105/59 (74) 98 12/30/17 23:23 Room Air Assessment & Plan Problem List: (1) Schizoaffective disorder ICD Codes: F25.9 - Schizoaffective disorder Status: Acute Assessment & Plan Patient this time is compliant with medications has had no behavioral dyscontrol , has been calm and cooperative with staff. The patient continues to comply with treatment and maintain good behavioral control patient likely for discharge tomorrow morning back to mother's residence at which time patient will continue to follow with outpatient appointment already set up for this Monday at [facility]. Continue current treatment. Discharge planning in progress. Justification for Cont. Inpt. At risk for further decompensation if at lower level of care Discharge Planning Patient return back to mother's residence Problem Qualifiers (1) Schizoaffective disorder: Qualified Codes: F25.9 - Schizoaffective disorder, unspecified Ector Cordero MD Jan 02, 2018 12:34
--- NOTE | 2018-01-03 07:48 | HHI.DS ---
Psychiatry Discharge Summary Inpatient Psychiatric care?: Yes Advance Directive: No Reason Not Provided: DOES NOT HAVE Mental Health AdvanceDirective: No Health Care Proxy: No Admission Admission Date Dec 31, 2017 at 06:43 Admission Diagnosis: (1) Schizoaffective disorder ICD Code: F25.9 - Schizoaffective disorder Brief History Patient is a 32-year-old woman, single, domiciled with mother, past psychiatric history of schizophrenia, history of TBI, multiple psychiatric hospitalizations (last time at [place] in 04/2015), multiple psychiatric ED visits (last in 12/17/2017 and discharged on 12/27/17) no previous suicide attempts, was brought into the ER under [place] act by police which reported that patient had been aggressive toward mother and was admitted to the inpatient psychiatry unit for further evaluation and management. Patient was found to ambulate on the unit noted to appear disheveled and malodorous with no behavioral disturbances today. Patient states that she had come to the hospital because she had "a bellyache after drinking chocolate milk" and that her mother had called the ambulance to have her brought here for evaluation for the same. Patient continues with limited comprehension of her readmission to the hospital denying any recent aggressive behavior toward family. Patient preservative on eating snacks, I was encouraged to shower today comply with treatment. Patient is a poor historian but history as per chart: Past psychiatric history: Previous psychiatric diagnoses schizophrenia, multiple psychiatric admissions last in December 2017 and discharged on 12/27/17, multiple ED visits, no previous suicide attempts. Substance use history: Unknown as patient is superficially cooperative and poor historian Past medical history: Denies Allergies: Abilify, clindamycin, codeine, escitalopram, penicillin G, quetiapine , sulfamethoxazole, temazepam, trimethoprim Social history: Single domicile with mother, unemployed, currently DCF case pending, patient was previously being followed up at [facility] but as per report patient's mother has a legal case against this clinic and patient had been referred to [facility]. Multiple times having made to try to reach patient's mother to sign her as health care surrogate and guardian advocate for this admission and to review medication consent with her but attempts have been unsuccessful. Integrity Manager had left a voicemail for patient's mother to call back. Tobacco Use In Past 30 Days: 5 or More Cigarettes/Day Alcohol Use: Never Hospital Course Patient is a 32-year-old woman, single, domiciled with mother, past psychiatric history of schizophrenia, history of TBI, multiple psychiatric hospitalizations (last time at [place] in 04/2015), multiple psychiatric ED visits (last in 12/17/2017 and discharged on 12/27/17) no previous suicide attempts, was brought into the ER under [place] act by police which reported that patient had been aggressive toward mother and was admitted to the inpatient psychiatry unit for further evaluation and management. Patient was continued on olanzapine 15mg PO BID, clonazepam 1mg PO TID which she tolerated well with minimal effect. Patient was not noted to have any behavioral disturbances, compliant with treatment and staff. Patient continued to endorse feeling well with no suicidal or homicidal ideations during hospitalization. 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 Upon discharge patient stated feeling good, stated feeling okay with returning back to her home with her mother; noted to be calm and cooperative with staff. She agreed to continuing recommendations, treatment and cooperate for continuity of care. Patient; denies SI, HI, AVH or delusions. Supportive psychotherapy provided. Suicide and violence risk assessment on day of discharge both suggest lower imminent risk, and the patient's level of function is adequate for planned level of outpatient care. Patient has maximized benefit from this inpatient psychiatric hospital stay and to return to psychiatric emergency room for any concerning psychiatric symptoms. Patient agrees with plan. Results Blood Pressure 105 / 59 Vital Signs Date Time Temp Pulse Resp B/P (MAP) Pulse Ox O2 Delivery O2 Flow Rate FiO2 01/01/18 16:44 98.0 84 18 105/59 (74) 98 12/30/17 23:23 Room Air wnl Summary of Procedures none Pending results at discharge: No Medications # of Antipsychotic meds at D/C: 1 Approp Antipsych med options 1 - Minimum of three failed multiple trials of monotherapy. 2 - Documented plan to taper to monotherapy due to previous use of multiple meds OR cross-taper in progress at D/C. 3 - Documentation of augmentation of Clozapine. 4 - Justification other than those listed in allowable values 1-3, document here : Discharge Discharge Date: Jan 03, 2018 Discharge Diagnosis: (1) Schizoaffective disorder ICD Code: F25.9 - Schizoaffective disorder Status: Acute Pt Condition on Discharge: Stable Discharge Disposition: Discharge Home Discharge Instructions Diet Instructions: As Tolerated, No Restrictions Activities you can perform: Regular-No Restrictions Scheduled Appointment: [facility] Appointment Date: Jan 05, 2018 Appointment Time: 1230pm Discharge Time > 30 minutes Mental Status Examination Appearance: Disheveled Consciousness: Alert Orientation: x4 Motor Activity: Normal gait Speech: Unremarkable Language: Adequate Fund of Knowledge: Adequate Attention and Concentration: Adequate Memory: Unremarkable Mood: Appropriate Affect: Appropriate Thought Process & Associations: Loose associations, Other ([place]) Thought Content: Appropriate Hallucination Type: None Delusion Type: Bizarre Suicidal Ideation: No Suicidal Plan: No Suicidal Intention: No Homicidal Ideation: No Homicidal Plan: No Homicidal Intention: No Insight: Poor Judgment: Poor Discharge/Advance Care Plan Health Problems: (1) Schizoaffective disorder Goals to promote your health * To prevent worsening of your condition and complications * To maintain your health at the optimal level Directions to meet your goals Take your medications as prescribed Follow your dietary instruction Follow activity as directed Keep your appointments as scheduled Take your immunizations and boosters as scheduled If your symptoms worsen call your PCP, if no PCP go to Urgent Care Center or Emergency Room For 10/04 questions related to your inpatient stay or results of tests pending at discharge, please contact Dr. Ector Cordero at Smoking is Dangerous to Your Health. Avoid second hand smoking Problem Qualifiers (1) Schizoaffective disorder: Qualified Codes: F25.9 - Schizoaffective disorder, unspecified Ector Cordero MD Jan 03, 2018 07:48
[2018-01-03] MEDS: clonazePAM 1 MG TAB PO SCH (08:28)
[2018-01-03] MEDS: NICOTINE 21 MG/24 HR PATCH T-DERMAL SCH (09:00)
[2018-01-03 09:51] LABS: BICARBONATE 27.5 MEQ/L (21.0-32.0); BLOOD UREA NITROGEN 16 MG/DL (7-18); CALCIUM 8.9 MG/DL (8.5-10.1); CHLORIDE 106 MEQ/L (98-107); CREATININE 0.63 MG/DL (0.50-1.00); GLOMERULAR FILTRATION RATE 110 ML/MIN (>89); GLUCOSE,RANDOM 91 MG/DL (74-106); SODIUM (NA) 141 MEQ/L (136-145)
[2018-01-03 09:53] LABS: CHOLESTEROL 120 MG/DL (120-200); TRIGLYCERIDES 105 MG/DL (42-150)
[2018-01-03 09:57] LABS: CHOLESTEROL/ HDL RATIO 3.48 RATIO; HDL CHOLESTEROL 34.4 MG/DL (40.0-60.0); LDL CHOLESTEROL 65 MG/DL (0-99)
--- NOTE | 2018-01-03 10:09 | PD.TTN ---
Patient Problems 1. Discharge planning 2. Medication compliance 3. Knowledge deficit 4. Lack of coping skills Progress Toward Goals Provider Present: Dr. Neville Cordero Provider Input: Patient is being discharged today. Patient is doing better Nurse(s) Input: Patient's nurse reports patient is doing ok, medication compliant, denies suicidal and homicidal. Psychiatric Counselors Present: Monserrat Johns ADARSH Psych Therapist Input: Patient presents intrusive, preoccupied, exit seeking. Patient denies suicidal and homicidal ideation,. Patient reports eating and sleeping well. Group Spec/RT/OT/MCNEILL Present: EUNICE King Group Spec/RT/OT/MCNEILL Input: Patient is not able to tolerate groups Monserrat Johns [facility] Jan 03, 2018 10:09
[2018-01-03 16:37] LABS: HEMOGLOBIN A1C 5.2 % (4.3-6.0)
== END 2018-01-03 12:15 | disposition home or self-care (01) | DRG 885 ==
LOC: NEPJ 20:29 → NEDA 12-31 06:43 → H270 12-31 11:00
PROVIDERS: ADMIT Student in an Organized Health Care Education/Training Program; ATTEND Student in an Organized Health Care Education/Training Program
DX: F25.9 Schizoaffective disorder, unspecified (principal); J44.9 Chronic obstructive pulmonary disease, unspecified; E03.9 Hypothyroidism, unspecified; F31.9 Bipolar disorder, unspecified; F41.9 Anxiety disorder, unspecified; R62.50 Unspecified lack of expected normal physiological development in childhood; Z87.820 Personal history of traumatic brain injury; I25.2 Old myocardial infarction
CPT/HCPCS: 80048; 80053; 80061; 80307; 83036; 84443; 85025; 99285; Q0163

== ENCOUNTER 2018-01-26 10:35 | Emergency (ER) | payer OTHER ==
[~2018-01-26] VITALS: Ht 165.1 cm; Wt 65.0 kg
[2018-01-26 10:40] VITALS: BP 113/67; PULSE 100; RESP 18; TEMP 97.7; O2SAT 97
[2018-01-26] MEDS ORDERED: OLAN15TA PO (11:09)
[2018-01-26] MEDS ORDERED: DIPH25CA PO (11:09)
[2018-01-26] MEDS ORDERED: CLON1TAB PO (11:09)
--- NOTE | 2018-01-26 11:10 | PD ---
HPI Chief Complaint: Medication Refill Request Time Seen by Provider: 10:52 Travel History International Travel<30 days: No Contact w/Intl Traveler<30days: No Traveled to known affect area: No History of Present Illness HPI 32-year-old female with history of traumatic brain injury, schizophrenia presents emergency department with her mother for refill of her medications. Mother states that patient had a severe traumatic brain injury 8 years ago and has had difficulty obtaining her medications and evaluations since then. Mother states that she was recently [place] acted and advised to double her medications however, says that she was not given a new prescription for her medications. Mother is tearful and frustrated with the situation. Mother has no other complaints today. Says she is trying to go to a specialist in [place] however, says this may be up to 6 weeks before getting in. PFSH Past Medical History Arthritis: No Asthma: Yes Autoimmune Disease: No Blood Disorders: No Bipolar Disorder: Yes Anxiety: Yes Depression: Yes Heart Rhythm Problems: No High Cholesterol: No Chemotherapy: No Congestive Heart Failure: No COPD: Yes Cerebrovascular Accident: Yes ("MINI", PER MOTHER.) Developmental Delay: Yes Diminished Hearing: No Endocrine: Yes Gastrointestinal Disorders: No GERD: No Glaucoma: No Genitourinary: No Headaches: No Hepatitis: No Hiatal Hernia: No Immune Disorder: No Implanted Vascular Access Dvce: No Kidney Stones: No Musculoskeletal: No Neurologic: Yes (TBI when 16) Psychiatric: Yes Reproductive: No Respiratory: Yes Immunizations Current: Yes Migraines: No Myocardial Infarction: No Radiation Therapy: No Renal Failure: No Schizophrenia: Yes Sickle Cell Disease: No Sleep Apnea: No Thyroid Disease: Yes (HYPOTHYROID) Ulcer: No Tetanus Vaccination: > 5 Years Influenza Vaccination: No ?: Not LMP: LAST WEEK Menopausal: No : 1 Para: 0 Miscarriage: 1 Past Surgical History Abdominal Surgery: No AICD: No Body Medical Devices: NONE Cardiac Surgery: No Ear Surgery: No Endocrine Surgery: No Eye Surgery: No Genitourinary Surgery: No Gynecologic Surgery: No Insulin Pump: No Joint Replacement: Yes Neurologic Surgery: Yes (BRAIN R/T TBI ) Oral Surgery: Yes (POOR DENTITION) Pacemaker: No Thoracic Surgery: No Tonsillectomy: Yes Other Surgery: Yes (brain surgery- traumatic brain injury when 16) Social History Alcohol Use: No Tobacco Use: Yes (1-2 pks) Substance Use: No Allergies-Medications (Allergen,Severity, Reaction): Coded Allergies: codeine (Verified Allergy, Severe, RASH/SHOB, 01/26/18) escitalopram (Verified Allergy, Severe, UNKNOWN REACTION, 01/26/18) penicillin G (Verified Allergy, Severe, UNKNOWN REACTION, 01/26/18) temazepam (Verified Allergy, Severe, Shortness of Breath and Hives, ) sulfamethoxazole (Verified Allergy, Intermediate, 01/26/18) trimethoprim (Verified Allergy, Intermediate, 01/26/18) clindamycin (Verified Adverse Reaction, Intermediate, 01/26/18) PER MOM aripiprazole (Verified Adverse Reaction, Unknown, 01/26/18) Per patient's mother - Fatou [facility] [phone]. quetiapine (Verified Adverse Reaction, Unknown, 01/26/18) Per patient's mother - Fatou [facility] [phone]. Reported Meds & Prescriptions Reported Meds & Active Scripts Active Olanzapine 15 Mg Tab 15 Mg PO BID 10 Days Diphenhydramine (Diphenhydramine HCl) 25 Mg Cap 50 Mg PO HS PRN 10 Days Clonazepam 1 Mg Tab 1 Mg PO TID 10 Days Olanzapine 15 Mg Tab 30 Mg PO DAILY 30 Days Take 15 mg by mouth bid. Diphenhydramine HCl 50 Mg Cap 50 Mg PO HS PRN 30 Days Klonopin (Clonazepam) 1 Mg Tab 1 Mg PO TID 30 Days Review of Systems Except as stated in HPI: all other systems reviewed are Neg Physical Exam Narrative GENERAL: Well-nourished, well-developed patient. SKIN: Focused skin assessment warm/dry. HEAD: Normocephalic. EYES: No scleral icterus. No injection or drainage. NECK: Supple, trachea midline. No JVD or lymphadenopathy. CARDIOVASCULAR: Regular rate and rhythm without murmurs, gallops, or rubs. RESPIRATORY: Breath sounds equal bilaterally. No accessory muscle use. MUSCULOSKELETAL: No cyanosis, or edema. BACK: Nontender without obvious deformity. No CVA tenderness. Data Data Last Documented VS Vital Signs Date Time Temp Pulse Resp B/P (MAP) Pulse Ox O2 Delivery O2 Flow Rate FiO2 01/26/18 10:40 97.7 100 18 113/67 (82) 97 MDM Medical Decision Making Medical Screen Exam Complete: Yes Emergency Medical Condition: Yes Differential Diagnosis Medication refill, malingering, drug use, drug abuse Narrative Course 32-year-old female with history of traumatic brain injury, schizophrenia presents emergency department with her mother for refill of her medications. Mother states that patient had a severe traumatic brain injury 8 years ago and has had difficulty obtaining her medications and evaluations since then. Mother states that she was recently [place] acted and advised to double her medications however, says that she was not given a new prescription for her medications. Mother is tearful and frustrated with the situation. Mother has no other complaints today. Says she is trying to go to a specialist in [place] however, says this may be up to 6 weeks before getting in. Vital signs are stable. Patient is rather anxious in the emergency department however, mother states this is normal for her. During interaction, movement mother is very tearful and frustrated the situation. Says she is trying to see a psychiatrist. Says that she would follow-up as discussed. Patient should follow up with her primary care physician as well for further evaluation and treatment. Diagnosis Primary Impression: Encounter for medication refill Referrals: [facility] (Out patient) Primary Care Physician Psychiatrist Additional Instructions: I strongly advise you to follow-up with a primary care physician for refill of these medications. Follow-up with a psychiatrist as discussed. Scripts Olanzapine (Olanzapine) 15 Mg Tab 15 MG PO BID for 10 Days, #20 TAB 0 Refills Prov: Yrn Bowen MD 01/26/18 Diphenhydramine (Diphenhydramine) 25 Mg Cap 50 MG PO HS Y for INSOMNIA for 10 Days, CAP 0 Refills Prov: Yrn Bowen MD 01/26/18 Clonazepam (Clonazepam) 1 Mg Tab 1 MG PO TID for 10 Days, #30 TAB 0 Refills Prov: Yrn Bowen MD 01/26/18 Disposition: 01 DISCHARGE HOME Condition: Stable Marjorie Hernandez January 26, 2018 11:10
== END 2018-01-26 11:15 | disposition home or self-care (01) ==
LOC: PHEFT 10:35
DX: Z76.0 Encounter for issue of repeat prescription (principal); F20.9 Schizophrenia, unspecified; Z87.820 Personal history of traumatic brain injury; F31.9 Bipolar disorder, unspecified; F41.9 Anxiety disorder, unspecified; J44.9 Chronic obstructive pulmonary disease, unspecified; E03.9 Hypothyroidism, unspecified; F17.200 Nicotine dependence, unspecified, uncomplicated
CPT/HCPCS: 99281

== ENCOUNTER 2018-02-11 10:32 | Emergency (ER) | payer OTHER ==
[~2018-02-11] VITALS: Ht 165.1 cm; Wt 60.7 kg
[~2018-02-11 10:32] MED LIST changes: +CLON1TAB PO; +DIPH25CA PO
[2018-02-11 10:38] VITALS: BP 115/61; PULSE 82; RESP 16; TEMP 97.9; O2SAT 95
[2018-02-11] MEDS ORDERED: CLON1 PO (11:21)
[2018-02-11] MEDS ORDERED: OLAN15TA PO (11:21)
--- NOTE | 2018-02-11 11:23 | PD ---
HPI Chief Complaint: Medication Refill Request Time Seen by Provider: 10:53 Travel History International Travel<30 days: No Contact w/Intl Traveler<30days: No Traveled to known affect area: No History of Present Illness HPI 32-year-old female with history of schizophrenia and TBI presents to the ED with her mother who is requesting a medication refill. She reports she was unable to follow-up with new psychiatrist and daughter has run out of her medications. Patient has no medical complaint. Denies homicidal or suicidal ideation. PFSH Past Medical History Arthritis: No Asthma: Yes Autoimmune Disease: No Blood Disorders: No Bipolar Disorder: Yes Anxiety: Yes Depression: Yes Heart Rhythm Problems: No High Cholesterol: No Chemotherapy: No Congestive Heart Failure: No COPD: Yes Cerebrovascular Accident: Yes ("MINI", PER MOTHER.) Developmental Delay: Yes Diminished Hearing: No Endocrine: Yes Gastrointestinal Disorders: No GERD: No Glaucoma: No Genitourinary: No Headaches: No Hepatitis: No Hiatal Hernia: No Immune Disorder: No Implanted Vascular Access Dvce: No Kidney Stones: No Musculoskeletal: No Neurologic: Yes (TBI when 16) Psychiatric: Yes Reproductive: No Respiratory: Yes Immunizations Current: Yes Migraines: No Myocardial Infarction: No Radiation Therapy: No Renal Failure: No Schizophrenia: Yes Sickle Cell Disease: No Sleep Apnea: No Thyroid Disease: Yes (HYPOTHYROID) Ulcer: No Influenza Vaccination: No ?: Not Menopausal: No : 1 Para: 0 Miscarriage: 1 Past Surgical History Abdominal Surgery: No AICD: No Body Medical Devices: NONE Cardiac Surgery: No Ear Surgery: No Endocrine Surgery: No Eye Surgery: No Genitourinary Surgery: No Gynecologic Surgery: No Insulin Pump: No Joint Replacement: Yes Neurologic Surgery: Yes (BRAIN R/T TBI ) Oral Surgery: Yes (POOR DENTITION) Pacemaker: No Thoracic Surgery: No Tonsillectomy: Yes Other Surgery: Yes (brain surgery- traumatic brain injury when 16) Social History Alcohol Use: No Tobacco Use: Yes (1-2 pks) Substance Use: No Allergies-Medications (Allergen,Severity, Reaction): Coded Allergies: codeine (Verified Allergy, Severe, RASH/SHOB, 02/11/18) escitalopram (Verified Allergy, Severe, UNKNOWN REACTION, 02/11/18) penicillin G (Verified Allergy, Severe, UNKNOWN REACTION, 02/11/18) temazepam (Verified Allergy, Severe, Shortness of Breath and Hives, ) sulfamethoxazole (Verified Allergy, Intermediate, 02/11/18) trimethoprim (Verified Allergy, Intermediate, 02/11/18) clindamycin (Verified Adverse Reaction, Intermediate, 02/11/18) PER MOM aripiprazole (Verified Adverse Reaction, Unknown, 02/11/18) Per patient's mother - Fatou [facility] [phone]. quetiapine (Verified Adverse Reaction, Unknown, 02/11/18) Per patient's mother - Fatou [facility] [phone]. Reported Meds & Prescriptions Reported Meds & Active Scripts Active Klonopin (Clonazepam) 1 Mg Tab 1 Mg PO TID 3 Days Olanzapine 15 Mg Tab 15 Mg PO BID 3 Days Olanzapine 15 Mg Tab 15 Mg PO BID 10 Days Diphenhydramine (Diphenhydramine HCl) 25 Mg Cap 50 Mg PO HS PRN 10 Days Clonazepam 1 Mg Tab 1 Mg PO TID 10 Days Olanzapine 15 Mg Tab 30 Mg PO DAILY 30 Days Take 15 mg by mouth bid. Diphenhydramine HCl 50 Mg Cap 50 Mg PO HS PRN 30 Days Klonopin (Clonazepam) 1 Mg Tab 1 Mg PO TID 30 Days Review of Systems Except as stated in HPI: all other systems reviewed are Neg General / Constitutional: No: Fever Eyes: No: Visual changes HENT: No: Headaches Cardiovascular: No: Chest Pain or Discomfort Respiratory: No: Shortness of Breath Gastrointestinal: No: Abdominal Pain Genitourinary: No: Dysuria Physical Exam Narrative GENERAL: Alert and well-appearing 32-year-old female. No distress. SKIN: Warm and dry. HEAD: Normocephalic. EYES: No injection or drainage. NECK: Supple MUSCULOSKELETAL: No cyanosis, or edema. BACK: Nontender without obvious deformity. No CVA tenderness. PSYCHIATRIC: No homicidal or suicidal ideation Data Data Last Documented VS Vital Signs Date Time Temp Pulse Resp B/P (MAP) Pulse Ox O2 Delivery O2 Flow Rate FiO2 02/11/18 10:38 97.9 82 16 115/61 (79) 95 MDM Medical Decision Making Medical Screen Exam Complete: Yes Emergency Medical Condition: Yes Differential Diagnosis Medication refill, history of schizophrenia, history of TBI Narrative Course 32-year-old female with a history of schizophrenia and TBI brought in by her mother for medication refill. Patient has a long-standing history of psychiatric illness. According to the previous notes she was referred to [facility] mother reports she will not take her daughter there due to a pending lawsuit. She is awaiting a follow-up with new psychiatrist. She was recently seen 01/25/18 in the ED and given a 10 day supply of her medications. She was unable to follow-up with psychiatry in that time and therefore presents for another medication refill. It was discussed at length with the mother that the emergency department could not act as her psychiatrist. Given it is a holiday weekend patient will be given a 3 day supply with instructions to follow-up with [facility] on Monday. Mother became upset requesting a 10 day supply. Diagnosis Primary Impression: Encounter for medication refill Referrals: [facility] (Out patient) Psychiatrist Additional Instructions: Follow-up with your new psychiatrist Follow-up with [facility] Scripts Clonazepam (Klonopin) 1 Mg Tab 1 MG PO TID for 3 Days, #9 TAB 0 Refills Prov: Adriana Gomez 02/11/18 Olanzapine (Olanzapine) 15 Mg Tab 15 MG PO BID for 3 Days, #6 TAB 0 Refills Prov: Adriana Gomez 02/11/18 Disposition: 01 DISCHARGE HOME Condition: Stable Adriana Gomez February 11, 2018 11:23
== END 2018-02-11 11:36 | disposition home or self-care (01) ==
LOC: PHED 10:32
DX: Z76.0 Encounter for issue of repeat prescription (principal); F20.9 Schizophrenia, unspecified; F31.9 Bipolar disorder, unspecified; F41.9 Anxiety disorder, unspecified; J44.9 Chronic obstructive pulmonary disease, unspecified; E03.9 Hypothyroidism, unspecified; F17.200 Nicotine dependence, unspecified, uncomplicated; Z86.73 Personal history of transient ischemic attack (TIA), and cerebral infarction without residual deficits; Z87.820 Personal history of traumatic brain injury
CPT/HCPCS: 99281

== ENCOUNTER 2018-02-19 18:38 | Inpatient (IN) ==
[2018-03-18] MEDS ORDERED: Aluminum/Magnesium/Simethacone Susp 30 ML UDC PO PRN (09:05)
[2018-03-18] MEDS ORDERED: Benztropine Inj 2 MG/2 ML Ampul IM PRN (09:07)
[2018-03-18] MEDS ORDERED: fluPHENAZine Inj 25 MG/10 ML Vial IM PRN (09:09)
[2018-03-18] MEDS ORDERED: FLUPHENAZINE HCL PO SCH (15:00)
--- NOTE | 2018-03-18 15:18 | P.PNPSY ---
Subjective Remarks: Patient was seen and case discussed with nursing. Per nursing, patient has had more agitation today. She has been loud, yelling, intrusive and perseverative. She received a as needed with no ETO's were needed. Insight remains poor Mental Status Examination Appearance: Disheveled Consciousness: Alert Orientation: Person, Place, Date/Time Motor Activity: Normal gait Speech: Pressured Language: Perseveration Fund of Knowledge: Inadequate Attention and Concentration: Easily distracted Memory: Unremarkable (Not tested) Mood: Oppositional, Irritable Affect: Irritable, Labile Thought Content: Bizarre thinking Hallucination Type: None Delusion Type: Paranoid Suicidal Ideation: No Suicidal Plan: No Suicidal Intention: No Homicidal Ideation: No Homicidal Plan: No Homicidal Intention: No Insight: Poor Judgment: Poor Assessment and Plan - Assessment (1) Schizoaffective disorder, bipolar type Code(s): F25.0 - Schizoaffective disorder, bipolar type Status: Acute - Plan Plan: Estimated LOS: [] days Continue current treatment plan Justification for Continued Inpatient Stay: Patient would decompensate in a less restrictive setting
[2018-03-18] MEDS: FLUPHENAZINE HCL PO SCH (22:45)
[2018-03-19] MEDS: FLUPHENAZINE HCL PO SCH ×3 (08:33→20:18)
[2018-03-19] MEDS ORDERED: FLUPHENAZINE HCL PO SCH (12:05)
--- NOTE | 2018-03-19 12:08 | P.PNPSY ---
Subjective Remarks: Patient seen and examined as she is ambulating in hallway. Chart reviewed. Case discussed with nursing staff who reports patient has seemed more labile over the last few days. On my examination today, the patient is tearful and dysphoric. She denies SI or HI. She denies AVH. No side effects from medications. No physical complaints. Following my evaluation, the patient becomes quite loud and disruptive but has a time out in the short hallway and is able to calm herself. Review of Systems All other systems reviewed negative except as stated in HPI (Poor historian) Mental Status Examination Appearance: Disheveled Consciousness: Alert Orientation: Person, Place, Date/Time Motor Activity: Normal gait Speech: Unremarkable Language: Perseveration Fund of Knowledge: Inadequate Attention and Concentration: Easily distracted Memory: Impaired Mood: Anxious, Irritable Affect: Labile, Other (Dysphoric) Thought Process & Associations: Tangential Thought Content: Preoccupations Hallucination Type: None Delusion Type: None Suicidal Ideation: No Suicidal Plan: No Suicidal Intention: No Homicidal Ideation: No Homicidal Plan: No Homicidal Intention: No Insight: Poor Judgment: Poor Assessment and Plan - Assessment (1) Schizoaffective disorder, bipolar type Code(s): F25.0 - Schizoaffective disorder, bipolar type Status: Acute (2) Acquired intellectual disability Code(s): F79 - Unspecified intellectual disabilities Status: Acute - Plan Plan: Titrate midday dose of Prolixin to target behavioral disturbance and affective lability. To consider larger dose of Prolixin Decanoate when this is next due. Continue other medications and care as ordered. Justification for Continued Inpatient Stay: Risk for decompensation in less restrictive environment. Discharge Planning: Placement
[2018-03-19] MEDS: Acetaminophen 325 MG Tablet PO PRN (20:19)
[2018-03-20] MEDS: FLUPHENAZINE HCL PO SCH ×3 (08:58→21:00)
--- NOTE | 2018-03-20 14:48 | P.PNPSY ---
Subjective Remarks: Patient seen and examined with nurse. Chart reviewed. Case discussed with nursing staff. Case discussed in treatment team. Counselor notes that discharge planning team has been working on finding placement for this patient. On my examination today, the patient asks "when can I get my life in order?" Patient is somewhat discharged focused. No psychotic symptoms. Nurse thinks that the patient has been somewhat depressed, but when I ask about the patient' s mood, the patient denies low mood. No medication side effects. No physical complaints. Vital Signs Temp Pulse Resp BP Pulse Ox 03/20/18 05:48 98.0 F 62 16 131/76 99 Labs reviewed. No new labs. Review of Systems All other systems reviewed negative except as stated in HPI (Limitation: Poor historian) Mental Status Examination Appearance: Disheveled Consciousness: Alert Orientation: Person (At least) Motor Activity: Normal gait, Other (No motor abnormalities noted) Speech: Unremarkable Language: Perseveration Fund of Knowledge: Inadequate Attention and Concentration: Easily distracted Memory: Impaired Mood: Other (Presently calm) Affect: Blunt Thought Process & Associations: Tangential Thought Content: Preoccupations Hallucination Type: None Delusion Type: None Suicidal Ideation: No Homicidal Ideation: No Insight: Poor Judgment: Poor Assessment and Plan - Assessment (1) Schizoaffective disorder, bipolar type Code(s): F25.0 - Schizoaffective disorder, bipolar type Status: Acute (2) Acquired intellectual disability Code(s): F79 - Unspecified intellectual disabilities Status: Acute - Plan Plan: Continue current psychotropics as ordered. Continue to monitor on the inpatient unit. Continue other medications and care as ordered. Justification for Continued Inpatient Stay: Risk for decompensation in less restrictive environment Discharge Planning: Placement
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
[2018-03-21] MEDS: FLUPHENAZINE HCL PO SCH ×2 (09:16→20:03)
[2018-03-21] MEDS: LORazepam 0.5 MG Tablet PO PRN (10:04)
[2018-03-22] MEDS: FLUPHENAZINE HCL PO SCH ×3 (09:35→20:17)
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
--- NOTE | 2018-03-23 08:19 | P.PNPSY ---
Subjective Remarks: Patient seen and examined with nurse. Chart reviewed. Case discussed with nursing staff. No behavioral issues noted overnight. Case discussed in treatment team. On my examination today, patient is calm and cooperative. She denies SI or HI. Denies AVH. Somewhat perseverative on returning home, although court has ordered placement. Denies side effects from medications. No physical complaints. Vital Signs Temp Pulse Resp BP Pulse Ox 03/23/18 05:46 97.3 F L 65 16 90/52 L 98 03/22/18 18:01 98.2 F 75 18 116/71 99 Labs reviewed. No new labs. Review of Systems All other systems reviewed negative except as stated in HPI (Limitation: Poor historian) Mental Status Examination Appearance: Other (Remains fair) Consciousness: Alert Orientation: Person (At least) Motor Activity: Other (No abnormal motor movements noted) Speech: Unremarkable Language: Perseveration Fund of Knowledge: Inadequate Attention and Concentration: Easily distracted Memory: Impaired Mood: Other (Calm) Affect: Blunt Thought Process & Associations: Other (Somewhat perseverative) Thought Content: Appropriate Hallucination Type: None Delusion Type: None Suicidal Ideation: No Suicidal Plan: No Suicidal Intention: No Homicidal Ideation: No Homicidal Plan: No Homicidal Intention: No Insight: Poor Judgment: Poor Assessment and Plan - Assessment (1) Schizoaffective disorder, bipolar type Code(s): F25.0 - Schizoaffective disorder, bipolar type Status: Acute (2) Acquired intellectual disability Code(s): F79 - Unspecified intellectual disabilities Status: Acute - Plan Plan: Patient due for booster dose of Prolixin Decanoate today. Given intermittent behavioral outbursts since last dose, I will titrate the dose to 37.5 mg IM today. I will taper oral Prolixin to 5 mg 3 times daily with plans for ongoing slow taper to discontinuation of oral Prolixin. Continue to monitor on the inpatient unit. Continue other medications and care as ordered. Justification for Continued Inpatient Stay: Medication changes. Risk for decompensation in less restrictive environment. Discharge Planning: Placement Request Healthcare Surrogate/Guardian Advocate?: Yes
[2018-03-24] MEDS: LORazepam 0.5 MG Tablet PO PRN (10:13)
--- NOTE | 2018-03-24 14:06 | P.PNPSY ---
Subjective Remarks: Pt seen and discussed with staff. She has been compliant with medications and cooperative with care. Hygiene is improved. She still has some outbursts ( screaming in room, cursing and yelling in hallways) but frequency is decreasing. This morning she was tearful stating that she hated mother for making her take medications. Mental Status Examination Appearance: Other (Remains fair) Consciousness: Alert Orientation: Person (At least) Motor Activity: Other (No abnormal motor movements noted) Speech: Unremarkable Language: Perseveration Fund of Knowledge: Inadequate Attention and Concentration: Easily distracted Memory: Impaired Mood: Other (Calm) Affect: Flat Thought Process & Associations: Other (Somewhat perseverative) Thought Content: Appropriate Hallucination Type: None Delusion Type: None Suicidal Ideation: No Suicidal Plan: No Suicidal Intention: No Homicidal Ideation: No Homicidal Plan: No Homicidal Intention: No Insight: Poor Judgment: Poor Assessment and Plan - Assessment (1) Schizoaffective disorder, bipolar type Code(s): F25.0 - Schizoaffective disorder, bipolar type Status: Acute (2) Acquired intellectual disability Code(s): F79 - Unspecified intellectual disabilities Status: Acute - Plan Plan: Continue current tx plan Justification for Continued Inpatient Stay: risk of decompensation Request Healthcare Surrogate/Guardian Advocate?: Yes
[2018-03-24] MEDS: Acetaminophen 325 MG Tablet PO PRN ×2 (15:10→21:20)
--- NOTE | 2018-03-25 15:12 | P.PNPSY ---
Subjective Remarks: Pt seen and discussed with staff. Mood has been labile and pt was agitated this morning. She was given ativan 0.5mg x1 for safety. She c/o of dental pain and facial swelling is noted. [facility] was consulted for perioral abscess and pt was transferred to [facility] for iv antibiotics. Mental Status Examination Appearance: Other (Remains fair) Consciousness: Alert Orientation: Person (At least) Motor Activity: Other (No abnormal motor movements noted) Speech: Unremarkable Language: Perseveration Fund of Knowledge: Inadequate Attention and Concentration: Easily distracted Memory: Impaired Mood: Other (labile) Affect: Labile Thought Process & Associations: Other (Somewhat perseverative) Thought Content: Appropriate Hallucination Type: None Delusion Type: None Suicidal Ideation: No Suicidal Plan: No Suicidal Intention: No Homicidal Ideation: No Homicidal Plan: No Homicidal Intention: No Insight: Poor Judgment: Poor Assessment and Plan - Assessment (1) Schizoaffective disorder, bipolar type Code(s): F25.0 - Schizoaffective disorder, bipolar type Status: Acute (2) Acquired intellectual disability Code(s): F79 - Unspecified intellectual disabilities Status: Acute - Plan Plan: Continue current tx plan.Suspect that agitation due to pain from abscess. Appreciate hospitalist management Justification for Continued Inpatient Stay: agitation, complicating medical conditions Request Healthcare Surrogate/Guardian Advocate?: Yes
--- NOTE | 2018-03-25 15:36 | P.CON ---
History of Present Illness Service: Hospitalist service Consult date: 03/25/18 Requesting Physician: Tracy Tinajero Reason for Consult: Perioral abscess Primary Care Provider: No Primary Care Physician Chief Complaint: tender mass roof of mouth History of Present Illness: This is a 32-year-old female with a past medical history significant for intellectual disability, schizo affective disorder, bipolar type and TBI who was admitted under Sampson act for suicidal ideation asking to be shot in the head or put to sleep who is since been admitted to inpatient psychiatry 02/21/18. Hospitalist services have been consulted today for evaluation and management of possible perioral abscess. Patient seen and examined. Patient is an extremely poor historian and much of the history is obtained from review of electronic medical record. Patient complains of painful mass on the roof of her mouth for the past day. She denies any fever or sweats but complains of being cold. She denies any trauma to the area. She denies any nasal drainage, cough or difficulty swallowing. She denies any chest pain. She is an active smoker. She is afebrile. Her vital signs are stable. There is no recent lab or imaging studies for review. Review of Systems All other systems reviewed negative except as stated in HPI PMFSH - History History Provided By: Medical Record - Medical History Medical History: Medical History (Last Updated 03/25/18 @ 15:13 by Alva Lawrence) Intellectual disability Schizoaffective disorder TBI (traumatic brain injury) - Surgical History Surgical History: Surgical History (Last Updated 03/25/18 @ 15:25 by Alva Lawrence) H/O brain surgery Hx of tonsillectomy - Family History Family History: Family History (Last Updated 03/25/18 @ 15:15 by Alva Lawrence) Other Unknown family medical history - Tobacco History Second Hand Smoke Exposure: Yes Tobacco Use In Past 30 Days: Yes Smoking Status: Current every day smoker Tobacco Type: Cigarettes - Alcohol History How Often Do You Have a Drink Containing Alcohol: Never - Substance Use History Substance History: No History of Abuse Medications and Allergies Active Medications: Active Medications Acetaminophen (Tylenol) 650 mg PO Q4H PRN PRN Reason: PAIN 1-5 OR TEMP >101F Last Admin: 03/24/18 21:20 Dose: 650 mg Al Hydrox/Mg Hydrox/Simethicone (Mag-Al Plus Susp Liq) 30 ml PO Q6H PRN PRN Reason: DYSPEPSIA Al Hydroxide/Mg Hydroxide (Milk Of Magnesia Liq) 30 ml PO DAILY PRN PRN Reason: CONSTIPATION Benztropine Mesylate (Cogentin Inj) 1 mg IM Q12HR PRN PRN Reason: EPS, UNABLE TO TAKE PO Benztropine Mesylate (Cogentin) 1 mg PO Q12HR PRN PRN Reason: EXTRA PYRAMIDAL SYMPTOMS Diphenhydramine HCl (Benadryl) 50 mg PO HS PRN PRN Reason: INSOMNIA Last Admin: 03/24/18 00:19 Dose: 50 mg Fluphenazine Decanoate (Prolixin Decanoate Inj) 37.5 mg IM Q21D KIESHA Last Admin: 03/23/18 10:07 Dose: 37.5 mg Fluphenazine HCl (Prolixin) 5 mg PO DAILY@,15,21 [facility] Last Admin: 03/25/18 09:29 Dose: 5 mg Clindamycin/Sodium Chloride (Cleocin 600 Mg/Ns Premix) 600 mg in 50 mls @ 100 mls/hr IV.SIG Q8H [facility] Stop: 03/26/18 07:44 Lactobacillus Acidophilus (Lactinex Pkt) 1 gm PO TID KIESHA Lorazepam (Ativan Inj) 0.5 mg IM Q6H PRN PRN Reason: ANXIETY,UNABLE TO TAKE PO Last Admin: 03/25/18 11:04 Dose: 0.5 mg Lorazepam (Ativan) 0.5 mg PO Q6H PRN PRN Reason: ANXIETY Last Admin: 03/24/18 10:13 Dose: 0.5 mg Miscellaneous (Pill Splitter) 1 each OTHER UNSCH PRN PRN Reason: SEE LABEL COMMENTS Allergies Allergy/AdvReac Type Severity Reaction Status Date / Time codeine Allergy Severe RASH/SHOB Verified 02/19/18 19:10 escitalopram Allergy Severe UNKNOWN Verified 02/19/18 19:10 REACTION penicillin G Allergy Severe UNKNOWN Verified 02/19/18 19:10 REACTION temazepam Allergy Severe Shortness Verified 02/19/18 19:10 of Breath and Hives sulfamethoxazole Allergy Intermediate Verified 02/19/18 19:10 trimethoprim Allergy Intermediate Verified 02/19/18 19:10 clindamycin AdvReac Intermediate Verified 02/19/18 19:10 aripiprazole AdvReac Unknown Verified 02/19/18 19:10 quetiapine AdvReac Unknown Verified 02/19/18 19:10 Home Medications Medication Instructions Recorded Confirmed Type clonazepam [Klonopin] 1 mg PO TID 03/17/18 03/17/18 History diphenhydramine HCl 50 mg PO TID-QID PRN 03/17/18 03/17/18 History olanzapine 15 mg PO BID 03/17/18 03/17/18 History Physical Exam Vital signs: Vital Signs 03/24/18 18:51 03/25/18 06:00 Temperature 98.3 F 97.6 F Pulse Rate 77 63 Respiratory Rate 17 17 Blood Pressure 100/63 121/73 Pulse Oximetry 98 97 Narrative: GENERAL: This is a well-developed well-nourished female, no acute distress. Awake and alert. Poor historian due to cognitive impairment. SKIN: Warm and dry. HEAD: Atraumatic. Normocephalic. EYES: Pupils equal and round. No scleral icterus. No injection or drainage. ENT: No nasal bleeding or discharge. Mucous membranes pink and moist. + soft palate 2x3cm tender somewhat firm mass. No active drainage appreciate. + extremely poor dentition with dental caries. NECK: Trachea midline. CARDIOVASCULAR: Regular rate and rhythm. RESPIRATORY: No accessory muscle use. Clear to auscultation. Breath sounds equal bilaterally. GASTROINTESTINAL: Abdomen soft, non-tender, nondistended. Hepatic and splenic margins not palpable. MUSCULOSKELETAL: Extremities without clubbing, cyanosis, or edema. No obvious deformities. NEUROLOGICAL: Awake and alert. No obvious cranial nerve deficits. Motor grossly within normal limits. No focal neurologic finding appreciated. Normal speech. PSYCHIATRIC: Calm and cooperative. Judgement and insight is poor. Assessment and Plan - Plan 32-year-old female with a past medical history significant for intellectual disability, schizoaffective disorder, bipolar type and TBI who was admitted under [place] act for suicidal ideation asking to be shot in the head or put to sleep who is since been admitted to inpatient psychiatry 02/21/18. Hospitalist services have been consulted today for evaluation and management of possible perioral abscess. Schizoaffective disorder, bipolar type -Management per psychiatry Soft palate mass, possible abscess Poor dentition/dental caries -Move patient to med/psych to begin IV abx treatment with Clindamycin - discussed with Lucita YO -stat labs ordered - CBC and CMP -Obtain CT sinuses and soft tissues neck for further evaluation -consider ENT consult if imaging warrants -Peridex mouthwash BID -monitor for improvement DVT prophylaxis -Patient is ambulatory Thank you very kindly for this consultation. We will continue to follow patient along with you. Discussed Condition With: patient, Lucita YO, Dr. Bedoya
[2018-03-25 18:06] LABS: Anion Gap 8 meq/L (5-15); Blood Urea Nitrogen 20 mg/dL (7-18); Carbon Dioxide 28.5 meq/L (21.0-32.0); Chloride 103 meq/L (98-107); Glomerular Filtration Rate Greater Than 89 mL/min (>89); Glucose,Random 98 mg/dL (74-106); Potassium 4.2 meq/L (3.5-5.1); Sodium 139 meq/L (136-145)
[2018-03-25] MEDS: Clindamycin 600 mg/NS Premix 600 MG/50 ML PIGGYBACK IV.SIG SCH (22:13)
[2018-03-25] MEDS: Chlorhexidine 0.12% Oral Kit 15 ML UDC OROPHARYNG SCH (22:13)
--- NOTE | 2018-03-25 22:39 | CT ---
EXAM DATE: 03/25/2018 10:26 PM EDT AGE/SEX: 32 years / Female INDICATIONS: Popping in ears. CLINICAL DATA: This is the patient's initial encounter. Patient reports that signs and symptoms have been present for 1 day and indicates a pain score of 5/10. MEDICAL/SURGICAL HISTORY: None. None. RADIATION DOSE: 11.73 CTDI (mGy) COMPARISON: [facility], CT BRAIN W/O CONTRAST, 12/22/2010. . TECHNIQUE: Contiguous axial thin-section CT images of the paranasal sinuses were performed. Using au tomated exposure control and adjustment of the mA and/or kV according to patient size, radiation dose was kept as low as reasonably achievable to obtain optimal diagnostic quality images. DICOM format image data is available electronically for review and comparison. FINDINGS: The frontal sinus, ethmoid air cells, maxillary sinuses and sphenoid sinus are clear. No bony destruc tive changes or abnormal periosteal reaction. CONCLUSION: 1. No acute findings on CT of the paranasal sinuses. Electronically signed by: Antoine John MD 03/25/2018 10:37 PM EDT
--- NOTE | 2018-03-25 22:44 | CT ---
EXAM DATE: 03/25/2018 10:31 PM EDT AGE/SEX: 32 years / Female INDICATIONS: Neck swelling. CLINICAL DATA: This is the patient's initial encounter. Patient reports that signs and symptoms have been present for 1 day and indicates a pain score of 4/10. MEDICAL/SURGICAL HISTORY: None. None. RADIATION DOSE: 16.17 CTDI (mGy) COMPARISON: No prior exams available for comparison. TECHNIQUE: Helical acquisition was performed using a multirow detector CT scanner during the adminis tration of 75 ml Omnipaque 350 (iohexol) nonionic water-soluble contrast as a single exam dose. Usi ng automated exposure control and adjustment of the mA and/or kV according to patient size, radiation dose was kept as low as reasonably achievable to obtain optimal diagnostic quality images. DICOM fo rmat image data is available electronically for review and comparison. FINDINGS: Visualized paranasal sinuses are clear. No airway obstructing lesions or foreign bodies. There is extensive dental caries with some. The lucency on the right side the program mild cellulitis around the right anterior mandibular. No drainable fluid collections to suggest abscess. CONCLUSION: 1. Dental caries with some periapical lucencies in the right mandible with some surrounding cellulit is. No discrete abscess identified. Electronically signed by: Antoine John MD 03/25/2018 10:43 PM EDT
[2018-03-26] MEDS: Clindamycin 600 mg/NS Premix 600 MG/50 ML PIGGYBACK IV.SIG SCH ×3 (01:15→08:09)
--- NOTE | 2018-03-26 10:22 | P.PN ---
Subjective Interval history: Follow-up on patient with soft palate infection, dental caries. Patient seen and examined. Patient witnessed ambulating around the unit crying and screaming vulgarities. Upon examination, patient is calm and cooperative. Swelling on the roof of her mouth is improving. She denies any fever or chills. Denies any nausea, vomiting or abdominal pain. Discussed with nursing staff, no acute issues overnight. Physical Exam Vital signs: Vital Signs 03/26/18 05:12 03/26/18 06:00 Temperature 98.5 F 98.5 F Pulse Rate 70 70 Respiratory Rate 15 15 Blood Pressure 116/53 L 116/53 L Pulse Oximetry 95 95 Intake & Output 03/25/18 03/26/18 03/26/18 18:59 06:59 18:59 Intake Total 50 / 50 720 / 720 Balance 50 / 50 720 / 720 Weight 65.7 g Intake: IV 50 / 50 Cleocin 600 mg/NS Premix 600 mg 50 / 50 In 50 ml @ 100 mls/hr IV.SIG Q8H KIESHA Rx#:[id number] Oral 720 / 720 Narrative: GENERAL: This is a well-developed well-nourished female, no acute distress. Awake and alert. SKIN: Warm and dry. HEAD: Atraumatic. Normocephalic. EYES: Pupils equal and round. No scleral icterus. No injection or drainage. ENT: No nasal bleeding or discharge. Mucous membranes pink and moist. + soft palate 2x3cm tender swelling much improved from yesterday. No active drainage appreciate. +extremely poor dentition with dental caries. NECK: Trachea midline. CARDIOVASCULAR: Regular rate and rhythm. RESPIRATORY: No accessory muscle use. Clear to auscultation. Breath sounds equal bilaterally. GASTROINTESTINAL: Abdomen soft, non-tender, nondistended. MUSCULOSKELETAL: Extremities without clubbing, cyanosis, or edema. No obvious deformities. NEUROLOGICAL: Awake and alert. No obvious cranial nerve deficits. Motor grossly within normal limits. No focal neurologic finding appreciated. Normal speech. PSYCHIATRIC: Calm and cooperative. Judgement and insight is poor. Results - Labs CBC & Chem 7: 02/19/18 19:30 03/25/18 17:17 Laboratory Results - last 24 hr 03/25/18 17:17 Sodium 139 Potassium 4.2 Chloride 103 Carbon Dioxide 28.5 Anion Gap 8 BUN 20 H Creatinine 0.74 Estimated GFR Greater than 89 Random Glucose 98 Calcium 9.0 Beta HCG, Quant Less than 1 - Imaging Impressions Sinuses CT 03/25/18 00:00 CONCLUSION: 1. No acute findings on CT of the paranasal sinuses. Soft Tissue Neck CT 03/25/18 00:00 CONCLUSION: 1. Dental caries with some periapical lucencies in the right mandible with some surrounding cellulitis. No discrete abscess identified. Assessment and Plan - Assessment (1) Cellulitis of mouth Code(s): K12.2 - Cellulitis and abscess of mouth Status: Acute (2) Schizoaffective disorder, bipolar type Code(s): F25.0 - Schizoaffective disorder, bipolar type Status: Acute (3) Acquired intellectual disability Code(s): F79 - Unspecified intellectual disabilities Status: Acute - Plan 32-year-old female with a past medical history significant for intellectual disability, schizoaffective disorder, bipolar type and TBI who was admitted under [place] act for suicidal ideation asking to be shot in the head or put to sleep who is since been admitted to inpatient psychiatry 02/21/18. Hospitalist services have been consulted today for evaluation and management of possible perioral abscess. Schizoaffective disorder, bipolar type -Management per psychiatry Mandibular cellulitis Poor dentition/dental caries CT paranasal sinuses unremarkable CT soft tissue the neck reveals extensive dental caries with periapical lucencies and surrounding cellulitis, no discrete abscess -Continue on IV clindamycin (PCN allergic) with lactobacillus, likely transition to oral abx tomorrow. -Consider ENT evaluation if patient worsens -Continue Peridex mouthwash BID -monitor for improvement DVT prophylaxis -Patient is ambulatory Discussed Condition With: patient, nursing staff and Dr. Walls
[2018-03-26] MEDS: Chlorhexidine 0.12% Oral Kit 15 ML UDC OROPHARYNG SCH ×2 (10:26→21:14)
[2018-03-26] MEDS: LORazepam 0.5 MG Tablet PO PRN ×2 (10:36→21:14)
--- NOTE | 2018-03-26 13:54 | P.PNPSY ---
Subjective Remarks: Reviewed electronic medical record and discussed case with staff. Patient's follow-up was conducted in her room. Staff report that earlier today patient was labile, screaming and crying. I found her lying in bed resting quietly. She reports that she has been sleeping well and eating well. She states that her mouth feels "much better". When I mentioned to her earlier behavior, she vehemently denied it. She continues to be discharged focused. Mental Status Examination Appearance: Other (Remains fair) Consciousness: Alert Orientation: Person (At least) Motor Activity: Other (No abnormal motor movements noted) Speech: Unremarkable Language: Perseveration Fund of Knowledge: Inadequate Attention and Concentration: Easily distracted Memory: Impaired Mood: Other (labile) Affect: Labile Thought Process & Associations: Other (Somewhat perseverative) Thought Content: Appropriate Hallucination Type: None Delusion Type: None Suicidal Ideation: No Suicidal Plan: No Suicidal Intention: No Homicidal Ideation: No Homicidal Plan: No Homicidal Intention: No Insight: Poor Judgment: Poor Assessment and Plan - Plan Plan: Continue with current treatment plan. Patient awaiting safe discharge plan. Justification for Continued Inpatient Stay: Moving this patient to a lower level of care would likely result in decompensation. Request Healthcare Surrogate/Guardian Advocate?: Yes
[2018-03-26 17:13] LABS: Baso # (Auto) 0.1 th/mm3 (0.0-0.2); Baso % (Auto) 1.1 % (0.0-2.0); Eos # (Auto) 0.2 th/mm3 (0.0-0.4); Eos % (Auto) 2.5 % (0.0-4.0); Hematocrit 39.9 % (35.0-46.0); Hemoglobin 12.7 gm/dL (11.6-15.3); Lymph # (Auto) 1.9 th/mm3 (1.0-4.8); Mean Corpuscular HGB Conc 31.9 % (32.0-36.0); Mean Corpuscular Hemoglobin 27.6 pg (27.0-34.0); Mean Corpuscular Volume 86.5 fL (80.0-100.0); Mean Platelet Volume 7.4 fL (7.0-11.0); Mono # (Auto) 0.6 th/mm3 (0.0-0.9); Mono % (Auto) 8.2 % (0.0-8.0); Neut # (Auto) 4.1 th/mm3 (1.8-7.7); Neut % (Auto) 60.2 % (16.0-70.0); Platelet Count 309 th/mm3 (150-450); Red Blood Count 4.61 mil/mm3 (4.00-5.30); Red Cell Distribution Width 15.2 % (11.6-17.2); White Blood Count 6.8 th/mm3 (4.0-11.0)
[2018-03-26] MEDS: Clindamycin Inj 600 MG in Sodium Chlor 0.9% Inj 100 ML IV.SIG SCH (21:13)
[2018-03-27] MEDS: Clindamycin Inj 600 MG in Sodium Chlor 0.9% Inj 100 ML IV.SIG SCH (04:14)
[2018-03-27] MEDS: Chlorhexidine 0.12% Oral Kit 15 ML UDC OROPHARYNG SCH ×2 (09:41→21:24)
--- NOTE | 2018-03-27 09:43 | P.PN ---
Subjective Interval history: Follow-up visit for soft palate infection and dental caries. Nursing staff reports no acute events overnight or this morning, patient refused IV antibiotics and only received 1 dose. Patient is seen and examined resting in bed comfortably, appears to be in no acute distress. Reports that her jaw feels better, she is eager to leave medical unit, asking to go out for fresh air. She denies any fevers, chills, N/V/D, SOB, cough, headache, or jaw pain. Physical Exam Vital signs: Vital Signs 03/26/18 18:25 03/27/18 06:15 Temperature 36.6 C 36.8 C Pulse Rate 90 58 L Respiratory Rate 15 15 Blood Pressure 105/63 111/55 L Pulse Oximetry 96 Intake & Output 03/26/18 03/27/18 03/27/18 18:59 06:59 18:59 Intake Total 5280 / 5280 2400 / 2400 Output Total 3 / 3 Balance 5280 / 5280 2397 / 2397 Intake: IV 0 / 0 Cleocin 600 mg/NS Premix 600 mg 0 / 0 In 50 ml @ 100 mls/hr IV.SIG Q8H KIESHA Rx#:[id number] Oral 5280 / 5280 2400 / 2400 Output: Urine 3 / 3 Other: # Voids 0 Narrative: GENERAL: This is a well-developed well-nourished female, no acute distress. Awake and alert. SKIN: Warm and dry. HEAD: Atraumatic. Normocephalic. EYES: Pupils equal and round. No scleral icterus. No injection or drainage. ENT: No nasal bleeding or discharge. Mucous membranes pink and moist. soft palate with no noted swelling. No active drainage appreciate. +extremely poor dentition with dental caries. NECK: Trachea midline. CARDIOVASCULAR: Regular rate and rhythm. RESPIRATORY: No accessory muscle use. Clear to auscultation. Breath sounds equal bilaterally. GASTROINTESTINAL: Abdomen soft, non-tender, nondistended. MUSCULOSKELETAL: Extremities without clubbing, cyanosis, or edema. No obvious deformities. NEUROLOGICAL: Awake and alert. No obvious cranial nerve deficits. Motor grossly within normal limits. No focal neurologic finding appreciated. Normal speech. PSYCHIATRIC: Calm and cooperative. Judgement and insight is poor. Results - Labs CBC & Chem 7: 03/26/18 16:59 03/25/18 17:17 Laboratory Results - last 24 hr 03/26/18 16:59 WBC 6.8 RBC 4.61 Hgb 12.7 Hct 39.9 MCV 86.5 MCH 27.6 MCHC 31.9 L RDW 15.2 Plt Count 309 MPV 7.4 Neut % (Auto) 60.2 Lymph % (Auto) 28.0 [place] % (Auto) 8.2 H Eos % (Auto) 2.5 Baso % (Auto) 1.1 Neut # (Auto) 4.1 Lymph # (Auto) 1.9 [place] # (Auto) 0.6 Eos # (Auto) 0.2 Baso # (Auto) 0.1 WBC Differential . Differential Comment Auto diff final Assessment and Plan - Assessment (1) Cellulitis of mouth Code(s): K12.2 - Cellulitis and abscess of mouth Status: Acute (2) Schizoaffective disorder, bipolar type Code(s): F25.0 - Schizoaffective disorder, bipolar type Status: Acute (3) Acquired intellectual disability Code(s): F79 - Unspecified intellectual disabilities Status: Acute - Plan 32-year-old female with a past medical history significant for intellectual disability, schizoaffective disorder, bipolar type and TBI who was admitted under [place] act for suicidal ideation asking to be shot in the head or put to sleep who is since been admitted to inpatient psychiatry 02/21/18. Hospitalist services have been consulted today for evaluation and management of possible perioral abscess. Schizoaffective disorder, bipolar type -Management per psychiatry Mandibular cellulitis Poor dentition/dental caries CT paranasal sinuses unremarkable CT soft tissue the neck reveals extensive dental caries with periapical lucencies and surrounding cellulitis, no discrete abscess -Received 1 dose of IV clindamycin, pain and symptoms improved per patient. -Transition to p.o. clindamycin -Continue Peridex mouthwash BID -Continue monitoring closely for worsening symptoms DVT prophylaxis -Patient is ambulatory Patient is medically cleared to be transferred to inpatient psychiatry.
--- NOTE | 2018-03-27 11:23 | P.PNPSY ---
Subjective Remarks: Patient seen and examined. Chart reviewed. Case discussed with nursing staff. No behavioral issues noted overnight. Case discussed in treatment team. Counselor informs me that [facility] is recommending a state psychiatric hospital referral, but patient's psychotic illness is fairly stable in my estimation and her intellectual disability is chronic, and so I feel that it is unlikely that the patient would meet admission criteria for the [facility]. I have instructed the counselor and counselor team supervisor to liaison back with [facility] to instruct them to redouble their efforts to place the patient. [facility] psychiatric hospital referral could be considered but only as a last resort in my judgment. On my examination today, the patient is calm and pleasant. She did refuse IV antibiotics per nursing staff, but I see that the hospitalist has switched her to oral clindamycin. Patient denies any SI, HI or AVH. She would like to be transferred back to the general psychiatric unit and also would like to have milk with her lunch tray noting "I'm used to having milk and coffee and Newports." Patient is not, of course, receiving cigarettes here. Denies side effects from medications. No physical complaints. Vital Signs Temp Pulse Resp BP Pulse Ox 03/27/18 06:15 98.2 F 58 L 15 111/55 L 03/26/18 18:25 97.9 F 90 15 105/63 96 Intake and Output 03/27/18 03/27/18 03/27/18 06:59 14:59 22:59 Intake Total 240 / 240 1080 / 1080 Balance 240 / 240 1080 / 1080 Intake: Oral 240 / 240 1080 / 1080 Other: # Voids 0 Laboratory Results - last 24 hr 03/26/18 16:59 WBC 6.8 RBC 4.61 Hgb 12.7 Hct 39.9 MCV 86.5 MCH 27.6 MCHC 31.9 L RDW 15.2 Plt Count 309 MPV 7.4 Neut % (Auto) 60.2 Lymph % (Auto) 28.0 Craven % (Auto) 8.2 H Eos % (Auto) 2.5 Baso % (Auto) 1.1 Neut # (Auto) 4.1 Lymph # (Auto) 1.9 Craven # (Auto) 0.6 Eos # (Auto) 0.2 Baso # (Auto) 0.1 WBC Differential . Differential Comment Auto diff final Labs reviewed. Review of Systems All other systems reviewed negative except as stated in HPI (Limitation: Poor historian) Mental Status Examination Appearance: Other (Fair grooming) Consciousness: Alert Orientation: Person, Place (At least) Motor Activity: Other (No abnormal motor movements noted) Speech: Unremarkable Language: Perseveration Fund of Knowledge: Inadequate Attention and Concentration: Easily distracted Memory: Impaired Mood: Appropriate Affect: Appropriate Thought Process & Associations: Circumstantial Thought Content: Appropriate Hallucination Type: None Delusion Type: None Suicidal Ideation: No Suicidal Plan: No Suicidal Intention: No Homicidal Ideation: No Homicidal Plan: No Homicidal Intention: No Insight: Poor Judgment: Poor Assessment and Plan - Assessment (1) Schizoaffective disorder, bipolar type Code(s): F25.0 - Schizoaffective disorder, bipolar type Status: Acute (2) Acquired intellectual disability Code(s): F79 - Unspecified intellectual disabilities Status: Acute - Plan Plan: Continue current psychotropics as ordered. Plan to return patient to general inpatient psychiatric unit once cleared by the hospitalist. Continue other medications and care as ordered. Justification for Continued Inpatient Stay: Risk for decompensation in less restrictive environment. Discharge Planning: Placement Request Healthcare Surrogate/Guardian Advocate?: Yes
[2018-03-27] MEDS: LORazepam 0.5 MG Tablet PO PRN (18:19)
--- NOTE | 2018-03-28 08:22 | P.PN ---
Subjective Interval history: Follow-up visit for soft palate infection and dental caries. Staff does not report any acute medical concerns overnight or this morning. Patient is seen and examined in her room eating breakfast this morning and appears to be in no acute distress. Denies any soft pallet pain, fevers, chills/N/V/D, patient requesting to go home. Physical Exam Vital signs: Vital Signs 03/27/18 18:00 03/28/18 05:37 03/28/18 06:00 Temperature 36.6 C 36.9 C 36.9 C Pulse Rate 81 65 65 Respiratory Rate 18 16 16 Blood Pressure 108/57 L 93/64 L 93/54 L Pulse Oximetry 95 Intake & Output 03/27/18 03/28/18 03/28/18 18:59 06:59 18:59 Intake Total 1320 / 1320 1540 / 1540 Output Total Balance 1320 / 1320 1539 / 1539 Intake: Oral 1320 / 1320 1440 / 1440 Oral Supplement 100 / 100 Output: Urine Narrative: GENERAL: This is a well-developed well-nourished female, no acute distress. Awake and alert. SKIN: Warm and dry. HEAD: Atraumatic. Normocephalic. EYES: Pupils equal and round. No scleral icterus. No injection or drainage. ENT: No nasal bleeding or discharge. Mucous membranes pink and moist. soft palate with no noted swelling. No active drainage appreciate. +extremely poor dentition with dental caries. NECK: Trachea midline. CARDIOVASCULAR: Regular rate and rhythm. RESPIRATORY: No accessory muscle use. Clear to auscultation. Breath sounds equal bilaterally. GASTROINTESTINAL: Abdomen soft, non-tender, nondistended. MUSCULOSKELETAL: Extremities without clubbing, cyanosis, or edema. No obvious deformities. NEUROLOGICAL: Awake and alert. No obvious cranial nerve deficits. Motor grossly within normal limits. No focal neurologic finding appreciated. Normal speech. PSYCHIATRIC: Calm and cooperative. Judgement and insight is poor. Results - Labs CBC & Chem 7: 03/26/18 16:59 03/25/18 17:17 Assessment and Plan - Assessment (1) Cellulitis of mouth Code(s): K12.2 - Cellulitis and abscess of mouth Status: Acute (2) Schizoaffective disorder, bipolar type Code(s): F25.0 - Schizoaffective disorder, bipolar type Status: Acute (3) Acquired intellectual disability Code(s): F79 - Unspecified intellectual disabilities Status: Acute - Plan 32-year-old female with a past medical history significant for intellectual disability, schizoaffective disorder, bipolar type and TBI who was admitted under [place] act for suicidal ideation asking to be shot in the head or put to sleep who is since been admitted to inpatient psychiatry 02/21/18. Hospitalist services have been consulted today for evaluation and management of possible perioral abscess. Schizoaffective disorder, bipolar type -Management per psychiatry Mandibular cellulitis Poor dentition/dental caries CT paranasal sinuses unremarkable CT soft tissue the neck reveals extensive dental caries with periapical lucencies and surrounding cellulitis, no discrete abscess -Received 1 dose of IV clindamycin, pain and symptoms improved per patient. -Transition to p.o. clindamycin -Continue Peridex mouthwash BID -Symptoms resolved, complete p.o clindamycin DVT prophylaxis -Patient is ambulatory Patient is medically cleared to be transferred to inpatient psychiatry, [facility] will sign off.
[2018-03-28] MEDS: Chlorhexidine 0.12% Oral Kit 15 ML UDC OROPHARYNG SCH ×2 (09:17→21:03)
--- NOTE | 2018-03-28 09:17 | P.PNPSY ---
Subjective Remarks: Patient seen and examined with nurse. Chart reviewed. Case discussed with nursing staff. No significant behavioral issues noted overnight. Case discussed with mid-level provider from hospitalist service. Patient is now on oral antibiotics exclusively and is cleared for discharge back to general psychiatric unit from a medical standpoint. On my exam, patient is calm and pleasant. She is enthusiastic about returning to the general psychiatric unit. No mood or psychotic symptoms. No side effects from medications. No physical complaints. Vital Signs Temp Pulse Resp BP Pulse Ox 03/28/18 06:00 98.4 F 65 16 93/54 L 03/28/18 05:37 98.4 F 65 16 93/64 L 95 03/27/18 18:00 97.8 F 81 18 108/57 L Intake and Output 03/27/18 03/28/18 03/28/18 22:59 06:59 14:59 Intake Total 1060 / 1060 720 / 720 720 / 720 Output Total Balance 1060 / 1060 719 / 719 720 / 720 Intake: Oral 960 / 960 720 / 720 720 / 720 Oral Supplement 100 / 100 Output: Urine Labs reviewed. No new labs. Review of Systems All other systems reviewed negative except as stated in HPI Mental Status Examination Appearance: Appropriate (Asks to shower this morning) Consciousness: Alert Orientation: Person, Place (At least) Motor Activity: Other (No motoric abnormalities appreciated) Speech: Unremarkable Language: Adequate Fund of Knowledge: Inadequate Attention and Concentration: Easily distracted Memory: Impaired Mood: Appropriate Affect: Appropriate Thought Process & Associations: Intact Thought Content: Appropriate Hallucination Type: None Delusion Type: None Suicidal Ideation: No (No SI voiced) Homicidal Ideation: No (No HI voiced) Insight: Poor Judgment: Poor Assessment and Plan - Assessment (1) Schizoaffective disorder, bipolar type Code(s): F25.0 - Schizoaffective disorder, bipolar type Status: Acute (2) Acquired intellectual disability Code(s): F79 - Unspecified intellectual disabilities Status: Acute - Plan Plan: Continue current psychotropics as ordered. Once patient re-acclimates to the general inpatient psychiatric unit, we might consider further titration of her oral Prolixin supplementing Prolixin Decanoate. I have notified charge nurse of request for transfer back to general psychiatric unit. Continue other medications and care as ordered. Justification for Continued Inpatient Stay: Risk for decompensation in less restrictive environment Discharge Planning: Placement Request Healthcare Surrogate/Guardian Advocate?: Yes
[2018-03-29] MEDS: Chlorhexidine 0.12% Oral Kit 15 ML UDC OROPHARYNG SCH ×2 (08:44→21:48)
--- NOTE | 2018-03-29 09:47 | P.PNPSY ---
Subjective Remarks: Patient seen and examined. Chart reviewed. Case discussed with nursing staff. Patient tolerating the milieu of the lower acuity unit poorly. She is having frequent outbursts in this less structured environment and so was sent back over to the high acuity unit for closer monitoring, which is where I find the patient. She is pacing in the hallway. She is calm but somewhat dysphoric. No psychotic symptoms. No medication side effects. Vital Signs Temp Pulse Resp BP Pulse Ox 03/29/18 06:15 97.8 F 70 16 118/70 97 Intake and Output 03/28/18 03/29/18 03/29/18 22:59 06:59 14:59 Intake Total 840 / 840 480 / 480 Balance 840 / 840 480 / 480 Intake: Oral 840 / 840 480 / 480 Other: # Voids 1 Weight 65.5 kg Labs reviewed. No new labs. Review of Systems other (Limited ROS. Patient somewhat uncooperative.) Mental Status Examination Appearance: Other (Fair) Consciousness: Alert Orientation: Person, Place (At least) Motor Activity: Other (No abnormal motor movements noted) Speech: Unremarkable Language: Adequate Fund of Knowledge: Inadequate Attention and Concentration: Easily distracted Memory: Impaired Mood: Other (Mildly dysphoric) Affect: Blunt Thought Process & Associations: Intact Thought Content: Appropriate Hallucination Type: None Delusion Type: None Suicidal Ideation: No (No SI voiced) Homicidal Ideation: No (No HI voiced) Insight: Poor Judgment: Poor Assessment and Plan - Assessment (1) Schizoaffective disorder, bipolar type Code(s): F25.0 - Schizoaffective disorder, bipolar type Status: Acute (2) Acquired intellectual disability Code(s): F79 - Unspecified intellectual disabilities Status: Acute - Plan Plan: Transfer back to high acuity unit for closer monitoring. I suspect that the patient was simply struggling with the relatively less structure on the lower acuity unit. We could consider a med change, though, if behaviors persist on the high acuity unit. Continue current medications and care as ordered for now. Justification for Continued Inpatient Stay: High risk for decompensation in less restrictive environment Discharge Planning: Placement. Request Healthcare Surrogate/Guardian Advocate?: Yes
[2018-03-30] MEDS: Chlorhexidine 0.12% Oral Kit 15 ML UDC OROPHARYNG SCH ×2 (08:39→23:55)
--- NOTE | 2018-03-30 10:37 | P.PNPSY ---
Subjective Remarks: Patient seen and examined with counselor and nurse. Chart reviewed. Case discussed with nursing staff. Patient's behavior has improved since moving back to the high acuity unit. Case discussed in treatment team. Counselor reports that he continues to try to work with [facility] on placing this patient. On my examination today, the patient is somewhat perseverative on discharge. She is otherwise calm and childlike. No medication side effects. No physical complaints. Review of Systems All other systems reviewed negative except as stated in HPI (Limitation: Poor historian) Mental Status Examination Appearance: Other (Fair) Consciousness: Alert Orientation: Person, Place (At least) Motor Activity: Other (No motor abnormalities noted) Speech: Unremarkable Language: Adequate Fund of Knowledge: Inadequate Attention and Concentration: Easily distracted Memory: Impaired Mood: Other (Mildly dysphoric) Affect: Other (Childlike) Thought Process & Associations: Intact Thought Content: Appropriate Hallucination Type: None Delusion Type: None Suicidal Ideation: No (No SI voiced) Homicidal Ideation: No (No HI voiced) Insight: Poor Judgment: Poor Assessment and Plan - Assessment (1) Schizoaffective disorder, bipolar type Code(s): F25.0 - Schizoaffective disorder, bipolar type Status: Acute (2) Acquired intellectual disability Code(s): F79 - Unspecified intellectual disabilities Status: Acute - Plan Plan: Continue oral Prolixin supplementing Prolixin Decanoate. Continue to monitor on the high acuity unit. Continue other medications and care as ordered. Justification for Continued Inpatient Stay: Risk for decompensation in less restrictive environment. Discharge Planning: Placement Request Healthcare Surrogate/Guardian Advocate?: Yes
[2018-03-31] MEDS: Chlorhexidine 0.12% Oral Kit 15 ML UDC OROPHARYNG SCH ×2 (09:56→19:33)
--- NOTE | 2018-03-31 15:02 | P.PNPSY ---
Subjective Remarks: Patient was seen and case discussed with nursing. Patient is on good behavior today. Behavior remains childlike. Compliant with medications. No outbursts. Patient is internally preoccupied and pacing throughout the day Mental Status Examination Appearance: Other (Fair) Consciousness: Alert Orientation: Person, Place (At least) Motor Activity: Other (No motor abnormalities noted) Speech: Unremarkable Language: Adequate Fund of Knowledge: Inadequate Attention and Concentration: Easily distracted Memory: Impaired Mood: Other (Mildly dysphoric) Affect: Other (Childlike) Thought Process & Associations: Intact Thought Content: Appropriate Hallucination Type: None Delusion Type: None Suicidal Ideation: No (No SI voiced) Suicidal Plan: No Suicidal Intention: No Homicidal Ideation: No (No HI voiced) Homicidal Plan: No Homicidal Intention: No Insight: Poor Judgment: Poor Assessment and Plan - Assessment (1) Schizoaffective disorder, bipolar type Code(s): F25.0 - Schizoaffective disorder, bipolar type Status: Acute (2) Acquired intellectual disability Code(s): F79 - Unspecified intellectual disabilities Status: Acute - Plan Plan: Continue current treatment plan Justification for Continued Inpatient Stay: Patient would decompensate in a less restrictive setting Request Healthcare Surrogate/Guardian Advocate?: Yes
[2018-04-01] MEDS: Chlorhexidine 0.12% Oral Kit 15 ML UDC OROPHARYNG SCH (09:14)
--- NOTE | 2018-04-01 15:52 | P.PNPSY ---
Subjective Remarks: Patient was seen and case discussed with nursing. Today patient's behavior is more pronounced. Per nursing, she has been labile, loud and intrusive. For my interview she minimizes her behavior and acts dumbfounded when asked about her day. Compliant with her medications. Mental Status Examination Appearance: Other (Fair) Consciousness: Alert Orientation: Person, Place (At least) Motor Activity: Other (No motor abnormalities noted) Speech: Unremarkable Language: Adequate Fund of Knowledge: Inadequate Attention and Concentration: Easily distracted Memory: Impaired Mood: Irritable, Other (Mildly dysphoric) Affect: Labile Thought Process & Associations: Intact Thought Content: Appropriate Hallucination Type: None Delusion Type: None Suicidal Ideation: No (No SI voiced) Suicidal Plan: No Suicidal Intention: No Homicidal Ideation: No (No HI voiced) Homicidal Plan: No Homicidal Intention: No Insight: Poor Judgment: Poor Assessment and Plan - Assessment (1) Schizoaffective disorder, bipolar type Code(s): F25.0 - Schizoaffective disorder, bipolar type Status: Acute (2) Acquired intellectual disability Code(s): F79 - Unspecified intellectual disabilities Status: Acute - Plan Plan: Continue current treatment plan Justification for Continued Inpatient Stay: Patient would decompensate in a less restrictive setting Request Healthcare Surrogate/Guardian Advocate?: Yes
[2018-04-01] MEDS: LORazepam 0.5 MG Tablet PO PRN (17:19)
[2018-04-02] MEDS: Chlorhexidine 0.12% Oral Kit 15 ML UDC OROPHARYNG SCH (08:27)
--- NOTE | 2018-04-02 10:44 | P.PNPSY ---
Subjective Remarks: Patient seen and examined with nurse. Chart reviewed. Case discussed with nursing staff. No behavioral issues noted overnight. Case discussed with counselor who continues to work to try to obtain placement for patient. On my examination today, patient is ambulating around the unit with a steady gait. She is calm but not interested in extended interview. No SI or HI. No mood or psychotic symptoms in evidence. No side effects from medications. No physical complaints. Vital Signs Temp Pulse Resp BP Pulse Ox 04/01/18 18:05 97.5 F L 84 18 126/77 100 Intake and Output 04/02/18 04/02/18 04/02/18 06:59 14:59 22:59 Other: Weight 65.1 kg Labs reviewed. No new labs. Review of Systems other (Limitation, uncooperative today) Mental Status Examination Appearance: Other (Fair) Consciousness: Alert Orientation: Person, Place (At least) Motor Activity: Other (No abnormal motor movements noted) Speech: Unremarkable Language: Adequate Fund of Knowledge: Inadequate Attention and Concentration: Easily distracted Memory: Impaired Mood: Other (Mildly dysphoric) Affect: Blunt Thought Process & Associations: Intact Thought Content: Appropriate Hallucination Type: None Delusion Type: None Suicidal Ideation: No (No SI voiced) Homicidal Ideation: No (No HI voiced) Insight: Poor Judgment: Poor Assessment and Plan - Assessment (1) Schizoaffective disorder, bipolar type Code(s): F25.0 - Schizoaffective disorder, bipolar type Status: Acute (2) Acquired intellectual disability Code(s): F79 - Unspecified intellectual disabilities Status: Acute - Plan Plan: Continue current psychotropics as ordered. Continue to monitor on the inpatient unit. Continue other medications and care as ordered. Justification for Continued Inpatient Stay: Risk for decompensation in less restrictive environment Discharge Planning: Placement Request Healthcare Surrogate/Guardian Advocate?: Yes
[2018-04-03] MEDS: Chlorhexidine 0.12% Oral Kit 15 ML UDC OROPHARYNG SCH (09:00)
--- NOTE | 2018-04-03 11:02 | P.PNPSY ---
Subjective Remarks: Patient seen and examined with counselor and nurse. Chart reviewed. Case discussed with nursing staff. Patient remains unchanged per nursing. Case discussed in treatment team. Case also discussed with counselor insurance agents supervisor Noble Silva. She reports that she has been getting the runaround from [facility] regarding assistance with arranging placement for this patient. She says that [facility] is maintaining that they have made referrals throughout the [facility] without success and so [facility] is requesting we refer patient to [facility]. Counselor insurance agents supervisor doubts the veracity of this report, though, because there has been no request for notes and other clinical documents that normally are required for placement. She plans to contact higher level branch office administrator with [facility] to try to spur some genuine action and assistance from [facility] but requests I make [facility] referral as a 'last resort' backup plan. On my examination today, the patient is calm and no behavioral problem. She denies AVH. No SI or HI. Denies side effects from medications. No physical complaints. Patient did refuse vital signs this morning. Labs reviewed. No new labs. Review of Systems All other systems reviewed negative except as stated in HPI (Limitation: Poor historian) Mental Status Examination Appearance: Other (Fair grooming and hygiene) Consciousness: Alert Orientation: Person, Place (At least) Motor Activity: Other (No motoric abnormalities appreciated) Speech: Unremarkable Language: Adequate Fund of Knowledge: Inadequate Attention and Concentration: Easily distracted Memory: Impaired Mood: Other (Calm) Affect: Blunt Thought Process & Associations: Intact Thought Content: Appropriate Hallucination Type: None Delusion Type: None Suicidal Ideation: No (No SI voiced) Homicidal Ideation: No (No HI voiced) Insight: Poor Judgment: Poor Assessment and Plan - Assessment (1) Schizoaffective disorder, bipolar type Code(s): F25.0 - Schizoaffective disorder, bipolar type Status: Acute (2) Acquired intellectual disability Code(s): F79 - Unspecified intellectual disabilities Status: Acute - Plan Plan: Continue current psychotropic medications as ordered. Continue to monitor on the inpatient unit. Continue other care as ordered. Justification for Continued Inpatient Stay: High risk for decompensation in less restrictive environment. Discharge Planning: I will initiate a [facility] referral as counselor insurance agents supervisor requests, although it is my hope that we will be able to arrange for suitable placement for this patient. Request Healthcare Surrogate/Guardian Advocate?: Yes
[2018-04-03] MEDS: LORazepam 0.5 MG Tablet PO PRN (12:43)
--- NOTE | 2018-04-04 09:38 | P.PNPSY ---
Subjective Remarks: Patient seen and examined with nurse. Chart reviewed. Case discussed with nursing staff who reports patient had a tantrum yesterday evening related to her desire to return home. On my examination today, the patient is somewhat disheveled and malodorous. I endeavored to discuss the discharge plan with her , but patient responds only with coprolalic speech. She is somewhat oppositional. Later in the morning, patient pacing up and down the unit yelling "fuck you" to no one in particular. No side effects from medications. No physical complaints. Vital Signs Temp Pulse Resp BP Pulse Ox 04/04/18 06:25 97.7 F 64 17 96/62 L 98 Labs reviewed. No new labs. Review of Systems All other systems reviewed negative except as stated in HPI (Limitation: Poor historian) Mental Status Examination Appearance: Disheveled, Malodorous Consciousness: Alert Orientation: Person, Place (At least) Motor Activity: Other (No abnormal motor movements noted) Speech: Unremarkable Language: Adequate Fund of Knowledge: Inadequate Attention and Concentration: Easily distracted Memory: Impaired Mood: Angry, Oppositional Affect: Irritable Thought Process & Associations: Intact Thought Content: Appropriate Hallucination Type: None Delusion Type: None Suicidal Ideation: No (No SI voiced) Homicidal Ideation: No (No HI voiced) Insight: Poor Judgment: Poor Assessment and Plan - Assessment (1) Schizoaffective disorder, bipolar type Code(s): F25.0 - Schizoaffective disorder, bipolar type Status: Acute (2) Acquired intellectual disability Code(s): F79 - Unspecified intellectual disabilities Status: Acute - Plan Plan: Suspect patient is regressing somewhat and tantruming because of displeasure related to discharge plan. No evidence of decompensated psychosis. She might benefit from a mood stabilizer like CBZ or VPA to help manage irritability. I put out a call to [facility] guardian to discuss possibility of adding such an agent, awaiting a call back. Continue current medications as ordered for now. Continue to monitor on the inpatient unit. Nurse to assist with maintenance of hygiene. Continue other care as ordered. Justification for Continued Inpatient Stay: High risk for decompensation in less restrictive environment Discharge Planning: Placement versus state hospitalization Request Healthcare Surrogate/Guardian Advocate?: Yes
[2018-04-04] MEDS: LORazepam 0.5 MG Tablet PO PRN ×2 (09:45→19:38)
[2018-04-04] MEDS: Chlorhexidine 0.12% Oral Kit 15 ML UDC OROPHARYNG SCH (14:14)
[2018-04-04] MEDS: carBAMazepine 200 MG Tablet PO SCH (20:08)
[2018-04-05] MEDS: LORazepam 0.5 MG Tablet PO PRN ×2 (08:14→20:12)
[2018-04-05] MEDS: Chlorhexidine 0.12% Oral Kit 15 ML UDC OROPHARYNG SCH (08:15)
[2018-04-05] MEDS: carBAMazepine 200 MG Tablet PO SCH ×2 (08:15→21:11)
--- NOTE | 2018-04-05 13:45 | P.PNPSY ---
Subjective Remarks: Patient seen and examined with nurse. Chart reviewed. Case discussed with nursing staff. Patient had an outburst this morning after some of her beverages were accidentally spilled. On my examination, the patient is calm but oppositional. She apparently was refusing to brush her teeth this morning and says "when I get home to use the toothpaste." She remains a little bit malodorous, and when I suggest that she allow staff to assist her with this she says "no, I do that myself thank you." No side effects from medications. No physical complaints. Vital Signs Temp Pulse Resp BP Pulse Ox 04/05/18 17:34 98 F 72 17 101/50 L 99 04/05/18 06:00 97.5 F L 87 17 102/65 98 Labs reviewed. No new labs. Review of Systems All other systems reviewed negative except as stated in HPI (Limitation: Poor historian) Mental Status Examination Appearance: Disheveled, Malodorous Consciousness: Alert Orientation: Person, Place (At least) Motor Activity: Other (No motoric abnormalities noted) Speech: Unremarkable Language: Adequate Fund of Knowledge: Inadequate Attention and Concentration: Easily distracted Memory: Impaired Mood: Oppositional Affect: Irritable Thought Process & Associations: Intact Thought Content: Appropriate Hallucination Type: None Delusion Type: None Suicidal Ideation: No (No SI voiced) Homicidal Ideation: No (No HI voiced) Insight: Poor Judgment: Poor Assessment and Plan - Assessment (1) Schizoaffective disorder, bipolar type Code(s): F25.0 - Schizoaffective disorder, bipolar type Status: Acute (2) Acquired intellectual disability Code(s): F79 - Unspecified intellectual disabilities Status: Acute - Plan Plan: Patient tolerating addition of carbamazepine well without evident side effects. We will likely titrate this agent if needed tomorrow or over the weekend and plan to obtain a level next week. Continue to monitor on the inpatient unit. Staff to assist with hygiene tasks. Continue other medications and care as ordered. Justification for Continued Inpatient Stay: High risk for decompensation in less restrictive environment Discharge Planning: Placement versus state hospitalization Request Healthcare Surrogate/Guardian Advocate?: Yes
--- NOTE | 2018-04-06 10:47 | P.PNPSY ---
Subjective Remarks: Patient seen and examined with nurse and counselor. Chart reviewed. Case discussed with nursing staff. No behavioral issues noted overnight. Case discussed in treatment team. On my examination today, the patient is calm. She denies AVH. She is requesting more chocolate Ensure because she says it helps "calm me down." No medication side effects. No physical complaints. Vital Signs Temp Pulse Resp BP Pulse Ox 04/06/18 06:51 98.3 F 62 18 101/69 98 04/05/18 17:34 98 F 72 17 101/50 L 99 Labs reviewed. No new labs. Review of Systems All other systems reviewed negative except as stated in HPI (Limitation: poor historian) Mental Status Examination Appearance: Other (Fair grooming) Consciousness: Alert Orientation: Person, Place (At least) Motor Activity: Other (No motor abnormalities noted.) Speech: Unremarkable Language: Adequate Fund of Knowledge: Inadequate Attention and Concentration: Easily distracted Memory: Impaired Mood: Appropriate Affect: Blunt Thought Process & Associations: Intact Thought Content: Appropriate Hallucination Type: None Delusion Type: None Suicidal Ideation: No (No SI voiced) Homicidal Ideation: No (No HI voiced) Insight: Poor Judgment: Poor Assessment and Plan - Assessment (1) Schizoaffective disorder, bipolar type Code(s): F25.0 - Schizoaffective disorder, bipolar type Status: Acute (2) Acquired intellectual disability Code(s): F79 - Unspecified intellectual disabilities Status: Acute - Plan Plan: Continue current psychiatric medications as ordered. To consider further titration of patient's carbamazepine. Plan to check a carbamazepine level beginning of next week. Continue to monitor on the inpatient unit. Continue other medications and care as ordered. Justification for Continued Inpatient Stay: High risk for decompensation in less restrictive environment Discharge Planning: Placement versus state hospitalization Request Healthcare Surrogate/Guardian Advocate?: Yes
[2018-04-06] MEDS: carBAMazepine 200 MG Tablet PO SCH ×2 (13:47→20:59)
[2018-04-06] MEDS: LORazepam 0.5 MG Tablet PO PRN (14:37)
[2018-04-07] MEDS: LORazepam 0.5 MG Tablet PO PRN (09:15)
[2018-04-07] MEDS: carBAMazepine 200 MG Tablet PO SCH ×2 (09:15→20:33)
[2018-04-07] MEDS: Chlorhexidine 0.12% Oral Kit 15 ML UDC OROPHARYNG SCH (12:07)
--- NOTE | 2018-04-07 14:59 | P.PNPSY ---
Subjective Chief Complaint: Schizoaffective , bipolar type. Acquired Intellectual Disability Remarks: Chart reviewed and discussed with nursing staff. Rounded on patient Serina YO. Patient was found in hallway she states she is walking to get some exercise. She is very focused on consuming milk and coffee. She states that these two drinks help her to calm down. She is complaining of mild abdominal distress, but she has just consumed several donuts after lunch in addition to several cups of coffee. She states that she had a formed bowel movement this morning. She denies any auditory or visual hallucinations. She said that she slept well. She was encouraged to continue to participate in her hygiene. She was also encouraged to participate in outdoor and unit activities. There are no behavioral concerns at this time. She is easily redirected and appears to be get along with other patients on the unit. Review of Systems All other systems reviewed negative except as stated in HPI Gastrointestinal: Reports other (discomfort ) Mental Status Examination Appearance: Other (Fair grooming) Consciousness: Alert Orientation: Person, Place (At least) Motor Activity: Other (No motor abnormalities noted.) Speech: Unremarkable Language: Adequate Fund of Knowledge: Inadequate Attention and Concentration: Easily distracted Memory: Impaired Mood: Appropriate Affect: Blunt Thought Process & Associations: Intact Thought Content: Appropriate Hallucination Type: None Delusion Type: None Suicidal Ideation: No (No SI voiced) Suicidal Plan: No Suicidal Intention: No Homicidal Ideation: No (No HI voiced) Homicidal Plan: No Homicidal Intention: No Insight: Poor Judgment: Poor Assessment and Plan - Assessment (1) Acquired intellectual disability Code(s): F79 - Unspecified intellectual disabilities Status: Acute (2) Schizoaffective disorder, bipolar type Code(s): F25.0 - Schizoaffective disorder, bipolar type Status: Acute - Plan Plan: Continue current psychiatric medications as ordered. To consider further titration of patient's carbamazepine. Plan to check a carbamazepine level beginning of next week. Continue to monitor on the inpatient unit. Continue other medications and care as ordered. Justification for Continued Inpatient Stay: Moving patient to a lower level of care may result in her decompensation. Discharge Planning: Discharge planning in progress. Request Healthcare Surrogate/Guardian Advocate?: Yes
[2018-04-08] MEDS: Chlorhexidine 0.12% Oral Kit 15 ML UDC OROPHARYNG SCH ×2 (07:48→08:04)
[2018-04-08] MEDS: carBAMazepine 200 MG Tablet PO SCH ×2 (08:04→20:09)
[2018-04-08] MEDS: LORazepam 0.5 MG Tablet PO PRN ×2 (08:05→14:01)
--- NOTE | 2018-04-08 16:19 | P.PNPSY ---
Subjective Chief Complaint: Schizoaffective , bipolar type. Acquired Intellectual Disability Remarks: Reviewed electronic medical records and discussed case with staff. Follow-up was conducted in the day room. Patient's nurse reports that she remains discharge focused and today she has been responding to internal stimuli, screaming, and spitting in the nurses face. Consulted with Dr. Sellers and have increased her carbamazepine dose to 200 mg twice a day as well as increasing her as needed Ativan dose to 1 mg. Patient reports that she has been sleeping well and her appetite is good. She is appropriate throughout the interview however, this is after having received 2 ETO doses of Ativan today. Mental Status Examination Appearance: Other (Fair grooming) Consciousness: Alert Orientation: Person, Place (At least) Motor Activity: Other (No motor abnormalities noted.) Speech: Unremarkable Language: Adequate Fund of Knowledge: Inadequate Attention and Concentration: Easily distracted Memory: Impaired Mood: Appropriate Affect: Blunt Thought Process & Associations: Intact Thought Content: Appropriate Hallucination Type: None Delusion Type: None Suicidal Ideation: No (No SI voiced) Suicidal Plan: No Suicidal Intention: No Homicidal Ideation: No (No HI voiced) Homicidal Plan: No Homicidal Intention: No Insight: Poor Judgment: Poor Assessment and Plan - Assessment (1) Schizoaffective disorder, bipolar type Code(s): F25.0 - Schizoaffective disorder, bipolar type Status: Acute - Plan Plan: Patient will be reevaluated tomorrow by the attending psychiatrist. Continue with current treatment plan. She is awaiting placement at the state facility. Justification for Continued Inpatient Stay: Moving this patient to a less restrictive environment would likely result in decompensation. Request Healthcare Surrogate/Guardian Advocate?: Yes
[2018-04-08] MEDS: LORazepam 1 MG Tablet PO PRN (20:09)
[2018-04-09] MEDS: carBAMazepine 200 MG Tablet PO SCH ×3 (08:31→20:52)
[2018-04-09] MEDS: Chlorhexidine 0.12% Oral Kit 15 ML UDC OROPHARYNG SCH (08:34)
--- NOTE | 2018-04-09 09:24 | P.PNPSY ---
Subjective Chief Complaint: Schizoaffective , bipolar type. Acquired Intellectual Disability Remarks: Patient seen and examined with nurse. Chart reviewed. Case discussed with nursing staff. Intermittent tantrums yesterday per nurse. On my examination today, the patient remained somewhat behavioral and easily agitated. She is fixated on discharge. No psychotic symptoms. No medication side effects. No physical complaints. Vital Signs Temp Pulse Resp BP Pulse Ox 04/08/18 16:06 98.1 F 91 H 18 117/59 L 98 Labs reviewed. No new labs. Review of Systems other (Uncooperative) Mental Status Examination Appearance: Other (Fair grooming) Consciousness: Alert Orientation: Person, Place (At least) Motor Activity: Other (No abnormal motor movements noted) Speech: Unremarkable Language: Adequate Fund of Knowledge: Inadequate Attention and Concentration: Easily distracted Memory: Impaired Mood: Oppositional, Irritable Affect: Blunt, Other (Dysphoric) Thought Process & Associations: Intact Thought Content: Appropriate Hallucination Type: None Delusion Type: None Suicidal Ideation: No (No SI voiced) Homicidal Ideation: No (No HI voiced) Insight: Poor Judgment: Poor Assessment and Plan - Assessment (1) Schizoaffective disorder, bipolar type Code(s): F25.0 - Schizoaffective disorder, bipolar type Status: Acute (2) Acquired intellectual disability Code(s): F79 - Unspecified intellectual disabilities Status: Acute - Plan Plan: Titrate carbamazepine to 200 mg twice daily and plan to obtain a carbamazepine level later in the week. Continue other psychotropics as ordered. Continue to monitor on the high acuity unit. Continue other medications and care as ordered. Justification for Continued Inpatient Stay: Medication changes. Impairment in social function. Impairment in self-care. High risk for decompensation in less restrictive environment. Discharge Planning: Placement Request Healthcare Surrogate/Guardian Advocate?: Yes
[2018-04-09] MEDS: LORazepam 1 MG Tablet PO PRN (13:32)
[2018-04-10] MEDS: Chlorhexidine 0.12% Oral Kit 15 ML UDC OROPHARYNG SCH (08:37)
[2018-04-10] MEDS: carBAMazepine 200 MG Tablet PO SCH ×2 (08:38→20:26)
[2018-04-10] MEDS: LORazepam 1 MG Tablet PO PRN ×2 (10:40→16:11)
--- NOTE | 2018-04-10 10:42 | P.PNPSY ---
Subjective Remarks: Patient seen and examined in hallway. Chart reviewed. Case discussed with nursing staff. Patient continues to tantrum off and on. She does get quite animated, yelling coprolalic phrases to herself. Case discussed in treatment team. Therapist requests that patient not be allowed to go out for groups if she is acting out as this only reinforces the behavior, and I have placed an order to this effect. On my examination today, the patient is having one of her outbursts. She is yelling expletives. She is placed in the short neumann for a timeout and calms. No evident side effects from medications. No physical complaints. Vital Signs Temp Pulse BP Pulse Ox 04/09/18 17:01 97.2 F L 80 121/68 100 Labs reviewed. No new labs. Review of Systems other (Uncooperative) Mental Status Examination Appearance: Other (Fair grooming) Consciousness: Alert Orientation: Person, Place (At least) Motor Activity: Other (No motor abnormalities noted) Speech: Unremarkable Language: Adequate Fund of Knowledge: Inadequate Attention and Concentration: Easily distracted Memory: Impaired Mood: Oppositional, Irritable Affect: Irritable, Other (Dysphoric) Thought Process & Associations: Intact Thought Content: Appropriate Hallucination Type: None Delusion Type: None Suicidal Ideation: No (No SI voiced) Homicidal Ideation: No (No HI voiced) Insight: Poor Judgment: Poor Assessment and Plan - Assessment (1) Schizoaffective disorder, bipolar type Code(s): F25.0 - Schizoaffective disorder, bipolar type Status: Acute (2) Acquired intellectual disability Code(s): F79 - Unspecified intellectual disabilities Status: Acute - Plan Plan: Continue oral Prolixin and carbamazepine as ordered. Carbamazepine level ordered for tomorrow. I will plan to titrate the patient's Prolixin Decanoate when it is next due this Monday to 50 mg IM to try to manage behaviors. Continue to monitor on the high acuity unit. Continue other medications and care as ordered. Justification for Continued Inpatient Stay: Medication changes. High risk for decompensation in less restrictive environment. Discharge Planning: Placement versus state psychiatric hospitalization Request Healthcare Surrogate/Guardian Advocate?: Yes
[2018-04-11] MEDS: carBAMazepine 200 MG Tablet PO SCH ×2 (08:10→20:46)
--- NOTE | 2018-04-11 11:16 | P.PNPSY ---
Subjective Remarks: Patient seen and examined with nurse. Chart reviewed. Case discussed with nursing staff. Patient had behavioral outbursts much of the day yesterday and spent a fair amount of time in time out in the short haul. On my examination today, the patient is calm and pacing around in the long hallway. She is somewhat argumentative and fixated on returning home. No psychotic symptoms. No side effects from medications. No physical complaints. Refused vitals this morning. Refused Tegretol level. I have reordered this for tomorrow morning. Review of Systems other (Uncooperative) Mental Status Examination Appearance: Other (Fair grooming) Consciousness: Alert Orientation: Person, Place (At least) Motor Activity: Other (No motor abnormalities noted) Speech: Unremarkable Language: Adequate Fund of Knowledge: Inadequate Attention and Concentration: Easily distracted Memory: Impaired Mood: Oppositional Affect: Other (Petulant) Thought Process & Associations: Intact Thought Content: Appropriate Hallucination Type: None Delusion Type: None Suicidal Ideation: No (No SI voiced) Homicidal Ideation: No (No HI voiced) Insight: Poor Judgment: Poor Assessment and Plan - Assessment (1) Schizoaffective disorder, bipolar type Code(s): F25.0 - Schizoaffective disorder, bipolar type Status: Acute (2) Acquired intellectual disability Code(s): F79 - Unspecified intellectual disabilities Status: Acute - Plan Plan: Continue current psychotropics as ordered. Carbamazepine level rescheduled for tomorrow morning. Continue to monitor on the inpatient unit. Continue other medications and care as ordered. Justification for Continued Inpatient Stay: High risk for decompensation in less restrictive setting. Discharge Planning: Placement versus state psychiatric hospitalization. Request Healthcare Surrogate/Guardian Advocate?: Yes
[2018-04-11] MEDS: LORazepam 1 MG Tablet PO PRN (14:56)
[2018-04-11] MEDS: LORazepam 0.5 MG Tablet PO PRN (20:46)
[2018-04-12] MEDS: carBAMazepine 200 MG Tablet PO SCH ×2 (08:42→21:22)
[2018-04-12] MEDS: LORazepam 1 MG Tablet PO PRN ×2 (11:35→21:22)
--- NOTE | 2018-04-12 11:50 | P.PNPSY ---
Subjective Remarks: Patient seen and examined with counselor and nurse. Chart reviewed. Case discussed with nursing staff who reports patient is having ongoing periodic tantrums. Case discussed with counselor who reports that [facility] is looking at trying to get the patient into an [facility] bed in [place]. On my examination today, the patient presents as a little bit petulant and dysphoric. She continues to fixated on returning home, although we have discussed the impossibility of this multiple times. When I raised the possibility of placement as detailed above, the patient abruptly concludes the interview and stalks off. No medication side effects. No physical complaints. Vital Signs Temp Pulse Resp BP Pulse Ox 04/12/18 06:17 97.5 F L 67 18 115/73 98 Intake and Output 04/11/18 04/12/18 04/12/18 22:59 06:59 14:59 Intake Total 1320 / 1320 Output Total Balance 1319 / 1319 Intake: Oral 720 / 720 Oral Supplement 600 / 600 Output: Urine Other: # Voids 3 Labs reviewed. CBZ level not available. Nurse checked with lab and sample not received. Review of Systems other (Uncooperative) Mental Status Examination Appearance: Other (Fair grooming) Consciousness: Alert Orientation: Person, Place (At least) Motor Activity: Other (No abnormal motor movements noted) Speech: Unremarkable Language: Adequate Fund of Knowledge: Inadequate Attention and Concentration: Easily distracted Memory: Impaired Mood: Oppositional Affect: Other (Remains fairly petulant) Thought Process & Associations: Intact Thought Content: Appropriate Hallucination Type: None Delusion Type: None Suicidal Ideation: No (No SI voiced) Homicidal Ideation: No (No HI voiced) Insight: Poor Judgment: Poor Assessment and Plan - Assessment (1) Schizoaffective disorder, bipolar type Code(s): F25.0 - Schizoaffective disorder, bipolar type Status: Acute (2) Acquired intellectual disability Code(s): F79 - Unspecified intellectual disabilities Status: Acute - Plan Plan: I have reordered CBZ level for tomorrow morning and discussed the matter with nurse. Continue current psychotropics as ordered. Patient will receive booster dose of Prolixin Decanoate tomorrow. Continue to monitor on inpatient unit. Continue other medications and care as ordered. Justification for Continued Inpatient Stay: High risk for decompensation in less restrictive environment. Discharge Planning: Placement. Request Healthcare Surrogate/Guardian Advocate?: Yes
[2018-04-13] MEDS: carBAMazepine 200 MG Tablet PO SCH ×2 (08:45→20:42)
--- NOTE | 2018-04-13 09:50 | P.PNPSY ---
Subjective Remarks: Patient seen and examined with nurse. Chart reviewed. Case discussed with nursing staff. Patient continues to have intermittent behavioral outbursts. Case discussed in treatment team. On my examination today, the patient is upset about Prolixin Decanoate injection ordered for today. She is tolerating medications well without side effects but simply does not wish to receive this injection. She tells me "I am not a drug addict, you asshole." No side effects from medications. No physical complaints. Refusing vital signs. Refused carbamazepine level this morning. Review of Systems other (Uncooperative) Mental Status Examination Appearance: Other (Fair grooming) Consciousness: Alert Orientation: Person, Place (At least) Motor Activity: Other (No motor abnormalities noted) Speech: Unremarkable Language: Adequate Fund of Knowledge: Inadequate Attention and Concentration: Easily distracted Memory: Impaired Mood: Oppositional Affect: Other (Dysphoric) Thought Process & Associations: Intact Thought Content: Appropriate Hallucination Type: None Delusion Type: None Suicidal Ideation: No (No SI voiced) Homicidal Ideation: No (No HI voiced) Insight: Poor Judgment: Poor Assessment and Plan - Assessment (1) Schizoaffective disorder, bipolar type Code(s): F25.0 - Schizoaffective disorder, bipolar type Status: Acute (2) Acquired intellectual disability Code(s): F79 - Unspecified intellectual disabilities Status: Acute - Plan Plan: Prolixin Decanoate 50 mg IM today. Continue oral Prolixin supplementation. Continue carbamazepine as ordered, although this agent does not seem to have been terribly successful in reducing frequency of patient's tantrums. To consider discontinuing this agent due to lack of efficacy. Continue to monitor on the inpatient unit. Continue other medications and care as ordered. Justification for Continued Inpatient Stay: High risk for decompensation in less restrictive environment. Discharge Planning: Placement Request Healthcare Surrogate/Guardian Advocate?: Yes
[2018-04-13] MEDS: LORazepam 1 MG Tablet PO PRN (20:42)
[2018-04-14] MEDS: LORazepam 1 MG Tablet PO PRN ×2 (09:28→20:43)
[2018-04-14] MEDS: carBAMazepine 200 MG Tablet PO SCH ×2 (09:28→20:35)
--- NOTE | 2018-04-14 17:31 | P.PNPSY ---
Subjective Chief Complaint: Schizoaffective , bipolar type. Acquired Intellectual Disability Remarks: Patient was seen and case discussed with nursing. Patient is labile and internally preoccupied. She has outbursts throughout the day where she is yelling loudly. Insight remains quite poor. Compliant with medications Mental Status Examination Appearance: Other (Fair grooming) Consciousness: Alert Orientation: Person, Place (At least) Motor Activity: Other (No motor abnormalities noted) Speech: Unremarkable Language: Adequate Fund of Knowledge: Inadequate Attention and Concentration: Easily distracted Memory: Impaired Mood: Oppositional Affect: Other (Dysphoric) Thought Process & Associations: Intact Thought Content: Appropriate Hallucination Type: None Delusion Type: None Suicidal Ideation: No (No SI voiced) Suicidal Plan: No Suicidal Intention: No Homicidal Ideation: No (No HI voiced) Homicidal Plan: No Homicidal Intention: No Insight: Poor Judgment: Poor Assessment and Plan - Assessment (1) Schizoaffective disorder, bipolar type Code(s): F25.0 - Schizoaffective disorder, bipolar type Status: Acute (2) Acquired intellectual disability Code(s): F79 - Unspecified intellectual disabilities Status: Acute - Plan Plan: Continue current treatment plan Justification for Continued Inpatient Stay: Patient would decompensate in a less restrictive setting Request Healthcare Surrogate/Guardian Advocate?: Yes
[2018-04-15] MEDS: carBAMazepine 200 MG Tablet PO SCH ×2 (08:29→20:53)
[2018-04-15] MEDS: LORazepam 1 MG Tablet PO PRN (13:54)
--- NOTE | 2018-04-15 14:57 | P.PNPSY ---
Subjective Chief Complaint: Schizoaffective , bipolar type. Acquired Intellectual Disability Remarks: Patient was seen and case discussed with nursing. Patient remains labile disorganized and attention seeking. She received as needed Ativan and early afternoon. She is apologetic for her behavior during the interview Mental Status Examination Appearance: Other (Fair grooming) Consciousness: Alert Orientation: Person, Place (At least) Motor Activity: Other (No motor abnormalities noted) Speech: Unremarkable Language: Adequate Fund of Knowledge: Inadequate Attention and Concentration: Easily distracted Memory: Impaired Mood: Oppositional Affect: Other (Dysphoric) Thought Process & Associations: Intact Thought Content: Appropriate Hallucination Type: None Delusion Type: None Suicidal Ideation: No (No SI voiced) Suicidal Plan: No Suicidal Intention: No Homicidal Ideation: No (No HI voiced) Homicidal Plan: No Homicidal Intention: No Insight: Poor Judgment: Poor Assessment and Plan - Assessment (1) Schizoaffective disorder, bipolar type Code(s): F25.0 - Schizoaffective disorder, bipolar type Status: Acute (2) Acquired intellectual disability Code(s): F79 - Unspecified intellectual disabilities Status: Acute - Plan Plan: Continue current treatment plan Justification for Continued Inpatient Stay: Patient would decompensate in a less restrictive setting Request Healthcare Surrogate/Guardian Advocate?: Yes
[2018-04-16] MEDS: carBAMazepine 200 MG Tablet PO SCH ×2 (08:12→20:16)
[2018-04-16] MEDS: LORazepam 1 MG Tablet PO PRN ×2 (08:12→20:16)
--- NOTE | 2018-04-16 09:48 | P.PNPSY ---
Subjective Remarks: Patient seen and examined with nurse. Chart reviewed. CBZ level lower end of therapeutic range. Case discussed with nursing staff. Patient continues to struggle with intermittent outbursts, especially prominent following mother's visit Monday. Nurse reports mother was also complaining of a "scratch" on patient's chest wall. I have examined the area with nurse and see a perhaps 1cm scratch on the right chest wall, barely noticeable. Patient can provide no explanation for this lesion. On my examination today, patient is presently calm. She tells me "it's a little bit funny, but I know my meds are working." Denies SI/HI. Denies AVH. No reported side effects from medications. No physical complaints. Vital Signs Temp Pulse BP Pulse Ox 04/15/18 17:21 98.0 F 80 85/48 L 99 Labs reviewed. No new labs. Review of Systems All other systems reviewed negative except as stated in HPI (Limitation: Poor historian) Mental Status Examination Appearance: Other (Fair grooming) Consciousness: Alert Orientation: Person, Place (At least) Motor Activity: Other (No abnormal motor movements noted) Speech: Unremarkable Language: Adequate Fund of Knowledge: Inadequate Attention and Concentration: Easily distracted Memory: Impaired Mood: Other (Calm) Affect: Blunt Thought Process & Associations: Intact Thought Content: Appropriate Hallucination Type: None Delusion Type: None Suicidal Ideation: No (No SI voiced) Homicidal Ideation: No (No HI voiced) Insight: Poor Judgment: Poor Assessment and Plan - Assessment (1) Schizoaffective disorder, bipolar type Code(s): F25.0 - Schizoaffective disorder, bipolar type Status: Acute (2) Acquired intellectual disability Code(s): F79 - Unspecified intellectual disabilities Status: Acute - Plan Plan: Continue current psychotropics as ordered. We could consider tapering and discontinuing patient's carbamazepine due to lack of efficacy, but the patient herself seems to feel she is deriving some benefit from it, and so I will continue this medication for now. Continue to monitor on the inpatient unit. Continue other medications and care as ordered. Justification for Continued Inpatient Stay: High risk for decompensation in less restrictive environment. Discharge Planning: Placement Request Healthcare Surrogate/Guardian Advocate?: Yes
[2018-04-17] MEDS: carBAMazepine 200 MG Tablet PO SCH ×2 (08:15→20:38)
[2018-04-17] MEDS: LORazepam 1 MG Tablet PO PRN (08:39)
--- NOTE | 2018-04-17 11:20 | P.PNPSY ---
Subjective Remarks: Patient seen and examined with counselor and nurse. Chart reviewed. Case discussed with nursing staff. Nurse notes that patient seems to do well when she receives a dose of benzodiazepine in the morning and early afternoon. Nursing wonders if we might schedule doses of Lorazepam for this patient. On my examination today, the patient does indeed seem somewhat calmer. No mood or psychotic symptoms. Remains perseverative on going home. Denies side effects from medications. No physical complaints. Refused vital signs. Laboratories reviewed: No new labs. Review of Systems All other systems reviewed negative except as stated in HPI (Limitation: Poor historian) Mental Status Examination Appearance: Other (Fair grooming) Consciousness: Alert Orientation: Person, Place (At least) Motor Activity: Other (No motoric abnormalities noted) Speech: Unremarkable Language: Adequate Fund of Knowledge: Inadequate Attention and Concentration: Easily distracted Memory: Impaired Mood: Other (Calm) Affect: Blunt Thought Process & Associations: Intact Thought Content: Appropriate Hallucination Type: None Delusion Type: None Suicidal Ideation: No Homicidal Ideation: No Insight: Poor Judgment: Poor Assessment and Plan - Assessment (1) Schizoaffective disorder, bipolar type Code(s): F25.0 - Schizoaffective disorder, bipolar type Status: Acute (2) Acquired intellectual disability Code(s): F79 - Unspecified intellectual disabilities Status: Acute - Plan Plan: Add scheduled dose of Ativan 1 mg morning and afternoon. I have obtained consent for this medication from patient's FAVIO GA. continue other psychotropics as ordered. Continue to monitor on the inpatient unit. Continue other medications and care as ordered. Justification for Continued Inpatient Stay: Medication changes. High risk for decompensation in less restrictive environment. Discharge Planning: Placement Request Healthcare Surrogate/Guardian Advocate?: Yes
[2018-04-17] MEDS: LORazepam 1 MG Tablet PO SCH (17:10)
[2018-04-18] MEDS: carBAMazepine 200 MG Tablet PO SCH ×2 (10:09→20:08)
--- NOTE | 2018-04-18 10:10 | P.PNPSY ---
Subjective Remarks: Patient seen and examined with nurse. Chart reviewed. Case discussed with nursing staff. Patient reportedly passed a good night. On my examination this morning, the patient is calm. She is fairly cooperative with exam although she does refuse physical exam. She does complain of some stiffness, chiefly in her back but does not display any dystonias or dyskinesias or other motoric abnormalities. She denies any SI or HI. Denies any AVH. No side effects from medications. No physical complaints. Patient refused vital signs. Labs reviewed. No new labs. Review of Systems All other systems reviewed negative except as stated in HPI Mental Status Examination Appearance: Other (Fair grooming) Consciousness: Alert Orientation: Person, Place (At least) Motor Activity: Other (Patient refuses exam but no overt motoric abnormalities) Speech: Unremarkable Language: Adequate Fund of Knowledge: Inadequate Attention and Concentration: Easily distracted Memory: Impaired Mood: Other (Remains calm) Affect: Blunt Thought Process & Associations: Circumstantial Thought Content: Other (Some poverty of thought) Hallucination Type: None Delusion Type: None Suicidal Ideation: No Suicidal Plan: No Suicidal Intention: No Homicidal Ideation: No Homicidal Plan: No Homicidal Intention: No Insight: Poor Judgment: Poor Assessment and Plan - Assessment (1) Schizoaffective disorder, bipolar type Code(s): F25.0 - Schizoaffective disorder, bipolar type Status: Acute (2) Acquired intellectual disability Code(s): F79 - Unspecified intellectual disabilities Status: Acute - Plan Plan: Patient seems calmer with initiation of scheduled Ativan morning and afternoon. Continue Ativan and other psychotropics as ordered. Patient is on oral Prolixin supplementing Prolixin Decanoate along with carbamazepine. Continue to monitor on the inpatient unit. Continue other medications and care as ordered. Justification for Continued Inpatient Stay: High risk for decompensation in less restrictive environment Discharge Planning: Placement versus state psychiatric hospitalization Request Healthcare Surrogate/Guardian Advocate?: Yes
[2018-04-18] MEDS: LORazepam 1 MG Tablet PO SCH ×2 (10:16→15:22)
[2018-04-19] MEDS: carBAMazepine 200 MG Tablet PO SCH ×2 (08:03→20:43)
--- NOTE | 2018-04-19 14:08 | P.PNPSY ---
Subjective Chief Complaint: Schizoaffective , bipolar type. Acquired Intellectual Disability Remarks: Patient seen in day room with nurse Gilda, chart reviewed, patient compliant medications. Patient sitting quietly in the dayroom speaking low softly with very poor eye contact. Today she is stating that she is talked her mother and her mother wants her to come home as soon as possible and not be transferred any place else. For now continue treatment Review of Systems All other systems reviewed negative except as stated in HPI Mental Status Examination Appearance: Other (Fair grooming) Consciousness: Alert Orientation: Person, Place (At least) Motor Activity: Other (Patient refuses exam but no overt motoric abnormalities) Speech: Unremarkable Language: Adequate Fund of Knowledge: Inadequate Attention and Concentration: Easily distracted Memory: Impaired Mood: Other (Remains calm) Affect: Blunt Thought Process & Associations: Circumstantial Thought Content: Other (Some poverty of thought) Hallucination Type: None Delusion Type: None Suicidal Ideation: No Suicidal Plan: No Suicidal Intention: No Homicidal Ideation: No Homicidal Plan: No Homicidal Intention: No Insight: Poor Judgment: Poor Assessment and Plan - Assessment (1) Schizoaffective disorder, bipolar type Code(s): F25.0 - Schizoaffective disorder, bipolar type Status: Acute (2) Acquired intellectual disability Code(s): F79 - Unspecified intellectual disabilities Status: Acute - Plan Plan: Patient remains quiet and withdrawn showing no insight into her disease. Compliant medication. For now continue treatment Justification for Continued Inpatient Stay: At this time patient would decompensate a place to the lower level of care Discharge Planning: To be determined Request Healthcare Surrogate/Guardian Advocate?: Yes
[2018-04-19] MEDS: LORazepam 1 MG Tablet PO SCH ×2 (16:04→16:05)
[2018-04-20] MEDS: LORazepam 1 MG Tablet PO SCH ×2 (08:44→15:25)
[2018-04-20] MEDS: carBAMazepine 200 MG Tablet PO SCH ×2 (08:45→21:36)
--- NOTE | 2018-04-20 14:45 | P.PNPSY ---
Subjective Chief Complaint: Schizoaffective , bipolar type. Acquired Intellectual Disability Remarks: Reviewed electronic medical records and discussed case with staff. Follow-up was conducted in the hallway. Patient in a subdued mood. She reports that she has been sleeping well and that her appetite is been good. She is not internally stimulated nor is there any indication of thought blocking. She has been no behavioral issues per staff. She denies any complaints at this time. Mental Status Examination Appearance: Other (Fair grooming) Consciousness: Alert Orientation: Person, Place (At least) Motor Activity: Other (Patient refuses exam but no overt motoric abnormalities) Speech: Unremarkable Language: Adequate Fund of Knowledge: Inadequate Attention and Concentration: Easily distracted Memory: Impaired Mood: Other (Remains calm) Affect: Blunt Thought Process & Associations: Circumstantial Thought Content: Other (Some poverty of thought) Hallucination Type: None Delusion Type: None Suicidal Ideation: No Suicidal Plan: No Suicidal Intention: No Homicidal Ideation: No Homicidal Plan: No Homicidal Intention: No Insight: Poor Judgment: Poor Assessment and Plan - Assessment (1) Schizoaffective disorder, bipolar type Code(s): F25.0 - Schizoaffective disorder, bipolar type Status: Acute - Plan Plan: Patient is awaiting placement at a state facility in order to secure safe discharge. Continue with current treatment plan. Justification for Continued Inpatient Stay: Moving this patient to a less restrictive environment would likely result in decompensation. Request Healthcare Surrogate/Guardian Advocate?: Yes
[2018-04-21] MEDS: LORazepam 1 MG Tablet PO SCH ×2 (08:49→15:25)
[2018-04-21] MEDS: carBAMazepine 200 MG Tablet PO SCH ×2 (08:49→21:04)
--- NOTE | 2018-04-21 17:04 | P.PNPSY ---
Subjective Chief Complaint: Schizoaffective , bipolar type. Acquired Intellectual Disability Remarks: Reviewed electronic medical records and discussed case with staff. Follow-up was conducted in the hallway. The patient reports that she is eating good sleeping well. She has no complaints today. Her nurse reports that she was screaming at her this morning however after her scheduled dose of Ativan she has been appropriate with staff. Patient continues to pace in the neumann. Mental Status Examination Appearance: Other (Fair grooming) Consciousness: Alert Orientation: Person, Place (At least) Motor Activity: Other (Patient refuses exam but no overt motoric abnormalities) Speech: Unremarkable Language: Adequate Fund of Knowledge: Inadequate Attention and Concentration: Easily distracted Memory: Impaired Mood: Other (Remains calm) Affect: Blunt Thought Process & Associations: Circumstantial Thought Content: Other (Some poverty of thought) Hallucination Type: None Delusion Type: None Suicidal Ideation: No Suicidal Plan: No Suicidal Intention: No Homicidal Ideation: No Homicidal Plan: No Homicidal Intention: No Insight: Poor Judgment: Poor Assessment and Plan - Assessment (1) Schizoaffective disorder, bipolar type Code(s): F25.0 - Schizoaffective disorder, bipolar type Status: Acute - Plan Plan: Patient will be reevaluated Monday by the attending psychiatrist. Continue with current treatment plan. Justification for Continued Inpatient Stay: Moving this patient to a less restrictive environment would likely result in decompensation. Request Healthcare Surrogate/Guardian Advocate?: Yes
[2018-04-22] MEDS: LORazepam 1 MG Tablet PO SCH ×2 (10:03→17:08)
[2018-04-22] MEDS: carBAMazepine 200 MG Tablet PO SCH ×2 (10:04→21:37)
--- NOTE | 2018-04-22 17:06 | P.PNPSY ---
Subjective Chief Complaint: Schizoaffective , bipolar type. Acquired Intellectual Disability Remarks: Reviewed electronic medical records and discussed case with staff. Follow-up was conducted in the milieu during fresh air. Patient observed pacing and tearful. She appears internally stimulated that she carries on a conversation with no one present. I witnessed her again later in the day pacing and tearful. She remains extremely discharge focused. She does seem to have some improvement in her mood with the scheduled Ativan however, it appears in the wears off she returns to a labile state. Mental Status Examination Appearance: Other (Fair grooming) Consciousness: Alert Orientation: Person, Place (At least) Motor Activity: Other (Patient refuses exam but no overt motoric abnormalities) Speech: Unremarkable Language: Adequate Fund of Knowledge: Inadequate Attention and Concentration: Easily distracted Memory: Impaired Mood: Other (Remains calm) Affect: Blunt Thought Process & Associations: Circumstantial Thought Content: Other (Some poverty of thought) Hallucination Type: None Delusion Type: None Suicidal Ideation: No Suicidal Plan: No Suicidal Intention: No Homicidal Ideation: No Homicidal Plan: No Homicidal Intention: No Insight: Poor Judgment: Poor Assessment and Plan - Assessment (1) Schizoaffective disorder, bipolar type Code(s): F25.0 - Schizoaffective disorder, bipolar type Status: Acute - Plan Plan: Patient will be reevaluated tomorrow by the attending psychiatrist. Continue with current treatment plan. Continue to await for safe placement with a state facility. Justification for Continued Inpatient Stay: Moving this patient to a less restrictive environment would likely result in decompensation. Request Healthcare Surrogate/Guardian Advocate?: Yes
[2018-04-23] MEDS: carBAMazepine 200 MG Tablet PO SCH ×2 (08:36→20:34)
[2018-04-23] MEDS: LORazepam 1 MG Tablet PO SCH ×2 (08:36→14:26)
--- NOTE | 2018-04-23 13:28 | P.PNPSY ---
Subjective Remarks: Patient seen and examined. Chart reviewed. Case discussed with nursing staff who reports patient has been calm and cooperative this morning. Case discussed with counselor who reports that escrow representative from [facility] is to see the patient tomorrow, Monday. [facility] is also requesting a screening chest x-ray for tuberculosis, which I have ordered. Counselor relates that efforts at placement other than the [facility] have been unsuccessful although efforts continue. Case discussed with nursing staff who reports that the patient has been much more calm since addition of scheduled Ativan. On my examination today, the patient is calm and cooperative. She denies any auditory hallucinations. Denies any SI or HI. Denies any side effects from medications. No physical complaints. Vital Signs Temp Pulse Resp BP Pulse Ox 04/23/18 05:49 97.9 F 72 17 104/70 99 04/22/18 17:34 97.9 F 72 17 104/70 99 Intake and Output 04/22/18 04/23/18 04/23/18 22:59 06:59 14:59 Other: Weight 67.5 kg Labs reviewed. No new labs. Review of Systems All other systems reviewed negative except as stated in HPI Mental Status Examination Appearance: Other (Fair) Consciousness: Alert Orientation: Person, Place (At least) Motor Activity: Other (No motoric abnormalities noted) Speech: Unremarkable Language: Adequate Fund of Knowledge: Inadequate Attention and Concentration: Easily distracted Memory: Impaired Mood: Other (Calm) Affect: Blunt Thought Process & Associations: Intact Thought Content: Other (Some poverty of thought) Hallucination Type: None Delusion Type: None Suicidal Ideation: No Homicidal Ideation: No Insight: Poor Judgment: Poor Assessment and Plan - Assessment (1) Schizoaffective disorder, bipolar type Code(s): F25.0 - Schizoaffective disorder, bipolar type Status: Acute (2) Acquired intellectual disability Code(s): F79 - Unspecified intellectual disabilities Status: Acute - Plan Plan: Patient appears to be doing well with current psychotropic regimen. I will continue current medications as ordered. Continue to monitor on the inpatient unit. Continue other medications and care as ordered. Justification for Continued Inpatient Stay: High risk for decompensation in less restrictive environment. Discharge Planning: I have instructed the counselor to continue to pursue placement options, but states psychiatric hospitalization does represent backup option if placement cannot be arranged. Request Healthcare Surrogate/Guardian Advocate?: Yes
--- NOTE | 2018-04-23 14:55 | XR ---
EXAM DATE: 04/23/2018 2:03 PM EDT AGE/SEX: 32 years / Female INDICATIONS: Respiratory disease. CLINICAL DATA: This is the patient's initial encounter. Patient reports that signs and symptoms have been present for 1 day and indicates a pain score of 0/10. MEDICAL/SURGICAL HISTORY: None. None. COMPARISON: [facility], CHEST SINGLE AP, 05/05/2015. . FINDINGS: A single AP view of the chest demonstrates the lungs to be symmetrically aerated without evidence of mass, infiltrate or effusion. The cardiomediastinal contours are unremarkable. Osseous structures a re intact. CONCLUSION: Negative examination. Electronically signed by: Marko Loaiza MD 04/23/2018 2:54 PM EDT
[2018-04-24] MEDS: LORazepam 1 MG Tablet PO SCH ×2 (08:32→14:42)
[2018-04-24] MEDS: carBAMazepine 200 MG Tablet PO SCH ×2 (08:33→20:42)
--- NOTE | 2018-04-24 12:28 | P.PNPSY ---
Subjective Remarks: Patient seen and examined with counselor and nurse. Chart reviewed. Case discussed with nursing staff. No behavioral issues noted overnight. Case discussed in treatment team. On my exam, patient is calm. She is asking about discharge plan, and we discussed this as a group. No mood or psychotic symptoms. No medication side effects. No physical complaints. Vital Signs Temp Pulse Resp BP Pulse Ox 04/24/18 05:48 97.4 F L 67 17 100/68 99 04/23/18 16:11 98.2 F 93 H 18 110/75 99 Labs reviewed. No new labs. Review of Systems All other systems reviewed negative except as stated in HPI Mental Status Examination Appearance: Other (Fair) Consciousness: Alert Orientation: Person, Place (At least) Motor Activity: Other (No abnormal motor movements noted) Speech: Unremarkable Language: Adequate Fund of Knowledge: Inadequate Attention and Concentration: Easily distracted Memory: Impaired Mood: Other (Calm) Affect: Blunt Thought Process & Associations: Intact Thought Content: Other (Mild poverty of thought) Hallucination Type: None Delusion Type: None Suicidal Ideation: No Suicidal Plan: No Suicidal Intention: No Homicidal Ideation: No Homicidal Plan: No Homicidal Intention: No Insight: Poor Judgment: Poor Assessment and Plan - Assessment (1) Schizoaffective disorder, bipolar type Code(s): F25.0 - Schizoaffective disorder, bipolar type Status: Acute (2) Acquired intellectual disability Code(s): F79 - Unspecified intellectual disabilities Status: Acute - Plan Plan: Patient is doing very well with current medication regimen. We could consider discontinuing the remainder of the oral Prolixin supplementing her Prolixin decanoate, but given her positive response to this particular combination of medications along with evident good tolerability, I am loath to make any changes at this time. Continue current psychotropic medications as ordered. Continue to monitor on the inpatient unit. Continue other medications and care as ordered. Justification for Continued Inpatient Stay: High risk for decompensation in less restrictive environment. Discharge Planning: Placement versus state hospitalization Request Healthcare Surrogate/Guardian Advocate?: Yes
--- NOTE | 2018-04-25 09:20 | P.PNPSY ---
Subjective Remarks: Patient seen and examined with nurse. Chart reviewed. Case discussed with nursing staff. No behavioral issues noted overnight. Case discussed with counselor. Patient was reportedly evaluated by a personal banking representative from [facility] for possible transfer there while awaiting state hospitalization. On my examination today, the patient is calm and cooperative. She continues to say that she would like to be discharged home. No mood or psychotic symptoms. No medication side effects. No physical complaints. Patient refused vital signs. Labs reviewed. No new labs. Review of Systems All other systems reviewed negative except as stated in HPI Mental Status Examination Appearance: Other (Fair) Consciousness: Alert Orientation: Person, Place (At least) Motor Activity: Other (No motoric abnormalities noted) Speech: Unremarkable Language: Adequate Fund of Knowledge: Inadequate Attention and Concentration: Easily distracted Memory: Impaired Mood: Appropriate Affect: Blunt Thought Process & Associations: Intact Thought Content: Other (Mild poverty of thought) Hallucination Type: None Delusion Type: None Suicidal Ideation: No Suicidal Plan: No Suicidal Intention: No Homicidal Ideation: No Homicidal Plan: No Homicidal Intention: No Insight: Poor Judgment: Poor Assessment and Plan - Assessment (1) Schizoaffective disorder, bipolar type Code(s): F25.0 - Schizoaffective disorder, bipolar type Status: Acute (2) Acquired intellectual disability Code(s): F79 - Unspecified intellectual disabilities Status: Acute - Plan Plan: Continue current psychiatric medications as ordered. I will check an updated set of basic laboratories. Continue to monitor on the inpatient unit. Continue other medications and care as ordered. Justification for Continued Inpatient Stay: High risk for decompensation in less restrictive environment. Discharge Planning: Placement versus state hospital referral Request Healthcare Surrogate/Guardian Advocate?: Yes
[2018-04-25] MEDS: carBAMazepine 200 MG Tablet PO SCH ×2 (09:35→21:11)
[2018-04-25] MEDS: LORazepam 1 MG Tablet PO SCH ×2 (10:24→17:31)
[2018-04-25 15:37] LABS: Alanine Aminotransferase 104 U/L (10-53); Albumin 3.9 g/dL (3.4-5.0); Anion Gap 6 meq/L (5-15); Aspartate Aminotransferase 37 U/L (15-37); Blood Urea Nitrogen 19 mg/dL (7-18); Calcium 8.7 mg/dL (8.5-10.1); Carbon Dioxide 30.3 meq/L (21.0-32.0); Chloride 102 meq/L (98-107); Glomerular Filtration Rate Greater Than 89 mL/min (>89); Glucose,Random 103 mg/dL (74-106); Potassium 4.2 meq/L (3.5-5.1); Sodium 138 meq/L (136-145)
[2018-04-25 15:38] LABS: Alkaline Phosphatase 105 U/L (45-117); Total Protein 7.2 g/dL (6.4-8.2)
[2018-04-25 15:42] LABS: Baso % (Auto) 0.9 % (0.0-2.0); Eos # (Auto) 0.1 th/mm3 (0.0-0.4); Eos % (Auto) 1.3 % (0.0-4.0); Hematocrit 39.7 % (35.0-46.0); Hemoglobin 13.3 gm/dL (11.6-15.3); Lymph # (Auto) 1.3 th/mm3 (1.0-4.8); Mean Corpuscular HGB Conc 33.6 % (32.0-36.0); Mean Corpuscular Hemoglobin 28.6 pg (27.0-34.0); Mean Corpuscular Volume 85.3 fL (80.0-100.0); Mean Platelet Volume 7.7 fL (7.0-11.0); Mono # (Auto) 0.4 th/mm3 (0.0-0.9); Mono % (Auto) 9.6 % (0.0-8.0); Neut # (Auto) 2.8 th/mm3 (1.8-7.7); Neut % (Auto) 60.2 % (16.0-70.0); Platelet Count 216 th/mm3 (150-450); Red Blood Count 4.66 mil/mm3 (4.00-5.30); Red Cell Distribution Width 14.9 % (11.6-17.2); White Blood Count 4.7 th/mm3 (4.0-11.0)
[2018-04-26] MEDS: carBAMazepine 200 MG Tablet PO SCH ×2 (08:36→21:00)
[2018-04-26] MEDS: LORazepam 1 MG Tablet PO SCH ×2 (08:37→15:13)
--- NOTE | 2018-04-26 10:58 | P.PNPSY ---
Subjective Remarks: Patient seen and examined with nurse. Chart reviewed. Case discussed with nursing staff. No behavioral issues noted. On my examination today, patient remains calm and cooperative. No mood or psychotic symptoms elicited. She has been refusing vital signs but tells me that she will comply later today. Sure enough, the patient comes up to the nursing staff a little while later and asks the floor staff to check her vital signs. Denies side effects from medications. No physical complaints. Vital Signs Pulse BP Pulse Ox 04/26/18 10:47 89 105/68 96 Laboratory Results - last 24 hr 04/25/18 04/25/18 14:51 14:51 WBC 4.7 RBC 4.66 Hgb 13.3 Hct 39.7 MCV 85.3 MCH 28.6 MCHC 33.6 RDW 14.9 Plt Count 216 D MPV 7.7 Neut % (Auto) 60.2 Lymph % (Auto) 28.0 Posey % (Auto) 9.6 H Eos % (Auto) 1.3 Baso % (Auto) 0.9 Neut # (Auto) 2.8 Lymph # (Auto) 1.3 Posey # (Auto) 0.4 Eos # (Auto) 0.1 Baso # (Auto) 0.0 WBC Differential . Differential Comment Auto diff final Sodium 138 Potassium 4.2 Chloride 102 Carbon Dioxide 30.3 Anion Gap 6 BUN 19 H Creatinine 0.63 Estimated GFR Greater than 89 Random Glucose 103 Calcium 8.7 Total Bilirubin 0.2 AST 37 ALT 104 H Alkaline Phosphatase 105 Total Protein 7.2 Albumin 3.9 Labs reviewed. CBC unremarkable. CMP unremarkable except for mildly elevated ALT. We will monitor. Review of Systems All other systems reviewed negative except as stated in HPI Mental Status Examination Appearance: Other (Fair) Consciousness: Alert Orientation: Person, Place (At least) Motor Activity: Other (No abnormal motor movements noted) Speech: Unremarkable Language: Adequate Fund of Knowledge: Inadequate Attention and Concentration: Easily distracted Memory: Impaired Mood: Appropriate Affect: Blunt Thought Process & Associations: Intact Thought Content: Other (Mild poverty of thought) Hallucination Type: None Delusion Type: None Suicidal Ideation: No Suicidal Plan: No Suicidal Intention: No Homicidal Ideation: No Homicidal Plan: No Homicidal Intention: No Insight: Poor Judgment: Poor Assessment and Plan - Assessment (1) Schizoaffective disorder, bipolar type Code(s): F25.0 - Schizoaffective disorder, bipolar type Status: Acute (2) Acquired intellectual disability Code(s): F79 - Unspecified intellectual disabilities Status: Acute - Plan Plan: Patient continues to do well with current psychiatric medications, which will be continued. Continue to monitor on the inpatient unit. Continue other medications and care as ordered. Justification for Continued Inpatient Stay: Risk for decompensation in less restrictive environment. Discharge Planning: Placement versus state psychiatric hospitalization. Request Healthcare Surrogate/Guardian Advocate?: Yes
[2018-04-26] MEDS: LORazepam 1 MG Tablet PO PRN ×3 (13:06→18:37)
[2018-04-27] MEDS: carBAMazepine 200 MG Tablet PO SCH ×2 (08:47→20:41)
--- NOTE | 2018-04-27 09:51 | P.PNPSY ---
Subjective Remarks: Patient seen and examined with counselor and nursing staff. Chart reviewed. Case discussed with nurse. No behavioral issues noted overnight. Case discussed in treatment team. On my examination today, patient is a little more irritable than in previous days. She remained somewhat discharged focused. Not interested in extended interview today. No jai psychotic material. No medication side effects. No physical complaints. Patient refused vitals. Labs reviewed. No new labs. Review of Systems All other systems reviewed negative except as stated in HPI Mental Status Examination Appearance: Other (Fair) Consciousness: Alert Orientation: Person, Place (At least) Motor Activity: Other (No motor abnormalities noted.) Speech: Unremarkable Language: Adequate Fund of Knowledge: Inadequate Attention and Concentration: Easily distracted Memory: Impaired Mood: Irritable (Mild) Affect: Irritable Thought Process & Associations: Intact Thought Content: Other (Mild poverty of thought) Hallucination Type: None Delusion Type: None Suicidal Ideation: No Suicidal Plan: No Suicidal Intention: No Homicidal Ideation: No Homicidal Plan: No Homicidal Intention: No Insight: Poor Judgment: Poor Assessment and Plan - Assessment (1) Schizoaffective disorder, bipolar type Code(s): F25.0 - Schizoaffective disorder, bipolar type Status: Acute (2) Acquired intellectual disability Code(s): F79 - Unspecified intellectual disabilities Status: Acute - Plan Plan: Continue carbamazepine as ordered. Continue oral Prolixin supplementing Prolixin Decanoate, which is due end of next week. Continue scheduled Ativan, which does seem to be helping to limit patient's tantrums. To consider medication adjustment if irritability persists. No indication from nursing staff that medication adherence as an issue. Continue to monitor on the inpatient unit. Continue other medications and care as ordered. Justification for Continued Inpatient Stay: High risk for decompensation in less restrictive environment. Discharge Planning: Placement versus state psychiatric hospitalization. I have instructed the counselor to once again revisit placement options with DCF as they do not seem to be working on this very aggressively. Request Healthcare Surrogate/Guardian Advocate?: Yes
[2018-04-27] MEDS: LORazepam 1 MG Tablet PO SCH ×2 (11:43→16:40)
[2018-04-27] MEDS: LORazepam 1 MG Tablet PO PRN (20:46)
[2018-04-28] MEDS: carBAMazepine 200 MG Tablet PO SCH ×2 (09:25→20:35)
[2018-04-28] MEDS: LORazepam 1 MG Tablet PO SCH ×2 (10:51→14:27)
--- NOTE | 2018-04-28 15:39 | P.PNPSY ---
Subjective Chief Complaint: Schizoaffective , bipolar type. Acquired Intellectual Disability Remarks: Patient was seen and case discussed with nursing. Patient remains with occasional labile behavior. At 11:30 AM patient needed an ETO. Compliant with medications and tolerating it well Mental Status Examination Appearance: Other (Fair) Consciousness: Alert Orientation: Person, Place (At least) Motor Activity: Other (No motor abnormalities noted.) Speech: Unremarkable Language: Adequate Fund of Knowledge: Inadequate Attention and Concentration: Easily distracted Memory: Impaired Mood: Irritable (Mild) Affect: Irritable Thought Process & Associations: Intact Thought Content: Other (Mild poverty of thought) Hallucination Type: None Delusion Type: None Suicidal Ideation: No Suicidal Plan: No Suicidal Intention: No Homicidal Ideation: No Homicidal Plan: No Homicidal Intention: No Insight: Poor Judgment: Poor Assessment and Plan - Assessment (1) Schizoaffective disorder, bipolar type Code(s): F25.0 - Schizoaffective disorder, bipolar type Status: Acute (2) Acquired intellectual disability Code(s): F79 - Unspecified intellectual disabilities Status: Acute - Plan Plan: Continue current treatment plan Justification for Continued Inpatient Stay: Patient would decompensate in a less restrictive setting Request Healthcare Surrogate/Guardian Advocate?: Yes
[2018-04-29] MEDS: LORazepam 1 MG Tablet PO SCH ×2 (09:01→16:52)
[2018-04-29] MEDS: carBAMazepine 200 MG Tablet PO SCH ×2 (09:03→20:25)
--- NOTE | 2018-04-29 14:37 | P.PNPSY ---
Subjective Chief Complaint: Schizoaffective , bipolar type. Acquired Intellectual Disability Remarks: Patient was seen and case discussed with nursing. Patient had a loud temper tantrum this afternoon. She was pacing the hallway and cursing at staff members and people that were not there. She subsequently received an ETO. Appears to have been no trigger for her outbursts Mental Status Examination Appearance: Disheveled Consciousness: Vigilant Orientation: Person, Place (At least) Motor Activity: Other (No motor abnormalities noted.) Speech: Unremarkable Language: Adequate Fund of Knowledge: Inadequate Attention and Concentration: Easily distracted Memory: Impaired Mood: Angry, Irritable (Mild) Affect: Irritable Thought Process & Associations: Intact Thought Content: Other (Mild poverty of thought) Hallucination Type: None Delusion Type: None Suicidal Ideation: No Suicidal Plan: No Suicidal Intention: No Homicidal Ideation: No Homicidal Plan: No Homicidal Intention: No Insight: Poor Judgment: Poor Assessment and Plan - Assessment (1) Schizoaffective disorder, bipolar type Code(s): F25.0 - Schizoaffective disorder, bipolar type Status: Acute (2) Acquired intellectual disability Code(s): F79 - Unspecified intellectual disabilities Status: Acute - Plan Plan: Continue current treatment plan Justification for Continued Inpatient Stay: Patient would decompensate in a less restrictive setting Request Healthcare Surrogate/Guardian Advocate?: Yes
[2018-04-30] MEDS: carBAMazepine 200 MG Tablet PO SCH ×2 (08:31→23:29)
[2018-04-30] MEDS: LORazepam 1 MG Tablet PO SCH (08:33)
--- NOTE | 2018-04-30 10:30 | P.PNPSY ---
Subjective Remarks: Patient seen and examined with nurse. Chart reviewed. Tantrums over the weekend per Dr. Clarke's notes. No indication of medication nonadherence. On my examination today, the patient does seem a little more agitated. She is pacing the halls, which she has not done during my interactions with her for several weeks. She remains quite discharged focused. Affect is a little bit more dysphoric today. No psychotic material. No side effects from medications. No physical complaints. Vital Signs Temp Pulse Resp BP Pulse Ox 04/30/18 06:22 97.8 F 72 18 109/67 96 04/29/18 17:29 98.1 F 75 18 94/52 L 99 Labs reviewed. No new labs. Review of Systems All other systems reviewed negative except as stated in HPI (Limitation: Poor historian) Mental Status Examination Appearance: Disheveled Consciousness: Alert Orientation: Person, Place (At least) Motor Activity: Other (No abnormal motor movements noted) Speech: Unremarkable Language: Adequate Fund of Knowledge: Inadequate Attention and Concentration: Easily distracted Memory: Impaired Mood: Irritable Affect: Irritable, Other (Dysphoric) Thought Process & Associations: Intact Thought Content: Other (Mild poverty of thought) Hallucination Type: None Delusion Type: None Suicidal Ideation: No Suicidal Plan: No Suicidal Intention: No Homicidal Ideation: No Homicidal Plan: No Homicidal Intention: No Insight: Poor Judgment: Poor Assessment and Plan - Assessment (1) Schizoaffective disorder, bipolar type Code(s): F25.0 - Schizoaffective disorder, bipolar type Status: Acute (2) Acquired intellectual disability Code(s): F79 - Unspecified intellectual disabilities Status: Acute - Plan Plan: Titrate scheduled Ativan to 1.5 mg twice daily to target recent increase in irritability. Continue other psychotropics as ordered. Continue to monitor on the inpatient unit. Continue other medications and care as ordered. Justification for Continued Inpatient Stay: Risk for decompensation in less restrictive environment. Discharge Planning: Pending safe discharge plan. Placement versus state hospitalization. Case discussed with counselor. Request Healthcare Surrogate/Guardian Advocate?: Yes
[2018-04-30 11:27] LABS: Albumin 3.7 g/dL (3.4-5.0)
[2018-04-30] MEDS: LORazepam 0.5 MG Tablet PO SCH (14:01)
[2018-05-01] MEDS: carBAMazepine 200 MG Tablet PO SCH ×2 (08:25→20:44)
[2018-05-01] MEDS: LORazepam 0.5 MG Tablet PO SCH ×2 (09:19→14:59)
--- NOTE | 2018-05-01 10:51 | P.PNPSY ---
Subjective Chief Complaint: . Remarks: Patient seen and examined with counselor and nurse. Chart reviewed. Case discussed with nursing staff. No aggressive episodes, although the patient has been somewhat dysphoric and fixated on discharge. On my examination today, the patient continues in this vein. I try to have a discussion with her regarding the court order for placement, but she is not interested in discussing this. Support provided. No mood or psychotic symptoms. No side effects from medications. No physical complaints. Vital Signs Temp Pulse Resp BP Pulse Ox 05/01/18 05:54 97.3 F L 69 17 119/65 100 04/30/18 16:57 97.6 F 90 18 99/58 L 98 Laboratory Results - last 24 hr 04/30/18 10:27 Total Bilirubin 0.3 Direct Bilirubin 0.1 Indirect Bilirubin 0.2 AST 22 ALT 53 Alkaline Phosphatase 96 Total Protein 7.0 Albumin 3.7 Labs reviewed. Transaminitis has normalized. Review of Systems All other systems reviewed negative except as stated in HPI Mental Status Examination Appearance: Disheveled Consciousness: Alert Orientation: Person, Place (At least) Motor Activity: Other (No motor abnormalities noted) Speech: Unremarkable Language: Adequate Fund of Knowledge: Inadequate Attention and Concentration: Easily distracted Memory: Impaired Mood: Oppositional (Mild), Irritable (Decreased today) Affect: Irritable, Other (Dysphoric) Thought Process & Associations: Intact Thought Content: Other (Mild poverty of thought) Hallucination Type: None Delusion Type: None Suicidal Ideation: No Homicidal Ideation: No Insight: Poor Judgment: Poor Assessment and Plan - Assessment (1) Schizoaffective disorder, bipolar type Code(s): F25.0 - Schizoaffective disorder, bipolar type Status: Acute (2) Acquired intellectual disability Code(s): F79 - Unspecified intellectual disabilities Status: Acute - Plan Plan: Continue current psychotropic medications as ordered. Continue to monitor on the inpatient unit. Continue other care as ordered. Justification for Continued Inpatient Stay: Risk for decompensation in less restrictive environment. Discharge Planning: Counselor reports that the patient is #30 on the [facility] wait list for [place]. Request Healthcare Surrogate/Guardian Advocate?: Yes
[2018-05-02] MEDS: carBAMazepine 200 MG Tablet PO SCH ×2 (08:33→21:10)
[2018-05-02] MEDS: LORazepam 0.5 MG Tablet PO SCH ×2 (08:33→15:03)
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
[2018-05-03] MEDS: carBAMazepine 200 MG Tablet PO SCH ×2 (09:42→21:31)
[2018-05-03] MEDS: LORazepam 0.5 MG Tablet PO SCH ×2 (10:15→14:47)
--- NOTE | 2018-05-03 11:26 | P.PNPSY ---
Subjective Chief Complaint: . Remarks: Patient seen and examined. Chart reviewed. Case discussed with staff. On my examination today, I find the patient pacing the halls. She is muttering to herself. She seems a little irritable today. When I try to engage her in conversation, she stalks off. No evident side effects from medications. No physical complaints. Refused vital signs. Laboratory Results - last 24 hr 05/03/18 07:46 Carbamazepine 6.8 Labs reviewed. Carbamazepine level therapeutic. Review of Systems unobtainable due to mental condition (Uncooperative) Mental Status Examination Appearance: Disheveled Consciousness: Alert Orientation: Person, Place (At least) Motor Activity: Other (No motoric abnormalities noted) Speech: Unremarkable Language: Adequate Fund of Knowledge: Inadequate Attention and Concentration: Easily distracted Memory: Impaired Mood: Oppositional, Irritable Affect: Irritable, Other (Remains dysphoric) Thought Process & Associations: Intact Thought Content: Other (Mild poverty of thought) Hallucination Type: None Delusion Type: None Suicidal Ideation: No Suicidal Plan: No Suicidal Intention: No Homicidal Ideation: No Homicidal Plan: No Homicidal Intention: No Insight: Poor Judgment: Poor Assessment and Plan - Assessment (1) Schizoaffective disorder, bipolar type Code(s): F25.0 - Schizoaffective disorder, bipolar type Status: Acute (2) Acquired intellectual disability Code(s): F79 - Unspecified intellectual disabilities Status: Acute - Plan Plan: CBZ level therapeutic, and so this is not likely the cause of patient's recently increased irritability and outbursts. I will titrate scheduled Ativan to 2mg BID to try to manage present symptoms. Continue other psychotropics as ordered. Patient will be due for Prolixin decanoate booster dose tomorrow. Continue to monitor on the inpatient unit. Continue other medications and care as ordered. Justification for Continued Inpatient Stay: Medication changes. High risk for decompensation in less restrictive environment. Discharge Planning: Placement versus state psychiatric hospitalization Request Healthcare Surrogate/Guardian Advocate?: Yes
[2018-05-04] MEDS: carBAMazepine 200 MG Tablet PO SCH ×2 (08:57→20:56)
--- NOTE | 2018-05-04 15:28 | P.PNPSY ---
Subjective Chief Complaint: . Remarks: Patient seen for follow, chart reviewed. Discussion nursing staff reported the patient has occasional episodes of yelling but has been decreasing in intensity and continue to be noted to be talking to self. Patient was found heavily on unit noted B, cooperative. Patient agreed to have long-acting injectable of Prolixin decanoate. Patient states that she is feeling "good" continue to be perseverative on wanting to be discharged home back to her mother, noted be very childlike. Patient reports sleeping well with good appetite denying any physical complaints at this time denying any auditory hallucinations but does noted to be talking to self on the unit. Review of Systems All other systems reviewed negative except as stated in HPI Mental Status Examination Appearance: Disheveled Consciousness: Alert Orientation: Person, Place (At least) Motor Activity: Other (No motoric abnormalities noted) Speech: Unremarkable Language: Adequate Fund of Knowledge: Inadequate Attention and Concentration: Easily distracted Memory: Impaired Mood: Other ("Okay") Affect: Other (Remains dysphoric) Thought Process & Associations: Intact Thought Content: Other (Mild poverty of thought) Hallucination Type: None Delusion Type: None Suicidal Ideation: No Suicidal Plan: No Suicidal Intention: No Homicidal Ideation: No Homicidal Plan: No Homicidal Intention: No Insight: Poor Judgment: Poor Assessment and Plan - Assessment (1) Schizoaffective disorder, bipolar type Code(s): F25.0 - Schizoaffective disorder, bipolar type Status: Acute (2) Acquired intellectual disability Code(s): F79 - Unspecified intellectual disabilities Status: Acute - Plan Plan: Patient this time with no recent behavioral disturbances, has occasional verbal outbursts, but mostly redirectable. Patient received Prolixin decanoate today. Patient to continue current treatment. We will continue to monitor mood and behavior. Patient continues to be on wait list for [facility]. Discharge planning in progress. Justification for Continued Inpatient Stay: At risk of further decompensation at lower level of care. Request Healthcare Surrogate/Guardian Advocate?: Yes
[2018-05-05] MEDS: carBAMazepine 200 MG Tablet PO SCH ×2 (08:14→21:26)
--- NOTE | 2018-05-05 12:15 | P.PNPSY ---
Subjective Chief Complaint: . Remarks: Pt seen and discussed with staff. She remains labile with frequent outbursts and agitation. Staff report that symptoms are somewhat better today after medication changes. She is compliant with medications. No SI/HI Mental Status Examination Appearance: Disheveled Consciousness: Alert Orientation: Person, Place (At least) Motor Activity: Other (No motoric abnormalities noted) Speech: Unremarkable Language: Adequate Fund of Knowledge: Inadequate Attention and Concentration: Easily distracted Memory: Impaired Mood: Other ("Okay") Affect: Other (Remains dysphoric) Thought Process & Associations: Intact Thought Content: Other (Mild poverty of thought) Hallucination Type: None Delusion Type: None Suicidal Ideation: No Suicidal Plan: No Suicidal Intention: No Homicidal Ideation: No Homicidal Plan: No Homicidal Intention: No Insight: Poor Judgment: Poor Assessment and Plan - Assessment (1) Schizoaffective disorder, bipolar type Code(s): F25.0 - Schizoaffective disorder, bipolar type Status: Acute (2) Acquired intellectual disability Code(s): F79 - Unspecified intellectual disabilities Status: Acute - Plan Plan: Continue current tx plan Justification for Continued Inpatient Stay: risk of decompensation Request Healthcare Surrogate/Guardian Advocate?: Yes
[2018-05-06] MEDS: carBAMazepine 200 MG Tablet PO SCH ×2 (08:26→21:28)
--- NOTE | 2018-05-06 11:23 | P.PNPSY ---
Subjective Chief Complaint: . Remarks: Pt seen and discussed with staff. She had a good evening and slept well. She has been less irritable and so far she has not had any outbursts today. She has been compliant with medications. Mental Status Examination Appearance: Disheveled Consciousness: Alert Orientation: Person, Place (At least) Motor Activity: Other (No motoric abnormalities noted) Speech: Unremarkable Language: Adequate Fund of Knowledge: Inadequate Attention and Concentration: Easily distracted Memory: Impaired Mood: Other ("Okay") Affect: Other (Remains dysphoric) Thought Process & Associations: Intact Thought Content: Other (Mild poverty of thought) Hallucination Type: None Delusion Type: None Suicidal Ideation: No Suicidal Plan: No Suicidal Intention: No Homicidal Ideation: No Homicidal Plan: No Homicidal Intention: No Insight: Poor Judgment: Poor Assessment and Plan - Assessment (1) Schizoaffective disorder, bipolar type Code(s): F25.0 - Schizoaffective disorder, bipolar type Status: Acute (2) Acquired intellectual disability Code(s): F79 - Unspecified intellectual disabilities Status: Acute - Plan Plan: Continue current tx plan Justification for Continued Inpatient Stay: risk of decompensation Request Healthcare Surrogate/Guardian Advocate?: Yes
[2018-05-07] MEDS: carBAMazepine 200 MG Tablet PO SCH ×2 (08:48→20:10)
--- NOTE | 2018-05-07 11:59 | P.PNPSY ---
Subjective Chief Complaint: . Remarks: Patient seen and examined with counselor and nurse. Chart reviewed. Case discussed with nursing staff. No behavioral issues noted overnight. Nurse does note that patient seems calmer with titration of scheduled Ativan. On my examination today, the patient denies any SI or HI. Denies AVH. She is lying calmly in her room on her bed. She denies side effects from medications. No physical complaints. Patient refused vital signs this morning but agrees to have them obtained presently. Labs reviewed. No new labs. Review of Systems All other systems reviewed negative except as stated in HPI Mental Status Examination Appearance: Other (Fair) Consciousness: Alert Orientation: Person, Place (At least) Motor Activity: Other (No abnormal motor movements noted) Speech: Unremarkable Language: Adequate Fund of Knowledge: Inadequate Attention and Concentration: Easily distracted Memory: Impaired Mood: Other (Calm) Affect: Blunt Thought Process & Associations: Intact Thought Content: Appropriate Hallucination Type: None Delusion Type: None Suicidal Ideation: No Suicidal Plan: No Suicidal Intention: No Homicidal Ideation: No Homicidal Plan: No Homicidal Intention: No Insight: Poor Judgment: Poor Assessment and Plan - Assessment (1) Schizoaffective disorder, bipolar type Code(s): F25.0 - Schizoaffective disorder, bipolar type Status: Acute (2) Acquired intellectual disability Code(s): F79 - Unspecified intellectual disabilities Status: Acute - Plan Plan: Continue current psychotropic medications as ordered. Follow-up vital signs. Continue other medications and care as ordered. Justification for Continued Inpatient Stay: Risk for decompensation in less restrictive environment. Discharge Planning: Placement versus state hospitalization. Counselor relates that counselor coiled tubing supervisor will be making another attempt today to get DCF to provide more assistance with placing this patient. Request Healthcare Surrogate/Guardian Advocate?: Yes
[2018-05-08] MEDS: carBAMazepine 200 MG Tablet PO SCH ×2 (09:52→20:14)
--- NOTE | 2018-05-08 12:14 | P.PNPSY ---
Subjective Chief Complaint: . Remarks: Patient seen and examined. Chart reviewed. Case discussed with nursing staff. Case discussed in treatment team. On my examination today, patient is calm and cooperative. She denies SI or HI. Denies AVH. Denies side effects from medications. Denies chest pain or shortness of breath. No physical complaints otherwise. Refused vital signs this morning. Labs reviewed. No new labs. Review of Systems All other systems reviewed negative except as stated in HPI (Limitation: Poor historian) Mental Status Examination Appearance: Other (Fair) Consciousness: Alert Orientation: Person, Place (At least) Motor Activity: Other (No motoric abnormalities appreciated) Speech: Unremarkable Language: Adequate Fund of Knowledge: Inadequate Attention and Concentration: Easily distracted Memory: Impaired Mood: Other (Remains calm) Affect: Blunt Thought Process & Associations: Intact, Other (Some poverty of thought) Thought Content: Appropriate Hallucination Type: None Delusion Type: None Suicidal Ideation: No Suicidal Plan: No Suicidal Intention: No Homicidal Ideation: No Homicidal Plan: No Homicidal Intention: No Insight: Poor Judgment: Poor Assessment and Plan - Assessment (1) Schizoaffective disorder, bipolar type Code(s): F25.0 - Schizoaffective disorder, bipolar type Status: Acute (2) Acquired intellectual disability Code(s): F79 - Unspecified intellectual disabilities Status: Acute - Plan Plan: Continue current psychotropic medications as ordered. Continue to monitor on the inpatient unit. Continue other care as ordered. Justification for Continued Inpatient Stay: Risk for decompensation in less restrictive environment. Discharge Planning: Placement versus state hospitalization. Case discussed with counselor. Request Healthcare Surrogate/Guardian Advocate?: Yes
[2018-05-09] MEDS: LORazepam 1 MG Tablet PO PRN (08:33)
[2018-05-09] MEDS: carBAMazepine 200 MG Tablet PO SCH ×2 (08:33→20:13)
--- NOTE | 2018-05-09 09:22 | P.PNPSY ---
Subjective Chief Complaint: . Remarks: Patient seen and examined with nurse. Chart reviewed. Case discussed with nursing staff. No behavioral issues noted. Case discussed with counselor. On my examination today, patient is lying calmly in her room. She denies any SI or HI. No mood or psychotic symptoms. Remains perseverative on discharge. Denies side effects from medications. No physical complaints. Patient refused vital signs this morning but has agreed to have them taken later in the day, and I have asked the nursing staff to ensure that this is done. Labs reviewed. No new labs. Review of Systems All other systems reviewed negative except as stated in HPI (Limitation: Poor historian) Mental Status Examination Appearance: Other (Fair grooming) Consciousness: Alert Orientation: Person, Place (At least) Motor Activity: Other (No abnormal motor movements) Speech: Unremarkable Language: Adequate Fund of Knowledge: Inadequate Attention and Concentration: Easily distracted Memory: Impaired Mood: Other (Calm) Affect: Blunt Thought Process & Associations: Intact, Other (Some poverty of thought) Thought Content: Appropriate Hallucination Type: None Delusion Type: None Suicidal Ideation: No Suicidal Plan: No Suicidal Intention: No Homicidal Ideation: No Homicidal Plan: No Homicidal Intention: No Insight: Poor Judgment: Poor Assessment and Plan - Assessment (1) Schizoaffective disorder, bipolar type Code(s): F25.0 - Schizoaffective disorder, bipolar type Status: Acute (2) Acquired intellectual disability Code(s): F79 - Unspecified intellectual disabilities Status: Acute - Plan Plan: Continue current medications and care as ordered. Continue to monitor on the inpatient unit. Justification for Continued Inpatient Stay: Risk for decompensation in less restrictive environment. Discharge Planning: Placement versus state hospitalization. Request Healthcare Surrogate/Guardian Advocate?: Yes
[2018-05-10] MEDS: carBAMazepine 200 MG Tablet PO SCH ×2 (08:39→20:26)
--- NOTE | 2018-05-10 08:52 | P.PNPSY ---
Subjective Chief Complaint: . Remarks: Patient seen and examined with nurse. Chart reviewed. Case discussed with nursing staff. Patient reportedly was somewhat more behaviorally dysregulated yesterday as she was upset that there were several discharges on the unit but she had to remain. On my exam today, patient seems a little more irritable than recent baseline. She is somewhat malodorous, and I have encouraged her to bathe. Today is her birthday, and our birthday wishes are received without comment by the patient. No side effects from medications. No physical complaints. Refused vital signs this morning. Labs reviewed. No new labs. Review of Systems other (Limited ROS today) Mental Status Examination Appearance: Malodorous Consciousness: Alert Orientation: Person, Place (At least) Motor Activity: Other (No motoric abnormalities noted) Speech: Unremarkable Language: Adequate Fund of Knowledge: Inadequate Attention and Concentration: Easily distracted Memory: Impaired Mood: Oppositional (Mild) Affect: Irritable (Mild) Thought Process & Associations: Other (Some poverty of thought) Thought Content: Appropriate Hallucination Type: None Delusion Type: None Suicidal Ideation: No (No SI voiced) Homicidal Ideation: No (No HI voiced) Insight: Poor Judgment: Poor Assessment and Plan - Assessment (1) Schizoaffective disorder, bipolar type Code(s): F25.0 - Schizoaffective disorder, bipolar type Status: Acute (2) Acquired intellectual disability Code(s): F79 - Unspecified intellectual disabilities Status: Acute - Plan Plan: Continue current psychotropic medications as ordered. Recent outbursts likely behavioral, although if persistent we could consider med adjustment. Continue to monitor on the inpatient unit. Continue other medications and care as ordered. Justification for Continued Inpatient Stay: High risk for decompensation in less restrictive environment. Discharge Planning: Placement versus state hospitalization. Request Healthcare Surrogate/Guardian Advocate?: Yes
[2018-05-10] MEDS: LORazepam 1 MG Tablet PO PRN (19:39)
[2018-05-11] MEDS: carBAMazepine 200 MG Tablet PO SCH ×2 (08:38→20:43)
--- NOTE | 2018-05-11 13:04 | P.PNPSY ---
Subjective Chief Complaint: . Remarks: Patient seen and examined with nurse. Chart reviewed. Case discussed with nurse. No behavioral issues noted. Case discussed with counselor. On my examination today, the patient is calm and cooperative with interview. Affect is somewhat blunted. She says that she enjoyed a vanilla cake for her birthday yesterday. Denies side effects from medications. No physical complaints. Refused vital signs this morning. Labs reviewed. No new labs. Review of Systems All other systems reviewed negative except as stated in HPI (Limitation: Poor historian) Mental Status Examination Appearance: Appropriate Consciousness: Alert Orientation: Person, Place (At least) Motor Activity: Other (No abnormal motor movements noted) Speech: Unremarkable Language: Adequate Fund of Knowledge: Inadequate Attention and Concentration: Easily distracted Memory: Impaired Mood: Appropriate Affect: Blunt Thought Process & Associations: Other (Some poverty of thought) Thought Content: Appropriate Hallucination Type: None Delusion Type: None Suicidal Ideation: No (No SI voiced) Homicidal Ideation: No (No HI voiced) Insight: Poor Judgment: Poor Assessment and Plan - Assessment (1) Schizoaffective disorder, bipolar type Code(s): F25.0 - Schizoaffective disorder, bipolar type Status: Acute (2) Acquired intellectual disability Code(s): F79 - Unspecified intellectual disabilities Status: Acute - Plan Plan: Continue oral Prolixin supplementing Prolixin Decanoate. Continue carbamazepine. Continue Ativan as ordered. Continue to monitor on the inpatient unit. Continue other medications and care as ordered. Justification for Continued Inpatient Stay: High risk for decompensation in less restrictive environment. Discharge Planning: Placement versus state hospitalization. Request Healthcare Surrogate/Guardian Advocate?: Yes
[2018-05-12] MEDS: carBAMazepine 200 MG Tablet PO SCH ×2 (08:51→21:33)
--- NOTE | 2018-05-12 16:09 | P.PNPSY ---
Subjective Chief Complaint: . Remarks: Patient was seen and case discussed with nursing. Today, patient is less psychotic for nursing. She has been in good behavior and has not shown any aggression or outbursts or labile mood. She is compliant with her medications and remains internally stimulated Mental Status Examination Appearance: Appropriate Consciousness: Alert Orientation: Person, Place (At least) Motor Activity: Other (No abnormal motor movements noted) Speech: Unremarkable Language: Adequate Fund of Knowledge: Inadequate Attention and Concentration: Easily distracted Memory: Impaired Mood: Appropriate Affect: Blunt Thought Process & Associations: Other (Some poverty of thought) Thought Content: Appropriate Hallucination Type: None Delusion Type: None Suicidal Ideation: No (No SI voiced) Suicidal Plan: No Suicidal Intention: No Homicidal Ideation: No (No HI voiced) Homicidal Plan: No Homicidal Intention: No Insight: Poor Judgment: Poor Assessment and Plan - Assessment (1) Schizoaffective disorder, bipolar type Code(s): F25.0 - Schizoaffective disorder, bipolar type Status: Acute (2) Acquired intellectual disability Code(s): F79 - Unspecified intellectual disabilities Status: Acute - Plan Plan: Continue current treatment plan Justification for Continued Inpatient Stay: Patient would decompensate in a less restrictive setting Request Healthcare Surrogate/Guardian Advocate?: Yes
[2018-05-13] MEDS: carBAMazepine 200 MG Tablet PO SCH ×2 (09:09→21:39)
--- NOTE | 2018-05-13 13:05 | P.PNPSY ---
Subjective Chief Complaint: . Remarks: Patient was seen and case discussed with nursing. Patient continues to be in good behavior. She has not had any outbursts and is tolerating her medications well. Appears less internally preoccupied Mental Status Examination Appearance: Appropriate Consciousness: Alert Orientation: Person, Place (At least) Motor Activity: Other (No abnormal motor movements noted) Speech: Unremarkable Language: Adequate Fund of Knowledge: Inadequate Attention and Concentration: Easily distracted Memory: Impaired Mood: Appropriate Affect: Blunt Thought Process & Associations: Other (Some poverty of thought) Thought Content: Appropriate Hallucination Type: None Delusion Type: None Suicidal Ideation: No (No SI voiced) Suicidal Plan: No Suicidal Intention: No Homicidal Ideation: No (No HI voiced) Homicidal Plan: No Homicidal Intention: No Insight: Poor Judgment: Poor Assessment and Plan - Assessment (1) Schizoaffective disorder, bipolar type Code(s): F25.0 - Schizoaffective disorder, bipolar type Status: Acute (2) Acquired intellectual disability Code(s): F79 - Unspecified intellectual disabilities Status: Acute - Plan Plan: Continue current treatment plan Justification for Continued Inpatient Stay: Patient would decompensate in a less restrictive setting Request Healthcare Surrogate/Guardian Advocate?: Yes
[2018-05-14] MEDS: carBAMazepine 200 MG Tablet PO SCH ×2 (08:29→21:04)
--- NOTE | 2018-05-14 12:06 | P.PNPSY ---
Subjective Chief Complaint: . Remarks: Patient seen and examination attempted with counselor. Chart reviewed. Case discussed with nursing staff who reports patient had a minor outburst this morning but otherwise has been calm and cooperative. On my exam, I find the patient wandering around the unit with a steady gait. She is calm. She refuses interview today. No evidence of internal stimulation. No evident side effects from medications. No physical complaints. Vital Signs Temp Pulse Resp BP Pulse Ox 05/13/18 17:00 98.1 F 93 H 18 110/74 98 Labs reviewed. No new labs. Review of Systems other (Uncooperative) Mental Status Examination Appearance: Appropriate Consciousness: Alert Orientation: Person (At least) Motor Activity: Normal gait, Other (No motor abnormalities noted) Speech: Unremarkable Language: Adequate Fund of Knowledge: Inadequate Attention and Concentration: Easily distracted Memory: Impaired Mood: Other (Calm) Affect: Blunt Insight: Poor Judgment: Poor Mental Status Exam Remarks: Unable to assess thought process or content as patient was uncooperative with interview today. She does not verbalize any suicidal or homicidal ideation. Assessment and Plan - Assessment (1) Schizoaffective disorder, bipolar type Code(s): F25.0 - Schizoaffective disorder, bipolar type Status: Acute (2) Acquired intellectual disability Code(s): F79 - Unspecified intellectual disabilities Status: Acute - Plan Plan: Continue current psychiatric medications as ordered. Continue to monitor on the inpatient unit. Continue other medications and care as ordered. Justification for Continued Inpatient Stay: Risk for decompensation in less restrictive environment. Discharge Planning: Placement versus state hospitalization. Request Healthcare Surrogate/Guardian Advocate?: Yes
[2018-05-14] MEDS: LORazepam 1 MG Tablet PO PRN (21:04)
[2018-05-15] MEDS: carBAMazepine 200 MG Tablet PO SCH ×2 (08:15→20:14)
--- NOTE | 2018-05-15 10:28 | P.PNPSY ---
Subjective Chief Complaint: . Remarks: Patient seen and examined with counselor. Chart reviewed. Case discussed with nursing staff. No behavioral issues noted overnight. Case discussed with treatment team. On my examination today, patient is calm and cooperative. She denies any SI or HI. Denies AVH. No side effects from medications. No physical complaints. Vital Signs Temp Pulse Resp Pulse Ox 05/14/18 15:45 98.0 F 81 18 100 Labs reviewed. No new labs. Review of Systems All other systems reviewed negative except as stated in HPI Mental Status Examination Appearance: Appropriate Consciousness: Alert Orientation: Person (At least) Motor Activity: Normal gait, Other (No abnormal motor movements noted) Speech: Unremarkable Language: Adequate Fund of Knowledge: Inadequate Attention and Concentration: Easily distracted Memory: Impaired Mood: Other (Remains calm) Affect: Blunt Thought Process & Associations: Other (Some poverty of thought) Thought Content: Appropriate Hallucination Type: None Delusion Type: None Suicidal Ideation: No Homicidal Ideation: No Insight: Poor Judgment: Poor Assessment and Plan - Assessment (1) Schizoaffective disorder, bipolar type Code(s): F25.0 - Schizoaffective disorder, bipolar type Status: Acute (2) Acquired intellectual disability Code(s): F79 - Unspecified intellectual disabilities Status: Acute - Plan Plan: Continue current psychotropic medications as ordered. Continue other medications and care as ordered. Continue to monitor on the inpatient unit. Justification for Continued Inpatient Stay: High risk for decompensation in less restrictive environment. Discharge Planning: Placement versus state hospitalization. Request Healthcare Surrogate/Guardian Advocate?: Yes
--- NOTE | 2018-05-15 12:48 | P.TTN ---
Treatment Team Staff: Psychiatrist (Dr. Sellers), Therapist (Lis[facility]- [facility] waitlist, no changes, Appeal court meets today. Jeffrey- Pt. attends some groups but is limited.)
[2018-05-16] MEDS: carBAMazepine 200 MG Tablet PO SCH ×2 (08:20→20:26)
--- NOTE | 2018-05-16 09:35 | P.PNPSY ---
Subjective Chief Complaint: . Remarks: Patient seen and interviewed attempted with nurse. Chart reviewed. Case discussed with nursing staff who reports patient has been somewhat more irritable today. Case discussed with counselor who indicates that patient's mother had a hearing today for appeal of court order for placement for patient. Counselor has spoken with DCF worker who indicates that this appeal was denied by the court. When I endeavored to examine the patient today, she says simply, "no you may not" and walks away. I try to engage with her later, but she rebuffed my attempt. No evident side effects from medications. No physical complaints. Patient refused vital signs. Labs reviewed. No new labs. Review of Systems other (Limitation: Uncooperative) Mental Status Examination Appearance: Appropriate Consciousness: Alert Orientation: Person (At least) Motor Activity: Normal gait, Other (No motor abnormalities noted) Speech: Unremarkable Language: Adequate Fund of Knowledge: Inadequate Attention and Concentration: Easily distracted Memory: Impaired Mood: Irritable Affect: Irritable Thought Process & Associations: Other (Limited sample) Suicidal Ideation: No (No SI voiced) Homicidal Ideation: No (No HI voiced) Insight: Poor Judgment: Poor Mental Status Exam Remarks: Unable to assess thought content as patient is uncooperative with exam Assessment and Plan - Assessment (1) Schizoaffective disorder, bipolar type Code(s): F25.0 - Schizoaffective disorder, bipolar type Status: Acute (2) Acquired intellectual disability Code(s): F79 - Unspecified intellectual disabilities Status: Acute - Plan Plan: Continue current medications as ordered. Continue to monitor on the inpatient unit. Continue other care as ordered. Justification for Continued Inpatient Stay: Risk for decompensation in less restrictive environment. Discharge Planning: Placement versus state hospitalization. Request Healthcare Surrogate/Guardian Advocate?: Yes
[2018-05-16] MEDS: LORazepam 1 MG Tablet PO PRN (20:25)
[2018-05-17] MEDS: carBAMazepine 200 MG Tablet PO SCH ×2 (08:29→20:20)
--- NOTE | 2018-05-17 14:59 | P.PNPSY ---
Subjective Chief Complaint: . Remarks: Reviewed electronic medical records and discussed case with staff. Follow-up was conducted in the hallway with nurse present. Patient reports that she is "doing all right". She states that she is planning on taking a shower today which is much needed. She states that she is eating and sleeping well. She also reports that her mother is obtaining an immigration attorney to get her out of here. Staff reports that she has been irritable and remains internally stimulated. Review of Systems All other systems reviewed negative except as stated in HPI Mental Status Examination Appearance: Appropriate Consciousness: Alert Orientation: Person (At least) Motor Activity: Normal gait, Other (No motor abnormalities noted) Speech: Unremarkable Language: Adequate Fund of Knowledge: Inadequate Attention and Concentration: Easily distracted Memory: Impaired Mood: Irritable Affect: Irritable Thought Process & Associations: Other (Limited sample) Thought Content: Appropriate Hallucination Type: None Delusion Type: None Suicidal Ideation: No (No SI voiced) Suicidal Plan: No Suicidal Intention: No Homicidal Ideation: No (No HI voiced) Homicidal Plan: No Homicidal Intention: No Insight: Poor Judgment: Poor Assessment and Plan - Assessment (1) Schizoaffective disorder, bipolar type Code(s): F25.0 - Schizoaffective disorder, bipolar type Status: Acute - Plan Plan: Continue with current treatment plan as ordered. Patient remains on state waiting list. Justification for Continued Inpatient Stay: Moving this patient to a less restrictive environment would likely result in decompensation. Request Healthcare Surrogate/Guardian Advocate?: Yes
[2018-05-18] MEDS: carBAMazepine 200 MG Tablet PO SCH ×2 (08:07→21:04)
--- NOTE | 2018-05-18 16:37 | P.PNPSY ---
Subjective Chief Complaint: . Remarks: Reviewed electronic medical records and discussed case with staff. Follow-up was conducted in the hallway with patient's nurse present. Nurse reported that the patient was very upset this morning and somewhat internally stimulated. Apparently, there was an incident during the ice cream social which upset her. However, while in the hallway she expresses concern over the incident. I do not note any internal stimulation or thought blocking at the time. She is cooperative and appropriate throughout the interview. She does remain discharge focused. She reports that she slept well has had a good appetite. Mental Status Examination Appearance: Appropriate Consciousness: Alert Orientation: Person (At least) Motor Activity: Normal gait, Other (No motor abnormalities noted) Speech: Unremarkable Language: Adequate Fund of Knowledge: Inadequate Attention and Concentration: Easily distracted Memory: Impaired Mood: Irritable Affect: Irritable Thought Process & Associations: Other (Limited sample) Thought Content: Appropriate Hallucination Type: None Delusion Type: None Suicidal Ideation: No (No SI voiced) Suicidal Plan: No Suicidal Intention: No Homicidal Ideation: No (No HI voiced) Homicidal Plan: No Homicidal Intention: No Insight: Poor Judgment: Poor Assessment and Plan - Assessment (1) Schizoaffective disorder, bipolar type Code(s): F25.0 - Schizoaffective disorder, bipolar type Status: Acute - Plan Plan: Continue with current treatment plan. Patient awaits a spot at the state facility. Justification for Continued Inpatient Stay: Moving this patient to a less restrictive environment would likely result in decompensation. Request Healthcare Surrogate/Guardian Advocate?: Yes
[2018-05-19] MEDS: carBAMazepine 200 MG Tablet PO SCH ×2 (09:14→21:06)
--- NOTE | 2018-05-19 13:44 | P.PNPSY ---
Subjective Chief Complaint: . Remarks: Patient was seen and case discussed with nursing. Patient is on good behavior today. She has not had any outbursts. She is spending her time pacing the neumann and is internally stimulated Mental Status Examination Appearance: Appropriate Consciousness: Alert Orientation: Person (At least) Motor Activity: Normal gait, Other (No motor abnormalities noted) Speech: Unremarkable Language: Adequate Fund of Knowledge: Inadequate Attention and Concentration: Easily distracted Memory: Impaired Mood: Irritable Affect: Irritable Thought Process & Associations: Other (Limited sample) Thought Content: Appropriate Hallucination Type: None Delusion Type: None Suicidal Ideation: No (No SI voiced) Suicidal Plan: No Suicidal Intention: No Homicidal Ideation: No (No HI voiced) Homicidal Plan: No Homicidal Intention: No Insight: Poor Judgment: Poor Assessment and Plan - Assessment (1) Schizoaffective disorder, bipolar type Code(s): F25.0 - Schizoaffective disorder, bipolar type Status: Acute (2) Acquired intellectual disability Code(s): F79 - Unspecified intellectual disabilities Status: Acute - Plan Plan: Continue current treatment plan Justification for Continued Inpatient Stay: Patient would decompensate in a less restrictive setting Request Healthcare Surrogate/Guardian Advocate?: Yes
[2018-05-19] MEDS: LORazepam 1 MG Tablet PO PRN (21:06)
[2018-05-20] MEDS: carBAMazepine 200 MG Tablet PO SCH ×2 (09:37→20:46)
--- NOTE | 2018-05-20 10:39 | P.PNPSY ---
Subjective Chief Complaint: . Remarks: Patient was seen and case discussed with nursing. Patient had an outburst this morning but otherwise has been seclusive to self. She is spending her time pacing the hallway internally stimulated. Compliant with medications Mental Status Examination Appearance: Appropriate Consciousness: Alert Orientation: Person (At least) Motor Activity: Normal gait, Other (No motor abnormalities noted) Speech: Unremarkable Language: Adequate Fund of Knowledge: Inadequate Attention and Concentration: Easily distracted Memory: Impaired Mood: Irritable Affect: Irritable Thought Process & Associations: Other (Limited sample) Thought Content: Appropriate Hallucination Type: None Delusion Type: None Suicidal Ideation: No (No SI voiced) Suicidal Plan: No Suicidal Intention: No Homicidal Ideation: No (No HI voiced) Homicidal Plan: No Homicidal Intention: No Insight: Poor Judgment: Poor Assessment and Plan - Assessment (1) Schizoaffective disorder, bipolar type Code(s): F25.0 - Schizoaffective disorder, bipolar type Status: Acute (2) Acquired intellectual disability Code(s): F79 - Unspecified intellectual disabilities Status: Acute - Plan Plan: Continue current treatment plan Justification for Continued Inpatient Stay: Patient would decompensate in a less restrictive setting Request Healthcare Surrogate/Guardian Advocate?: Yes
[2018-05-21] MEDS: carBAMazepine 200 MG Tablet PO SCH ×2 (09:21→20:19)
--- NOTE | 2018-05-21 13:08 | P.PNPSY ---
Subjective Chief Complaint: . Remarks: Reviewed electronic medical records and discussed case with staff. Follow-up was conducted in the hallway. Patient was found pacing back and forth. She states that she slept okay and she had a good appetite. She reports her mood is good and her affect remained somewhat flat. Her nurse reports that she still has periods of internal stimulation and was quite labile after visit with her mother yesterday. Mental Status Examination Appearance: Appropriate Consciousness: Alert Orientation: Person (At least) Motor Activity: Normal gait, Other (No motor abnormalities noted) Speech: Unremarkable Language: Adequate Fund of Knowledge: Inadequate Attention and Concentration: Easily distracted Memory: Impaired Mood: Irritable Affect: Irritable Thought Process & Associations: Other (Limited sample) Thought Content: Appropriate Hallucination Type: None Delusion Type: None Suicidal Ideation: No (No SI voiced) Suicidal Plan: No Suicidal Intention: No Homicidal Ideation: No (No HI voiced) Homicidal Plan: No Homicidal Intention: No Insight: Poor Judgment: Poor Assessment and Plan - Assessment (1) Schizoaffective disorder, bipolar type Code(s): F25.0 - Schizoaffective disorder, bipolar type Status: Acute - Plan Plan: Patient will be reevaluated tomorrow by the attending psychiatrist. Continue with current treatment plan. Patient remains on list for placement at a state facility. Justification for Continued Inpatient Stay: Moving this patient to a less restrictive environment would likely result in decompensation. Request Healthcare Surrogate/Guardian Advocate?: Yes
[2018-05-22] MEDS: carBAMazepine 200 MG Tablet PO SCH ×2 (09:27→20:36)
--- NOTE | 2018-05-22 09:58 | P.PNPSY ---
Subjective Chief Complaint: . Remarks: Patient seen and examined with nurse. Chart reviewed. Case discussed with nursing staff. No change per nursing. Case discussed with counselor. On my examination today, the patient is calm and laying in her room. She denies any SI. Denies any hallucinations. No side effects from medications. No physical complaints. Patient refused vital signs this morning but allowed them to be obtained later in the morning, see below. Resistant to having horse breeder sweep room; nurse will have this done while patient is out of room to prevent it from becoming unhygienic. Vital Signs Temp Pulse Resp BP 05/22/18 10:57 97.8 F 87 17 116/55 L Labs reviewed. No new labs. Review of Systems All other systems reviewed negative except as stated in HPI (Limitation: Poor historian) Mental Status Examination Appearance: Appropriate Consciousness: Alert Orientation: Person (At least) Motor Activity: Normal gait, Other (No abnormal motor movements noted) Speech: Unremarkable Language: Adequate Fund of Knowledge: Inadequate Attention and Concentration: Adequate Memory: Impaired Mood: Appropriate Affect: Blunt Thought Process & Associations: Other (Somewhat concrete) Thought Content: Appropriate Hallucination Type: None Delusion Type: None Suicidal Ideation: No Suicidal Plan: No Suicidal Intention: No Homicidal Ideation: No Homicidal Plan: No Homicidal Intention: No Insight: Poor Judgment: Poor Assessment and Plan - Assessment (1) Schizoaffective disorder, bipolar type Code(s): F25.0 - Schizoaffective disorder, bipolar type Status: Acute (2) Acquired intellectual disability Code(s): F79 - Unspecified intellectual disabilities Status: Acute - Plan Plan: Continue current psychotropics as ordered. Patient will be due for booster dose of Prolixin Decanoate at the end of the week. Continue to monitor on the inpatient unit. Continue other care as ordered. Justification for Continued Inpatient Stay: High risk for decompensation in less restrictive environment. Discharge Planning: Placement versus state hospitalization Request Healthcare Surrogate/Guardian Advocate?: Yes
[2018-05-22] MEDS: LORazepam 1 MG Tablet PO PRN (20:36)
[2018-05-23] MEDS: carBAMazepine 200 MG Tablet PO SCH ×2 (08:30→20:40)
--- NOTE | 2018-05-23 14:40 | P.PNPSY ---
Subjective Chief Complaint: . Remarks: Patient seen and examined with counselor and nurse. Chart reviewed. Case discussed with nursing staff. No behavioral issues noted overnight. Case discussed with counselor. On my examination today, patient is calm and cooperative. She remained somewhat discharged focused, and we once again review difficulties in the discharge plan. She denies any SI or HI. Denies any hallucinations. No side effects from medicines. No physical complaints. Vital Signs Temp Pulse Resp BP Pulse Ox 05/22/18 17:34 97.7 F 85 16 106/64 98 Labs reviewed. No new labs. Review of Systems All other systems reviewed negative except as stated in HPI Mental Status Examination Appearance: Appropriate Consciousness: Alert Orientation: Person (At least) Motor Activity: Normal gait, Other (No motor abnormalities noted) Speech: Unremarkable Language: Adequate Fund of Knowledge: Inadequate Attention and Concentration: Adequate Memory: Impaired Mood: Appropriate Affect: Blunt Thought Process & Associations: Other (Remains a little concrete) Thought Content: Appropriate Hallucination Type: None Delusion Type: None Suicidal Ideation: No Suicidal Plan: No Suicidal Intention: No Homicidal Ideation: No Homicidal Plan: No Homicidal Intention: No Insight: Poor Judgment: Poor Assessment and Plan - Assessment (1) Schizoaffective disorder, bipolar type Code(s): F25.0 - Schizoaffective disorder, bipolar type Status: Acute (2) Acquired intellectual disability Code(s): F79 - Unspecified intellectual disabilities Status: Acute - Plan Plan: Continue current psychotropic medications as ordered. Continue to monitor on the inpatient unit and continue other care as ordered. Justification for Continued Inpatient Stay: Risk for decompensation in less restrictive environment. Discharge Planning: Placement versus state hospitalization. Request Healthcare Surrogate/Guardian Advocate?: Yes
[2018-05-24] MEDS: carBAMazepine 200 MG Tablet PO SCH ×2 (08:22→20:13)
--- NOTE | 2018-05-24 11:00 | P.PNPSY ---
Subjective Chief Complaint: . Remarks: Patient seen and examined with nurse. Chart reviewed. Case discussed with nursing staff. No behavioral issues noted overnight. On my examination today, the patient remains calm and cooperative. No mood or psychotic material. Remains somewhat discharged focused. No side effects from medications, nor does the patient have any physical complaints. Patient declined vital signs this morning. Labs reviewed. No new labs. Review of Systems All other systems reviewed negative except as stated in HPI Mental Status Examination Appearance: Appropriate Consciousness: Alert Orientation: Person (At least) Motor Activity: Other (No abnormal motor movements noted) Speech: Unremarkable Language: Adequate Fund of Knowledge: Inadequate Attention and Concentration: Adequate Memory: Impaired Mood: Appropriate Affect: Blunt Thought Process & Associations: Other (Remains a little concrete) Thought Content: Appropriate Hallucination Type: None Delusion Type: None Suicidal Ideation: No Homicidal Ideation: No Insight: Poor Judgment: Poor Assessment and Plan - Assessment (1) Schizoaffective disorder, bipolar type Code(s): F25.0 - Schizoaffective disorder, bipolar type Status: Acute (2) Acquired intellectual disability Code(s): F79 - Unspecified intellectual disabilities Status: Acute - Plan Plan: Continue current psychiatric medications as ordered. Continue to monitor on the inpatient unit. Check an updated set of basic laboratories. Continue other care as ordered. Justification for Continued Inpatient Stay: Risk for decompensation in less restrictive environment. Discharge Planning: Placement versus state hospitalization. Request Healthcare Surrogate/Guardian Advocate?: Yes
[2018-05-25] MEDS: carBAMazepine 200 MG Tablet PO SCH ×2 (08:56→20:33)
--- NOTE | 2018-05-25 11:15 | P.PNPSY ---
Subjective Chief Complaint: . Remarks: Patient seen and examined with nurse. Chart reviewed. Case discussed with nursing staff. On my examination today, the patient is irritable and dysphoric. She is upset about Prolixin Decanoate injection, which is due today. She also was upset about ordered lab work and apparently refused this. She is unable to tolerate extended interview and stalks off. No evident side effects from medications. No physical complaints. Vital Signs Temp Pulse BP Pulse Ox 05/24/18 17:52 97.6 F 78 104/59 L 97 Patient refused laboratories. Review of Systems All other systems reviewed negative except as stated in HPI Mental Status Examination Appearance: Disheveled, Malodorous Consciousness: Alert Orientation: Person, Place Motor Activity: Other (No motor abnormalities noted) Speech: Unremarkable Language: Adequate Fund of Knowledge: Inadequate Attention and Concentration: Adequate Memory: Impaired Mood: Irritable Affect: Irritable, Other (Dysphoric) Thought Process & Associations: Other (Remains a little concrete) Thought Content: Appropriate Hallucination Type: None Delusion Type: None Suicidal Ideation: No Homicidal Ideation: No Insight: Poor Judgment: Poor Assessment and Plan - Assessment (1) Schizoaffective disorder, bipolar type Code(s): F25.0 - Schizoaffective disorder, bipolar type Status: Acute (2) Acquired intellectual disability Code(s): F79 - Unspecified intellectual disabilities Status: Acute - Plan Plan: Patient received Prolixin decanoate booster dose today. In retrospect, patient does seem to struggle more with irritability before booster dose of decanoate is due, and I wonder if she might not benefit from a more frequent dosing interval, as I suspect that what is happening in part is that blood levels of Prolixin are decreasing below therapeutic levels in the days prior to booster administration. To consider more frequent Prolixin decanoate administration. Continue to monitor on the inpatient unit. Continue other medications and care as ordered. Justification for Continued Inpatient Stay: Possible medication changes. Risk for decompensation in less restrictive environment. Discharge Planning: Placement versus state hospitalization. Request Healthcare Surrogate/Guardian Advocate?: Yes
--- NOTE | 2018-05-25 12:25 | P.TTN ---
- Patient Problems Problems: 1. Discharge planning 2. Medication compliance 3. Knowledge deficit 4. Lack of coping skills - Progress Toward Goals Provider Present: Dr. Donnell Sellers (Pt. is due for shot a today.) Group Spec/RT/OT/MCNEILL Present: OSITO Ivy (Pt. attends select groups when pt. is able to tolerate.) - Documentation Teaching Recipient: Patient
[2018-05-25] MEDS: LORazepam 1 MG Tablet PO PRN (20:33)
[2018-05-26] MEDS: carBAMazepine 200 MG Tablet PO SCH ×2 (09:44→20:40)
--- NOTE | 2018-05-26 17:23 | P.PNPSY ---
Subjective Chief Complaint: . Remarks: Reviewed electronic medical records and discussed case with staff. Follow-up was conducted in patient's room with SRINATH Foster present. Patient was found sleeping soundly in her room. She appeared to be somewhat confused upon awakening but this is likely due to the deep sleep she seemed to [place]. She states that she is been sleeping well and her appetite's been good. Staff report that she was somewhat irritable this morning but that seems to be fairly normal for her. Her mood was good and her affect is euthymic throughout the interview she was appropriate. Mental Status Examination Appearance: Disheveled, Malodorous Consciousness: Alert Orientation: Person, Place Motor Activity: Other (No motor abnormalities noted) Speech: Unremarkable Language: Adequate Fund of Knowledge: Inadequate Attention and Concentration: Adequate Memory: Impaired Mood: Irritable Affect: Irritable, Other (Dysphoric) Thought Process & Associations: Other (Remains a little concrete) Thought Content: Appropriate Hallucination Type: None Delusion Type: None Suicidal Ideation: No Suicidal Plan: No Suicidal Intention: No Homicidal Ideation: No Homicidal Plan: No Homicidal Intention: No Insight: Poor Judgment: Poor Assessment and Plan - Assessment (1) Schizoaffective disorder, bipolar type Code(s): F25.0 - Schizoaffective disorder, bipolar type Status: Acute - Plan Plan: Patient will be reevaluated Monday by the attending psychiatrist. Continue with current treatment plan. Justification for Continued Inpatient Stay: Moving this patient to a less restrictive environment would likely result in decompensation. Request Healthcare Surrogate/Guardian Advocate?: Yes
[2018-05-27] MEDS: carBAMazepine 200 MG Tablet PO SCH ×2 (08:43→20:42)
--- NOTE | 2018-05-27 16:14 | P.PNPSY ---
Subjective Chief Complaint: . Remarks: Reviewed electronic medical records and discussed case with staff. Patient is pacing the hallway and crying. She would not stop to talk and states, " leave me alone." Prior in the shift she was happy, waving and engaging with others. After about 30 minutes patient re-grouped and was happy again. Per staff she has been cooperative , not intrusive as we have experienced in the past and pleasant. Review of Systems All other systems reviewed negative except as stated in HPI Mental Status Examination Appearance: Disheveled, Malodorous Consciousness: Alert Orientation: Person, Place Motor Activity: Other (No motor abnormalities noted) Speech: Unremarkable Language: Adequate Fund of Knowledge: Inadequate Attention and Concentration: Adequate Memory: Impaired Mood: Sad Affect: Flat, Blunt, Other (crying during the day ) Thought Process & Associations: Other (Remains a little concrete) Thought Content: Appropriate Hallucination Type: None Delusion Type: None Suicidal Ideation: No Suicidal Plan: No Suicidal Intention: No Homicidal Ideation: No Homicidal Plan: No Homicidal Intention: No Insight: Poor Judgment: Poor Assessment and Plan - Assessment (1) Acquired intellectual disability Code(s): F79 - Unspecified intellectual disabilities Status: Acute (2) Schizoaffective disorder, bipolar type Code(s): F25.0 - Schizoaffective disorder, bipolar type Status: Acute - Plan Plan: Patient will be reevaluated Monday by the attending psychiatrist. Continue with current treatment plan. Justification for Continued Inpatient Stay: Moving patient to a less restrictive environment may result in her decompensation. Request Healthcare Surrogate/Guardian Advocate?: Yes
[2018-05-27] MEDS: LORazepam 1 MG Tablet PO PRN (20:40)
--- NOTE | 2018-05-28 09:01 | P.PNPSY ---
Subjective Chief Complaint: . Remarks: Patient seen and examined with nurseBarbra. Chart reviewed. Case discussed with nursing staff. No behavioral issues noted overnight. On my examination today, the patient is calm but somewhat dismissive. She denies any SI or HI. Denies any AVH. Denies any side effects from medications. No physical complaints. The patient does refuse physical examination for EPS today. Vital Signs Temp Pulse Resp BP Pulse Ox 05/27/18 17:28 98.2 F 74 18 106/68 98 Labs reviewed. No new labs. Review of Systems All other systems reviewed negative except as stated in HPI Mental Status Examination Appearance: Disheveled (Mild) Consciousness: Alert Orientation: Person, Place Motor Activity: Other (No abnormal motor movements noted) Speech: Unremarkable Language: Adequate Fund of Knowledge: Inadequate Attention and Concentration: Adequate Memory: Impaired Mood: Appropriate, Other (Calm) Affect: Blunt Thought Process & Associations: Other (Somewhat concrete) Thought Content: Appropriate Hallucination Type: None Delusion Type: None Suicidal Ideation: No Suicidal Plan: No Suicidal Intention: No Homicidal Ideation: No Homicidal Plan: No Homicidal Intention: No Insight: Poor Judgment: Poor Assessment and Plan - Assessment (1) Schizoaffective disorder, bipolar type Code(s): F25.0 - Schizoaffective disorder, bipolar type Status: Deleted (2) Acquired intellectual disability Code(s): F79 - Unspecified intellectual disabilities Status: Acute - Plan Plan: Continue current psychiatric medications as ordered. Continue to monitor on the inpatient unit. Continue other medications and care as ordered. Justification for Continued Inpatient Stay: High risk for decompensation in less restrictive environment. Discharge Planning: Placement versus state psychiatric hospitalization. Request Healthcare Surrogate/Guardian Advocate?: Yes
[2018-05-28] MEDS: carBAMazepine 200 MG Tablet PO SCH ×2 (09:24→20:42)
[2018-05-28] MEDS: LORazepam 1 MG Tablet PO PRN (22:52)
[2018-05-29] MEDS: carBAMazepine 200 MG Tablet PO SCH ×2 (08:21→20:58)
--- NOTE | 2018-05-29 10:46 | P.PNPSY ---
Subjective Chief Complaint: . Remarks: Patient seen and examined with counselor and nurse. Chart reviewed. Case discussed with nursing staff. Case discussed in treatment team. Counselor relates that patient has a [facility] admission date of 06/07/2018. We spend considerable time discussing optimal timing of relating this information to patient and agree that notification at the beginning of next week may be best. On my exam, patient presents as somewhat sullen. She declines to answer open ended questions, saying "that's private," She does deny SI/HI/AVH. No side effects from medications. No physical complaints. Refused vital signs. Labs reviewed. No new labs. Review of Systems All other systems reviewed negative except as stated in HPI Mental Status Examination Appearance: Disheveled (Mild) Consciousness: Alert Orientation: Person, Place Motor Activity: Other (No motor abnormalities noted.) Speech: Unremarkable Language: Adequate Fund of Knowledge: Inadequate Attention and Concentration: Adequate Memory: Impaired Mood: Other (Calm) Affect: Blunt Thought Process & Associations: Other (Remains a little concrete) Thought Content: Appropriate Hallucination Type: None Delusion Type: None Suicidal Ideation: No Homicidal Ideation: No Insight: Poor Judgment: Poor Assessment and Plan - Assessment (1) Schizoaffective disorder, bipolar type Code(s): F25.0 - Schizoaffective disorder, bipolar type Status: Chronic (2) Acquired intellectual disability Code(s): F79 - Unspecified intellectual disabilities Status: Chronic - Plan Plan: Continue current psychotropic medications as ordered. Continue to monitor on the inpatient unit. Continue other medications and care as ordered. Justification for Continued Inpatient Stay: Risk for decompensation in less restrictive environment. Discharge Planning: [facility] hospital admission date 06/07/18. Request Healthcare Surrogate/Guardian Advocate?: Yes
--- NOTE | 2018-05-29 14:30 | P.TTN ---
- Patient Problems Problems: 1. Discharge planning 2. Medication compliance 3. Knowledge deficit 4. Lack of coping skills - Progress Toward Goals Provider Present: Dr. Donnell Sellers (Admit date to [facility] 06/07.) Psychiatric Counselors Present: Lisandro Herr Jr., [facility] (Pt. is at baseline but still experiences internal stimulation.) Group Spec/RT/OT/MCNEILL Present: OSITO Ivy (Pt. attends select groups when pt. is able to tolerate.) - Documentation Teaching Recipient: Patient
[2018-05-29 16:59] VITALS: O2SAT 97
[2018-05-29] MEDS: LORazepam 1 MG Tablet PO PRN (20:58)
[2018-05-30] MEDS: carBAMazepine 200 MG Tablet PO SCH ×2 (08:17→20:22)
--- NOTE | 2018-05-30 11:26 | P.PNPSY ---
Subjective Chief Complaint: . Remarks: Patient seen and examined with nurse. Chart reviewed. Case discussed with nursing staff. No change reported. On my examination today, the patient is sitting in the hallway in front of the telephone. She says that she is awaiting a call from her mother. She is somewhat petulant and dysphoric but presenting no behavioral problem. No SI or HI voiced. No psychotic material. Continues to fixated on discharge home. No side effects from medications. No reported physical complaints. Vital Signs Temp Pulse Resp BP Pulse Ox 05/29/18 16:58 97.9 F 76 15 116/78 97 Intake and Output 05/29/18 05/30/18 05/30/18 22:59 06:59 14:59 Intake Total 720 / 720 Balance 720 / 720 Intake: Oral 720 / 720 Labs reviewed. No new labs. Review of Systems other (Uncooperative today) Mental Status Examination Appearance: Other (Fair grooming) Consciousness: Alert Orientation: Person, Place Motor Activity: Other (No motor abnormalities noted.) Speech: Unremarkable Language: Adequate Fund of Knowledge: Inadequate Attention and Concentration: Adequate Memory: Impaired Mood: Other (Calm) Affect: Other (Somewhat dysphoric) Thought Process & Associations: Other ([place]) Thought Content: Appropriate Hallucination Type: None Delusion Type: None Suicidal Ideation: No Homicidal Ideation: No Insight: Poor Judgment: Poor Assessment and Plan - Assessment (1) Schizoaffective disorder, bipolar type Code(s): F25.0 - Schizoaffective disorder, bipolar type Status: Chronic (2) Acquired intellectual disability Code(s): F79 - Unspecified intellectual disabilities Status: Chronic - Plan Plan: Continue current psychiatric medications as ordered. Continue to monitor on the inpatient unit. Continue other medications and care as ordered. Justification for Continued Inpatient Stay: Risk for decompensation in less restrictive environment. Discharge Planning: [facility] admission date 06/07/2018. Request Healthcare Surrogate/Guardian Advocate?: Yes
[2018-05-30] MEDS: LORazepam 1 MG Tablet PO PRN (20:22)
[2018-05-31] MEDS: carBAMazepine 200 MG Tablet PO SCH ×2 (08:48→20:24)
--- NOTE | 2018-05-31 11:18 | P.PNPSY ---
Subjective Chief Complaint: . Remarks: Patient seen and examined with nurse and counselor. Chart reviewed. Case discussed with nursing staff. Per nursing, no change. For me today, patient remains calm, if a little standoffish. She continues to perseverate on discharge home. No psychotic material. No side effects from medications. No physical complaints. Patient refused vital signs this morning. Labs reviewed. No new labs. Review of Systems other (Limitation: Uncooperative) Mental Status Examination Appearance: Other (Fair grooming) Consciousness: Alert Orientation: Person, Place Motor Activity: Other (No abnormal motor movements noted) Speech: Unremarkable Language: Adequate Fund of Knowledge: Inadequate Attention and Concentration: Adequate Memory: Impaired Mood: Other (Calm) Affect: Other (Mildly dysphoric) Thought Process & Associations: Other ([place]) Thought Content: Appropriate Hallucination Type: None Delusion Type: None Suicidal Ideation: No Homicidal Ideation: No Insight: Poor Judgment: Poor Assessment and Plan - Assessment (1) Schizoaffective disorder, bipolar type Code(s): F25.0 - Schizoaffective disorder, bipolar type Status: Chronic (2) Acquired intellectual disability Code(s): F79 - Unspecified intellectual disabilities Status: Chronic - Plan Plan: Continue current psychiatric medications as ordered. Continue other medications and care as ordered. Continue to monitor on the inpatient unit. Justification for Continued Inpatient Stay: Risk for decompensation in less restrictive environment. Discharge Planning: [facility] admission date 06/07/2018. Request Healthcare Surrogate/Guardian Advocate?: Yes
[2018-05-31] MEDS: LORazepam 1 MG Tablet PO PRN (20:25)
[2018-06-01] MEDS: carBAMazepine 200 MG Tablet PO SCH ×2 (08:58→21:35)
[2018-06-01] MEDS: LORazepam 1 MG Tablet PO PRN (09:55)
--- NOTE | 2018-06-01 14:40 | P.PNPSY ---
Subjective Chief Complaint: . Remarks: Reviewed electronic medical records and discussed case with staff. I attempted to follow-up with this patient in the exam room however, she refused to enter the room. Instead, she looked in the door and stated "I do not know her and I do not want to know her". Patient observed in the hallway extremely irritable, labile, and internally stimulated. Staff reports she is refusing to bathe and has become quite malodorous. Will use him to address this issue with her she becomes irritable. Mental Status Examination Appearance: Other (Fair grooming) Consciousness: Alert Orientation: Person, Place Motor Activity: Other (No abnormal motor movements noted) Speech: Unremarkable Language: Adequate Fund of Knowledge: Inadequate Attention and Concentration: Adequate Memory: Impaired Mood: Other (Calm) Affect: Other (Mildly dysphoric) Thought Process & Associations: Other ([place]) Thought Content: Appropriate Hallucination Type: None Delusion Type: None Suicidal Ideation: No Suicidal Plan: No Suicidal Intention: No Homicidal Ideation: No Homicidal Plan: No Homicidal Intention: No Insight: Poor Judgment: Poor Assessment and Plan - Plan Plan: I have been advised by staff that this patient has an admission date to the [facility] facility of June 07. Justification for Continued Inpatient Stay: Moving this patient to a less restrictive environment would likely result in decompensation. Request Healthcare Surrogate/Guardian Advocate?: Yes
[2018-06-02] MEDS: carBAMazepine 200 MG Tablet PO SCH ×2 (08:57→21:13)
--- NOTE | 2018-06-02 12:36 | P.PNPSY ---
Subjective Chief Complaint: . Remarks: Reviewed electronic medical records and discussed case with staff. Follow-up was conducted in the hallway with elieser Mcmahonor present. Patient was observed prior to follow-up pacing in the halls laughing and talking to herself. She reports that she "feels better" and blames her misbehavior on "that he". States that she sleeping well and that she has had a good appetite. She is once again been encouraged to take a shower and states that she will do so after lunch. Mental Status Examination Appearance: Other (Fair grooming) Consciousness: Alert Orientation: Person, Place Motor Activity: Other (No abnormal motor movements noted) Speech: Unremarkable Language: Adequate Fund of Knowledge: Inadequate Attention and Concentration: Adequate Memory: Impaired Mood: Other (Calm) Affect: Other (Mildly dysphoric) Thought Process & Associations: Other ([place]) Thought Content: Appropriate Hallucination Type: None Delusion Type: None Suicidal Ideation: No Suicidal Plan: No Suicidal Intention: No Homicidal Ideation: No Homicidal Plan: No Homicidal Intention: No Insight: Poor Judgment: Poor Assessment and Plan - Assessment (1) Schizoaffective disorder, bipolar type Code(s): F25.0 - Schizoaffective disorder, bipolar type Status: Chronic - Plan Plan: Patient will be reevaluated Monday by the attending psychiatrist. Continue with current treatment plan. Justification for Continued Inpatient Stay: Moving this patient to a less restrictive environment would likely result in decompensation. Request Healthcare Surrogate/Guardian Advocate?: Yes
[2018-06-03] MEDS: carBAMazepine 200 MG Tablet PO SCH ×2 (08:20→21:00)
--- NOTE | 2018-06-03 11:46 | P.PNPSY ---
Subjective Chief Complaint: . Remarks: Reviewed electronic medical records and discussed case with staff. Follow-up was conducted in the patient's room with CHRISTIANA Brandon. Patient continues to have outbursts and talking to herself. She is easily redirected and follows directions. She was arguing with herself this morning and she returned to her room on her own. Walks the hallways routinely. Per staff the plan is for a custodial placement and a tentative date of June 07 that will be shared with the patient and family this week. Review of Systems All other systems reviewed negative except as stated in HPI Mental Status Examination Appearance: Other (Fair grooming) Consciousness: Alert Orientation: Person, Place Motor Activity: Other (No abnormal motor movements noted) Speech: Unremarkable Language: Adequate Fund of Knowledge: Inadequate Attention and Concentration: Adequate Memory: Impaired Mood: Other (Calm) Affect: Other (Mildly dysphoric) Thought Process & Associations: Other (Almo) Thought Content: Appropriate Hallucination Type: None Delusion Type: None Suicidal Ideation: No Suicidal Plan: No Suicidal Intention: No Homicidal Ideation: No Homicidal Plan: No Homicidal Intention: No Insight: Poor Judgment: Poor Assessment and Plan - Assessment (1) Acquired intellectual disability Code(s): F79 - Unspecified intellectual disabilities Status: Chronic (2) Schizoaffective disorder, bipolar type Code(s): F25.0 - Schizoaffective disorder, bipolar type Status: Chronic - Plan Plan: Patient will be reevaluated Monday by the attending psychiatrist. Continue with current treatment plan. Justification for Continued Inpatient Stay: Moving patient to a less restrictive environment may result in her decompensation. Request Healthcare Surrogate/Guardian Advocate?: Yes
[2018-06-03 18:46] VITALS: BP 106/68; PULSE 73; RESP 18; TEMP 97.5
[2018-06-04] MEDS: carBAMazepine 200 MG Tablet PO SCH ×2 (08:16→20:45)
--- NOTE | 2018-06-04 11:41 | P.PNPSY ---
Subjective Chief Complaint: . Remarks: Patient seen and examined with counselor. Chart reviewed. Case discussed with nursing staff. No change. On my examination today, the patient is laying in bed. She is calm but mildly oppositional. She denies SI or HI. Denies AVH. Refuses physical exam for motor side effects of antipsychotics. Denies side effects from medications. No physical complaints. Vital Signs Temp Pulse Resp BP Pulse Ox 06/03/18 18:45 97.5 F L 73 18 106/68 97 Labs reviewed. No new labs. Review of Systems All other systems reviewed negative except as stated in HPI Mental Status Examination Appearance: Other (Fair grooming) Consciousness: Alert Orientation: Person, Place Motor Activity: Other (No motoric abnormalities noted but the patient does refuse physical exam) Speech: Unremarkable Language: Adequate Fund of Knowledge: Inadequate Attention and Concentration: Adequate Memory: Impaired Mood: Oppositional (Mild), Other (Calm) Affect: Blunt Thought Process & Associations: Other ([place]) Thought Content: Appropriate Hallucination Type: None Delusion Type: None Suicidal Ideation: No Suicidal Plan: No Suicidal Intention: No Homicidal Ideation: No Homicidal Plan: No Homicidal Intention: No Insight: Poor Judgment: Poor Assessment and Plan - Assessment (1) Schizoaffective disorder, bipolar type Code(s): F25.0 - Schizoaffective disorder, bipolar type Status: Chronic (2) Acquired intellectual disability Code(s): F79 - Unspecified intellectual disabilities Status: Chronic - Plan Plan: Continue current psychiatric medications as ordered. Continue to monitor on the inpatient unit. Continue other medications and care as ordered. Justification for Continued Inpatient Stay: Risk for decompensation in less restrictive environment. Discharge Planning: [facility] admission date 06/07/2018 Request Healthcare Surrogate/Guardian Advocate?: Yes
[2018-06-05] MEDS: carBAMazepine 200 MG Tablet PO SCH ×2 (08:57→20:54)
--- NOTE | 2018-06-05 10:12 | P.PNPSY ---
Subjective Chief Complaint: . Remarks: Patient seen and examined with nurse and counselor. Chart reviewed. Case discussed with nursing staff. No behavioral issues noted. Case discussed in treatment team. Counselor has relate the patient's mother upcoming [facility] admission date. On my examination today, patient is calm and cooperative. No mood or psychotic symptoms. No reported side effects from medications. No physical complaints. Refused vital signs Labs reviewed. No new labs. Review of Systems All other systems reviewed negative except as stated in HPI (Limitation: poor historian) Mental Status Examination Appearance: Other (Fair grooming) Consciousness: Alert Orientation: Person, Place Motor Activity: Other (No motor abnormalities noted) Speech: Unremarkable Language: Adequate Fund of Knowledge: Inadequate Attention and Concentration: Adequate Memory: Impaired Mood: Other (Remains calm) Affect: Blunt Thought Process & Associations: Other (Remains concrete) Thought Content: Appropriate Hallucination Type: None Delusion Type: None Suicidal Ideation: No Suicidal Plan: No Suicidal Intention: No Homicidal Ideation: No Homicidal Plan: No Homicidal Intention: No Insight: Poor Judgment: Poor Assessment and Plan - Assessment (1) Schizoaffective disorder, bipolar type Code(s): F25.0 - Schizoaffective disorder, bipolar type Status: Chronic (2) Acquired intellectual disability Code(s): F79 - Unspecified intellectual disabilities Status: Chronic - Plan Plan: Continue Prolixin, carbamazepine and Ativan as ordered. Continue to monitor on the inpatient unit. Continue other medications and care as ordered. Justification for Continued Inpatient Stay: Risk for decompensation in less restrictive environment. Discharge Planning: [facility] admission date 06/07/2018 Request Healthcare Surrogate/Guardian Advocate?: Yes
[2018-06-06] MEDS: carBAMazepine 200 MG Tablet PO SCH ×2 (09:59→20:38)
--- NOTE | 2018-06-06 10:16 | P.DSPSY ---
Psychiatry Discharge Summary Inpatient Psychiatric care?: Yes Advance Directives: No Mental Health Advance Directive: No Health Care Proxy: No - Admission Admission Date: February 20, 2018 12:49 - Admission Diagnosis (1) Schizoaffective disorder, bipolar type Code(s): F25.0 - Schizoaffective disorder, bipolar type (2) Acquired intellectual disability Code(s): F79 - Unspecified intellectual disabilities Brief History: Ms. Charles is a 32-year-old female with a history of psychotic illness and intellectual disability who presents under a [place] act by law enforcement alleging that the patient wanted to be shot in the head or put to sleep. [employer] act also alleges that patient has not been eating and has not been taking medications as prescribed. Patient is well-known to the psychiatric service here from multiple previous ED visits and hospitalizations. She was most recently psychiatrically hospitalized under Dr. Cordero in December of this year. Patient seen and examined with nurse. Chart reviewed. Case discussed with nursing staff and with counselor. On my exam today, patient presents as far thinner and more disheveled than I have seen her in the past. Reviewing previous weights, it looks like she has lost about 6kg in the last 2 months. Her features are gaunt. She is extremely malodorous and clearly is not attending to basic hygiene. She is standing in front of the nursing station and refuses to go to her room for the interview. She is frankly internally stimulated and is muttering to herself. She appears quite paranoid. Patient refuses to participate in interview and retreats into the day area when I try to engage with her. Following my attempts to interview her, she begins stalking up and down the hallway yelling at unseen interlocutors, saying "get out of my fucking face! Fuck you, you cunt!" She grows increasingly restive and agitated, and I have ordered her medicated with Haldol, Ativan and Benadryl ETO and placed in locked seclusion for safety. Tobacco Use In Past 30 Days: Yes How Often Do You Have a Drink Containing Alcohol: Never Hospital Course: Patient was admitted to a locked, inpatient psychiatric unit. A general medical consultation was obtained. Appropriate precautions were in place throughout patient's hospital stay. Patient was seen and examined on the unit by psychiatry and also visited by counselor. Psychotropic medications were adjusted. The patient's underlying psychotic illness responded well to psychotropic medication management. Patient's behavior and hygiene improved with medication adjustments. A court order for placement was obtained by [facility]. Unfortunately, no accepting facility could be identified and the patient had to be referred to the [facility]. Patient's mother was informed of plan to transfer the patient to the [facility] by the counselor yesterday, and nursing staff tells me that mother has relayed this information to the patient, although it had been my hope to discuss the plan for transfer with the patient today. When I try to engage the patient, she is quite irritable and oppositional. Her speech is coprolalic. She cannot be convinced to engage in interview. No psychotic material. No medication side effects noted. No physical complaints. Patient will be transferred to the [facility] at [place] tomorrow in the tours hostess with plans for further management and disposition from there. - Discharge Discharge Date: 06/07/18 - Discharge Diagnosis (1) Schizoaffective disorder, bipolar type Diagnosis: Principal Code(s): F25.0 - Schizoaffective disorder, bipolar type Status: Chronic (2) Acquired intellectual disability Diagnosis: Secondary Code(s): F79 - Unspecified intellectual disabilities Status: Chronic Discharge Disposition: Psychiatric Facility - Discharge Instructions Discharge Diet: Regular Diet Activities You Can Perform: Weight Bearing As Tolerat - Discharge Time <= 30 minutes Mental Status Examination Appearance: Other (Fair grooming) Consciousness: Alert Orientation: Person, Place (at least) Motor Activity: Other (No abnormal motor movements noted) Speech: Unremarkable Language: Adequate Fund of Knowledge: Inadequate Attention and Concentration: Adequate Memory: Impaired Mood: Angry, Oppositional Affect: Irritable Thought Process & Associations: Other (Remains concrete) Thought Content: Other (Perseverative) Hallucination Type: None Delusion Type: None Suicidal Ideation: No Suicidal Plan: No Suicidal Intention: No Homicidal Ideation: No Homicidal Plan: No Homicidal Intention: No Insight: Poor Judgment: Poor Discharge/Advance Care Plan - Results Vital Signs: Last Vital Signs Temp 97.5 F L 06/03/18 18:45 Pulse 73 06/03/18 18:45 Resp 18 06/03/18 18:45 BP 106/68 06/03/18 18:45 Pulse Ox 97 06/03/18 18:45 Lab Results: Laboratory Results Hemoglobin A1c 5.0 % (4.3-6.0) 02/22/18 11:35 Triglycerides 85 MG/DL (42-150) 02/22/18 11:35 Cholesterol 98 MG/DL (120-200) L 02/22/18 11:35 HDL Cholesterol 29.7 MG/DL (40.0-60.0) L 02/22/18 11:35 Summary of Procedures: None done. Imaging: ITS Impressions Sinuses CT 03/25/18 00:00 CONCLUSION: 1. No acute findings on CT of the paranasal sinuses. Soft Tissue Neck CT 03/25/18 00:00 CONCLUSION: 1. Dental caries with some periapical lucencies in the right mandible with some surrounding cellulitis. No discrete abscess identified. Chest X-Ray 04/23/18 00:00 CONCLUSION: Negative examination. Pending Results: None - Medications Number of antipsychotic medications at discharge: 1 (Prolixin PO and Dec) - Discharge Care Plan Goals to Promote Your Health: * To prevent worsening of your condition and complications * To maintain your health at the optimal level Directions to Meet Your Goals: Take your medications as prescribed Follow your dietary instruction Follow activity as directed Keep your appointments as scheduled Take your immunizations and boosters as scheduled If your symptoms worsen call your PCP, if no PCP go to Urgent Care Center or Emergency Room For 10/04 questions related to your inpatient stay or results of tests pending at discharge, please contact Dr. Paulino Sellers MD at Smoking is Dangerous to Your Health. Avoid second hand smoking
== END 2018-06-07 07:30 ==
LOC: H270 02-20 12:49 → H4EA 03-25 21:10 → H260 03-28 10:21 → H270 03-29 09:54
PROVIDERS: ADMIT Psychiatry & Neurology Psychiatry; ATTEND Psychiatry & Neurology Psychiatry